=== PATIENT | female | born 1960 | race Caucasian/White ===

== ENCOUNTER → 2024-05-28 | Outpatient (CLI) | payer OTHER, SELFPAY ==
[2024-05-28 16:34] LABS: Troponin-I HS < 3 pg/mL (3.0-54.0)
== END | disposition home or self-care (01) ==
LOC: PSN 15:34
PROVIDERS: PCP Family Medicine
DX: K22.9 Disease of esophagus, unspecified (principal); R07.9 Chest pain, unspecified
CPT/HCPCS: 36415; 84484; 93005

== ENCOUNTER → 2024-06-24 | Outpatient (CLI) | payer OTHER, SELFPAY ==
--- NOTE | 2024-06-24 14:00 | ST.MBS ---
Modified Barium Swallow Patient Information Study Date: 06/24/24 Study Time: 13:00 Direct Billable Minutes: 100 Total Minutes procedure & reportin Diagnosis: K22.4 - Dyskinesia of esophagus Referring Physician: Israel Francis Reason for Referral: Objectively assess swallow function, assess risk for aspiration, and determine recommendations for least restrictive diet textures and compensatory strategies to improve safety of swallow.? Medical History: Susan Reid, a 64-year-old female, presents to [facility] for a Modified Barium Swallow Study after being referred by [facility] due to difficulty swallowing and a sensation of food getting stuck in her esophagus. She has a history of esophageal spasms and persistent throat pain and for the past 6-8 weeks, she has primarily consumed pudding and Jell-O to avoid these issues. Susan describes the stuck food sensation as mid-substernal and crushing, occasionally radiating to her left shoulder and upper arm, with pain that starts upon ingestion and persists until she swallows or regurgitates. Her medical history is significant for vitamin D and A deficiencies, ovarian cysts, overactive bladder, iron deficiency anemia, intestinal malabsorption, a history of Helicobacter pylori infection, type 2 diabetes mellitus, chronic constipation, and eosinophilic esophagitis, among other conditions. She takes Zofran as needed and dicyclomine daily, and her surgical history includes tubal ligation, total gastrectomy with Candido-en-Y esophagojejunal anastomosis, and cholecystectomy. Dentition: WNL Mental Status: WNL Respiratory Status: Oxygenating on Room Air Penetration-Aspiration Scale Penetration-Aspiration Scale: OBJECTIVE ASSESSMENT OF SWALLOW FUNCTION (QUANTITATIVE ? PER TRIAL): PENETRATION / ASPIRATION SCALE (FRENCH): 1 = does not enter airway 2 = enters airway/above vocal folds/ejected 3 = enters airway/above vocal folds/not ejected 4 = enters airway/contacts vocal folds/ejected 5 = enters airway/contacts vocal folds/not ejected 6 = enters airway/below vocal folds/ejected 7 = enters airway/below vocal folds/not ejected despite effort 8 = enters airway/below vocal folds/no effort VIDEOFLOROSCOPIC SCALE SCORE (FRENCH): Grade I = aspiration of material that has penetrated into the laryngeal vestibule, intact cough reflex Grade II = aspiration < 10 % of the bolus, intact cough reflex Grade III = aspiration of < 10 % of the bolus, reduced cough reflex or aspiration of > 10 % of the bolus, intact cough reflex Grade IV = aspiration of > 10 % of the bolus, reduced cough reflex Penetration-Aspiration Scale Score Thin Liquid via teaspoon: Result: 1= does not enter airway Thin Liquid via teaspoon Trial 2: Result: 1= does not enter airway Thin Liquid via small single sip: cup: Result: 1= does not enter airway Thin Liquid via sequential sips: cup: Result: 2= enter airway/above vocal folds/ejected [place] Thick Liquid via small single sip: cup: Result: 2= enter airway/above vocal folds/ejected [place] Thick Liquid via small single sip: cup: Result: 1= does not enter airway Pudding: Result: 1= does not enter airway Cookie: Result: 1= does not enter airway Oral Phase Labial Seal: No Labial Escape Tongue Control During Bolus Hold: Escape to lateral buccal cavity/floor of mouth Bolus Preparation/Mastication: Slow prolonged chewing/mashing with complete recollection Bolus Transport/Lingual Motion: Slowed tongue motion Oral Residue: Residue collection on oral structures Pharyngeal Phase Initiation of Pharyngeal Swallow: Bolus head at posterior laryngeal surgace of epiglottis Soft Palate Elevation: No bolus between soft palate and pharyngeal wall Laryngeal Elevation: Partial superior movement thyroid cart/partial apprx aryt-epig petiole Anterior Hyoid Excursion: Complete anterior movement Epiglottic Movement: Complete inversion Laryngeal Vestibule Closure at Height of Swallow: Complete; no air/contrast in laryngeal vestibule Pharyngeal Stripping Wave: Present - diminished Pharyngoesophageal Segment Opening: Complete distension and complete duration; no obstruction of flow Tongue Base Retraction: Narrow column of contrast between tongue base & post. pharyngeal wall Pharyngeal Residue: Collection of residue within or on pharyngeal structures Esophageal Phase Esophageal Clearance: Esophageal retention w/ retrograde flow below pharyngoesophageal seg. Diagnosis/Impression Diagnosis: esophageal dysphagia R13.14 Impression: -Laryngeal penetration was noted, which was fully ejected during sequential sips of thin liquid and NTL. This penetration caused by a delay in pharyngeal swallow onset, leading to suboptimal bolus positioning at the start of the swallow. -No aspiration was observed during the study. -Minimal pharyngeal residue was noted in the vallecula post-swallow, with a diminished pharyngeal stripping wave and reduced tongue base function contributing to the residue. The patient was able to independently swallow to clear the pharyngeal residues with multiple swallows. -The patient experienced some difficulty with half a [place] cookie, showing slowed mastication and delayed anterior-posterior transit. Multiple swallows were required to clear the cookie residue, with most of it remaining at the back of the tongue. -The patient denied any symptoms of esophageal discomfort or globus sensation during the modified barium swallow study. MOLECULAR TECHNOLOGIST observed immediate retention of liquid in the upper and mid esophagus after five sips of thin liquid, with noted retrograde flow below the upper esophageal sphincter during subsequent trials. Throughout the study, the retrograde flow increased, nearly reaching above the UES. Recommendations Diet: Regular Textures and Thin Liquids Compensatory Strategies: Small Bites, Small Sips, Slow Rate, Multiple Swallows, Alternate bites/solids and sips/liquids, Sitting upright and Remain sitting upright for 30 minutes after PO intake Recommend Repeat Modified Barium Swallow: No Need for Skilled Speech Therapy Services: No Recommended Referrals: GI Consult Education Completed: 1. Described result of evaluation. and 2. Pt understands evaluation & agrees with goals and treatment plan. Status Active ST Patient: Active Contact Information [facility] Speech Therapy:: Mary Jackman M.A. [facility]-MOLECULAR TECHNOLOGIST Speech-Language Pathologist [facility] [address] [place] [address] [phone]
== END | disposition home or self-care (01) ==
LOC: RAD 12:58
PROVIDERS: PCP Family Medicine
DX: K22.4 Dyskinesia of esophagus (principal)
CPT/HCPCS: 74230; 92611

== ENCOUNTER → 2024-07-09 | Day surgery (SDC) | payer OTHER, SELFPAY ==
[2024-07-09 08:29] VITALS: BP 108/52; PULSE 66; RESP 16; TEMP 36.6; O2SAT 99
[2024-07-09] MEDS: Lidocaine Jelly 2% 20 ML Syringe (URO-JET) 1 APPLIC (08:30)
== END | disposition home or self-care (01) ==
PROVIDERS: PCP Family Medicine; Referring Provider Family Medicine; Visit Provider Internal Medicine Gastroenterology
PROC: F00ZJWZ Instrumental Swallowing and Oral Function Assessment using Swallowing Equipment (ICD-10-PCS; CPT 43235; principal; 2024-07-09 08:25)
DX: Z53.8 Procedure and treatment not carried out for other reasons (principal)
CPT/HCPCS: 91010

== ENCOUNTER 2024-08-16 13:39 | Day surgery (SDC) | payer OTHER, SELFPAY ==
[2024-08-16] VITALS (8 sets, daily range): BP systolic 87–112; BP diastolic 57–71; PULSE 74–82; RESP 16; TEMP 36.1–36.8; O2SAT 97–99; BMI 26.2
--- NOTE | 2024-08-16 13:52 | HP.PCM_ITS ---
HPI - General General Date of Admission: 08/16/24 Date of Service: 08/16/24 Chief Complaint: dysphagia HPI Narrative 64 yo woman Pt here due to having a hard time swallowing food. States she has had esophageal spasms for years. Reports a pain in her throat all the time and has excess mucus when eating. Pt states she has L side abdominal pain and extreme fatigue. Has has irregular pattern BMs with mucus. Experiences constipation that is relieved with Dulcolax and drinking more more fluids. Pt takes Zofran prn and dicyclomine daily. She denies difficulty chewing, full upper/lower dentures. She does report difficulty pushing food back with tongue toward oropharynx. States her diet consists of pudding and jello for the last 6 weeks due to food getting stuck. Denies difficulty with these consistencies and liquids. She describes the stuck food pain as mid-substernal and crushing/grabbing with radiation occasionally to left shoulder and upper arm. She states that this pain starts as soon as she ingests something and does not go away until she can either swallow it or regurgitate back up and out. At this point in the exam, I entered an EKG and STAT troponin with 2hr reflex for her to get. [facility] Medical History Wears glasses Wears dentures Post-menopausal Depression Fatty liver Easy bruising Difficulty swallowing History of ulceration Gastric reflux Non-smoker History of edema Spasm Vitamin D deficiency Vitamin A deficiency Ovarian cyst Iron deficiency anemia Intestinal malabsorption History of Helicobacter pylori infection History of herpes labialis Type 2 diabetes mellitus Cervical dysplasia Anxiety Chronic abdominal pain Eosinophilic esophagitis Home Medications ?Medication ?Instructions ?Recorded ?Last Taken ?Type cyanocobalamin (vitamin B-12) 100 mcg IM Q7D 04/07/17 04/05/17 History 1,000 mcg/mL injection solution dicyclomine 10 mg capsule 10 mg PO TIDAC 04/07/17 Unknown History ergocalciferol (vitamin D2) 1,250 50,000 unit PO Q14D 04/07/17 Unknown History mcg (50,000 unit) capsule (Vitamin D2) tramadol 50 mg tablet 50 mg PO BID 04/07/17 Unknown History gabapentin 100 mg capsule 100 mg PO TID 04/24/24 Unknown History ondansetron HCl 4 mg tablet 4 mg PO Q6H PRN nausea and vomiting 04/24/24 Unknown History tizanidine 4 mg capsule 4 mg PO BID PRN muscle spasticity 04/24/24 Unknown History valacyclovir 1 gram tablet 1,000 mg PO DAILY PRN COLD SORE 04/24/24 Unknown History alprazolam 0.25 mg tablet 0.25 mg PO TID PRN swallowing 07/19/24 Unknown Rx difficulties 7 days #21 tabs bupropion HCl 150 mg 24 hr tablet, 150 mg PO 1200 08/15/24 Unknown History extended release citalopram 40 mg tablet 40 mg PO 1200 08/15/24 Unknown History pantoprazole 40 mg tablet,delayed 40 mg PO DAILY 08/15/24 Unknown History release Allergy/AdvReac Type Severity Reaction Status Date / Time buspirone (From BuSpar) Allergy Intermediate Other Verified 08/16/24 13:55 zolpidem (From Ambien) Allergy Intermediate Other Verified 08/16/24 13:55 meperidine (From Demerol) AdvReac HALLUCINATI Verified 08/16/24 13:55 ONS Family History Mother Diabetes Hypertension Father Cancer Emphysema lung Sister Thyroid disorder Brother Colon cancer Surgical History Hx of colonoscopy History of esophagogastroduodenoscopy (EGD) H/O tubal ligation S/P total gastrectomy and Candido-en-Y esophagojejunal anastomosis Hx of cholecystectomy Social History Smoking Status: Never smoker alcohol intake: never substance use type: does not use ROS Constitutional Constitutional: Denies fatigue, fever(s), poor appetite, weight gain or weight loss Gastrointestinal Gastrointestinal: Denies belching, bloating, change in bowel habits, change in stool character, chewing difficulty, coffee ground emesis, constipation, cramping, diarrhea, dyspepsia, dysphagia, early satiety, excessive flatus, fecal incontinence, heartburn, hematemesis, hematochezia, hemorrhoids, loose stools, melena, nausea, odynophagia, rectal bleeding, tenesmus, vomiting or weight changes Physical Exam Const alert, oriented x3, no apparent distress and healthy appearing General Appearance: cooperative GI normal to inspection, nondistended, normoactive bowel sounds, soft to palpation, non-tender and non-distended Percussion: normal to percussion Rectal Exam: deferred Assessment & Plan Assessment/Plan (1) Esophageal dysmotility: (2) Esophageal abnormality: PLAN: Plan 64-year-old comes in for evaluation of esophageal dysphagia who had a failed manometry study. She was explained alternatives, risk and benefits include not withstanding bleeding, infection, sepsis, perforation, need for more charge and . She will have an ASA of 3.
--- NOTE | 2024-08-16 14:11 | PRE.ANES_ITS ---
ASA Classification* ASA Classification ASA Classification: 2 Assessment & Plan Anesthesia* Anesthesia Assessment Anesthesia Assessment: Discussed sedation and/or anesthesia options, risks, benefits, and alternatives with patient/parents/legal guardian/POA. Questions invited. The patient/parents/legal guardian/POA seems to understand and agrees to proceed with anesthesia plan. Reviewed the physical assessment, medical history, allergy history and patient home medications list prior to surgery/procedure/anesthetic and documented any changes. Performed airway and anesthesia risk assessments. Anesthesia Type Anesthesia Type: MAC Anesthesia Focused Assessment* Temperature: 97.4 F Pulse Rate: 82 Blood Pressure: 112/71 Respiratory Rate: 16 Pulse Ox: 99 Airway Assessment Mouth opens: >3 cm Mallampati Score: II Focused Labs Anesthesia Preop lab: CBC WBC 5.6 K/mm3 (4.4-11.0) 04/07/17 12:18 RBC 4.28 M/mm3 (4.2-5.4) 04/07/17 12:18 Hgb 12.9 g/dl (12.0-15.0) 04/07/17 12:18 Hct 40.3 % (37-47) 04/07/17 12:18 Plt Count 287 K/mm3 (150-450) 04/07/17 12:18 CHEMISTRY Potassium 3.8 mmol/L (3.5-5.1) 04/07/17 12:18 Sodium 143 mmol/L (136-145) 04/07/17 12:18 BUN 11 mg/dL (7-18) 04/07/17 12:18 Creatinine 0.82 mg/dL (0.55-1.02) 04/07/17 12:18 Glucose 94 mg/dL (70-110) 04/07/17 12:18 COAG Pre-Assessment Diagnosis/Proposed Procedure Planned Operative Procedure(s): EGD Anesthesia History Anesthesia History - lead systems analyst: Anesthesia History - lead systems analyst Hx Hospitalization No 08/15/24 08:26 Any Problems With Anesthesia No 08/15/24 08:26 Cholinesterase deficiency No 08/15/24 08:26 You/Your Family Experience No 08/15/24 08:26 fever (hyperthermia) with Relationship Recent Exposure to Contagious No 08/16/24 13:55 Disease Does patient have nerve No 08/15/24 08:26 stimulator Patient instructed to have device shut off --Does patient have Pacemaker No 08/16/24 13:55 or ICD? When Was Last Pacemaker Check QUESTION #4 FULL TEXT: You/Your Family Experience fever (hyperthermia) with Anesthesia Last Oral Intake Last Oral intake: Last Oral Intake NPO since Meds taken in AM with sips of water? Meds patient instructed to take am of surgery PONV PONV - lead systems analyst: PONV - lead systems analyst Female Yes 08/15/24 08:26 HX of Motion Sickness No 08/15/24 08:26 HX of N/V After Surgery No 08/15/24 08:26 Non-Smoker Yes 08/15/24 08:26 Duration of Surgery greater No 08/15/24 08:26 than 60 minutes Number of Risk Factors 2 08/15/24 08:26 PONV Score Moderate Risk 08/15/24 08:26 Height & Weight Height & Weight: Anesthesia: Height & Weight Height 5 ft 2 in 08/16/24 13:55 Weight: 65 kg 08/16/24 13:55 Body Mass Index (BMI) 26.2 08/16/24 13:55 Respiratory Assessment Respiratory Assessment - lead systems analyst: Respiratory Tract Infection Hx - lead systems analyst Hx Respiratory Tract Infection No 08/15/24 08:26 STOP Sleep Apnea STOP Sleep Apnea - lead systems analyst: STOP Sleep Apnea - lead systems analyst Hx Hypertension No 08/15/24 08:26 Hx Sleep Apnea No 08/15/24 08:26 CPAP BIPAP Do you snore loudly (louder No 08/15/24 08:26 than talking or can be heard Do you often feel tired/ No 08/15/24 08:26 fatigued/ sleepy during daytime? Has anyone observed you stop No 08/15/24 08:26 breathing during sleep? STOP Results Negative 08/15/24 08:26 QUESTION #5 FULL TEXT : Do you snore loudly (louder than talking or can be heard through closed doors)? 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 Specify any problems ITCHING 08/15/24 08:26 Hx of Preganancy in last 3 No 08/15/24 08:26 Months Nurse Filling Out Transfusion DSCHRIBER 08/15/24 08:26 & Questions: Date: 08/15/24 08/15/24 08:26 Time: 08:27 08/15/24 08:26 Patient unable to answer at this time (ie. confused, unrespo /Reproduction History /Reproductive History - lead systems analyst: /Reproductive Hx- lead systems analyst Hx Now No 08/15/24 08:26 Gestational Age (in weeks): EDC: Hx Hx Para Hx Section SAB No 08/15/24 08:26 PFSH Medical History Wears glasses Wears dentures Post-menopausal Depression Fatty liver Easy bruising Difficulty swallowing History of ulceration Gastric reflux Non-smoker History of edema Spasm Vitamin D deficiency Vitamin A deficiency Ovarian cyst Iron deficiency anemia Intestinal malabsorption History of Helicobacter pylori infection History of herpes labialis Type 2 diabetes mellitus Cervical dysplasia Anxiety Chronic abdominal pain Eosinophilic esophagitis Home Medications ?Medication ?Instructions ?Recorded ?Last Taken ?Type cyanocobalamin (vitamin B-12) 100 mcg IM Q7D 04/07/17 04/05/17 History 1,000 mcg/mL injection solution dicyclomine 10 mg capsule 10 mg PO TIDAC 04/07/17 08/16/24 History ergocalciferol (vitamin D2) 1,250 50,000 unit PO Q14D 04/07/17 Unknown History mcg (50,000 unit) capsule (Vitamin D2) tramadol 50 mg tablet 50 mg PO BID 04/07/17 08/15/24 History gabapentin 100 mg capsule 100 mg PO TID 04/24/24 08/16/24 History ondansetron HCl 4 mg tablet 4 mg PO Q6H PRN nausea and vomiting 04/24/24 Unknown History tizanidine 4 mg capsule 4 mg PO BID PRN muscle spasticity 04/24/24 Unknown History valacyclovir 1 gram tablet 1,000 mg PO DAILY PRN COLD SORE 04/24/24 Unknown History alprazolam 0.25 mg tablet 0.25 mg PO TID PRN swallowing 07/19/24 08/16/24 Rx difficulties 7 days #21 tabs bupropion HCl 150 mg 24 hr tablet, 150 mg PO 1200 08/15/24 08/16/24 History extended release citalopram 40 mg tablet 40 mg PO 1200 08/15/24 08/16/24 History pantoprazole 40 mg tablet,delayed 40 mg PO DAILY 08/15/24 08/16/24 History release Allergy/AdvReac Type Severity Reaction Status Date / Time buspirone (From BuSpar) Allergy Intermediate Other Verified 08/16/24 13:55 zolpidem (From Ambien) Allergy Intermediate Other Verified 08/16/24 13:55 meperidine (From Demerol) AdvReac HALLUCINATI Verified 08/16/24 13:55 ONS Family History Mother Diabetes Hypertension Father Cancer Emphysema lung Sister Thyroid disorder Brother Colon cancer Surgical History Hx of colonoscopy History of esophagogastroduodenoscopy (EGD) H/O tubal ligation 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
[2024-08-16 14:20] LABS: Bedside Glucose 90 mg/dL (74-106)
[2024-08-16] MEDS: Botulinum Toxin A 100 Units Vial IJ (15:49)
[2024-08-16] MEDS: 0.9% Saline Lock 10 ML Syringe IV (15:49)
--- NOTE | 2024-08-16 16:01 | PCM.POST.ANE ---
Anesthesia: Postop Eval I Current Vital Signs Temperature: 97.4 F Pulse Rate: 78 Blood Pressure: 97/57 Respiratory Rate: 16 Pulse Ox: 97 Oxygen Delivery Method: Room Air Assessment Airway patent: Yes Spontaneous unlabored respirations: Yes Mental status: Asleep nausea: No Vomiting: No Anesthesia Complication: No Fluid Hydration Crystalloid volume administer (ml): 30 Total IV fluid infused: 30 Progress Note Anesthesia document: Postop Eval 1 completed: Yes
--- NOTE | 2024-08-16 16:05 | OP.EGD_ITS ---
Patient Name: Susan Reid Procedure Date: 08/16/2024 3:34 PM Date of : 1960 Age: 64 Procedure: Upper GI endoscopy Indications: Dysphagia Providers: Israel Francis DO Referring MD: Justen Jacobsen MD Medicines: Monitored Anesthesia Care Patient Profile: This is a 64 year old female. Refer to note in patient chart for documentation of history and physical. Patient has symptoms of dysphagia with both liquids and solids, chronic regurgitation and chronic vomiting. Complications: No immediate complications. Procedure: Pre-Anesthesia Assessment: - Prior to the procedure, a History and Physical was performed, and patient medications and allergies were reviewed. The patient is competent. The risks and benefits of the procedure and the sedation options and risks were discussed with the patient. All questions were answered and informed consent was obtained. Patient identification and proposed procedure were verified by the physician in the pre-procedure area. Mental Status Examination: alert and oriented. Airway Examination: normal oropharyngeal airway and neck mobility. Respiratory Examination: clear to auscultation. CV Examination: normal. Prophylactic Antibiotics: The patient does not require prophylactic antibiotics. Prior Anticoagulants: The patient has taken no anticoagulant or antiplatelet agents except for NSAID medication. ASA Grade Assessment: II - A patient with mild systemic disease. After reviewing the risks and benefits, the patient was deemed in satisfactory condition to undergo the procedure. The anesthesia plan was to use monitored anesthesia care (MAC). Immediately prior to administration of medications, the patient was re-assessed for adequacy to receive sedatives. The heart rate, respiratory rate, oxygen saturations, blood pressure, adequacy of pulmonary ventilation, and response to care were monitored throughout the procedure. The physical status of the patient was re-assessed after the procedure. After obtaining informed consent, the endoscope was passed under direct vision. Throughout the procedure, the patient's blood pressure, pulse, and oxygen saturations were monitored continuously. The Endoscope was introduced through the mouth, and advanced to the jejunum. The upper GI endoscopy was accomplished without difficulty. The patient tolerated the procedure well. Scope In: 3:43:11 PM Scope Out: 3:53:33 PM Total Procedure Duration Time 0 hours 10 minutes 22 seconds Findings: Abnormal motility was noted in the esophagus. The cricopharyngeus was abnormal. There are extra peristaltic waves in the esophageal body. The distal esophagus/lower esophageal sphincter is spastic, but gives up passage to the endoscope. Tertiary peristaltic waves are noted. Area was successfully injected with 100 units botulinum toxin. Evidence of a Candido-en-Y gastrojejunostomy was found. The gastrojejunal anastomosis was characterized by healthy appearing mucosa. This was traversed. The avqhf-[id number]-jqdvfye limb was characterized by healthy appearing mucosa. The jejunojejunal anastomosis was characterized by healthy appearing mucosa. The azjikfwj-lu-rvieubk limb was not examined as it could not be found. The excluded stomach was not examined as it could not be found. The examined jejunum was normal. Impression: - Abnormal esophageal motility, established achalasia. Injected with botulinum toxin. - Candido-en-Y gastrojejunostomy with gastrojejunal anastomosis characterized by healthy appearing mucosa. - Normal examined jejunum. - No specimens collected. Recommendation: - Discharge patient to home. - Resume regular diet. - Continue present medications. Procedure Code(s): --- Professional --- 90959, Esophagogastroduodenoscopy, flexible, transoral; with directed submucosal injection(s), any substance CPT copyright 2021 [employer]. All rights reserved. The codes documented in this report are preliminary and upon crab steamer review may be revised to meet current compliance requirements. Israel Francis DO 08/16/2024 4:05:13 PM This report has been signed electronically. Number of Addenda: 0 Note Initiated On: 08/16/2024 3:34 PM
--- NOTE | 2024-08-16 16:05 | OP.CCLET_ITS ---
08/16/2024 Justen Jacobsen MD Re : Upper GI endoscopy procedure for Susan Reid Dear Dr. Jacobsen This procedure was performed on Friday, August 16, 2024. My impressions and recommendations are as follows: Impressions : - Abnormal esophageal motility, established achalasia. Injected with botulinum toxin. - Candido-en-Y gastrojejunostomy with gastrojejunal anastomosis characterized by healthy appearing mucosa. - Normal examined jejunum. - No specimens collected. Recommendations : - Discharge patient to home. - Resume regular diet. - Continue present medications. My findings are described in the full procedure note, which is enclosed. If I can be of further assistance, please feel free to contact me at . Sincerely, Israel Francis, 08/16/2024 4:05:13 PM This report has been signed electronically.
--- NOTE | 2024-08-16 16:36 | PCM.POSTANE2 ---
Anesthesia Postop Eval I Sum Postop Eval Completion status Anesthesia document: Postop Eval 1 completed: Yes Anesthesia Postop Eval I Summary Anesthesia Postop Eval I Summary: Anesthesia Postop Eval I: Assessment Summary Airway patent Yes 08/16/24 16:02 [email or web address] Spontaneous unlabored Yes 08/16/24 16:02 [email or web address] respirations Mental status Asleep 08/16/24 16:02 [email or web address] nausea No 08/16/24 16:02 [email or web address] Vomiting No 08/16/24 16:02 [email or web address] Anesthesia Postop Eval I: Fluid Summary Crystalloid volume administer 30 08/16/24 16:02 [email or web address] (ml) Colloids volume administered ( ml) Blood Product volume administered (ml) Total IV fluid infused 30 08/16/24 16:02 [email or web address] Anesthesia Postop Eval I: Summary Notes Anesthesia Complication No 08/16/24 16:02 [email or web address] Anesthesia Complication Comment: Post-operative progress note Anesthesia: Postop Eval II Evaluation Mental status: Awake and Calm Pain Level: 0 nausea: No Vomiting: No Complications Anesthesia Complication: No
== END 2024-08-16 16:38 | disposition home or self-care (01) ==
LOC: EN 13:40 → AC 13:43
PROVIDERS: PCP Family Medicine; Referring Provider Family Medicine; Visit Provider Internal Medicine Gastroenterology
PROC: 0DJ08ZZ Inspection of Upper Intestinal Tract, Via Natural or Artificial Opening Endoscopic (ICD-10-PCS; CPT 43235; principal; 2024-08-16 14:55)
DX: K22.0 Achalasia of cardia (principal); E11.9 Type 2 diabetes mellitus without complications; K21.9 Gastro-esophageal reflux disease without esophagitis; Z79.899 Other long term (current) drug therapy; Z98.0 Intestinal bypass and anastomosis status
CPT/HCPCS: 43236; 82962; A4216; J0585; J2405

== ENCOUNTER → 2025-04-28 | Outpatient (CLI) | payer OTHER, SELFPAY ==
[2025-04-28 12:25] LABS: Hematocrit 35.9 % (37-47); Hemoglobin 11.6 g/dL (12.0-15.0); Immature Granulocytes Count 0.020 X10^3/uL (0.0-0.0); Mean Corp Hgb Conc 32.3 g/dL (32-36); Mean Corpuscular Volume 93.7 fL (81-99); Mean Platelet Vol. 10.8 fl (6.2-12.0); NRBC Flagged by Analyzer 0 % (0-5); Platelet Count 307 K/mm3 (150-450); RBC Distribution Width CV 13.4 % (11.6-14.6); RBC Distribution Width SD 46.1 fl (35.1-43.9); Red Blood Count 3.83 M/mm3 (4.2-5.4); White Blood Count 5.0 K/mm3 (4.4-11.0)
[2025-04-28 13:27] LABS: AST(SGOT) 18 U/L (<=31); Alanine Aminotransfer ALT/SGPT 16 U/L (<=34); Albumin, Serum 3.5 g/dL (3.4-4.8); Alkaline Phosphatase 124 U/L (35-104); Anion Gap 9 (5-15); BUN 9 mg/dL (4-19); BUN/Creat Ratio 11.8 RATIO (10-20); Calcium,Total 8.9 mg/dL (7.6-11.0); Carbon Dioxide 27.7 mmol/L (21.0-32.0); Chloride 100 mmol/L (98-108); Ferritin 81 ng/mL (22-378); Globulin 2.3 g/dL (2.2-4.2); Glucose 91 mg/dL (70-99); Potassium 4.2 mmol/L (3.3-5.1); Vitamin B12 912 pg/mL (180-914); Vitamin D,25 Hydroxy 71.4 ng/mL (30-100)
[2025-04-28 14:26] LABS: CRP < 3.00 mg/L (0.0-3.0); Iron 58 ug/dL (50-170); Lipase 14 U/L (13-75)
== END | disposition home or self-care (01) ==
LOC: LAB 11:30
PROVIDERS: PCP Family Medicine
DX: R11.0 Nausea (principal); R10.9 Unspecified abdominal pain; Z98.84 Bariatric surgery status
CPT/HCPCS: 36415; 80053; 82306; 82607; 82728; 83540; 83690; 84590; 85025; 86140

== ENCOUNTER → 2025-04-30 | Outpatient (CLI) | payer OTHER, SELFPAY ==
--- NOTE | 2025-04-30 16:45 | CT_ITS ---
PROCEDURE: ABDOMEN WITH ORAL CONT ONLY 04/30/2025 REASON FOR EXAM: LUQ PAIN TECHNIQUE: ABDOMEN WITH ORAL CONT ONLY coronal and Sagittal reconstruction series were provided. One or more dose reduction techniques were used (e.g., Automated exposure control, adjustment of the mA and/or kV according to patient size, use of iterative reconstruction technique RADIATION DOSE SUMMARY: CTDlvol: 6 mGy DLP: 201 mGycm FINDINGS: No prior studies for comparison. Oral contrast refluxes into the esophagus. Moderate hiatal hernia is present. There is a history of gastrectomy. With oral contrast administered, there is no evidence of bowel obstruction. No renal calculus. No hydronephrosis. Surgical absence of the gallbladder. Noncontrast images of the liver and spleen are unremarkable. Fatty change throughout the pancreas. CT/Abdomen WITH ORAL Cont Only IMPRESSION: Prior gastrectomy. Reflux into the esophagus. The lung bases are clear. [facility]
== END | disposition home or self-care (01) ==
LOC: CT 16:39
PROVIDERS: PCP Family Medicine
DX: R11.0 Nausea (principal); R10.9 Unspecified abdominal pain; Z98.84 Bariatric surgery status
CPT/HCPCS: 74150

== ENCOUNTER 2025-08-07 06:00 | Day surgery (SDC) | payer OTHER, SELFPAY ==
[2025-08-07] VITALS (8 sets, daily range): BP systolic 110–153; BP diastolic 65–80; PULSE 78–89; RESP 16–18; TEMP 36.3–36.6; O2SAT 97–100; BMI 21.9
--- OUTSIDE RECORDS SUMMARY | 2025-08-07 06:04 | XMS RPT_ITS | CCD ---
Author Organization [facility] Care Team Providers Care Tie Up Worker Name Role Phone Justen Darling MD Primary Care Provider Justen Darling MD Primary Care Provider Paz BAUMANN.Krystyna LINARES Unavailable Jody Cole PA-C Unavailable [phone] JUSTEN DARLING Primary Care Unavailable SAMSON PERALTA Attending Unavailable Paz COMPUTED TOMOGRAPHY SCANNER OPERATOR.Krystyna LINARES Unavailable Jody Cole PA-C Unavailable Dr. Justen Darling MD Primary Care Provider Dr. Justen Darling MD Referring Provider Yefri WASTEWATER DESIGN ENGINEERTonyaCBrenda Attending Provider Yefri WASTEWATER DESIGN ENGINEER-CBrenda Referring Provider Israel Francis Consulting Unavailable FriendIsrael Attending Unavailable Ann-Marie, Justen Primary Care Unavailable Ann-MarieJusten zapata Referring Unavailable FriendIsrael Attending Unavailable Ann-Marie, Justen Primary Care Unavailable Ann-Marie, Justen Referring Unavailable Brenda Asif Attending Unavailable Yefri, Brenda Referring Unavailable Ann-Marie, Justen Primary Care Unavailable Yefri, Brenda Referring Unavailable Ann-Marie, Justen Primary Care Unavailable Brenda Asif Attending Unavailable Falguni Arana Attending Unavailable Ann-Marie, Justen Referring Unavailable Ann-Marie, Justen Primary Care Unavailable Brenda Asif Attending Unavailable Ann-Marie, Justen Referring Unavailable Ann-Marie, Justen Primary Care Unavailable Brenda Asif Attending Unavailable Ann-Marie, Justen Referring Unavailable Ann-Marie, Justen Primary Care Unavailable JODY COLE Attending Unavailable JUSTEN DARLING Primary Care Unavailable JODY COLE Attending Unavailable JUSTEN DARLING Primary Care Unavailable JODY COLE Attending Unavailable JUSTEN DARLING Primary Care Unavailable JODY COLE Attending Unavailable JUSTEN DARLING Primary Care Unavailable JODY COLE Referring Unavailable JUSTEN DARLING Primary Care Unavailable JODY COLE Attending Unavailable JUSTEN DARLING Primary Care Unavailable JODY COLE Referring Unavailable JUSTEN DARLING Primary Care Unavailable Allergies Allergy Classification Reported Allergen(s) Allergy Type Date of Onset Reaction(s) Facility busPIRone (1 source) busPIRone Drug Allergy 9 Myalgia [facility] Iron-Dextran Complex (1 source) Iron-Dextran Complex Drug Allergy 1 Itching [facility] zolpidem (1 source) zolpidem Drug Allergy 0 Other: See Comments [facility] Work Phone: (20 sources) busPIRone; Translations: [BUSPIRONE HCL] Drug Allergy 9 Myalgia [facility] Work Phone: (20 sources) Iron-Dextran Complex; Translations: [IRON DEXTRAN] Drug Allergy 1 Itching [facility] Work Phone: (20 sources) zolpidem; Translations: [ZOLPIDEM] Drug Allergy 0 Other: See Comments [facility] Work Phone: (5 sources) busPIRone; Translations: [BUSPIRONE] Drug Allergy 9 Other [facility] Repository (5 sources) Meperidine; Translations: [MEPERIDINE] Drug Allergy 7 HALLUCINATIONS [facility] Repository (2 sources) FLUoxetine; Translations: [FLUOXETINE] Drug Allergy 5 Diarrhea [facility] (1 source) zolpidem Drug Allergy 5 [facility] Repository Medications Current Medications Medication Drug Class(es) Dates Sig (Normalized) Sig (Original) ANIMAL SHAPE VITAMINS CHEWABLE TAB (20 sources) Start: 02-20-2006 ANIMAL SHAPE VITAMINS CHEWABLE TAB takes 2 on occasion 0 02/20/2006 Active Comment on above: takes 2 on occasion Blood-Glucose Meter monitoring kit (20 sources) Start: 07-02-2021 Blood-Glucose Meter monitoring kit Indications: Controlled type 2 diabetes mellitus without complication, without long-term current use of insulin ([facility]) Glucose Meter of Choice - Kit - Dx: Type 2 DM - Controlled E11.9 1 Each 07/02/2021 Active Start: 07-02-2021 Blood-Glucose Meter monitoring kit Indications: Controlled type 2 diabetes mellitus without complication, without long-term current use of insulin ([facility]) Glucose Meter of Choice - Kit - Dx: Type 2 DM - Controlled E11.9 1 Each 0 07/02/2021 Active Comment on above: Glucose Meter of Cho ice - Kit - Dx: Type 2 DM - Controlled E11.9 24 hr buPROPion hydrochloride 150 mg extended release oral tablet (20 sources) Aminoketone Start: take 1 tablet by mouth once daily buPROPion XL (WELLBUTRIN XL) 150 mg 24 hr tablet Take 1 tablet by mouth once daily. 30 tablet 5 01/23/2025 Active Start: 08-15-2024 take 1 tablet by dinah every twenty-four hours Bupropion Hcl 150 mg tablet extended release 24 hr Active 150 mg PO 1200 August 15, 2024 1:00am Start: 06-29-2021 End: 07-26-2024 take 1 tablet by mouth once daily buPROPion XL (WELLBU LUIS XL) 150 mg 24 hr tablet Take 1 tablet by mouth once daily. 30 tablet 5 07/26/2024 Active Comment on above: Take 1 tablet by dinah once daily. cholecalciferol 1.25 mg oral capsule (20 sources) Vitamin D Start: 11-13-2023 cholecalciferol, Vitamin D3, (VITAMIN D3) 1,250 mcg (50,000 unit) cap capsule Take 1 capsule by mouth every 3 weeks. 4 capsule 3 11/13/2023 Active Start: 09-07-2021 End: 11-11-2023 cholecalciferol, Vitamin D3, (VITAMIN D3) 1,250 mcg (50,000 unit) cap capsule Take 1 capsule by mouth every 3 weeks. 4 capsule 3 10/18/2022 11/11/2023 Discontinued Comment on above: Take 1 capsule by mo [facility] every 3 weeks. citalopram 20 mg oral tablet (20 sources) Serotonin Reuptake Inhibitor Start: 04-30-2025 take 1 tablet by mouth once daily citalopram (CELEXA) 20 mg tablet Take 1 tablet by mouth once daily. 90 tablet 1 04/30/2025 Active Start: 01-23-2025 End: 08-07-2025 take 1.5 tablets by mouth once daily citalopram (CELEXA) 40 mg tablet Take 1.5 tablets by mouth once daily. 135 tablet 1 01/23/2025 08/07/2025 Active Start: 08-15-2024 End: 04-11-2025 Citalopram 40 mg tablet Disc ontinued 40 mg PO 1200 August 15, 2024 1:00am April 11, 2025 1:38pm Start: 06-29-2021 End: 11-04-2024 take 1.5 tablets by mouth once daily citalopram (CELEXA) 40 mg tablet Take 1.5 tablets by mouth once daily. 135 tablet 1 04/22/2024 Active Comment on above: Take 1.5 tablets by mouth once daily. dicyclomine hydrochloride 10 mg oral capsule (20 sources) Anticholinergic Start: 08-01-20 End: 02-26-20 take 2 capsules by mouth twice daily dicyclomine (BENTYL) 10 mg capsule Indications: Chronic abdominal pain Take 2 po BID 360 capsule 5 02/25/2025 Active Start: 04-07-2017 take 1 capsule by mo ut three times daily before mealtime Dicyclomine 10 MG capsule Active 10 mg PO THREE TIMES DAILY BEFORE MEALS April 07, 2017 12:00am Comment on above: Take 2 po BID ergocalciferol 1.25 mg oral capsule (3 sources) Provitamin D2 Compound Start: 04-07-20 17 Ergocalciferol (Vitamin D2) (Vitamin D) 50,000 UNIT capsule Active 17989 U PO Q14D April 07, 2017 12:00am FLUoxetine 40 mg oral capsule (5 sources) Serotonin Reuptake Inhibitor Start: 04-11-20 25 take 1 capsule by mouth once daily FLUoxetine (PROZAC) 40 mg capsule Take 1 capsule by mouth once daily. 30 capsule 5 04/11/2025 Active Start: 04-11-2025 take 1 capsule by mo uth once daily Fluoxetine (Prozac) 10 mg capsule Active 10 mg PO daily April 11, 2025 12:00am gabapentin 100 mg oral capsule (20 sources) Anti-epileptic Agent Start: 04-24-2024 take 1 capsule by mouth three times daily Gabapentin 100 mg capsule Active 100 mg PO THREE TIMES A DAY April 24, 2024 12:00am Start: 02-14-2023 End: 11-26-2024 gabapentin (NEURONTIN) 100 m g capsule Take two capsules in AM and one capsule in after noon and evening 360 capsule 1 07/30/2024 Active Start: 10-18-2021 End: 02-14-2023 gabapentin (NEURONTIN) 100 m g capsule Take one capsule three times a day. 90 capsule 3 05/26/2022 10/18/2022 Discontinued Comment on above: Take one capsule thr ee times a day. Take two capsules in AM and one capsule in after noon and evening hydrOXYzine hydrochloride 10 mg oral tablet (5 sources) Antihistamine Start: 04-11-20 take 1 tablet by mouth every eight hours as needed hydrOXYzine HCl (ATARAX) 10 mg tablet Take 1 tablet by mouth three times a day as needed. 90 tablet 1 04/11/2025 Active Start: 04-11-2025 take 1 capsule by mo [facility] at bedtime Hydroxyzine Pamoate (Vistaril) 25 mg capsule Active 25 mg PO AT BEDTIME April 11, 2025 12:00am LORazepam 1 mg oral tablet (3 sources) Benzodiazepine Start: 08-09-2022 End: 08-16-2022 take 1 tablet by mouth every eight hours as needed for anxiety LORazepam (ATIVAN) 1 mg tablet Indications: Panic disorder , Situational anxiety , Grief reaction Take 1 tablet by mouth every 8 hours as needed for anxiety for up to 7 days. 20 tablet 0 08/09/2022 08/16/2022 Active Start: 07-05-2022 End: 07-12-2022 take 1 tablet by mouth every eight hours as needed for anxiety LORazepam (ATIVAN) 1 mg tablet Indications: Panic disorder , Situational anxiety , Grief reaction Take 1 tablet by mouth every 8 hours as needed for anxiety for up to 7 days. 20 tablet 0 07/05/2022 07/12/2022 Active Comment on above: [facility] as needed for anxiety for up to 7 days. ondansetron 4 mg disintegrating oral tablet (20 sources) Serotonin-3 Receptor Antagonist Start: 04-11-20 End: 04-30-20 take 1 tablet by mouth every eight hours as needed ondansetron orally disintegrating (ZOFRAN ODT) 4 mg disintegrating tablet Take 1 tablet by mouth every 8 hours as needed for nausea/vomiting. 30 tablet 04/30/2025 Active Start: 01-23-2025 take 1 tablet by dinah th every eight hours as needed ondansetron orally disintegrating (ZOFRAN ODT) 4 mg disintegrating tablet Take 1 tablet by mouth every 8 hours as needed for nausea/vomiting. 30 tablet 01/23/2025 Active Start: 05-05-2024 End: 11-04-2024 take 1 tablet by mouth every eight hours as needed ondansetron orally disintegrating (ZOFRAN ODT) 4 mg disintegrating tablet Take 1 tablet by mouth every 8 hours as needed for nausea/vomiting. 30 tablet 11/04/2024 Active Start: 04-24-2024 take 1 tablet by dinah th every six hours as needed for nausea and vomiting Ondansetron Hcl 4 mg tablet Active 4 mg PO EVERY 6 HOURS as needed for nausea and vomiting April 24, 2024 12:00am Start: 09-15-2023 End: 05-03-2024 take 1 tablet by mouth every eight hours as needed ondansetron orally disintegrating (ZOFRAN ODT) 4 mg disintegrating tablet Take 1 tablet by mouth every 8 hours as needed for nausea/vomiting. 30 tablet 09/15/2023 05/03/2024 Discontinued Start: 09-15-2021 take 1 tablet by dinah th every eight hours as needed ondansetron orally disintegrating (ZOFRAN ODT) 4 mg disintegrating tablet Take 1 tablet by mouth every 8 hours as needed for nausea/vomiting. 30 tablet 0 09/15/2021 Active Comment on above: Take 1 tablet by dinah th every 8 hours as needed for nausea/vomiting. pantoprazole 40 mg delayed release oral tablet (20 sources) Proton Pump Inhibitor Start: 04-22-20 take 1 tablet by mouth once daily Pantoprazole 40 mg tablet,delayed release (DR/EC) Active 40 mg PO DAILY August 15, 2024 1:00am Start: 09-15-2023 End: 04-22-2024 take 1 tablet by mouth once daily pantoprazole DR (PROTONIX) 20 mg tablet Take 1 tablet by mouth once daily. 90 tablet 1 04/03/2024 04/22/2024 Discontinued Comment on above: Take 1 tablet by dinah once daily. polyethylene glycol 3350 46734 mg powder for oral solution (20 sources) Osmotic Laxative Start: 03-20-2018 polyethylene glycol 3350 (MIRALAX, GLYCOLAX) 17 gram/dose powder Indications: Chronic constipation Take 17 g by mouth once daily. Take one (1) capful in 8oz of liquid each day. 1 Bottle 11 03/20/2018 Active Comment on above: Take 17 g by mouth o nce daily. Take one (1) capful in 8oz of liquid each day. Syringe with Needle, Disp, (BD ECLIPSE LUER-ALIRIO SYRINGE) 1 mL 27 x 1/2" (20 sources) Start: 11-13-2023 Syringe with Needle, Disp, (BD ECLIPSE LUER-ALIRIO SYRINGE) 1 mL 27 x 1/2" USE TO INJECT ONCE A WEEK use as directed 12 Each 3 11/13/2023 Active Start: 11-14-2022 End: 11-11-2023 Syringe with Needle, Disp, ( BD ECLIPSE LUER-ALIRIO SYRINGE) 1 mL 27 x 1/2" USE TO INJECT ONCE A WEEK use as directed 12 Each 3 11/14/2022 11/11/2023 Discontinued Start: 11-14-2022 Syringe with N eedle, Disp, (BD ECLIPSE LUER-ALIRIO SYRINGE) 1 mL 27 x 1/2" USE TO INJECT ONCE A WEEK use as directed 12 Each 11/14/2022 Active Start: 04-13-2021 End: 11-14-2022 Syringe with Needle, Disp, ( BD ECLIPSE LUER-ALIRIO SYRINGE) 1 mL 27 x 1/2" USE TO INJECT ONCE A WEEK use as directed 12 Each 3 04/13/2021 11/14/2022 Discontinued Start: 04-13-2021 Syringe with N eedle, Disp, (BD ECLIPSE LUER-ALIRIO SYRINGE) 1 mL 27 x 1/2" USE TO INJECT ONCE A WEEK use as directed 12 Each 3 04/13/2021 Active Comment on above: USE TO INJECT ONCE A WEEK use as directed tiZANidine 4 mg oral tablet (20 sources) Central alpha-2 Adrenergic Agonist Start: 04-11-2025 take 1 tablet by mouth every twelve hours as needed tiZANidine (ZANAFLEX) 4 mg tablet Take 1 tablet by mouth two times a day as needed (muscle spasms). 60 tablet 5 04/11/2025 Active Start: 04-24-2024 take 1 capsule by mo ut twice daily as needed Tizanidine 4 mg capsule Active 4 mg PO TWICE A DAY as needed for muscle spasticity April 24, 2024 12:00am Start: 01-08-2024 End: 09-30-2024 take 1 tablet by mouth every twelve hours as needed tiZANidine (ZANAFLEX) 4 mg tablet Take 1 tablet by mouth two times a day as needed (muscle spasms). 60 tablet 5 09/30/2024 Active Start: 07-15-2023 End: 01-06-2024 take 1 tablet by mouth every twelve hours as needed tiZANidine (ZANAFLEX) 4 mg tablet Take 1 tablet by mouth two times a day as needed (muscle spasms). 60 tablet 5 07/15/2023 01/06/2024 Discontinued Start: 06-29-2021 End: 02-07-2023 take 1 tablet by mouth every twelve hours as needed tiZANidine (ZANAFLEX) 4 mg tablet Take 1 tablet by mouth twice daily as needed (muscle spasms). 60 tablet 5 02/07/2023 Active Comment on above: Take 1 tablet by dinah twice daily as needed (muscle spasms). Take 1 tablet by dinah th two times a day as needed (muscle spasms). valACYclovir 1000 mg oral tablet (20 sources) Herpesvirus Nucleoside Analog DNA Polymerase Inhibitor, Herpes Simplex Virus Nucleoside Analog DNA Polymerase Inhibitor, Herpes Zoster Virus Nucleoside Analog DNA Polymerase Inhibitor Start: 04-24-2024 Valacyclovir 1 gram tablet Active 1000 mg PO DAILY as needed for COLD SORE April 24, 2024 12:00am Start: 10-28-2020 End: 08-08-2024 valACYclovir (VALTREX) 1 gra m tablet Indications: Herpes simplex virus (HSV) infection Take 2 tablets by mouth two times a day. For total of 2 doses. 4 tablet 5 08/08/2024 Active Comment on above: Take 2 tablets by mo uth twice daily. For total of 2 doses. Take 2 tablets by [facility] two times a day. For total of 2 doses. vitamin b12 1 mg/ml injectable solution (20 sources) Vitamin B12 Start: 11-13-19 inject 1 mL by intramuscular injection every week cyanocobalamin 1,000 mcg/mL INJECT 1 ML INTRAMUSCULARLY ONCE EVERY WEEK 4 mL 4 11/13/2023 Active Start: 04-13-2021 End: 11-11-2023 inject 1 mL by intramuscular injection every week cyanocobalamin 1,000 mcg/mL INJECT 1 ML INTRAMUSCULARLY ONCE EVERY WEEK 4 mL 4 11/14/2022 11/11/2023 Discontinued Start: 04-07-2017 inject 100 ug by int ramuscular injection every week Cyanocobalamin (Vitamin B-12) 1,000 MCG/ML solution Active 100 ug IM Q7D April 07, 2017 12:00am Comment on above: INJECT 1 ML INTRAMUS CULARLY ONCE EVERY WEEK Completed/Discontinued Medications Medication Drug Class(es) Dates Sig (Normalized) Sig (Original) ALPRAZolam 0.25 mg oral tablet (6 sources) Benzodiazepine Start: 07-19-2024 End: 04-11-2025 take 1 tablet by mouth three times daily as needed Alprazolam 0.25 mg tablet Discontinued 0.25 mg PO THREE TIMES A DAY as needed for swallowing difficulties 21 7 1 September 02, 2024 1:59pm April 11, 2025 1:38pm celecoxib 50 mg oral capsule (3 sources) Nonsteroidal Anti-inflammatory Drug Start: 04-07-2017 End: 08-15-2024 Celecoxib (Celebrex) 50 MG capsule Discontinued 40 mg PO DAILY April 07, 2017 12:00am August 15, 2024 9:40am 24 hr oxybutynin chloride 10 mg extended release oral tablet (20 sources) Cholinergic Muscarinic Antagonist Start: 06-29-2021 End: 02-14-2023 take 1 tablet by mouth once daily oxybutynin ER (DITROPAN XL) 10 mg 24 hr tablet Indications: OAB (overactive bladder) Take 1 tablet by mouth once daily. 30 tablet 5 06/29/2021 02/14/2023 Discontinued (Lack of Efficacy) Comment on above: Take 1 tablet by [facility] once daily. predniSONE 10 mg oral tablet (3 sources) Start: 04-03-2024 End: 04-22-2024 predniSONE (DELTASONE) 10 mg tablet Take 6 tabs by mouth for 3 days then 4 tabs a day for 3 days then 2 tabs a day for 3 days and then 1 tab a day for 3 days. 39 tablet 04/03/2024 04/22/2024 Discontinued traMADol hydrochloride 50 mg oral tablet (20 sources) Opioid Agonist Start: 03-30-2025 End: 05-30-2025 take 1 tablet by mouth twice daily as needed traMADol (ULTRAM) 50 mg tablet Indications: Chronic abdominal pain Take 1 tablet by mouth two times a day as needed for up to 30 days. 60 tablet 03/31/2025 04/30/2025 Discontinued Start: 01-23-2025 End: 03-27-2025 take 1 tablet by mouth twice daily as needed traMADol (ULTRAM) 50 mg tablet Indications: Chronic abdominal pain Take 1 tablet by mouth two times a day as needed for up to 30 days. 60 tablet 02/25/2025 03/26/2025 Discontinued Start: 04-07-2017 End: 12-29-2024 take 1 tablet by mouth twice daily as needed traMADol (ULTRAM) 50 mg tablet Indications: Chronic abdominal pain Take 1 tablet by mouth two times a day as needed for up to 30 days. 60 tablet 10/30/2024 11/25/2024 Discontinued Comment on above: Take 1 tablet by dinah th twice daily as needed for up to 30 days. Do not start before November 29, 2021. Take 1 tablet by dinah th twice daily as needed for up to 30 days. Take 1 tablet by dinah th twice daily as needed for up to 30 days. Do not start before December 30, 2021. Take 1 tablet by dinah th twice daily as needed for up to 30 days. Do not start before January 28, 2022. Take 1 tablet by dinah th twice daily as needed for up to 30 days. Do not start before May 26, 2022. Take 1 tablet by dinah th twice daily as needed for up to 30 days. Do not start before June 25, 2022. Take 1 tablet by dinah th twice daily as needed for up to 30 days. Do not start before July 23, 2022. Take 1 tablet by dinah th twice daily as needed for up to 30 days. Do not start before November 17, 2022. Take 1 tablet by dinah th twice daily as needed for up to 30 days. Do not start before December 17, 2022. Take 1 tablet by dinah th twice daily as needed for up to 30 days. Do not start before January 14, 2023. Take 1 tablet by dinah th twice daily as needed for up to 30 days. Do not start before March 18, 2023. Take 1 tablet by dinah th twice daily as needed for up to 30 days. Do not start before April 17, 2023. Take 1 tablet by dinah th twice daily as needed for up to 30 days. Do not start before May 17, 2023. Take 1 tablet by dinah th two times a day as needed for up to 30 days. Do not start before June 17, 2023. Take 1 tablet by dinah th two times a day as needed for up to 30 days. Do not start before July 17, 2023. Take 1 tablet by dinah th two times a day as needed for up to 30 days. Do not start before August 16, 2023. Take 1 tablet by dinah th two times a day as needed for up to 30 days. Take 1 tablet by dinah th two times a day as needed for up to 30 days. Do not start before November 12, 2023. Problems Active Problems Problem Classification Problem Date Documented Da te Episodic/Chronic Adjustment disorders (2 sources) Grief finding; Translations: [Adjustment disorder with depressed mood] Chronic Anxiety disorders (20 sources) Mixed anxiety and depressive disorder; Translations: [Anxiety disorder, unspecified] Onset: 12-20-2013 10-25-2017 Chronic Diabetes mellitus without complication (20 sources) Type 2 diabetes mellitus without complication; Translations: [Type 2 diabetes mellitus without complications] Onset: 04-25-2017 04-25-2017 Chronic Disorders of lipid metabolism (1 source) Raised low density lipoprotein cholesterol; Translations: [Pure hypercholesterolemi a, unspecified] Chronic Esophageal disorders (20 sources) Eosinophilic esophagitis; Translations: [Eosinophilic esophagitis] Onset: 05-11-2016 08-31-2021 Chronic Genitourinary symptoms and ill-defined conditions (2 sources) Microscopic hematuria; Translations: [Other microscopic hematuria] Onset: 07-10-2025 10-09-2024 Episodic Immunity disorders (20 sources) Sarcoidosis; Translations: [Sarcoidosis, unspecified] 08-30-2021 Chronic Immunizations and screening for infectious disease (1 source) Encounter for immunization; Translations: [Encounter for immunization] Onset: 07-10-2025 Episodic Menstrual disorders (20 sources) Menometrorrhagia; Translations: [Excessive and frequent menstruation with irregular cycle] Onset: 06-30-2011 12-17-2014 Chronic Miscellaneous mental health disorders (20 sources) Primary insomnia; Translations: [Primary insomnia] Onset: 10-25-2017 10-25-2017 Chronic Mood disorders (1 source) Mood disorders; Translations: [Anxiety and depression] Onset: 10-25-2017 Nausea and vomiting (7 sources) Nausea; Translations: [Nausea] Onset: 07-10-2025 04-11-2025 Episodic Nonspecific chest pain (6 sources) Chest pain at rest; Translations: [Chest pain, unspecified] 05-28-2024 Episodic Nutritional deficiencies (20 sources) Vitamin D deficiency; Translations: [Vitamin D deficiency, unspecified] Onset: 12-18-2014 12-18-2014 Chronic Osteoporosis (20 sources) Senile osteoporosis; Translations: [Age-related osteoporosis without current pathological fracture] Onset: 05-19-2020 05-19-2020 Chronic Other connective tissue disease (1 source) Swelling of left lower limb; Translations: [Other specified soft tissue disorders] 04-22-2024 Episodic Other diseases of bladder and urethra (20 sources) Overactive bladder; Translations: [Overactive bladder] Onset: 05-28-2019 05-19-2020 Chronic Other gastrointestinal disorders (20 sources) Intestinal malabsorption; Translations: [Intestinal malabsorption, unspecified] Onset: 06-23-2015 05-19-2020 Chronic Other gastrointestinal disorders (20 sources) Malabsorption - iron; Translations: [Intestinal malabsorption, unspecified] Onset: 12-11-2020 12-25-2020 Chronic Other gastrointestinal disorders (6 sources) Malabsorption syndrome; Translations: [Other intestinal malabsorption] Chronic Other gastrointestinal disorders (1 source) Other intestinal malabsorption; Translations: [Other specified intestinal malabsorption (HCC)] Onset: 05-19-2020 Chronic Other gastrointestinal disorders (2 sources) Intestinal malabsorption, unspecified; Translations: [Malabsorption of iron (HCC)] Onset: 12-25-2020 Chronic Other gastrointestinal disorders (1 source) Abdominal bloating; Translations: [Abdominal distension (gaseous)] Episodic Other gastrointestinal disorders (1 source) Dysphagia; Translations: [Dysphagia, unspecified] Episodic Other gastrointestinal disorders (2 sources) Constipation, unspecified; Translations: [Constipation, unspecified] Onset: 11-10-2024 Episodic Other gastrointestinal disorders (1 source) Bariatric surgery status; Translations: [Bariatric surgery status] Onset: 07-10-2025 Episodic Other liver diseases (3 sources) Alkaline phosphatase raised; Translations: [Abnormal levels of other serum enzymes] Episodic Other nervous system disorders (20 sources) Piriformis syndrome; Translations: [Lesion of sciatic nerve, unspecified lower limb] Onset: 04-29-2015 05-11-2016 Chronic Other nervous system disorders (1 source) Other chronic pain; Translations: [Chronic abdominal pain] Onset: 05-05-2024 Chronic Residual codes; unclassified (1 source) Family history of cancer of colon; Translations: [Family history of malignant neoplasm of digestive organs] Episodic Residual codes; unclassified (1 source) Early satiety; Translations: [Early satiety] Episodic Past or Other Problems Problem Classification Problem Date Documented Da te Episodic/Chronic Abdominal pain (20 sources) Chronic abdominal pain; Translations: [Unspecified abdominal pain] Onset: 12-20-2013 Resolved: 02-10-2016 Episodic Deficiency and other anemia (20 sources) Iron deficiency anemia; Translations: [Iron deficiency anemia, unspecified] Onset: 03-03-2011 12-25-2020 Episodic Deficiency and other anemia (20 sources) Anemia; Translations: [Anemia, unspecified] Onset: 04-28-2015 08-30-2021 Episodic Deficiency and other anemia (1 source) Anemia, unspecified; Translations: [Anemia, unspecified type] Onset: 08-30-2021 Episodic Deficiency and other anemia (1 source) Iron deficiency anemia, unspecified; Translations: [Iron deficiency anemia, unspecified iron deficiency anemia type] Onset: 12-25-2020 Episodic Esophageal disorders (20 sources) Achalasia of esophagus; Translations: [Achalasia of cardia] Onset: 08-19-2024 08-19-2024 Episodic Intestinal infection (20 sources) Infection due to resistant bacteria; Translations: [Other specified bacterial intestinal infections] Onset: 12-28-2020 Resolved: 02-14-2023 12-28-2020 Episodic Nutritional deficiencies (20 sources) Cobalamin deficiency; Translations: [Deficiency of other specified B group vitamins] Onset: 12-18-2014 12-18-2014 Episodic Other aftercare (1 source) Other half-way (current) drug therapy; Translations: [Medication management] Onset: 12-29-2021 Episodic Other and unspecified benign neoplasm (20 sources) History of polyp of colon; Translations: [Personal history of colonic polyps] Onset: 12-17-2014 12-17-2014 Episodic Other gastrointestinal disorders (20 sources) Chronic constipation; Translations: [Other constipation] Onset: 12-20-2013 12-17-2014 Episodic Other gastrointestinal disorders (20 sources) Esophageal dysphagia; Translations: [Other dysphagia] Onset: 04-05-2018 04-05-2018 Episodic Other gastrointestinal disorders (1 source) Dysphagia, unspecified; Translations: [Dysphagia, unspecified] Onset: 09-14-2024 Episodic Other infections; including parasitic (20 sources) Personal history of other infectious and parasitic diseases; Translations: [History of COVID-19] Onset: 09-15-2021 12-29-2021 Episodic Other infections; including parasitic (20 sources) History of Helicobacter pylori infection; Translations: [Personal history of other infectious and parasitic diseases] Onset: 02-14-2023 02-14-2023 Episodic Other inflammatory condition of skin (20 sources) Oral lichen planus; Translations: [Other lichen planus] Onset: 12-20-2013 05-11-2016 Episodic Other non-traumatic joint disorders (20 sources) Bilateral hip joint pain; Translations: [Pain in right hip] Onset: 10-25-2017 11-14-2018 Episodic Other screening for suspected conditions (not mental disorders or infectious disease) (20 sources) Patient encounter status; Translations: [Encounter for screening mammogram for malignant neoplasm of breast] Onset: 12-25-2020 12-25-2020 Episodic Residual codes; unclassified (20 sources) FH: Thyroid disorder; Translations: [Family history of other endocrine, nutritional and metabolic diseases] Onset: 12-29-2021 Episodic Spondylosis; intervertebral disc disorders; other back problems (20 sources) Lumbago with sciatica; Translations: [Lumbago with sciatica, left side] Onset: 04-29-2015 06-02-2020 Episodic Unclassified (20 sources) Regurgitation; Translations: [Regurgitation] Onset: 02-10-2016 Resolved: 02-10-2016 02-10-2016 Unclassified (1 source) Patient encounter status 10-12-2024 Viral infection (20 sources) Verruca vulgaris of skin of scalp; Translations: [Viral wart, unspecified] Onset: 04-29-2015 05-11-2016 Episodic Results Test Name Value Interpretation Reference Range Facility Bacteria Ur Culton 5 Bacteria identified Cx Nom (U) ORGANISM ID: 1 10,000 -<50,000 CFU/ml Mixed microbiota No further workup Normal [facility] Comment on above: Performed By: #### 6 30-4 ####[facility] [id number] [place] [address] [place] Basic metabolic 2000 panelon 07-10-2025 Anion gap [Moles/Vol] 9 mmol/L Normal 8-15 [facility] Comment on above: Order Comment: Speci men Type: BLOOD SPECIMENOrdering Facility: [facility] Address: [address] [place] [address] Performed By: #### 2 4321-2 ####[facility] [id number] [place] [address] [place] Calcium [Mass/Vol] 9.1 mg/dL Normal 8.5-10.2 [facility] Comment on above: Order Comment: Speci men Type: BLOOD SPECIMENOrdering Facility: [facility] Address: [address] [place] [address] Performed By: #### 2 4321-2 ####[facility] [id number] [place] [address] [place] Chloride [Moles/Vol] 102 mmol/L Normal 98-107 [facility] Comment on above: Order Comment: Speci men Type: BLOOD SPECIMENOrdering Facility: [facility] Address: [address] [place] [address] Performed By: #### 2 4321-2 ####[facility] [id number] [place] [address] [place] CO2 [Moles/Vol] 26 mmol/L Normal 22-30 [facility] Comment on above: Order Comment: Speci men Type: BLOOD SPECIMENOrdering Facility: [facility] Address: [address] [place] [address] Performed By: #### 2 4321-2 ####[facility] [id number] [place] [address] [place] Creatinine [Mass/Vol] 0.87 mg/dL Normal 0.58-0.96 [facility] Comment on above: Order Comment: Speci men Type: BLOOD SPECIMENOrdering Facility: [facility] Address: [address] [place] [address] Performed By: #### 2 4321-2 ####[facility] [id number] [place] [address] [place] eGFRcr SerPlBld CKD-EPI 2020 75 mL/min/1.73m??? Normal >=60 [facility] Comment on above: Order Comment: Speci men Type: BLOOD SPECIMENOrdering Facility: [facility] Address: [address] [place] [address] Result Comment: Irma mated Glomerular Filtration Rate (eGFR) is calculated using the 2020 CKD-EPI creatinine equation. This equation utilizes serum creatinine, sex, and age as parameters. The creatinine assay has traceable calibration to isotope dilution-mass spectrometry. Refer to KDIGO guidelines for clinical interpretation. In patients with unstable renal function, e.g. those with acute kidney injury, the eGFR may not accurately reflect actual GFR. Performed By: #### 2 4321-2 ####[facility] [id number] [place] [address] [place] Glucose [Mass/Vol] 77 mg/dL Normal 74-99 [facility] Comment on above: Order Comment: Speci men Type: BLOOD SPECIMENOrdering Facility: [facility] Address: [address] [place] [address] Result Comment: The [place] Diabetes Association (ADA) provides guidance for cutoff values for fasting glucose and random glucose. The ADA defines fasting as no caloric intake for at least 8 hours. Fasting plasma glucose results between 100 to 125 mg/dL indicate increased risk for diabetes (prediabetes). Fasting plasma glucose results greater than or equal to 126 mg/dL meet the criteria for diagnosis of diabetes. In the absence of unequivocal hyperglycemia, results should be confirmed by repeat testing. In a patient with classic symptoms of hyperglycemia or hyperglycemic crisis, random plasma glucose results greater than or equal to 200 mg/dL meet the criteria for diagnosis of diabetes. Reference: Standards of Medical Care in Diabetes 2016, [place] Diabetes Association. Diabetes Care. 2016.39(Suppl 1). Performed By: #### 2 4321-2 ####[facility] [id number] [place] [address] [place] Potassium [Moles/Vol] 4.4 mmol/L Normal 3.7-5.1 [facility] Comment on above: Order Comment: Speci men Type: BLOOD SPECIMENOrdering Facility: [facility] Address: [address] [place] [address] Performed By: #### 2 1-2 ####[facility] [id number] [place] [address] [place] Sodium [Moles/Vol] 137 mmol/L Normal 136-144 [facility] Comment on above: Order Comment: Speci men Type: BLOOD SPECIMENOrdering Facility: [facility] Address: [address] [place] [address] Performed By: #### 2 1-2 ####[facility] [id number] [place] [address] [place] Urea nitrogen [Mass/Vol] 11 mg/dL Normal 7-21 [facility] Comment on above: Order Comment: Speci men Type: BLOOD SPECIMENOrdering Facility: [facility] Address: [address] [place] [address] Performed By: #### 2 4321-2 ####[facility] [id number] [place] [address] [place] CNOVon 07-10-2025 CNOV Office Visit (FAMPWS ) SUSAN REYES ([id number]) 1960 F Date Time Provider Department 07/10/25 9:00 AM [facility] During your visit today, we recorded the following information about you: Temperature Pulse Respiration Blood pressure 98 degrees 62/minute 16/minute 102/68 Weight Height 55.3 kg 1.565 m Jody Cole PA-C 07/10/2025 10:59 AM Signed Chief Complaint Patient presents with: Yearly Exam HPI Susan Reyes is a 65 year old female who presents here today for physical. Patient with hx of DM2, dysphagia, b12, insomnia, osteoporosis, anemia, depression/anxiety, and those as below. Diabetes Mellitus: - Checks blood sugars about once a week; readings in the 90s, occasionally up to 115. - Needs to schedule a diabetic eye exam. Osteoporosis: - Has not had a bone density scan in a few years. Urinary Frequency: - Feels like she has a UTI all the time. - Increased urinary frequency and urgency, with no waiting when she has to go. - Nocturia has been better but returned in the last couple of nights. Weight Loss: - Concerned about rapid weight loss. - Weight has been stable since April. - Does not feel hungry, eats out of habit. - History of binge eating and weighing over 200 lbs before gastrectomy. - Believes weight loss may be due to stress. - Has follow up with Gastro later today. Last 3 Encounter Wt Readings: Date: Wt: 07/10/2025 55.3 kg (122 lb) 04/30/2025 55.7 kg (122 lb 12.8 oz) 01/23/2025 57.6 kg (127 lb) Past medical history, appointments, medications, allergies reviewed. Previous Medical History PAST MEDICAL HISTORY Diagnosis Date Absolute anemia 04/28/2015 Had total Gastrectomy due to multiple polyps. Has malabsorption since. Achalasia 08/19/[address] Friend: Botox inject 08/2024 Age-related osteoporosis without current pathological fracture Anxiety and depression B12 deficiency 12/18/2014 Cervical dysplasia, moderate Chronic abdominal pain 12/20/2013 Secondary to post surgical adhesions. Takes gabapentin daily and tramadol PRN.. Controlled substance agreement signed 05/16/18, updated 04/13/2021 Chronic constipation 12/20/2013 Controlled type 2 diabetes mellitus without complication, without long-term current use of insulin ([facility]) 04/25/2017 Ophthalmology: Dr. [facility]. COVID-19 virus infection 09/15/202109/2021 Disorder of sacrum 07/27/2015 Encounter for diabetic foot exam ([facility]) 10/13/2018 Eosinophilic esophagitis 05/11/2016 Family history of thyroid disease 12/29/2021 Two sisters with hypothyroidism and one with Graves Dz. Gastric polyps H/O herpes labialis 08/12/2018 Herpes simplex virus (HSV) infection 05/28/2019 History of colonic polyps 12/17/2014 History of COVID-19 09/15/202109/2021 History of Helicobacter pylori infection 02/14/2023 Infection due to clarithromycin resistant Helicobacter pylori 12/28/202012/2020 Intestinal malabsorption ([facility]) 06/23/2015 Iron deficiency anemia 03/03/2011 Left-sided low back pain without sciatica 04/29/2015 Malabsorption of iron ([facility]) 12/11/2020 Menometrorrhagia 06/30/2011 OAB (overactive bladder) 05/28/2019 Oral lichen planus 12/20/2013 Ovarian cyst, right Pain of both hip joints 10/25/2017 Piriformis syndrome 04/29/2015 Primary insomnia 10/25/2017 Right-sided low back pain without sciatica 08/17/2016 Sarcoidosis Vitamin A deficiency 12/19/2014 Vitamin D deficiency 12/18/2014 Wart of scalp 04/29/2015 Previous Surgical History PAST SURGICAL HISTORY Procedure Laterality Date *STRESS TEST PC 05/11/2017 WNL CHOLECYSTECTOMY COLONOSCOPY 03/30/2005 normal with hemorrhoids COLONOSCOPY 01/07/2010 normal COLONOSCOPY 02/22/2022 COLONOSCOPY FLX DX W/COLLJ SPEC WHEN PFRMD 05/12/2016 Colonoscopy mac 5 year repeat not [address] Tong CONIZATION OF CERVIX LEEP EXCISION EGD 03/24/2005 nonspecific esophagitis EGD 01/05/2010 normal EGD 02/22/2022 EGD 01/20/2021 Normal ESOPHAGOGASTRODUODENOSCOPY TRANSORAL DIAGNOSTIC 02/10/2016 EGD mac PAST SURGICAL HISTORY OF 2002 gastricectomy, with jose daniel en Y resection PAST SURGICAL HISTORY OF iron infusions, Several infusions S BALLOON,UTERINE ABLATION 12983 08/25/2011 TRANSFUSION Several Trasfusions TUBAL LIGATION, Family History FAMILY HISTORY Problem Relation Age of Onset Diabetes Mother Hypertension Mother Cancer Father lymphatic Emphysema Father Hypothyroidism Sister Hypothyroidism Sister Graves Disease Sister Cancer Brother other (Mennigitis) Brother Colon Cancer Brother middle colon Cancer Brother stomach Heart disease Brother Patient Allergies ALLERGIES Allergen Reactions Iron Dextran Itching Fluoxetine Diarrhea Ambien [Zolpidem] Other: See Comments Nightmares. Buspar [Buspirone H* Myalgia Current Medications (more content not included)... Normal [facility] Gastroenterology Visit Repor ton 07-10-2025 Gastroenterology Visit Report [facility] [address] [place] [address] OFFICE VISIT Date of Service: 07/10/25 MR#: [id number] Acct: [id number] Name: SUSAN REYES Rep #: [id number] : 1960 Provider: MAT Mendoza Age/Sex: 65/F [place] [facility] Status: Signed Intake Vital Signs 08/16/24 13:55 07/10/25 12:30 Height 5 ft 2 in Weight: 122 lb Intake Visit Reasons: FU Chief Complaint: Dysphagia Track Service Worker Required: No Allergies buspirone (From BuSpar) Allergy (Intermediate, Verified 04/11/25 13:41) Other zolpidem (From Ambien) Allergy (Intermediate, Verified 04/11/25 13:41) Other meperidine (From Demerol) Adverse Reaction (Verified 04/11/25 13:41) HALLUCINATIONS Medications ???Medication ???Instructions ???Recorded ???Confirmed ???Type cyanocobalamin (vitamin B-12) 100 mcg IM Q7D 04/07/17 07/10/25 H istory 1,000 mcg/mL injection solution dicyclomine 10 mg capsule 10 mg PO TIDAC 04/07/17 07/10/25 H istory ergocalciferol (vitamin D2) 1,250 50,000 unit PO Q14D 04/07/1702/26 History mcg (50,000 unit) capsule (Vitamin D2) tramadol 50 mg tablet 50 mg PO BID 04/07/17 07/10/25 His tory gabapentin 100 mg capsule 100 mg PO TID 04/24/24 07/10/25 Hi story ondansetron HCl 4 mg tablet 4 mg PO Q6H PRN nausea and vomitin g 04/24/24 07/10/25 History tizanidine 4 mg capsule 4 mg PO BID PRN muscle spasticity 04/24/24 07/10/25 History valacyclovir 1 gram tablet 1,000 mg PO DAILY PRN COLD SORE 07/10/25 History bupropion HCl 150 mg 24 hr tablet, 150 mg PO 1200 08/15/24 07/10/25 History extended release pantoprazole 40 mg tablet,delayed 40 mg PO DAILY 08/15/24 07/10/25 History release hydroxyzine pamoate 25 mg capsule 25 mg PO QHS 04/11/25 07/10/25 Hi story (Vistaril) PFSH Medical History Wears glasses Wears dentures Post-menopausal Depression Fatty liver Easy bruising Difficulty swallowing History of ulceration Gastric reflux Non-smoker History of edema Spasm Vitamin D deficiency Vitamin A deficiency Ovarian cyst Iron deficiency anemia Intestinal malabsorption History of Helicobacter pylori infection History of herpes labialis Type 2 diabetes mellitus Cervical dysplasia Anxiety Chronic abdominal pain Eosinophilic esophagitis Surgical History Hx of colonoscopy History of esophagogastroduodenoscopy (EGD) H/O tubal ligation S/P total gastrectomy and Jose Daniel-en-Y esophagojejunal anastomosis Hx of cholecystectomy Family History Mother Diabetes Hypertension Father Cancer Emphysema lung Sister Thyroid disorder Brother Colon cancer Social History Smoking Status: Never smoker alcohol intake: never substance use type: does not use HPI HPI Chief Complaint: Dysphagia Details: SUSAN REYES, is a 65 F who presents to the office today for follow-up. 07.09.24 esophageal manometry-100% failure of swallows. Complete failure of peristalsis. Possible autoimmune rheumatological disorder, like scleroderma. Or symptomatic GERD. Recommend EGD. 08.16.24 EGD - Abnormal esophageal motility, established achalasia. Injected with botulinum toxin. - Jose Daniel-en-Y gastrojejunostomy with gastrojejunal anastomosis characterized by healthy appearing mucosa. - Normal examined jejunum. - No specimens collected. Last office visit with Brenda Asif [employer] for nausea not dependent on oral intake. She has left upper quadrant abdominal pain. Patient notes 30 pound weight loss since her EGD due to cutting out certain foods. CT abdomen pelvis 04/30/2025Prior gastrectomy. Reflux into the esophagus. The lung bases are clear. Labs 05/06/25; hemoglobin 11.6, alkaline phosphatase 124, otherwise normal OV 07/09/2025 -nausea is getting better -Worsening dysphagia, food getting stuck with every meal, endorses regurgitation -concerned about weight loss (20 lbs over the past 6 months) denies lifestyle changes -constipation alternating with loose stools -BM every other day -taking stool softener for constipation -colonoscopy around 4-5 years ago -brother had colon cancer 39 ROS Const Constitutional: Positive for fatigue and weight change (loss); No fever(s) ENT ENT: Positive for difficulty swallowing Gastro GI: Positive for abdominal pain, constipation, diarrhea, difficulty swallowing, nausea/dyspepsia and vomiting; No belching, bloating, change in bowel habits, change in stool character, coffee ground emesis, cramping, heartburn, feeling full early, excessive flatus, incontinent of stools, Vomiting blood/hematemesis, Blood in stool, l (more content not included)... Normal [facility] HbA1c (Bld)on 07-10-2025 Average glucose Estimated from glycated hemoglobin (Bld) [Mass/Vol] 123 mg/dL Normal [facility] Comment on above: Order Comment: Speci men Type: BLOOD SPECIMENOrdering Facility: [facility] Address: [address] [place] [address] [place] [address] Result Comment: eAG: (Estimated average glucose) is a calculated value from HgbA1c and is telephone service representative of the average blood glucose level in the last 2-3 month period. Performed By: #### 5 5454-3 ####[facility] [id number] [place] [address] [place] HbA1c (Bld) [Mass fraction] 5.9 % High 4.3-5.6 [facility] Comment on above: Order Comment: Speci men Type: BLOOD SPECIMENOrdering Facility: [facility] Address: [address] [place] [address] Result Comment: [place] Diabetes Association guidelines indicate that patients with HgbA1c in the range 5.7-6.4% are at increased risk for development of diabetes, and intervention by lifestyle modification may be beneficial. HgbA1c greater or equal to 6.5% is considered diagnostic of diabetes. Performed By: #### 5 5454-3 ####[facility] [id number] [address] [place] Urinalysis complete panel (U )on 07-10-2025 Bacteria LM.HPF (Urine sed) [#/Area] Negative Normal Negative [facility] Comment on above: Order Comment: Speci men Type: URINE SPECIMENOrdering Facility: [facility] Address: [address] [place] [address] Performed By: #### 2 4356-8 ####[facility] [id number] [address] [place] Bilirubin Ql (U) Negative Normal Negative [facility] Comment on above: Order Comment: Speci men Type: URINE SPECIMENOrdering Facility: [facility] Address: [address] [place] [address] Performed By: #### 2 4356-8 ####[facility] [id number] [address] [place] Clarity (Unsp spec) Clear Normal Clear [facility] Comment on above: Order Comment: Speci men Type: URINE SPECIMENOrdering Facility: [facility] Address: [address] [place] [address] Performed By: #### 2 4356-8 ####[facility] [id number] [address] [place] Color (U) Yellow Normal Yellow [facility] Comment on above: Order Comment: Speci men Type: URINE SPECIMENOrdering Facility: [facility] Address: [address] [place] [address] Performed By: #### 2 4356-8 ####[facility] [id number] [address] [place] Epithelial cells LM.HPF (Urine sed) [#/Area] None Seen Normal [facility] Comment on above: Order Comment: Speci men Type: URINE SPECIMENOrdering Facility: [facility] Address: [address] [place] [address] Performed By: #### 2 4356-8 ####[facility] [id number] [address] [place] Glucose Test strip (U) [Mass/Vol] Negative Normal Negative [facility] Comment on above: Order Comment: Speci men Type: URINE SPECIMENOrdering Facility: [facility] Address: [address] [place] [address] Performed By: #### 2 4356-8 ####[facility] [id number] [address] [place] Hemoglobin Ql (U) Negative Normal Negative [facility] Comment on above: Order Comment: Speci men Type: URINE SPECIMENOrdering Facility: [facility] Address: [address] [place] [address] Performed By: #### 2 4356-8 ####[facility] [id number] [address] [place] Hyaline casts (Urine sed) [#/Area] 0 /[LPF] Normal 0 /LPF [facility] Comment on above: Order Comment: Speci men Type: URINE SPECIMENOrdering Facility: [facility] Address: [address] [place] [address] Performed By: #### 2 4356-8 ####[facility] [id number] [place] [address] [place] Ketones Ql (U) Negative Normal Negative [facility] Comment on above: Order Comment: Speci men Type: URINE SPECIMENOrdering Facility: [facility] Address: [address] [place] [address] Performed By: #### 2 4356-8 ####[facility] [id number] [place] [address] [place] Leukocyte esterase Test strip Ql (U) Negative Normal Negative [facility] Comment on above: Order Comment: Speci men Type: URINE SPECIMENOrdering Facility: [facility] Address: [address] [place] [address] Performed By: #### 2 4356-8 ####[facility] [id number] [place] [address] [place] Nitrite Ql (U) Negative Normal Negative [facility] Comment on above: Order Comment: Speci men Type: URINE SPECIMENOrdering Facility: [facility] Address: [address] [place] [address] Performed By: #### 2 4356-8 ####[facility] [id number] [place] [address] [place] pH (U) 6.5 [pH] Normal 5.0-8.0 [facility] Comment on above: Order Comment: Speci men Type: URINE SPECIMENOrdering Facility: [facility] Address: [address] [place] [address] Performed By: #### 2 4356-8 ####[facility] [id number] [place] [address] [place] Protein (U) [Mass/Vol] Negative Normal Negative [facility] Comment on above: Order Comment: Speci men Type: URINE SPECIMENOrdering Facility: [facility] Address: [address] [place] [address] Performed By: #### 2 4356-8 ####[facility] [id number] [place] [address] [place] RBC LM.HPF (Urine sed) [#/Area] 0-2 /HPF Normal 0-2 /HPF [facility] Comment on above: Order Comment: Speci men Type: URINE SPECIMENOrdering Facility: [facility] Address: [address] [place] [address] Performed By: #### 2 4356-8 ####[facility] [id number] [place] [address] [place] Specific gravity (U) [Rel density] 1.014 Normal 1.005-1.03 0 [facility] Comment on above: Order Comment: Speci men Type: URINE SPECIMENOrdering Facility: [facility] Address: [address] [place] [address] Performed By: #### 2 4356-8 ####[facility] [id number] [place] [address] [place] Urobilinogen Ql (U) 1.0 EU/dL Normal 0.2-1.0 EU/dL [facility] Comment on above: Order Comment: Speci men Type: URINE SPECIMENOrdering Facility: [facility] Address: [address] [place] [address] Performed By: #### 2 4356-8 ####[facility] [id number] [place] [address] [place] WBC LM.HPF (Urine sed) [#/Area] 0-5 /HPF Normal 0-5 /HPF [facility] Comment on above: Order Comment: Speci men Type: URINE SPECIMENOrdering Facility: [facility] Address: [address] [place] [address] Performed By: #### 2 4356-8 ####[facility] [id number] [place] [address] [place] VITAMIN A (RETINOL), SERUM O R PLASMAon 07-10-2025 VITAMIN A (RETINOL) 0.36 mg/L Normal 0.30-1.20 [facility] Comment on above: Order Comment: Speci men Type: BLOOD SPECIMENOrdering Facility: [facility] Address: [address] [place] [address] Performed By: #### V SWATI ####[facility] [id number] [place] [address] VITAMIN A (RETINYL PALMITATE) <0.02 Normal 0.00-0.10 [facility] Comment on above: Order Comment: Speci men Type: BLOOD SPECIMENOrdering Facility: [facility] Address: [address] [place] [address] Performed By: #### V SWATI ####[facility] [id number] [place] [address] VITAMIN A, SERUM/PLASMA INTERPRETATION Normal Normal [facility] Comment on above: Order Comment: Speci men Type: BLOOD SPECIMENOrdering Facility: [facility] Address: [address] [place] [address] Result Comment: This test was developed and its performance characteristics determined by [employer]. It has not been cleared or approved by the [place] Food and Drug Administration. This test was performed in a CLIA certified laboratory and is intended for clinical purposes. Performed By: [address] [address] [employer] Glass Sawyer: Donnell Pitt MD, PhD CLIA Number: [id number] Performed By: #### V SWATI ####[facility] [id number] [place] [address] Vitamin A, Retinolon 025 VIT A, RETINOL 30.2 ug/dL Normal 22.0-69.5 [facility] Comment on above: Result Comment: Refe rence intervals for vitamin A determined from [facility] internal studies. Individuals with vitamin A less than 20 ug/dL are considered vitamin A deficient and those with serum concentrations less than 10 ug/dL are considered severely deficient. This test was developed and its performance characteristics determined by [facility]. It has not been cleared or approved by the Food and Drug Administration. Performed at: [facility] [id number] Single Stroke Preformer: Nikos Bowman MD, Phone: [phone] Performed By: #### L 100.0100, L506.1001, L500.4050, L501.6710, L3400.0920, L501.2450, L503.6150, L503.6550, L503.0106 ####[facility] [address] [place], [place], [address] Abdomen WITH ORAL Cont Onlyo n 04-30-2025 Abdomen WITH ORAL Cont Only [facility] Services [address] [place] [address] Abdomen WITH ORAL Cont Only MR#: [id number] Acct: [id number] Name: SUSAN REYES Rep #: [id number] : 1960 F 65 From: Brooks Thao MD PCP: Dr. 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 One or more dose reduction techniques were used (e.g., Automated exposure control, adjustment of the mA and/or kV according to patient size, use of iterative reconstruction technique RADIATION DOSE SUMMARY: CTDlvol: 6 mGy DLP: 201 mGycm FINDINGS: No prior studies for comparison. Oral contrast refluxes into the esophagus. Moderate hiatal hernia is present. There is a history of gastrectomy. With oral contrast administered, there is no evidence of bowel obstruction. No renal calculus. No hydronephrosis. Surgical absence of the gallbladder. Noncontrast images of the liver and spleen are unremarkable. Fatty change throughout the pancreas. CT/Abdomen WITH ORAL Cont Only IMPRESSION: Prior gastrectomy. Reflux into the esophagus. The lung bases are clear. Reading [facility] CC: VALERIO Asif; Dr. Justen Darling MD Workers Compensation Attorney: Signed [facility] CNOVon 04-30-2025 CNOV Office Visit (FAMPWS ) SUSAN REYES ([id number]) 1960 F Date Time Provider Department 04/30/25 1:40 PM [facility] During your visit today, we recorded the following information about you: Temperature Pulse Respiration Blood pressure 98.2 degrees 76/minute 12/minute 110/72 Weight 55.7 kg Jody Cole PA-C 04/30/2025 1:56 PM Signed Chief Complaint Patient presents with: Follow Up: Recheck anxiety HPI Susan Reyes is a 65 year old female who presents here today for recheck. Anxiety and Depression: - Susan Reyes was previously on citalopram 60 mg for years; recently reduced to 20 mg by splitting 40 mg tablets, noting improvement in anxiety and reduction in "crazy dreams." - Intolerant to fluoxetine due to GI side effects. - Currently taking Wellbutrin 150 mg. - Experiencing fatigue and poor sleep quality. - Recently lost weight. - Exploring counseling services at [facility] in [place]; awaiting insurance coverage confirmation. Past medical history, appointments, medications, allergies reviewed. Previous Medical History PAST MEDICAL HISTORY Diagnosis Date Absolute anemia 04/28/2015 Had total Gastrectomy due to multiple polyps. Has malabsorption since. Achalasia 08/19/2024 Seeing Friend: Botox inject 08/2024 Age-related osteoporosis without current pathological fracture Anxiety and depression B12 deficiency 12/18/2014 Cervical dysplasia, moderate Chronic abdominal pain 12/20/2013 Secondary to post surgical adhesions. Takes gabapentin daily and tramadol PRN.. Controlled substance agreement signed 05/16/18, updated 04/13/2021 Chronic constipation 12/20/2013 Controlled type 2 diabetes mellitus without complication, without long-term current use of insulin ([facility]) 04/25/2017 [facility] [place] [facility] COVID-19 virus infection 09/15/202109/2021 Disorder of sacrum 07/27/2015 Encounter for diabetic foot exam (HCC) 10/13/2018 Eosinophilic esophagitis 05/11/2016 Family history of thyroid disease 12/29/2021 Two sisters with hypothyroidism and one with Graves Dz. Gastric polyps H/O herpes labialis 08/12/2018 Herpes simplex virus (HSV) infection 05/28/2019 History of colonic polyps 12/17/2014 History of COVID-19 09/15/202109/2021 History of Helicobacter pylori infection 02/14/2023 Infection due to clarithromycin resistant Helicobacter pylori 12/28/202012/2020 Intestinal malabsorption ([facility]) 06/23/2015 Iron deficiency anemia 03/03/2011 Left-sided low back pain without sciatica 04/29/2015 Malabsorption of iron ([facility]) 12/11/2020 Menometrorrhagia 06/30/2011 OAB (overactive bladder) 05/28/2019 Oral lichen planus 12/20/2013 Ovarian cyst, right Pain of both hip joints 10/25/2017 Piriformis syndrome 04/29/2015 Primary insomnia 10/25/2017 Right-sided low back pain without sciatica 08/17/2016 Sarcoidosis Vitamin A deficiency 12/19/2014 Vitamin D deficiency 12/18/2014 Wart of scalp 04/29/2015 Previous Surgical History PAST SURGICAL HISTORY Procedure Laterality Date *STRESS TEST PC 05/11/2017 WNL CHOLECYSTECTOMY COLONOSCOPY 03/30/2005 normal with hemorrhoids COLONOSCOPY 01/07/2010 normal COLONOSCOPY 02/22/2022 COLONOSCOPY FLX DX W/COLLJ SPEC WHEN PFRMD 05/12/2016 Colonoscopy mac 5 year repeat not [address] Tong CONIZATION OF CERVIX LEEP EXCISION EGD 03/24/2005 nonspecific esophagitis EGD 01/05/2010 normal EGD 02/22/2022 EGD 01/20/2021 Normal ESOPHAGOGASTRODUODENOSCOPY TRANSORAL DIAGNOSTIC 02/10/2016 EGD mac PAST SURGICAL HISTORY OF 2002 gastricectomy, with jose daniel en Y resection PAST SURGICAL HISTORY OF iron infusions, Several infusions S BALLOON,UTERINE ABLATION 21977 08/25/2011 TRANSFUSION Several Trasfusions TUBAL LIGATION, Family History FAMILY HISTORY Problem Relation Age of Onset Diabetes Mother Hypertension Mother Cancer Father lymphatic Emphysema Father Hypothyroidism Sister Hypothyroidism Sister Graves Disease Sister Cancer Brother other (Mennigitis) Brother Colon Cancer Brother middle colon Cancer Brother stomach Heart disease Brother Patient Allergies ALLERGIES Allergen Reactions Iron Dextran Itching Fluoxetine Diarrhea Ambien [Zolpidem] Other: See Comments Nightmares. Buspar [Buspirone H* Myalgia Current Medications Current Outpatient Medications on File Prior to Visit Medication Sig tiZANidine (ZANAFLEX) 4 mg tablet Take 1 tablet by mouth two times a day as needed (muscle spasms). pantoprazole DR (PROTONIX) 40 mg tablet Take 1 tablet by mouth once daily. hydrOXYzine HCl (ATARAX) 10 mg tablet Take 1 tablet by mouth three times a day as needed. dicyclomine (BENTYL) 10 mg capsule Take 2 po BID buPROPion XL (WELLBUTRIN XL) 150 mg 24 hr tablet Take 1 tablet by mouth once daily. valACYclovir (VALTREX) 1 (more content not included)... Normal [facility] Absolute lymphocyte countOrd ered By: Brenda Asif on 04-28-2025 Lymphocytes Auto (Unsp spec) [#/Vol] 1.60 10*3/uL 0.83-4.51 [facility] Absolute neutrophil countOrd ered By: Brenda Asif on 04-28-2025 Neutrophils (Bld) [#/Vol] 2.8 10*3/uL 2.0-7.7 [facility] Anion gap in Serum or Plasma Ordered By: Brenda Asif on 04-28-2025 Anion gap [Moles/Vol] 9 mmol/L 5-15 [facility] Automated lymphocyte count a s percentage of total leukocytesOrdered By: Brenda Asif on 04-28-2025 Lymphocytes/100 WBC Auto (Unsp spec) 32.3 % 19-41 [facility] BUN/creatinine ratioOrdered By: Brenda Asif on 04-28-2025 Urea nitrogen/Creatinine [Mass ratio] 11.8 mg/mg 10-20 [facility] Basophil percentageOrdered B y: Brenda Asif on 04-28-2025 Basophils/100 WBC (Bld) 1.2 % High 0-1 [facility] Bilirubin, totalOrdered By: Brenda Asif on 04-28-2025 Bilirubin [Mass/Vol] 0.42 mg/dL 0.00-1.30 [facility] CBC W/Diff, Automatedon 04-05 Absolute Lymph 1.60 X10 3/uL Normal 0.83-4.51 [facility] Comment on above: Performed By: #### L 100.0100, L506.1001, L500.4050, L501.6710, L3400.0920, L501.2450, L503.6150, L503.6550, L503.0106 #### [facility] Laboratory [address] [place], [address] Absolute Neut 2.8 X10 3/uL Normal 2.0-7.7 [facility] Comment on above: Performed By: #### L 100.0100, L506.1001, L500.4050, L501.6710, L3400.0920, L501.2450, L503.6150, L503.6550, L503.0106 #### [facility] [address] [place], [address] Basophils/100 WBC (Bld) 1.2 % High 0-1 [facility] Comment on above: Performed By: #### L 100.0100, L506.1001, L500.4050, L501.6710, L3400.0920, L501.2450, L503.6150, L503.6550, L503.0106 #### [facility] [address] [place], [address] Eosinophils/100 WBC (Bld) 1.2 % Normal 0-5 [facility] Comment on above: Performed By: #### L 100.0100, L506.1001, L500.4050, L501.6710, L3400.0920, L501.2450, L503.6150, L503.6550, L503.0106 #### [facility] [address] [place], [address] Erythrocyte distribution width (RBC) [Ratio] 13.4 % Normal 11.6-14.6 [facility] Comment on above: Performed By: #### L 100.0100, L506.1001, L500.4050, L501.6710, L3400.0920, L501.2450, L503.6150, L503.6550, L503.0106 #### [facility] [address] [place], [address] Hematocrit (Bld) [Volume fraction] 35.9 % Low 37-47 [facility] Comment on above: Performed By: #### L 100.0100, L506.1001, L500.4050, L501.6710, L3400.0920, L501.2450, L503.6150, L503.6550, L503.0106 #### [facility] [address] [place], [address] (233) Hemoglobin (Bld) [Mass/Vol] 11.6 g/dL Low 12.0-15.0 [facility] Comment on above: Performed By: #### L 100.0100, L506.1001, L500.4050, L501.6710, L3400.0920, L501.2450, L503.6150, L503.6550, L503.0106 #### [facility] [address] [place], [address] (345) IG% 0.400 Normal 0.0-0.9 [facility] Comment on above: Result Comment: IG% - Immature Granulocytes (promyelocytes, myelocytes and metamyelocytes) > 1% indicates that a LEFT SHIFT is Present. Performed By: #### L 100.0100, L506.1001, L500.4050, L501.6710, L3400.0920, L501.2450, L503.6150, L503.6550, L503.0106 #### [facility] [address] [place], [address] Lymphocytes/100 WBC (Bld) 32.3 % Normal 19-41 [facility] Comment on above: Performed By: #### L 100.0100, L506.1001, L500.4050, L501.6710, L3400.0920, L501.2450, L503.6150, L503.6550, L503.0106 #### [facility] [address] [place], [address] MCH (RBC) [Entitic mass] 30.3 pg Normal 27.0-32.0 [facility] Comment on above: Performed By: #### L 100.0100, L506.1001, L500.4050, L501.6710, L3400.0920, L501.2450, L503.6150, L503.6550, L503.0106 #### [facility] [address] [place], [address] MCHC (RBC) [Mass/Vol] 32.3 g/dL Normal 32-36 [facility] Comment on above: Performed By: #### L 100.0100, L506.1001, L500.4050, L501.6710, L3400.0920, L501.2450, L503.6150, L503.6550, L503.0106 #### [facility] [address] [place], [address] MCV (RBC) [Entitic vol] 93.7 fL Normal 81-99 [facility] Comment on above: Performed By: #### L 100.0100, L506.1001, L500.4050, L501.6710, L3400.0920, L501.2450, L503.6150, L503.6550, L503.0106 #### [facility] [address] [place], [address] Monocytes/100 WBC (Bld) 7.7 % Normal 0-10 [facility] Comment on above: Performed By: #### L 100.0100, L506.1001, L500.4050, L501.6710, L3400.0920, L501.2450, L503.6150, L503.6550, L503.0106 #### [facility] [address] [place], [address] Neutrophils/100 WBC (Bld) 57.2 % Normal 47-70 [facility] Comment on above: Performed By: #### L 100.0100, L506.1001, L500.4050, L501.6710, L3400.0920, L501.2450, L503.6150, L503.6550, L503.0106 #### [facility] [address] [place], [address] Nucleated RBC (Bld) [#/Vol] 0 10*3/uL Normal 0-5 [facility] Comment on above: Performed By: #### L 100.0100, L506.1001, L500.4050, L501.6710, L3400.0920, L501.2450, L503.6150, L503.6550, L503.0106 #### [facility] [address] [place], [address] Platelet mean volume (Bld) [Entitic vol] 10.8 fL Normal 6.2-12.0 [facility] Comment on above: Performed By: #### L 100.0100, L506.1001, L500.4050, L501.6710, L3400.0920, L501.2450, L503.6150, L503.6550, L503.0106 #### [facility] [address] [place], [address] Platelets (Bld) [#/Vol] 307 10*3/uL Normal 150-450 [facility] Comment on above: Performed By: #### L 100.0100, L506.1001, L500.4050, L501.6710, L3400.0920, L501.2450, L503.6150, L503.6550, L503.0106 #### [facility] [address] [place], [address] RBC (Bld) [#/Vol] 3.83 10*6/uL Low 4.2-5.4 [facility] Comment on above: Performed By: #### L 100.0100, L506.1001, L500.4050, L501.6710, L3400.0920, L501.2450, L503.6150, L503.6550, L503.0106 #### [facility] [address], [address] RDW SD 46.1 fl High 35.1-43.9 [facility] Comment on above: Performed By: #### L 100.0100, L506.1001, L500.4050, L501.6710, L3400.0920, L501.2450, L503.6150, L503.6550, L503.0106 #### [facility] [address] [place], [address] WBC (Bld) [#/Vol] 5.0 10*3/uL Normal 4.4-11.0 [facility] Comment on above: Performed By: #### L 100.0100, L506.1001, L500.4050, L501.6710, L3400.0920, L501.2450, L503.6150, L503.6550, L503.0106 #### [facility] Laboratory [address] [place], [address] CRPon 04-28-2025 C-REACTIVE PROT < 3.00 Normal 0.0-3.0 [facility] Comment on above: Performed By: #### L 100.0100, L506.1001, L500.4050, L501.6710, L3400.0920, L501.2450, L503.6150, L503.6550, L503.0106 ####[facility] [address] [place], [address] Carbon dioxide, total [Moles /volume] in Central venous bloodOrdered By: Bredna Asif on 04-28-2025 CO2 [Moles/Vol] 27.7 mmol/L 21.0-32.0 [facility] Chloride assayOrdered By: Eris Asif on 04-28-2025 Chloride [Moles/Vol] 100 mmol/L 98-108 [facility] Comprehensive Metabolic Prof ilon 04-28-2025 Albumin [Mass/Vol] 3.5 g/dL Normal 3.4-4.8 [facility] Comment on above: Performed By: #### L 100.0100, L506.1001, L500.4050, L501.6710, L3400.0920, L501.2450, L503.6150, L503.6550, L503.0106 #### [facility] Laboratory [address] [place], [address] Albumin/Globulin [Mass ratio] 1.5 {ratio} Normal 0.9-2.4 [facility] Comment on above: Performed By: #### L 100.0100, L506.1001, L500.4050, L501.6710, L3400.0920, L501.2450, L503.6150, L503.6550, L503.0106 #### [facility] Laboratory [address] [place], [address] ALK PHOS 124 U/L High 35-104 [facility] Comment on above: Performed By: #### L 100.0100, L506.1001, L500.4050, L501.6710, L3400.0920, L501.2450, L503.6150, L503.6550, L503.0106 #### [facility] [address] [place], [address] ALT [Catalytic activity/Vol] 16 U/L Normal <=34 [facility] Comment on above: Performed By: #### L 100.0100, L506.1001, L500.4050, L501.6710, L3400.0920, L501.2450, L503.6150, L503.6550, L503.0106 #### [facility] [address] [place], [address] AST [Catalytic activity/Vol] 18 U/L Normal <=31 [facility] Comment on above: Performed By: #### L 100.0100, L506.1001, L500.4050, L501.6710, L3400.0920, L501.2450, L503.6150, L503.6550, L503.0106 #### [facility] [address] [place], [address] Bilirubin [Mass/Vol] 0.42 mg/dL Normal 0.00-1.30 [facility] Comment on above: Performed By: #### L 100.0100, L506.1001, L500.4050, L501.6710, L3400.0920, L501.2450, L503.6150, L503.6550, L503.0106 #### [facility] [address] [place], [address] BUN/CRE 11.8 RATIO Normal 10-20 [facility] Comment on above: Performed By: #### L 100.0100, L506.1001, L500.4050, L501.6710, L3400.0920, L501.2450, L503.6150, L503.6550, L503.0106 #### [facility] [address] [place], [address] Calcium [Mass/Vol] 8.9 mg/dL Normal 7.6-11.0 [facility] Comment on above: Performed By: #### L 100.0100, L506.1001, L500.4050, L501.6710, L3400.0920, L501.2450, L503.6150, L503.6550, L503.0106 #### [facility] [address] [place], [address] Chloride [Moles/Vol] 100 mmol/L Normal 98-108 [facility] Comment on above: Performed By: #### L 100.0100, L506.1001, L500.4050, L501.6710, L3400.0920, L501.2450, L503.6150, L503.6550, L503.0106 #### [facility] Laboratory [address] [place], [address] CO2 [Moles/Vol] 27.7 mmol/L Normal 21.0-32.0 [facility] Comment on above: Performed By: #### L 100.0100, L506.1001, L500.4050, L501.6710, L3400.0920, L501.2450, L503.6150, L503.6550, L503.0106 #### [facility] Laboratory [address] [place], [address] Creatinine [Mass/Vol] 0.80 mg/dL Normal 0.70-1.20 [facility] Comment on above: Performed By: #### L 100.0100, L506.1001, L500.4050, L501.6710, L3400.0920, L501.2450, L503.6150, L503.6550, L503.0106 #### [facility] Laboratory [address] [place], [address] GAP 9 Normal 5-15 [facility] Comment on above: Performed By: #### L 100.0100, L506.1001, L500.4050, L501.6710, L3400.0920, L501.2450, L503.6150, L503.6550, L503.0106 #### [facility] Laboratory [address] [place], [address] GFR/1.73 sq M.predicted among non-blacks MDRD (S/P/Bld) [Vol rate/Area] 82 mL/min/{1.73_m2} Normal >60 [facility] Comment on above: Result Comment: mL/m in/1.73m2 CKD-EPI Creatinine Equation (2020) Performed By: #### L 100.0100, L506.1001, L500.4050, L501.6710, L3400.0920, L501.2450, L503.6150, L503.6550, L503.0106 #### [facility] [address] [place], [address] Globulin (S) [Mass/Vol] 2.3 g/dL Normal 2.2-4.2 [facility] Comment on above: Performed By: #### L 100.0100, L506.1001, L500.4050, L501.6710, L3400.0920, L501.2450, L503.6150, L503.6550, L503.0106 #### [facility] [address] [place], [address] Glucose [Mass/Vol] 91 mg/dL Normal 70-99 [facility] Comment on above: Performed By: #### L 100.0100, L506.1001, L500.4050, L501.6710, L3400.0920, L501.2450, L503.6150, L503.6550, L503.0106 #### [facility] [address] [place], [address] Potassium [Moles/Vol] 4.2 mmol/L Normal 3.3-5.1 [facility] Comment on above: Performed By: #### L 100.0100, L506.1001, L500.4050, L501.6710, L3400.0920, L501.2450, L503.6150, L503.6550, L503.0106 #### [facility] [address] [place], [address] Sodium [Moles/Vol] 137 mmol/L Normal 133-145 [facility] Comment on above: Performed By: #### L 100.0100, L506.1001, L500.4050, L501.6710, L3400.0920, L501.2450, L503.6150, L503.6550, L503.0106 #### [facility] [address] [place], [address] T PROT 5.8 g/dL Low 5.9-8.4 [facility] Comment on above: Performed By: #### L 100.0100, L506.1001, L500.4050, L501.6710, L3400.0920, L501.2450, L503.6150, L503.6550, L503.0106 #### [facility] [address], [address] Urea nitrogen [Mass/Vol] 9 mg/dL Normal 4-19 [facility] Comment on above: Performed By: #### L 100.0100, L506.1001, L500.4050, L501.6710, L3400.0920, L501.2450, L503.6150, L503.6550, L503.0106 #### [facility] [address] [place], [address] Eosinophil percentageOrdered By: Brenda Asif on 04-28-2025 Eosinophils/100 WBC (Bld) 1.2 % 0-5 [facility] Erythrocyte distribution wid th ratioOrdered By: Brenda Asif on 04-28-2025 Erythrocyte distribution width (RBC) [Ratio] 13.4 % 11.6-14.6 [facility] Erythrocyte distribution wid th standard deviationOrdered By: Brenda Asif on 04-28-2025 Erythrocyte distribution width (RBC) [Ratio] 46.1 fl High 35.1-43.9 [facility] Ferritinon 04-28-2025 Ferritin [Mass/Vol] 81 ng/mL Normal 22-378 [facility] Comment on above: Performed By: #### L 100.0100, L506.1001, L500.4050, L501.6710, L3400.0920, L501.2450, L503.6150, L503.6550, L503.0106 #### [facility] [address] [place], [address] Glomerular filtration rate ( GFR) estimation/1.73 sq m using serum, plasma, or whole bOrdered By: Brenda Asif on 04-28-2025 GFR/1.73 sq M.predicted among non-blacks MDRD (S/P/Bld) [Vol rate/Area] 82 mL/min/{1.73_m2} >60 [facility] Comment on above: mL/min/1.73m2 CKD-EP I Creatinine Equation (2020) Hematocrit Auto (Bld) [Volum e fraction]Ordered By: Brenda Asif on 04-28-2025 Hematocrit (Bld) [Volume fraction] 35.9 % Low 37-47 [facility] Hemoglobin measurementOrdere d By: Brenda Asif on 04-28-2025 Hemoglobin (Bld) [Mass/Vol] 11.6 g/dL Low 12.0-15.0 [facility] Immature granulocytes/100 WB C Auto (Bld)Ordered By: Brenda Asif on 04-28-2025 Immature granulocytes/100 WBC (Bld) 0.400 % 0.0-0.9 [facility] Comment on above: IG% - Immature Granu locytes (promyelocytes, myelocytes and metamyelocytes) > 1% indicates that a LEFT SHIFT is Present. Ironon 04-28-2025 Iron [Mass/Vol] 58 ug/dL Normal 50-170 [facility] Comment on above: Performed By: #### L 100.0100, L506.1001, L500.4050, L501.6710, L3400.0920, L501.2450, L503.6150, L503.6550, L503.0106 ####[facility] [address] [place], [place], [id number] Iron measurement (mass/mass) Ordered By: Brenda Asif on 04-28-2025 Iron (Unsp spec) [Mass/Mass] 58 ug/dL 50-170 [facility] - Chemistry and C hemistry - challengeOrdered By: Brenda Asif on 04-28-2025 AST [Catalytic activity/Vol] 18 U/L <32 [facility] Lipaseon 04-28-2025 Lipase [Catalytic activity/Vol] 14 U/L Normal 13-75 [facility] Comment on above: Result Comment: Annia ansari note: LIPASE revised reference range effective 22. New Lipase methodology. Expected to produce lower values than the previous assay method. NEW Reference Range: 13 - 75 U/L Performed By: #### L 100.0100, L506.1001, L500.4050, L501.6710, L3400.0920, L501.2450, L503.6150, L503.6550, L503.0106 #### [facility] [address] [place], [place], [id number] Lipase measurementOrdered By : Brenda Asif on 04-28-2025 Lipase [Catalytic activity/Vol] 14 U/L 13-75 [facility] Comment on above: Please note:LIPASE r evised reference range effective 22. New Lipase methodology. Expected to produce lower values than the previous assay method. NEW Reference Range: 13 - 75 U/L MCV (mean corpuscular volume ) determinationOrdered By: Brenda Asif on 04-28-2025 MCV (RBC) [Entitic vol] 93.7 fL 81-99 [facility] Mean corpuscular hemoglobin (MCH) determinationOrdered By: Brenda Asif on 04-28-2025 MCH (RBC) [Entitic mass] 30.3 pg 27.0-32.0 [facility] Mean corpuscular hemoglobin concentration (MCHC) determinationOrdered By: Brenda Asif on 04-28-2025 MCHC (RBC) [Mass/Vol] 32.3 g/dL 32-36 [facility] Mean platelet volume determi nationOrdered By: Brenda Asif on 04-28-2025 Platelet mean volume (Bld) [Entitic vol] 10.8 fL 6.2-12.0 [facility] Monocyte percentageOrdered B y: Brenda Asif on 04-28-2025 Monocytes/100 WBC (Bld) 7.7 % 0-10 [facility] Neutrophil percentageOrdered By: Brenda Asif on 04-28-2025 Neutrophils/100 WBC (Bld) 57.2 % 47-70 [facility] Nucleated red blood cell per centageOrdered By: Brenda Asif on 04-28-2025 Nucleated RBC/100 WBC (Bld) [Ratio] 0 % 0-5 [facility] Platelet countOrdered By: Eris Asif on 04-28-2025 Platelets (Bld) [#/Vol] 307 10*3/uL 150-450 [facility] Potassium measurement (mass/ volume)Ordered By: Brenda Asif on 04-28-2025 Potassium (Unsp spec) [Mass/Vol] 4.2 mmol/L 3.3-5.1 [facility] RBC Auto (Bld) [#/Vol]Ordere d By: Brenda Asif on 04-28-2025 RBC (Bld) [#/Vol] 3.83 10*6/uL Low 4.2-5.4 [facility] Serum creatinine measurement (mass/volume)Ordered By: Brenda Asif on 04-28-2025 Creatinine [Mass/Vol] 0.80 mg/dL 0.70-1.20 [facility] Serum globulin measurementOr dered By: Brenda Asif on 04-28-2025 Globulin (S) [Mass/Vol] 2.3 g/dL 2.2-4.2 [facility] Serum glucose measurement (m ass/volume)Ordered By: Brenda Asif on 04-28-2025 Glucose [Mass/Vol] 91 mg/dL 70-99 [facility] Serum or plasma C reactive p rotein measurement (mass/volume)Ordered By: Brenda Asif on 04-28-2025 CRP [Mass/Vol] mg/L 0.0-3.0 [facility] Serum or plasma alanine christian otransferase (ALT) measurementOrdered By: Brenda Asif on 04-28-2025 ALT [Catalytic activity/Vol] 16 U/L <35 [facility] Serum or plasma albumin sharmaine urement (mass/volume)Ordered By: Brenda Asif on 04-28-2025 Albumin [Mass/Vol] 3.5 g/dL 3.4-4.8 [facility] Serum or plasma albumin/glob ulin mass ratioOrdered By: Brenda Asif on 04-28-2025 Albumin/Globulin [Mass ratio] 1.5 {ratio} 0.9-2.4 [facility] Serum or plasma alkaline melissa sphatase measurementOrdered By: Brenda Asif on 04-28-2025 ALP [Catalytic activity/Vol] 124 U/L High 35-104 [facility] Serum or plasma calcium sharmaine urement (mass/volume)Ordered By: Brenda Asif on 04-28-2025 Calcium [Mass/Vol] 8.9 mg/dL 7.6-11.0 [facility] Serum or plasma ferritin pamela surement (mass/volume)Ordered By: Brenda Asif on 04-28-2025 Ferritin [Mass/Vol] 81 ng/mL 22-378 [facility] Serum or plasma urea nitroge n measurement (mass/volume)Ordered By: Brenda Asif on 04-28-2025 Urea nitrogen [Mass/Vol] 9 mg/dL 4-19 [facility] Sodium levelOrdered By: Lang Asif on 04-28-2025 Sodium [Moles/Vol] 137 mmol/L 133-145 [facility] Total proteinOrdered By: Ray Asif on 04-28-2025 Protein [Mass/Vol] 5.8 g/dL Low 5.9-8.4 [facility] Vitamin B12on 04-28-2025 Cobalamin (Vitamin B12) [Mass/Vol] 912 pg/mL Normal 180-914 [facility] Comment on above: Performed By: #### L 100.0100, L506.1001, L500.4050, L501.6710, L3400.0920, L501.2450, L503.6150, L503.6550, L503.0106 #### [facility] [address] [place], [place], [address] Vitamin B12 ser/plasOrdered By: Brenda Asif on 04-28-2025 Cobalamin (Vitamin B12) [Mass/Vol] 912 pg/mL 180-914 [facility] Vitamin D,25 Hydroxyon 04-28 Vitamin D 25-OH 71.4 ng/mL Normal 30-100 [facility] Comment on above: Result Comment: [place] min D Status Deficiency: <20 ng/mL (50nmol/L) Insufficiency: 20-30 ng/mL (50-75 nmol/L) Sufficiency: 30-100 ng/mL (75-250 nmol/L) Toxicity: >100 ng/mL (>250 nmol/L) Performed By: #### L 100.0100, L506.1001, L500.4050, L501.6710, L3400.0920, L501.2450, L503.6150, L503.6550, L503.0106 #### [facility] [address] [place], [address] White blood cell (WBC) count Ordered By: Brenda Asif on 04-28-2025 WBC (Bld) [#/Vol] 5.0 10*3/uL 4.4-11.0 [facility] CNOVon 04-11-2025 [facility] SUSAN REYES ([id number]) 1960 F Date Time Provider Department 04/11/25 8:40 AM [facility] During your visit today, we recorded the following information about you: Temperature Pulse Respiration Blood pressure 98.1 degrees 81/minute 16/minute 112/80 Jody Cole PA-C 04/11/2025 10:28 AM Signed Chief Complaint Patient presents with: left lower sided pain x 5-6 months: Also having anxiety HPI Susan Reyes is a 65 year old female who presents here today for recheck. Anxiety: - Worsening anxiety symptoms over the past year. - Describes a persistent feeling that "something bad is going to happen." - Recent episodes of palpitations, including one severe episode while driving. - History of anxiety well-managed in the past; previously on Ativan daily for years but was able to discontinue. - Recent triggers include the of a friend and multiple funerals in the past three weeks. - Currently taking Celexa 60 mg daily. - Has tried BuSpar in the past but experienced severe leg and feet cramps. - Has not tried Prozac. - Discussed Vistaril previously but was hesitant due to potential interactions with current medications. 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 - Unable to tolerate Ambien due to vivid nightmares. - Has tried Effexor XR in the past but had a negative experience. - Has not tried Paxil. - [facility] but feels the counseling is not addressing the true anxiety component. - Denies current suicidal ideation - Has stopped watching the news due to increased anxiety. Nightmares: - Experiencing "horrible nightmares" that have led to falling out of bed twice in one night, resulting in bruises on her chin and hip. - Believes the nightmares are related to anxiety. - Currently sleeping on the couch to avoid disturbing her . Past medical history, appointments, medications, allergies reviewed. Previous Medical History PAST MEDICAL HISTORY Diagnosis Date Absolute anemia 04/28/2015 Had total Gastrectomy due to multiple polyps. Has malabsorption since. Achalasia 08/19/2024 Seeing . Friend: Botox inject 08/2024 Age-related osteoporosis without current pathological fracture Anxiety and depression B12 deficiency 12/18/2014 Cervical dysplasia, moderate Chronic abdominal pain 12/20/2013 Secondary to post surgical adhesions. Takes gabapentin daily and tramadol PRN.. Controlled substance agreement signed 05/16/18, updated 04/13/2021 Chronic constipation 12/20/2013 Controlled type 2 diabetes mellitus without complication, without long-term current use of insulin (HCC) 04/25/2017 Ophthalmology: [facility] COVID-19 virus infection 09/15/202109/2021 Disorder of sacrum 07/27/2015 Encounter for diabetic foot exam ([facility]) 10/13/2018 Eosinophilic esophagitis 05/11/2016 Family history of thyroid disease 12/29/2021 Two sisters with hypothyroidism and one with Graves Dz. Gastric polyps H/O herpes labialis 08/12/2018 Herpes simplex virus (HSV) infection 05/28/2019 History of colonic polyps 12/17/2014 History of COVID-19 09/15/202109/2021 History of Helicobacter pylori infection 02/14/2023 Infection due to clarithromycin resistant Helicobacter pylori 12/28/202012/2020 Intestinal malabsorption ([facility]) 06/23/2015 Iron deficiency anemia 03/03/2011 Left-sided low back pain without sciatica 04/29/2015 Malabsorption of iron ([facility]) 12/11/2020 Menometrorrhagia 06/30/2011 OAB (overactive bladder) 05/28/2019 Oral lichen planus 12/20/2013 Ovarian cyst, right Pain of both hip joints 10/25/2017 Piriformis syndrome 04/29/2015 Primary insomnia 10/25/2017 Right-sided low back pain without sciatica 08/17/2016 Sarcoidosis Vitamin A deficiency 12/19/2014 Vitamin D deficiency 12/18/2014 Wart of scalp 04/29/2015 Previous Surgical History PAST SURGICAL HISTORY Procedure Laterality Date *STRESS TEST PC 05/11/2017 WNL CHOLECYSTECTOMY COLONOSCOPY 03/30/2005 normal with hemorrhoids COLONOSCOPY 01/07/2010 normal COLONOSCOPY 02/22/2022 COLONOSCOPY FLX DX W/COLLJ SPEC WHEN PFRMD 05/12/2016 Colonoscopy mac 5 year repeat not [address] Tong CONIZATION OF CERVIX LEEP EXCISION EGD 03/24/2005 nonspecific esophagitis EGD 01/05/2010 normal EGD 02/22/2022 EGD 01/20/2021 Normal ESOPHAGOGASTRODUODENOSCOPY TRANSORAL DIAGNOSTIC 02/10/2016 EGD mac PAST SURGICAL HISTORY OF 2002 gastricectomy, with jose daniel en Y resection PAST SURGICAL HISTORY OF iron infusions, Several infusions S BALLOON,UTERINE ABLATION [id number] 08/25/2011 TRANSFUSION Several Trasfusions TUBAL LIGATION, Family History FAMILY HISTORY Problem Relation Age of Onset Diabetes Mother Hypertension Mother Cancer Father l (more content not included)... Normal [facility] Gastroenterology Visit Repor ton 04-11-2025 Gastroenterology Visit Report [facility] [address] [place] [address] OFFICE VISIT Date of Service: 04/11/25 MR#: [id number] Acct: [id number] Name: SUSAN REYES Rep #: [id number] : 1960 Provider: VALERIO sinha Age/Sex: 65/F [place] [facility] Status: Signed Intake Vital Signs 08/16/24 13:55 04/11/25 13:37 Height 5 ft 2 in Weight: 125 lb 6 oz Intake Visit Reasons: Abdominal Pain/Weight Loss Track Service Worker Required: No Accompanied by: Self Is patient in pain?: No Allergies buspirone (From BuSpar) Allergy (Intermediate, Verified 04/11/25 13:41) Other zolpidem (From Ambien) Allergy (Intermediate, Verified 04/11/25 13:41) Other meperidine (From Demerol) Adverse Reaction (Verified 04/11/25 13:41) HALLUCINATIONS Medications ???Medication ???Instructions ???Recorded ???Confirmed ???Type cyanocobalamin (vitamin B-12) 100 mcg IM Q7D 04/07/17 04/11/25 H istory 1,000 mcg/mL injection solution dicyclomine 10 mg capsule 10 mg PO TIDAC 04/07/17 04/11/25 H istory ergocalciferol (vitamin D2) 1,250 50,000 unit PO Q14D 04/07/1704/28 History mcg (50,000 unit) capsule (Vitamin D2) tramadol 50 mg tablet 50 mg PO BID 04/07/17 04/11/25 His tory gabapentin 100 mg capsule 100 mg PO TID 04/24/24 04/11/25 Hi story ondansetron HCl 4 mg tablet 4 mg PO Q6H PRN nausea and vomitin g 04/24/24 04/11/25 History tizanidine 4 mg capsule 4 mg PO BID PRN muscle spasticity 04/24/24 04/11/25 History valacyclovir 1 gram tablet 1,000 mg PO DAILY PRN COLD SORE 04/11/25 History bupropion HCl 150 mg 24 hr tablet, 150 mg PO 1200 08/15/24 04/11/25 History extended release pantoprazole 40 mg tablet,delayed 40 mg PO DAILY 08/15/24 04/11/25 History release fluoxetine 10 mg capsule (Prozac) 10 mg PO QDAY 04/11/25 04/11/25 H istory hydroxyzine pamoate 25 mg capsule 25 mg PO QHS 04/11/25 04/11/25 Hi story (Vistaril) Nurse's Note: Has a lot of side pain, not much diarrhea anymore. Has nausea all of the time and can't figure out what is causing it. Has to take zofran every day. This started about 4-5 months ago but has gotten worse this past month. Is losing weight. [facility] Medical History Wears glasses Wears dentures Post-menopausal Depression Fatty liver Easy bruising Difficulty swallowing History of ulceration Gastric reflux Non-smoker History of edema Spasm Vitamin D deficiency Vitamin A deficiency Ovarian cyst Iron deficiency anemia Intestinal malabsorption History of Helicobacter pylori infection History of herpes labialis Type 2 diabetes mellitus Cervical dysplasia Anxiety Chronic abdominal pain Eosinophilic esophagitis Surgical History Hx of colonoscopy History of esophagogastroduodenoscopy (EGD) H/O tubal ligation S/P total gastrectomy and Jose Daniel-en-Y esophagojejunal anastomosis Hx of cholecystectomy Family History Mother Diabetes Hypertension Father Cancer Emphysema lung Sister Thyroid disorder Brother Colon cancer Social History Smoking Status: Never smoker alcohol intake: never substance use type: does not use HPI HPI Details: SUSAN REYES, is a 65 F who presents to the office today for FU. 05.28.24 OV establishment with [facility] for main complaints of difficulty swallowing and feeling like food get stuck in her esophagus. She denies difficulty chewing, full upper/lower dentures. She does report difficulty pushing food back with tongue toward oropharynx. States her diet consists of pudding and jello for the last 6 weeks due to food getting stuck. Denies difficulty with these consistencies and liquids. She describes the "stuck food" pain as mid-substernal and crushing/grabbing with radiation occasionally to left shoulder and upper arm. She states that this pain starts as soon as she ingests something and does not go away until she can either swallow it or regurgitate back up and out. At this point in the exam, I entered an EKG and STAT troponin with 2hr reflex for her to get. Orders placed for EKG and troponin w/2hr reflex. Asked pt to obtain these tests before pursuing further GI workup as she describes active chest pain, although chronicity in duration of symptoms leans to them being less likely an acute cardiac event. When cardiac event ruled out: barium swallow 07.09.24 esophageal manometry-100% failure of swallows. Complete failure of peristalsis. Possible autoimmune rheumatological disorder, like scleroderma. Or symptomatic GERD. Recommend EGD. 08.16.24 EGD - Abnormal esophageal motility, established achalasia. Injected with botulinum t (more content not included)... Normal [facility] CNOVon 01-23-2025 OV Office Visit ([facility] ) SUSAN REYES ([id number]) 1960 F Date Time Provider Department 01/23/25 9:00 [facility] During your visit today, we recorded the following information about you: Temperature Pulse Respiration Blood pressure 97.4 degrees 73/minute 16/minute 110/82 Weight 57.6 kg Jody Cole PA-C 01/23/2025 9:33 AM Signed Chief Complaint Patient presents with: Anxiety HPI Susan Jimenez Franklin is a 64 year old female who presents here today for Above Complaints.. Anxiety and Depression: - Worsening anxiety and stress since the of a close friend, Amandeep Quinn, on December 27. 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 - Describes anxiety as "horrible" and "disabling," affecting sleep and appetite. - Taking Celexa 60 mg and Wellbutrin; hesitant to increase Wellbutrin due to concerns about worsening anxiety. - Previously tried BuSpar, which caused severe leg cramps. - Has used hydroxyzine in the past; willing to use it again for situational anxiety. - Has used Ativan in the past without issues; open to using it PRN for current anxiety. Weight Loss: - Unintentional weight loss of 10-15 lbs over the past month due to stress-related anorexia and nausea. - Reports difficulty eating and frequent emesis. - Lost 10 lbs from April to October, also attributed to stress. - Denies trying to lose weight intentionally. Past medical history, appointments, medications, allergies reviewed. Previous Medical History PAST MEDICAL HISTORY Diagnosis Date Absolute anemia 04/28/2015 Had total Gastrectomy due to multiple polyps. Has malabsorption since. Achalasia 08/19/[address] Friend: Botox inject 08/2024 Age-related osteoporosis without current pathological fracture Anxiety and depression B12 deficiency 12/18/2014 Cervical dysplasia, moderate Chronic abdominal pain 12/20/2013 Secondary to post surgical adhesions. Takes gabapentin daily and tramadol PRN.. Controlled substance agreement signed 05/16/18, updated 04/13/2021 Chronic constipation 12/20/2013 Controlled type 2 diabetes mellitus without complication, without long-term current use of insulin (HCC) 04/25/2017 Ophthalmology: Dr. Abdulkadir Patel [facility]. COVID-19 virus infection 09/15/202109/2021 Disorder of sacrum 07/27/2015 Encounter for diabetic foot exam (HCC) 10/13/2018 Eosinophilic esophagitis 05/11/2016 Family history of thyroid disease 12/29/2021 Two sisters with hypothyroidism and one with Graves Dz. Gastric polyps H/O herpes labialis 08/12/2018 Herpes simplex virus (HSV) infection 05/28/2019 History of colonic polyps 12/17/2014 History of COVID-19 09/15/202109/2021 History of Helicobacter pylori infection 02/14/2023 Infection due to clarithromycin resistant Helicobacter pylori 12/28/202012/2020 Intestinal malabsorption (HCC) 06/23/2015 Iron deficiency anemia 03/03/2011 Left-sided low back pain without sciatica 04/29/2015 Malabsorption of iron (HCC) 12/11/2020 Menometrorrhagia 06/30/2011 OAB (overactive bladder) 05/28/2019 Oral lichen planus 12/20/2013 Ovarian cyst, right Pain of both hip joints 10/25/2017 Piriformis syndrome 04/29/2015 Primary insomnia 10/25/2017 Right-sided low back pain without sciatica 08/17/2016 Sarcoidosis Vitamin A deficiency 12/19/2014 Vitamin D deficiency 12/18/2014 Wart of scalp 04/29/2015 Previous Surgical History PAST SURGICAL HISTORY Procedure Laterality Date *STRESS TEST PC 05/11/2017 WNL CHOLECYSTECTOMY COLONOSCOPY 03/30/2005 normal with hemorrhoids COLONOSCOPY 01/07/2010 normal COLONOSCOPY 02/22/2022 COLONOSCOPY FLX DX W/COLLJ SPEC WHEN PFRMD 05/12/2016 Colonoscopy mac 5 year repeat not [address] Tong CONIZATION OF CERVIX LEEP EXCISION EGD 03/24/2005 nonspecific esophagitis EGD 01/05/2010 normal EGD 02/22/2022 EGD 01/20/2021 Normal ESOPHAGOGASTRODUODENOSCOPY TRANSORAL DIAGNOSTIC 02/10/2016 EGD mac PAST SURGICAL HISTORY OF 2002 gastricectomy, with jose daniel en Y resection PAST SURGICAL HISTORY OF iron infusions, Several infusions S BALLOON,UTERINE ABLATION [id number] 08/25/2011 TRANSFUSION Several Trasfusions TUBAL LIGATION, Family History FAMILY HISTORY Problem Relation Age of Onset Diabetes Mother Hypertension Mother Cancer Father lymphatic Emphysema Father Hypothyroidism Sister Hypothyroidism Sister Graves Disease Sister Cancer Brother other (Mennigitis) Brother Colon Cancer Brother middle colon Cancer Brother stomach Heart disease Brother Patient Allergies ALLERGIES Allergen Reactions Iron Dextran Itching Ambien [Zolpidem] Other: See Comments (more content not included)... Normal [facility] CT ABDOMEN PELVIS WITH IV CO NTRAST ONLYon 11-10-2024 CT ABDOMEN PELVIS WITH IV CONTRAST ONLY EXAMINATION: CT ABDOMEN PELVIS WITH IV CONTRAST ONLY HISTORY: ORDERING SYSTEM PROVIDED HISTORY: Lower abdominal pain and constipation, TECHNOLOGIST PROVIDED HISTORY: Illness/Other Reason for exam: Lower abdominal pain and constipation Encounter Type: Initial Additional signs and symptoms: gastrectomy ORDERING SYSTEM PROVIDED DIAGNOSIS CODES: COMPARISON: None TECHNIQUE: CT examination of the abdomen and pelvis following the administration of intravenous contrast. Coronal and sagittal reformations were also performed. Dose reduction techniques were achieved by using automated exposure control and/or adjustment of mA and/or kV according to patient size and/or use of iterative reconstruction technique. CONTRAST: IOPAMIDOL 370 MG IODINE/ML (76 %) INTRAVENOUS SOLUTION - 75 mL, FINDINGS: Study quality is satisfactory No significant lung base finding. There are postsurgical changes about the upper abdomen in this patient with a history of gastrectomy. No gross complication of this. There is some reflux of fluid and debris in to the visualize distal most portion of the esophagus just above these changes versus esophageal dysmotility. No wall thickening in this region is seen. There is a large amount of stool within the rectum and sigmoid colon with a moderate to large amount of stool seen elsewhere within the large bowel there is a large amount of diffuse retained stool, especially within the rectum and within the hepatic flexure/transverse colon. No bowel wall thickening is seen. There is minimal fat stranding around the distended large bowel without evidence of wall thickening and no definite evidence of air within the wall which is nonspecific but could be seen with changes of very early stercoral colitis potentially. Small bowel loops are normal. No bowel obstruction. Urinary bladder normal. Reproductive organs unremarkable. Mild atherosclerotic disease. No adenopathy. No free air free fluid. Prior cholecystectomy. Liver, spleen, adrenal glands, and pancreas demonstrate no significant finding. The kidneys are normal. No stones or hydronephrosis. No ventral or inguinal hernia is present. There is no acute bony finding. IMPRESSION: Findings compatible with provided history of constipation. There is also mild fat stranding seen around the substantially distended stool filled rectum without evidence of wall thickening or air within the wall of the rectum. This could potentially be seen with signs of very early stercoral colitis. No other acute finding. Prior gastrectomy. Esophageal dysmotility versus gastroesophageal reflux. Prior cholecystectomy. Other chronic/incidental findings are discussed above. Workstation ID: [id number] Dictated by: SAMANTHA GUERRA on MonNov 10, 2024 4:40:43 PM EDT Transcribed by: SAMANTHA GUERRA on MonNov 10, 2024 4:40:43 PM EDT Finalized by: SAMANTHA GUERRA Bianca Nov 10, 2024 4:40:43 PM EDT [facility] Comment on above: Order Comment: Injur y/Trauma or Illness?:Illness/Other How long have you had these symptoms (acute/chronic)?:Acute Reason for exam?:Lower abdominal pain and constipation Type of Exam?:Initial Additional signs and symptoms?:hx gastrectomy ED Prov Noteon 11-10-2024 ED Prov Note [place] ED Physician Note: NAME: Susan Reyes 64 y.o. CSN: [id number] PCP: No, Physician ED Course / Medical Decision Making: Patient comes in for lower abdominal pain and constipation. She is tachycardic and was given fluids in the ER. She has no chest pain or shortness of breath I did not feel cardiac workup indicated. On exam abdomen is slightly tender but there is no rebound or guarding and abdomen is soft. White count and hemoglobin are normal. Chemistries show an elevation in glucose at 167. CT scan shows findings compatible with constipation. There is mild fat stranding around distended stool without evidence of wall thickening. Radiologist states this could be a sign of early stercoral colitis. Urinalysis has no signs of UTI. Patient initially was having problems urinating so we did a cath urine. Only obtained about 250 cc of clear urine.. We tried a fleets enema with the patient and she had very little results. She wanted a manual disimpaction in the ER. Manual disimpaction attempted per patient's request. Patient did not tolerate disimpaction and we stopped nursing did a soapsuds enema. Patient also manually disimpacted herself. She felt better afterwards. And wanted to go home. Patient started on Colace and MiraLAX. She is to increase fluids and fiber in her diet. She is to follow-up with her GI specialist and primary care physician. She knows close follow-up syndicate if worsening symptoms come back to the ER. Patient also encouraged to use [id number] fleets enema as needed.. Medical Decision Making Amount and/or Complexity of Data Reviewed Independent Historian: Details: Patient gave history Labs: Details: Reviewed Radiology: Details: Reviewed Clinical Impression: 1. Constipation, unspecified constipation type 2. Abdominal pain, unspecified abdominal location Disposition: Patient is being discharged to home History: Chief Complaint: Abdominal Pain HPI: The history was obtained from the patient. She is a 64 y.o. female who presents with a chief complaint of Abdominal Pain. HPI patient comes in with lower abdominal discomfort. She has chronic constipation she cannot tell me when her last bowel movement was. She does have nausea but no vomiting. She feels she has a bowel obstruction. She has had a previous Jose Daniel-en-Y for polyps. She has no fever or urinary symptoms. PMHx: History reviewed. No pertinent past medical history. PMSx: Past Surgical History: Procedure Laterality Date GASTRECTOMY FAM. Hx: History reviewed. No pertinent family history. SOC. Hx: Social History Socioeconomic History Marital status: Tobacco Use Smoking status: Never Passive exposure: Never Smokeless tobacco: Never Vaping Use Vaping status: Never Used Substance and Sexual Activity Drug use: Never Social Drivers of Health Financial Resource Strain: Low Risk (09/15/2023) Received from [facility] Overall Financial Resource Strain (CARDIA) Difficulty of Paying Living Expenses: Not hard at all Food Insecurity: No Food Insecurity (09/15/2023) Received from [facility] Hunger Vital Sign Worried About Running Out of Food in the Last Year: Never true Ran Out of Food in the Last Year: Never true Transportation Needs: No Transportation Needs (09/15/2023) Received from [facility] PRAPARE - Transportation Lack of Transportation (Medical): No Lack of Transportation (Non-Medical): No Physical Activity: Sufficiently Active (09/15/2023) Received from [facility] Exercise Vital Sign Days of Exercise per Week: 5 days Minutes of Exercise per Session: 50 min Stress: Stress Concern Present (09/15/2023) Received from [facility] Citizen Of [place] [employer] [employer] Occupational Health - Occupational Stress Questionnaire Feeling of Stress : To some extent Social Connections: Socially Integrated (09/15/2023) Received from [facility] Social Connection and Isolation Panel [NHANES] Frequency of Communication with Friends and Family: More than three times a week Frequency of Social Gatherings with Friends and Family: Three times a week Attends Shinto Services: More than 4 times per year Active Member of Clubs or Organizations: Yes Attends Club or Organization Meetings: More than 4 times per year Marital Status: Housing Stability: Low Risk (09/15/2023) Received from [facility] Housing Stability Vital Sign Unable to Pay for Housing in the Last Year: No Number of Places Lived in the Last Year: 1 Unstable Housing in the Last Year: No MEDs: Previous Medications Medication Sig ALPRAZolam (XANAX) 0.25 MG tablet take 1 tablet by mouth three times a day if needed for SWALLOWING DIFFICUTIES for 7 days BD Eclipse Luer-Alirio 1 mL 27 x 1/2" Syrg USE TO INJECT ONCE A WEEK use as directed blood sugar diagnostic (glucose blood) strips Test blood sugar(s) 1 times daily. Dx: Type 2 DM - Controlled E (more content not included)... Normal [facility] POC BASIC METABOLIC PANEL - [facility] 11-10-2024 Chloride [Moles/Vol] 101 mmol/L Normal 98-108 [facility] Comment on above: Order Comment: [facility] has implemented the eGFR calculation approach that does not have a coefficient for race that conforms to the NKF-ASN Task Force Recommendations. CO2 [Moles/Vol] 21 mmol/L Normal 21-32 [facility] Comment on above: Order Comment: [facility] has implemented the eGFR calculation approach that does not have a coefficient for race that conforms to the NKF-ASN Task Force Recommendations. Creatinine [Mass/Vol] 0.98 mg/dL Normal 0.60-1.20 [facility] Comment on above: Order Comment: [facility] has implemented the eGFR calculation approach that does not have a coefficient for race that conforms to the NKF-ASN Task Force Recommendations. Glucose [Mass/Vol] 167 mg/dL High 65-99 [facility] Comment on above: Order Comment: [facility] has implemented the eGFR calculation approach that does not have a coefficient for race that conforms to the NKF-ASN Task Force Recommendations. POC GFR 65 mL/min/1.73 m2 Normal >=60 [facility] Comment on above: Order Comment: [facility] has implemented the eGFR calculation approach that does not have a coefficient for race that conforms to the NKF-ASN Task Force Recommendations. Result Comment: Irma mated GFR was calculated using the 2020 CKD-EPI creatinine equation. POC IONIZED CALCIUM 4.6 mg/dL Normal 4.5-5.3 [facility] Comment on above: Order Comment: [facility] has implemented the eGFR calculation approach that does not have a coefficient for race that conforms to the NKF-ASN Task Force Recommendations. Potassium [Moles/Vol] 3.8 mmol/L Normal 3.5-5.1 [facility] Comment on above: Order Comment: [facility] has implemented the eGFR calculation approach that does not have a coefficient for race that conforms to the NKF-ASN Task Force Recommendations. Sodium [Moles/Vol] 138 mmol/L Normal 135-145 [facility] Comment on above: Order Comment: [facility] has implemented the eGFR calculation approach that does not have a coefficient for race that conforms to the NKF-ASN Task Force Recommendations. Urea nitrogen [Mass/Vol] 12 mg/dL Normal 8-25 [facility] Comment on above: Order Comment: [facility] has implemented the eGFR calculation approach that does not have a coefficient for race that conforms to the NKF-ASN Task Force Recommendations. POC CBC AND DIFFERENTIALon 0 - BASOPHILS ABSOLUTE COUNT 0.03 K/mcL Normal 0.00-0.30 [facility] Basophils/100 WBC (Bld) 0.3 % Normal [facility] Eosinophils (Bld) [#/Vol] 0.10 10*3/uL Normal 0.00-0.50 [facility] Eosinophils/100 WBC (Bld) 1.1 % Normal [facility] Erythrocyte distribution width (RBC) [Ratio] 13.6 % Normal 11.6-14.8 [facility] Hematocrit (Bld) [Volume fraction] 40.2 % Normal 36.0-46.0 [facility] Hemoglobin (Bld) [Mass/Vol] 13.2 g/dL Normal 12.0-16.0 [facility] IG ABSOLUTE 0.02 K/mcL Normal 0.00-0.30 [facility] IG PERCENT 0.20 % [facility] Comment on above: Result Comment: The IG parameter is the percentage of metamyelocytes, myelocytes and promyelocytes. An immature granulocyte count (IG) of 1% or more suggests the possibility of infection, an IG count of 3% is very likely related to an infection. Lymphocytes (Bld) [#/Vol] 1.65 10*3/uL Normal 0.90-4.00 [facility] Lymphocytes/100 WBC (Bld) 18.0 % Normal [facility] MCH (RBC) [Entitic mass] 30.8 pg Normal 26.0-34.0 [facility] MCV (RBC) [Entitic vol] 93.9 fL Normal 80.0-100.0 [facility] MEAN CORPUSCULAR HEMOGLOBIN CONC 32.8 g/dL Normal 31.0-37.0 [facility] Monocytes (Bld) [#/Vol] 0.49 10*3/uL Normal 0.30-0.90 [facility] Monocytes/100 WBC (Bld) 5.3 % Normal [facility] NEUTROPHILS ABSOLUTE COUNT 6.87 K/mcL Normal 1.70-7.00 [facility] Neutrophils/100 WBC (Bld) 75.1 % Normal [facility] Platelet mean volume (Bld) [Entitic vol] 11.3 fL Normal 9.4-12.4 [facility] Platelets (Bld) [#/Vol] 268 10*3/uL Normal 150-400 [facility] RBC (Bld) [#/Vol] 4.28 10*6/uL Normal 4.00-5.20 [facility] WBC (Bld) [#/Vol] 9.16 10*3/uL Normal 4.50-11.00 [facility] POC LIVER PANEL PLUS [facility] 11-10-2024 Albumin [Mass/Vol] 4.3 g/dL Normal 3.2-5.2 [facility] ALP [Catalytic activity/Vol] 107 U/L Normal 40-150 [facility] ALT [Catalytic activity/Vol] 16 U/L Normal 0-40 [facility] Amylase [Catalytic activity/Vol] 41 U/L Normal 25-115 [facility] Amylase [Catalytic activity/Vol] 12 U/L Normal 7-33 [facility] AST [Catalytic activity/Vol] 26 U/L Normal 0-45 [facility] Bilirubin [Mass/Vol] 0.7 mg/dL Normal 0.0-1.3 [facility] Protein [Mass/Vol] 6.7 g/dL Normal 6.0-8.0 [facility] POC [facility] P[facility] BILIRUBIN, URINE Small Abnormal Negative [facility] POC BLOOD, URINE Negative Normal Negative [facility] POC GLUCOSE, URINE Negative Normal Negative [facility] POC KETONES, URINE Trace Abnormal Negative [facility] POC LEUKOCYTE ESTERASE, URINE Negative Normal Negative [facility] POC NITRITE, URINE Negative Normal Negative [facility] POC PH, URINE 5.5 Normal 5.0-7.0 [facility] POC PROTEIN, URINE Negative Normal Negative [facility] POC SPECIFIC GRAVITY 1.020 Normal 1.005-1 .02 5 [facility] POC UROBILINOGEN 1.0 mg/dL Normal < 2.0 [facility] CNPNon 10-09-2024 [facility] SUSAN REYES ([id number]) 1960 F Date Time Provider Department 10/09/24 JODY COLE [facility] During your visit today, we recorded the following information about you: Jody Cole PA-C 10/09/2024 2:17 PM Signed Let patient know: A1c is 5.9% which is stable Creatinine was mildly elevated which can be early sign of kidney disease or that she was dehydrated yesterday. Make sure to stay hydrated and decrease use of NSAIDs. We will monitor. Cholesterol is normal. Blood counts and iron are normal. Urine was dark with ketones, RBC and leuks. Can be sign of dehydration. Make sure no s/s of UTI. If no symptoms of UTI, repeat urine in 1-2 weeks. I'm waiting on a couple other labs and will call if abnormal only. JAMES Amin Barbara, LPN 10/09/2024 2:55 PM Signed Patient notified of results, verbalizes understanding of instructions. Rebekah Garcia LPN Allergies As of Date: 10/09/2024 Noted Allergy Reaction IRON DEXTRAN 03/03/2011 9 - Itching AMBIEN (ZOLPIDEM) 05/19/2020 14 - Other: See Comments Comments: Nightmares. BUSPAR (BUSPIRONE HCL) 11/14/2018 17 - Myalgia Date Reviewed: 10/08/2024 Reviewed by: Lizett Bush LPN - Fully Assessed Reason for Visit: Results [95] Primary Visit Diagnosis:Microscopic hematuria [R31.29] Order(s):URINALYSIS, WITH MICROSCOPIC [SQUAWMIC] Order #: [id number] FUTURE BACTERIAL CULTURE, URINE [SQURCUL] Order #: [id number] FUTURE Prescriptions as of 10/09/2024 - traMADol (ULTRAM) 50 mg tablet Take 1 tablet by mouth two times a day as needed for up to 30 days. - tiZANidine (ZANAFLEX) 4 mg tablet Take 1 tablet by mouth two times a day as needed (muscle spasms). - valACYclovir (VALTREX) 1 gram tablet Take 2 tablets by mouth two times a day. For total of 2 doses. - gabapentin (NEURONTIN) 100 mg capsule Take two capsules in AM and one capsule in after noon and evening - buPROPion XL (WELLBUTRIN XL) 150 mg 24 hr tablet Take 1 tablet by mouth once daily. - ondansetron orally disintegrating (ZOFRAN ODT) 4 mg disintegrating tablet Take 1 tablet by mouth every 8 hours as needed for nausea/vomiting. - citalopram (CELEXA) 40 mg tablet Take 1.5 tablets by mouth once daily. - pantoprazole DR (PROTONIX) 40 mg tablet Take 1 tablet by mouth once daily. - cyanocobalamin 1,000 mcg/mL INJECT 1 ML INTRAMUSCULARLY ONCE EVERY WEEK - Syringe with Needle, Disp, (BD ECLIPSE LUER-ALIRIO SYRINGE) 1 mL 27 x 1/2" USE TO INJECT ONCE A WEEK use as directed - cholecalciferol, Vitamin D3, (VITAMIN D3) 1,250 mcg (50,000 unit) cap capsule Take 1 capsule by mouth every 3 weeks. - dicyclomine (BENTYL) 10 mg capsule Take 2 po BID - Blood-Glucose Meter monitoring kit Glucose Meter of Choice - Kit - Dx: Type 2 DM - Controlled E11.9 - blood sugar diagnostic (BLOOD GLUCOSE TEST) test strip Test blood sugar(s) 1 times daily. Dx: Type 2 DM - Controlled E11.9 Insulin: No - polyethylene glycol 3350 (MIRALAX, GLYCOLAX) 17 gram/dose powder Take 17 g by mouth once daily. Take one (1) capful in 8oz of liquid each day. - ANIMAL SHAPE VITAMINS CHEWABLE TAB takes 2 on occasion Problem List As Of Date 10/09/2024 Noted Resolved Iron deficiency anemia [D50.9] 03/03/2011 Menometrorrhagia [N92.1] 06/30/2011 Anxiety and depression [F41.9, F32.A] 12/20/2013 Chronic abdominal pain [R10.9, G89.29] 12/20/2013 Chronic constipation [K59.09] 12/20/2013 Oral lichen planus [L43.8] 12/20/2013 Sarcoidosis [D86.9] History of colonic polyps [Z86.0100] 12/17/2014 Diabetic eye exam (HCC) [Z01.00, E11.9] 12/17/2014 10/08/2024 Routine gynecological examination [Z01.419] 12/17/2014 B12 deficiency [E53.8] 12/18/2014 Vitamin D deficiency [E55.9] 12/18/2014 Vitamin A deficiency [E50.9] 12/19/2014 Absolute anemia [D64.9] 04/28/2015 Piriformis syndrome [G57.00] 04/29/2015 Left-sided low back pain with left-sided sciati*04/29/2015 Wart of scalp [B07.9] 04/29/2015 Intestinal malabsorption [K90.9] 06/23/2015 Disorder of sacrum [M53.3] 07/27/2015 LLQ abdominal pain [R10.32] 02/10/2016 02/10/2016 Regurgitation [COT8649] 02/10/2016 02/10/2016 Eosinophilic esophagitis [K20.0] 05/11/2016 Right-sided low back pain without sciatica [M54*08/17/2016 Well adult exam [Z00.00] 04/25/2017 Controlled type 2 diabetes mellitus without com*04/25/2017 Pain of both hip joints [M25.551, M25.552] 10/25/2017 Primary insomnia [F51.01] 10/25/2017 Esophageal dysphagia [R13.19] 04/05/2018 OAB (overactive bladder) [N32.81] 05/28/2019 Herpes simplex virus (HSV) infection [B00.9] 05/28/2019 Age-related osteoporosis without current pathol* Malabsorption of iron [K90.9] 12/11/2020 Encounter for screening mammogram for breast ca*12/25/2020 Infection due to clarithromycin resistant Helic*12/28/2020 02/14/2023 History of COVID-19 [Z86.16] 09/15/2021 Family history of thyroid (more content not included)... Normal [facility] 25(OH)D3 SerPl-mCncon 2024 25-hydroxyvitamin D3 [Mass/Vol] 57.4 ng/mL Normal 31.0-80.0 [facility] Comment on above: Order Comment: Speci men Type: BLOOD SPECIMENOrdering Facility: [facility] Address: [address] [place] [address] Performed By: #### 1 [id number] ####[facility] LABCLIA [id number] [place] [address] [place] ALBUMIN/CREATININE RATIO, UR INEon 10-08-2024 Albumin DL <= 20 mg/L (U) [Mass/Vol] 16.9 mg/L Normal [facility] Comment on above: Order Comment: Speci men Type: URINE SPECIMENOrdering Facility: [facility] Address: [address] [place] [address] Performed By: #### U TOX2, UACR ####[facility] LABCLIA [id number] [place] [address] [place] Albumin/Creatinine (U) [Mass ratio] 8 mg/g Normal <30 [facility] Comment on above: Order Comment: Speci men Type: URINE SPECIMENOrdering Facility: [facility] Address: [address] [place] [address] Result Comment: Adul t Male and Female Nephrotic Criteria: <30 mg/g is considered normal to mildly increased 30-300 mg/g is considered moderately increased >300 mg/g is considered severely increased KDIGO. (2013). KDIGO 2012 Clinical Practice Guideline for the Evaluation and Management of Chronic Kidney Disease. Official Journal of the International Society of Nephrology, 3(1), 1-150. Performed By: #### U TOX2, UACR ####[facility] LABCLIA [id number] [place] [address] [place] Creatinine (U) [Mass/Vol] 211.2 mg/dL Normal 20.0-300.0 [facility] Comment on above: Order Comment: Speci men Type: URINE SPECIMENOrdering Facility: [facility] Address: [address] [place] [address] Performed By: #### U TOX2, UACR ####[facility] LABCLIA [id number] [place] [address] [place] CBC W Auto Differential pane l (Bld)on 10-08-2024 Basophils (Bld) [#/Vol] 0.08 10*3/uL [facility] Basophils/100 WBC (Bld) 1.4 % [facility] Differential cell count method Nom (Bld) Auto [facility] Eosinophils (Bld) [#/Vol] 0.12 10*3/uL [facility] Eosinophils/100 WBC (Bld) 2.0 % [facility] Erythrocyte distribution width (RBC) [Ratio] 14.1 % 11.5 - 15.0 % [facility] Hematocrit (Bld) [Volume fraction] 41.0 % 36.0 - 46.0 % [facility] Hemoglobin (Bld) [Mass/Vol] 13.2 g/dL 11.5 - 15.5 g/dL [facility] Immature granulocytes (Bld) [#/Vol] [facility] Immature granulocytes/100 WBC (Bld) 0.2 % [facility] Lymphocytes (Bld) [#/Vol] 1.63 10*3/uL [facility] Lymphocytes/100 WBC (Bld) 27.8 % [facility] MCH (RBC) [Entitic mass] 30.3 pg 26.0 - 34.0 pg [facility] MCHC (RBC) [Mass/Vol] 32.2 g/dL 30.5 - 36.0 g/dL [facility] MCV (RBC) [Entitic vol] 94.0 fL 80.0 - 100.0 fL [facility] Monocytes (Bld) [#/Vol] 0.54 10*3/uL NINF [facility] Monocytes/100 WBC (Bld) 9.2 % [facility] Neutrophils (Bld) [#/Vol] 3.49 10*3/uL [facility] Neutrophils/100 WBC (Bld) 59.4 % [facility] Nucleated RBC (Bld) [#/Vol] NINF [facility] Nucleated RBC/100 WBC (Bld) [Ratio] 0.0 % /100 WBC [facility] Platelet mean volume (Bld) [Entitic vol] 12.1 fL 9.0 - 12.7 fL [facility] Platelets (Bld) [#/Vol] 279 10*3/uL [facility] RBC (Bld) [#/Vol] 4.36 10*6/uL 3.90 - 5.20 m/uL [facility] WBC (Bld) [#/Vol] 5.87 10*3/uL [facility] Basophils (Bld) [#/Vol] 0.08 10*3/uL Normal <0.11 [facility] Comment on above: Order Comment: Speci men Type: BLOOD SPECIMENOrdering Facility: [facility] Address: [address] [place] [address] Performed By: #### 5 [id number] ####[facility] LABCLIA [id number] [place] [address] [place] Basophils/100 WBC (Bld) 1.4 % Normal [facility] Comment on above: Order Comment: Speci men Type: BLOOD SPECIMENOrdering Facility: [facility] Address: [address] [place] [address] Performed By: #### 5 7021-8 ####[facility] LABCLIA [id number] [place] [address] [place] Differential cell count method Nom (Bld) Auto Normal [facility] Comment on above: Order Comment: Speci men Type: BLOOD SPECIMENOrdering Facility: [facility] Address: [address] [place] [address] Performed By: #### 5 7021-8 ####[facility] LABCLIA [id number] [place] [address] [place] Eosinophils (Bld) [#/Vol] 0.12 10*3/uL Normal <0.46 [facility] Comment on above: Order Comment: Speci men Type: BLOOD SPECIMENOrdering Facility: [facility] Address: [address] [place] [address] Performed By: #### 5 7021-8 ####[facility] LABCLIA [id number] [place] [address] [place] Eosinophils/100 WBC (Bld) 2.0 % Normal [facility] Comment on above: Order Comment: Speci men Type: BLOOD SPECIMENOrdering Facility: [facility] Address: [address] [place] [address] Performed By: #### 5 7021-8 ####[facility] LABIA [id number] [place] [address] [place] Erythrocyte distribution width (RBC) [Ratio] 14.1 % Normal 11.5-15.0 [facility] Comment on above: Order Comment: Speci men Type: BLOOD SPECIMENOrdering Facility: [facility] Address: [address] [place] [address] Performed By: #### 5 7021-8 ####[facility] LABCLIA [id number] [place] [address] [place] Hematocrit (Bld) [Volume fraction] 41.0 % Normal 36.0-46.0 [facility] Comment on above: Order Comment: Speci men Type: BLOOD SPECIMENOrdering Facility: [facility] Address: [address] [place] [address] Performed By: #### 5 7021-8 ####[facility] LABCLIA [id number] [place] [address] [place] Hemoglobin (Bld) [Mass/Vol] 13.2 g/dL Normal 11.5-15.5 [facility] Comment on above: Order Comment: Speci men Type: BLOOD SPECIMENOrdering Facility: [facility] Address: [address] [place] [address] Performed By: #### 5 7021-8 ####[facility] LABCLIA [id number] [place] [address] [place] Immature granulocytes (Bld) [#/Vol] 10*3/uL Normal <0.10 [facility] Comment on above: Order Comment: Speci men Type: BLOOD SPECIMENOrdering Facility: [facility] Address: [address] [place] [address] Performed By: #### 5 7021-8 ####[facility] LABCLIA [id number] [place] [address] [place] Immature granulocytes/100 WBC (Bld) 0.2 % Normal [facility] Comment on above: Order Comment: Speci men Type: BLOOD SPECIMENOrdering Facility: [facility] Address: [address] [place] [address] Performed By: #### 5 7021-8 ####[facility] LABCLIA [id number] [place] [address] [place] Lymphocytes (Bld) [#/Vol] 1.63 10*3/uL Normal 1.00-4.00 [facility] Comment on above: Order Comment: Speci men Type: BLOOD SPECIMENOrdering Facility: [facility] Address: [address] [place] [address] Performed By: #### 5 7021-8 ####[facility] LABCLIA [id number] [place] [address] [place] Lymphocytes/100 WBC (Bld) 27.8 % Normal [facility] Comment on above: Order Comment: Speci men Type: BLOOD SPECIMENOrdering Facility: [facility] Address: [address] [place] [address] Performed By: #### 5 7021-8 ####[facility] LABCLIA [id number] [place] [address] [place] MCH (RBC) [Entitic mass] 30.3 pg Normal 26.0-34.0 [facility] Comment on above: Order Comment: Speci men Type: BLOOD SPECIMENOrdering Facility: [facility] Address: [address] [place] [address] Performed By: #### 5 7021-8 ####[facility] LABIA [id number] [place] [address] [place] MCHC (RBC) [Mass/Vol] 32.2 g/dL Normal 30.5-36.0 [facility] Comment on above: Order Comment: Speci men Type: BLOOD SPECIMENOrdering Facility: [facility] Address: [address] [place] [address] Performed By: #### 5 7021-8 ####[facility] [id number] [place] [address] [place] MCV (RBC) [Entitic vol] 94.0 fL Normal 80.0-100.0 [facility] Comment on above: Order Comment: Speci men Type: BLOOD SPECIMENOrdering Facility: [facility] Address: [address] [place] [address] Performed By: #### 5 7021-8 ####[facility] [id number] [place] [address] [place] Monocytes (Bld) [#/Vol] 0.54 10*3/uL Normal <0.87 [facility] Comment on above: Order Comment: Speci men Type: BLOOD SPECIMENOrdering Facility: [facility] Address: [address] [place] [address] Performed By: #### 5 7021-8 ####[facility] LABIA [id number] [place] [address] [place] Monocytes/100 WBC (Bld) 9.2 % Normal [facility] Comment on above: Order Comment: Speci men Type: BLOOD SPECIMENOrdering Facility: [facility] Address: [address] [place] [address] Performed By: #### 5 7021-8 ####[facility] LABCLIA [id number] [place] [address] [place] Neutrophils (Bld) [#/Vol] 3.49 10*3/uL Normal 1.45-7.50 [facility] Comment on above: Order Comment: Speci men Type: BLOOD SPECIMENOrdering Facility: [facility] Address: [address] [place] [address] Performed By: #### 5 7021-8 ####[facility] LABCLIA [id number] [place] [address] [place] Neutrophils/100 WBC (Bld) 59.4 % Normal [facility] Comment on above: Order Comment: Speci men Type: BLOOD SPECIMENOrdering Facility: [facility] Address: [address] [place] [address] Performed By: #### 5 7021-8 ####[facility] LABCLIA [id number] [place] [address] [place] Nucleated RBC (Bld) [#/Vol] 10*3/uL Normal <0.01 [facility] Comment on above: Order Comment: Speci men Type: BLOOD SPECIMENOrdering Facility: [facility] Address: [address] [place] [address] Performed By: #### 5 7021-8 ####[facility] LABCLIA [id number] [place] [address] [place] Nucleated RBC/100 WBC (Bld) [Ratio] 0.0 /100 WBC Normal [facility] Comment on above: Order Comment: Speci men Type: BLOOD SPECIMENOrdering Facility: [facility] Address: [address] [place] [address] Performed By: #### 5 7021-8 ####[facility] LABCLIA [id number] [address] [address] [place] Platelet mean volume (Bld) [Entitic vol] 12.1 fL Normal 9.0-12.7 [facility] Comment on above: Order Comment: Speci men Type: BLOOD SPECIMENOrdering Facility: [facility] Address: [address] [place] [address] Performed By: #### 5 7021-8 ####[facility] LABCLIA [id number] [place] [address] [place] Platelets (Bld) [#/Vol] 279 10*3/uL Normal 150-400 [facility] Comment on above: Order Comment: Speci men Type: BLOOD SPECIMENOrdering Facility: [facility] Address: [address] [place] [address] Performed By: #### 5 7021-8 ####[facility] LABIA [id number] [place] [address] [place] RBC (Bld) [#/Vol] 4.36 10*6/uL Normal 3.90-5.20 [facility] Comment on above: Order Comment: Speci men Type: BLOOD SPECIMENOrdering Facility: [facility] Address: [address] [place] [address] Performed By: #### 5 7021-8 ####[facility] LABIA [id number] [place] [address] [place] WBC (Bld) [#/Vol] 5.87 10*3/uL Normal 3.70-11.00 [facility] Comment on above: Order Comment: Speci men Type: BLOOD SPECIMENOrdering Facility: [facility] Address: [address] [place] [address] Performed By: #### 5 7021-8 ####[facility] LABIA [id number] [place] [address] [place] [facility] CNOVon 10-08-2024 CNOV Office Visit (FAMPWS ) SUSAN REYES ([id number]) 1960 F Date Time Provider Department 10/08/24 10:00 AM [facility] During your visit today, we recorded the following information about you: Temperature Pulse Respiration Blood pressure 97.7 degrees 59/minute 16/minute 108/60 Weight 62.6 kg Jody Cole PA-C 10/08/2024 11:25 AM Signed Chief Complaint Patient presents with: 6 Month Exam HPI Susan Reyes is a 64 year old female who presents here today for Chronic Medical Conditions.. Patient with hx of DM2, dysphagia, b12, insomnia, osteoporosis, anemia, depression/anxiety, and those as below. Patient reports she is doing well. No current concerns today. Past medical history, appointments, medications, allergies reviewed. Previous Medical History PAST MEDICAL HISTORY Diagnosis Date Absolute anemia 04/28/2015 Had total Gastrectomy due to multiple polyps. Has malabsorption since. Achalasia 08/19/2024 Seeing . Friend: Botox inject 08/2024 Age-related osteoporosis without current pathological fracture Anxiety and depression B12 deficiency 12/18/2014 Cervical dysplasia, moderate Chronic abdominal pain 12/20/2013 Secondary to post surgical adhesions. Takes gabapentin daily and tramadol PRN.. Controlled substance agreement signed 05/16/18, updated 04/13/2021 Chronic constipation 12/20/2013 Controlled type 2 diabetes mellitus without complication, without long-term current use of insulin (HCC) 04/25/2017 Ophthalmology: Dr. [facility]. COVID-19 virus infection 09/15/202109/2021 Disorder of sacrum 07/27/2015 Encounter for diabetic foot exam (HCC) 10/13/2018 Eosinophilic esophagitis 05/11/2016 Family history of thyroid disease 12/29/2021 Two sisters with hypothyroidism and one with Graves Dz. Gastric polyps H/O herpes labialis 08/12/2018 Herpes simplex virus (HSV) infection 05/28/2019 History of colonic polyps 12/17/2014 History of COVID-19 09/15/202109/2021 History of Helicobacter pylori infection 02/14/2023 Infection due to clarithromycin resistant Helicobacter pylori 12/28/202012/2020 Intestinal malabsorption 06/23/2015 Iron deficiency anemia 03/03/2011 Left-sided low back pain without sciatica 04/29/2015 Malabsorption of iron 12/11/2020 Menometrorrhagia 06/30/2011 OAB (overactive bladder) 05/28/2019 Oral lichen planus 12/20/2013 Ovarian cyst, right Pain of both hip joints 10/25/2017 Piriformis syndrome 04/29/2015 Primary insomnia 10/25/2017 Right-sided low back pain without sciatica 08/17/2016 Sarcoidosis Vitamin A deficiency 12/19/2014 Vitamin D deficiency 12/18/2014 Wart of scalp 04/29/2015 Previous Surgical History PAST SURGICAL HISTORY Procedure Laterality Date *STRESS TEST PC 05/11/2017 WNL CHOLECYSTECTOMY COLONOSCOPY 03/30/2005 normal with hemorrhoids COLONOSCOPY 01/07/2010 normal COLONOSCOPY 02/22/2022 COLONOSCOPY FLX DX W/COLLJ SPEC WHEN PFRMD 05/12/2016 Colonoscopy mac 5 year repeat not [address] Tong CONIZATION OF CERVIX LEEP EXCISION EGD 03/24/2005 nonspecific esophagitis EGD 01/05/2010 normal EGD 02/22/2022 EGD 01/20/2021 Normal ESOPHAGOGASTRODUODENOSCOPY TRANSORAL DIAGNOSTIC 02/10/2016 EGD mac PAST SURGICAL HISTORY OF 2002 gastricectomy, with jose daniel en Y resection PAST SURGICAL HISTORY OF iron infusions, Several infusions S BALLOON,UTERINE ABLATION 93252 08/25/2011 TRANSFUSION Several Trasfusions TUBAL LIGATION, Family History FAMILY HISTORY Problem Relation Age of Onset Diabetes Mother Hypertension Mother Cancer Father lymphatic Emphysema Father Hypothyroidism Sister Hypothyroidism Sister Graves Disease Sister Cancer Brother other (Mennigitis) Brother Colon Cancer Brother middle colon Cancer Brother stomach Heart disease Brother Patient Allergies ALLERGIES Allergen Reactions Iron Dextran Itching Ambien [Zolpidem] Other: See Comments Nightmares. Buspar [Buspirone H* Myalgia Current Medications Current Outpatient Medications on File Prior to Visit Medication Sig traMADol (ULTRAM) 50 mg tablet Take 1 tablet by mouth two times a day as needed for up to 30 days. tiZANidine (ZANAFLEX) 4 mg tablet Take 1 tablet by mouth two times a day as needed (muscle spasms). valACYclovir (VALTREX) 1 gram tablet Take 2 tablets by mouth two times a day. For total of 2 doses. gabapentin (NEURONTIN) 100 mg capsule Take two capsules in AM and one capsule in after noon and evening buPROPion XL (WELLBUTRIN XL) 150 mg 24 hr tablet Take 1 tablet by mouth once daily. ondansetron orally disintegrating (ZOFRAN ODT) 4 mg disintegrating tablet Take 1 tablet by mouth every 8 hours as needed for nausea/vomiting. citalopram (CELEXA) 40 mg tablet Take 1.5 tablets by mouth once daily. pantoprazole DR (PROTONIX) 40 mg tablet Take 1 (more content not included)... Normal [facility] Comprehensive metabolic 2000 panelon 10-08-2024 Albumin [Mass/Vol] 3.9 g/dL Normal 3.9-4.9 [facility] Comment on above: Order Comment: Speci men Type: BLOOD SPECIMENOrdering Facility: [facility] Address: [address] [place] [address] Performed By: #### L ALEXANDER, 36690-2, 2132-05, ####[facility] LABIA [id number] [place] [address] [place] ALP [Catalytic activity/Vol] 132 U/L High 34-123 [facility] Comment on above: Order Comment: Speci men Type: BLOOD SPECIMENOrdering Facility: [facility] Address: [address] [place] [address] Performed By: #### L ALEXANDER, 91435-2, 2132-05, ####[facility] LABCLIA [id number] [place] [address] [place] ALT [Catalytic activity/Vol] 15 U/L Normal 7-38 [facility] Comment on above: Order Comment: Speci men Type: BLOOD SPECIMENOrdering Facility: [facility] Address: [address] [place] [address] Performed By: #### L ALEXANDER, , 2132-05, ####[facility] LABCLIA [id number] [place] [address] [place] Anion gap [Moles/Vol] 10 mmol/L Normal 8-15 [facility] Comment on above: Order Comment: Speci men Type: BLOOD SPECIMENOrdering Facility: [facility] Address: [address] [place] [address] Performed By: #### L ALEXANDER, , 2132-05, ####[facility] LABCLIA [id number] [place] [address] [place] AST [Catalytic activity/Vol] 24 U/L Normal 13-35 [facility] Comment on above: Order Comment: Speci men Type: BLOOD SPECIMENOrdering Facility: [facility] Address: [address] [place] [address] Performed By: #### L ALEXANDER, , 2132-05, ####[facility] LABCLIA [id number] [place] [address] [place] Bilirubin [Mass/Vol] 0.4 mg/dL Normal 0.2-1.3 [facility] Comment on above: Order Comment: Speci men Type: BLOOD SPECIMENOrdering Facility: [facility] Address: [address] [place] [address] Performed By: #### L ALEXANDER, , 2132-05, ####[facility] LABCLIA [id number] [place] [id number] [place] Calcium [Mass/Vol] 9.5 mg/dL Normal 8.5-10.2 [facility] Comment on above: Order Comment: Speci men Type: BLOOD SPECIMENOrdering Facility: [facility] Address: [address] [place] [address] Performed By: #### L IPNF, 29989-9, 2132-05, 17477-4 ####[facility] LABCLIA [id number] [place] [address] [place] Chloride [Moles/Vol] 100 mmol/L Normal 98-107 [facility] Comment on above: Order Comment: Speci men Type: BLOOD SPECIMENOrdering Facility: [facility] Address: [address] [place] [address] Performed By: #### L IPALVA, 34962-4, 2132-05, 87200-1 ####[facility] LABCLIA [id number] [place] [address] [place] CO2 [Moles/Vol] 26 mmol/L Normal 22-30 [facility] Comment on above: Order Comment: Speci men Type: BLOOD SPECIMENOrdering Facility: [facility] Address: [address] [place] [address] Performed By: #### L ALEXANDER, 42633-5, 2132-05, 11135-1 ####[facility] LABCLIA [id number] [place] [address] [place] Creatinine [Mass/Vol] 1.07 mg/dL High 0.58-0.96 [facility] Comment on above: Order Comment: Speci men Type: BLOOD SPECIMENOrdering Facility: [facility] Address: [address] [place] [address] Performed By: #### L IPNF, 67252-0, 2132-05, 52428-8 ####[facility] LABCLIA [id number] [place] [address] [place] Creatinine and Glomerular filtration rate.predicted panel (S/P/Bld) 58 mL/min/1.73m??? Low >=60 [facility] Comment on above: Order Comment: Speci men Type: BLOOD SPECIMENOrdering Facility: [facility] Address: [address] [place] [id number] Result Comment: Irma mated Glomerular Filtration Rate (eGFR) is calculated using the 2020 CKD-EPI creatinine equation. This equation utilizes serum creatinine, sex, and age as parameters. The creatinine assay has traceable calibration to isotope dilution-mass spectrometry. Refer to KDIGO guidelines for clinical interpretation. In patients with unstable renal function, e.g. those with acute kidney injury, the eGFR may not accurately reflect actual GFR. Performed By: #### L IPNF, 72889-6, 2132-05, ####[facility] LABCLIA [id number] [place] [id number] [place] Glucose [Mass/Vol] 73 mg/dL Low 74-99 [facility] Comment on above: Order Comment: Chaim fowler Type: BLOOD SPECIMENOrdering Facility: [facility] Address: [address] [place] [address] Result Comment: The [place] Diabetes Association (ADA) provides guidance for cutoff values for fasting glucose and random glucose. The ADA defines fasting as no caloric intake for at least 8 hours. Fasting plasma glucose results between 100 to 125 mg/dL indicate increased risk for diabetes (prediabetes). Fasting plasma glucose results greater than or equal to 126 mg/dL meet the criteria for diagnosis of diabetes. In the absence of unequivocal hyperglycemia, results should be confirmed by repeat testing. In a patient with classic symptoms of hyperglycemia or hyperglycemic crisis, random plasma glucose results greater than or equal to 200 mg/dL meet the criteria for diagnosis of diabetes. Reference: Standards of Medical Care in Diabetes 2016, [place] Diabetes Association. Diabetes Care. 2016.39(Suppl 1). Performed By: #### L IPNF, 81378-0, 2132-05, ####[facility] LABCLIA [id number] [place] [id number] [place] Potassium [Moles/Vol] 4.2 mmol/L Normal 3.7-5.1 [facility] Comment on above: Order Comment: Chaim fowler Type: BLOOD SPECIMENOrdering Facility: [facility] Address: [address] [place], [place] [address] Performed By: #### L IPNF, 85007-7, 2132-05, 84779-2 ####[facility] LABCLIA [id number] [address] [address] [place] Protein [Mass/Vol] 6.4 g/dL Normal 6.3-8.0 [facility] Comment on above: Order Comment: Speci men Type: BLOOD SPECIMENOrdering Facility: [facility] Address: [address] [place] [address] Performed By: #### L IPNF, 24729-2, 2132-05, 30601-5 ####[facility] LABCLIA [id number] [place] [address] [place] Sodium [Moles/Vol] 136 mmol/L Normal 136-144 [facility] Comment on above: Order Comment: Speci men Type: BLOOD SPECIMENOrdering Facility: [facility] Address: [address] [place] [address] Performed By: #### L IPNF, , 2132-05, 12273-1 ####[facility] LABCLIA [id number] [place] [address] [place] Urea nitrogen [Mass/Vol] 12 mg/dL Normal 7-21 [facility] Comment on above: Order Comment: Speci men Type: BLOOD SPECIMENOrdering Facility: [facility] Address: [address] [place] [address] Performed By: #### L IPNF, , 2132-05, 91745-8 ####[facility] LABCLIA [id number] [address] [address] [place] HbA1c (Bld)on 10-08-2024 Average glucose Estimated from glycated hemoglobin (Bld) [Mass/Vol] 123 mg/dL Normal [facility] Comment on above: Order Comment: Speci men Type: BLOOD SPECIMENOrdering Facility: [facility] Address: [address] [place] [address] Result Comment: eAG: (Estimated average glucose) is a calculated value from HgbA1c and is telephone service representative of the average blood glucose level in the last 2-3 month period. Performed By: #### 5 5454-3 ####[facility] LABCLIA [id number] [place] [address] [place] HbA1c (Bld) [Mass fraction] 5.9 % High 4.3-5.6 [facility] Comment on above: Order Comment: Speci men Type: BLOOD SPECIMENOrdering Facility: [facility] Address: [address] [place] [address] Result Comment: [place] Diabetes Association guidelines indicate that patients with HgbA1c in the range 5.7-6.4% are at increased risk for development of diabetes, and intervention by lifestyle modification may be beneficial. HgbA1c greater or equal to 6.5% is considered diagnostic of diabetes. Performed By: #### 5 5454-3 ####[facility] LABCLIA [id number] [place] [address] [place] Iron and Iron binding capaci ty panelon 10-08-2024 Iron [Mass/Vol] 92 ug/dL Normal 41-186 [facility] Comment on above: Order Comment: Speci men Type: BLOOD SPECIMENOrdering Facility: [facility] Address: [address] [place] [address] Performed By: #### L IPNF, 32642-3, 2132-05, ####[facility] LABCLIA [id number] [place] [id number] [place] Iron binding capacity [Mass/Vol] 351 ug/dL Normal 232-386 [facility] Comment on above: Order Comment: Speci men Type: BLOOD SPECIMENOrdering Facility: [facility] Address: [address] [place] [address] Performed By: #### L IPNF, 77424-4, 2132-05, ####[facility] LABCLIA [id number] [place] [id number] [place] Iron/TIBC [Molar ratio] 26.2 % Normal 15.0-57.0 [facility] Comment on above: Order Comment: Speci men Type: BLOOD SPECIMENOrdering Facility: [facility] Address: [address] [place] [address] Performed By: #### L IPNF, , 2132-05, ####[facility] LABCLIA [id number] [place] [address] [place] LIPID PANEL, NONFASTINGon Cholesterol [Mass/Vol] 152 mg/dL Normal <200 [facility] Comment on above: Order Comment: Speci men Type: BLOOD SPECIMENOrdering Facility: [facility] Address: [address] [place] [address] Result Comment: <200 mg/dL, Desirable 200-239 mg/dL, Borderline high >239 mg/dL, High Performed By: #### L IPNF, , 2132-05, ####[facility] LABCLIA [id number] [place] [address] [place] HDL CHOLESTEROL, NF 51 mg/dL Normal >39 [facility] Comment on above: Order Comment: Speci men Type: BLOOD SPECIMENOrdering Facility: [facility] Address: [address] [place] [address] Result Comment: 40-5 9 mg/dL, Acceptable >59 mg/dL, High: Negative risk factor for coronary heart disease <40 mg/dL, Low: Positive risk factor for coronary heart disease Performed By: #### L IPNF, , 2132-05, ####[facility] LABCLIA [id number] [address] [address] [place] LDL CHOLESTEROL, NF 82 mg/dL Normal <100 [facility] Comment on above: Order Comment: Speci janeth Type: BLOOD SPECIMENOrdering Facility: [facility] Address: [address] [place] [address] Result Comment: <100 mg/dL, Optimal 100-129 mg/dL, Near optimal/above optimal 130-159 mg/dL, Borderline high 160-189 mg/dL, High >189 mg/dL, Very high Secondary prevention optimal LDL Cholesterol levels are recommended to be < 70 mg/dL Performed By: #### L IPNF, 76880-4, 2132-05, ####[facility] LABCLIA [id number] [place] [address] [place] LDL/HDL RATIO, NF 1.61 mg/dL Normal <2.54 [facility] Comment on above: Order Comment: Chaim fowler Type: BLOOD SPECIMENOrdering Facility: [facility] Address: [address] [place] [address] Result Comment: Collin zavaleta: 1. National Cholesterol Education Program ATP III Guideline At-A-Glance Quick Desk Reference: National Heart, Lung, and Blood [place]. National Institutes of Health. 2001: NIH Publication No. 01-3305. 2. An International Atherosclerosis Society position paper: global recommendations for the management of dyslipidemia: executive summary, Atherosclerosis. 2014: 232(2):410-413. Performed By: #### L IPNF, , 2132-05, ####[facility] LABCLIA [id number] [place] [address] [place] NON HDL CHOL, NF 101 mg/dL Normal <130 [facility] Comment on above: Order Comment: Iamgladys fowler Type: BLOOD SPECIMENOrdering Facility: [facility] Address: [address] [place] [address] Result Comment: <130 mg/dL, Optimal 130-159 mg/dL, Near optimal/above optimal 160-189 mg/dL, Borderline high 190-219 mg/dL, High >219 mg/dL, Very high Secondary prevention optimal non HDL Cholesterol levels are recommended to be <100 mg/dL Performed By: #### L IPNF, 52337-7, 2132-05, ####[facility] LABCLIA [id number] [place] [id number] [place] T CHOL/HDL RATIO NF 2.98 mg/dL Normal <5.10 [facility] Comment on above: Order Comment: Speci men Type: BLOOD SPECIMENOrdering Facility: [facility] Address: [address] [place] [address] Performed By: #### L IPNF, 35296-0, 2132-05, ####[facility] LABCLIA [id number] [place] [address] [place] TRIGLYCERIDES, NF 95 mg/dL Normal <150 [facility] Comment on above: Order Comment: Speci men Type: BLOOD SPECIMENOrdering Facility: [facility] Address: [address] [place] [address] Result Comment: <150 mg/dL, Normal 150-199 mg/dL, Borderline high 200-499 mg/dL, High >499 mg/dL, Very high Performed By: #### L IPNF, , 2132-05, ####[facility] LABCLIA [id number] [place] [address] [place] VLDL CHOLESTEROL, NF 19 mg/dL Normal <30 [facility] Comment on above: Order Comment: Speci men Type: BLOOD SPECIMENOrdering Facility: [facility] Address: [address] [place] [address] Performed By: #### L IPNF, , 2132-05, ####[facility] LABCLIA [id number] [place] [address] [place] QUANT TOX PANELon 10-08-2024 2-Yvwuslsmol-6,5-Dimet hyl-3,3-Diphenylpyrrol idine (EDDP) Confirm (U) [Mass/Vol] <25 Normal <25 [facility] Comment on above: Order Comment: Speci men Type: URINE SPECIMENOrdering Facility: [facility] Address: [address] [place] [address] Result Comment: 2-Wyxonuekbr-5,4-ohahkqod-4,3-diphenylpyrrolidine (EDDP) is a metabolite of methadone. Performed By: #### U QNTX ####[facility] [id number] [place] [address] [place] 6-Monoacetylmorphine (6-DELBERT) (U) [Mass/Vol] <5 Normal <5 [facility] Comment on above: Order Comment: Speci men Type: URINE SPECIMENOrdering Facility: [facility] Address: [address] [place] [address] Result Comment: 6-Mo noacetylmorphine is a metabolite of heroin. Performed By: #### U QNTX ####[facility] [id number] [place] [address] [place] Amphetamine Confirm (U) [Mass/Vol] <25 Normal <25 [facility] Comment on above: Order Comment: Speci men Type: URINE SPECIMENOrdering Facility: [facility] Address: [address] [place] [address] Result Comment: Meth ylphenidate does not contain or metabolize to amphetamine. Performed By: #### U QNTX ####[facility] [id number] [place] [address] [place] Benzoylecgonine Confirm (U) [Mass/Vol] <25 Normal <25 [facility] Comment on above: Order Comment: Speci men Type: URINE SPECIMENOrdering Facility: [facility] Address: [address] [place] [address] Result Comment: Barry oylecgonine is a metabolite of cocaine. Performed By: #### U QNTX ####[facility] [id number] [place] [address] [place] Buprenorphine (U) [Mass/Vol] <5 Normal <5 [facility] Comment on above: Order Comment: Speci men Type: URINE SPECIMENOrdering Facility: [facility] Address: [address] [place] [address] Result Comment: Mylene ents using transdermal formulations of buprenorphine may yield undetectable buprenorphine and norbuprenorphine urine concentrations. Performed By: #### U QNTX ####[facility] [id number] [place] [address] [place] Carboxy tetrahydrocannabinol (U) [Mass/Vol] <10 Normal <10 [facility] Comment on above: Order Comment: Speci men Type: URINE SPECIMENOrdering Facility: [facility] Address: [address] [place] [address] Result Comment: 11-N ev-2-yqogulw-tetrahydrocannabinol (hiajr-1-hkmaclc-THC) is a metabolite of uoxkc-4-bfzkenymsjaatzcybqqu (THC). This test does not differentiate between delta-8 or delta-9 carboxy-THC. Performed By: #### U QNTX ####[facility] [id number] [address] [place] Codeine Confirm (U) [Mass/Vol] <25 Normal <25 [facility] Comment on above: Order Comment: Speci men Type: URINE SPECIMENOrdering Facility: [facility] Address: [address] [place] [address] Performed By: #### U QNTX ####[facility] LABIA [id number] [place] [address] [place] fentaNYL Confirm (U) [Mass/Vol] <1 Normal <1 [facility] Comment on above: Order Comment: Speci men Type: URINE SPECIMENOrdering Facility: [facility] Address: [address] [place] [address] Performed By: #### U QNTX ####[facility] [id number] [place] [address] [place] HYDROcodone Confirm (U) [Mass/Vol] <25 Normal <25 [facility] Comment on above: Order Comment: Speci men Type: URINE SPECIMENOrdering Facility: [facility] Address: [address] [place] [address] Performed By: #### U QNTX ####[facility] LABCLIA [id number] [place] [address] [place] HYDROmorphone Confirm (U) [Mass/Vol] <25 Normal <25 [facility] Comment on above: Order Comment: Speci men Type: URINE SPECIMENOrdering Facility: [facility] Address: [address] [place] [address] Performed By: #### U QNTX ####[facility] LABIA [id number] [place] [address] [place] MDA, UR <25 Normal <25 [facility] Comment on above: Order Comment: Speci men Type: URINE SPECIMENOrdering Facility: [facility] Address: [address] [place] [address] Result Comment: 3,4 Methylenedioxyamphetamine is also known as MDA. Performed By: #### U QNTX ####[facility] LABIA [id number] [place] [address] [place] MDEA, UR <25 Normal <25 [facility] Comment on above: Order Comment: Speci men Type: URINE SPECIMENOrdering Facility: [facility] Address: [address] [place] [address] Result Comment: 3,4 Anwpniosgpjjnd-P-puopftjopukdxgog is also known as MDEA. Performed By: #### U QNTX ####[facility] LABIA [id number] [place] [address] [place] MDMA, UR <25 Normal <25 [facility] Comment on above: Order Comment: Speci men Type: URINE SPECIMENOrdering Facility: [facility] Address: [address] [place] [address] Result Comment: 3,4- Methylenedioxymethamphetamine is also known as MDMA. Performed By: #### U QNTX ####[facility] [id number] [address] [place] Methadone Confirm (U) [Mass/Vol] <25 Normal <25 [facility] Comment on above: Order Comment: Speci men Type: URINE SPECIMENOrdering Facility: [facility] Address: [address] [place] [address] Performed By: #### U QNTX ####[facility] [id number] [place] [address] [place] Methamphetamine Confirm (U) [Mass/Vol] <25 Normal <25 [facility] Comment on above: Order Comment: Speci men Type: URINE SPECIMENOrdering Facility: [facility] Address: [address] [place] [address] Performed By: #### U QNTX ####[facility] LABIA [id number] [place] [address] [place] Morphine Confirm (U) [Mass/Vol] <25 Normal <25 [facility] Comment on above: Order Comment: Speci men Type: URINE SPECIMENOrdering Facility: [facility] Address: [address] [place] [address] Performed By: #### U QNTX ####[facility] LABIA [id number] [address] [place] Norbuprenorphine (U) [Mass/Vol] <10 Normal <10 [facility] Comment on above: Order Comment: Speci men Type: URINE SPECIMENOrdering Facility: [facility] Address: [address] [place] [address] Result Comment: Norb uprenorphine is a metabolite of buprenorphine. Patients using transdermal formulations of buprenorphine may yield undetectable buprenorphine and norbuprenorphine urine concentrations. Performed By: #### U QNTX ####[facility] [id number] [place] [address] [place] Norfentanyl Confirm (U) [Mass/Vol] <1 Normal <1 [facility] Comment on above: Order Comment: Speci men Type: URINE SPECIMENOrdering Facility: [facility] Address: [address] [place] [address] Result Comment: Norf entanyl is a metabolite of fentanyl. Performed By: #### U QNTX ####[facility] [id number] [place] [address] [place] NORHYDROCODONE, UR <25 Normal <25 [facility] Comment on above: Order Comment: Speci men Type: URINE SPECIMENOrdering Facility: [facility] Address: [address] [place] [address] Result Comment: Norh ydrocodone is a metabolite of hydrocodone. Performed By: #### U QNTX ####[facility] [id number] [place] [address] [place] NOROXYCODONE, UR <25 Normal <25 [facility] Comment on above: Order Comment: Speci men Type: URINE SPECIMENOrdering Facility: [facility] Address: [address] [place] [address] Result Comment: Noro xycodone is a metabolite of oxycodone. Performed By: #### U QNTX ####[facility] [id number] [place] [address] [place] NOROXYMORPHONE, UR <25 Normal <25 [facility] Comment on above: Order Comment: Speci men Type: URINE SPECIMENOrdering Facility: [facility] Address: [address] [place] [address] Result Comment: Noro xymorphone is a metabolite of oxymorphone and oxycodone and a minor metabolite of naltrexone and naloxone. Performed By: #### U QNTX ####[facility] [id number] [place] [address] [place] Nortramadol (U) [Mass/Vol] >5000 High <25 [facility] Comment on above: Order Comment: Speci men Type: URINE SPECIMENOrdering Facility: [facility] Address: [address] [place] [address] Result Comment: O-de smethyltramadol is a metabolite of tramadol. Presence of O-desmethyltramadol is consistent with use of a tramadol-containing drug. Performed By: #### U QNTX ####[facility] [id number] [place] [address] [place] NOTE, UR TOXICOLOGY PANEL Normal [facility] Comment on above: Order Comment: Speci men Type: URINE SPECIMENOrdering Facility: [facility] Address: [address] [place] [address] Result Comment: For medical purposes only. Not valid for legal or forensic purposes. This test was developed, and its performance characteristics determined by the [facility] Department of Pathology and Laboratory Medicine. It has not been cleared or approved by the FDA. The [facility] Department of Pathology and Laboratory Medicine is regulated under CLIA as qualified to perform high-complexity testing. This test is used for clinical purposes. It should not be regarded as investigational or for research. Performed By: #### U QNTX ####[facility] [id number] [place] [address] [place] oxyCODONE Confirm (U) [Mass/Vol] <25 Normal <25 [facility] Comment on above: Order Comment: Speci men Type: URINE SPECIMENOrdering Facility: [facility] Address: [address] [place] [address] Performed By: #### U QNTX ####[facility] [id number] [place] [address] [place] oxyMORphone Confirm (U) [Mass/Vol] <25 Normal <25 [facility] Comment on above: Order Comment: Speci men Type: URINE SPECIMENOrdering Facility: [facility] Address: [address] [place] [address] Performed By: #### U QNTX ####[facility] LABIA [id number] [place] [address] [place] Phencyclidine Confirm (U) [Mass/Vol] <10 Normal <10 [facility] Comment on above: Order Comment: Speci men Type: URINE SPECIMENOrdering Facility: [facility] Address: [address] [place] [address] Result Comment: Phen cyclidine is also known as PCP. Performed By: #### U QNTX ####[facility] [id number] [place] [address] [place] PHENTERMINE, UR <25 Normal <25 [facility] Comment on above: Order Comment: Speci men Type: URINE SPECIMENOrdering Facility: [facility] Address: [address] [place] [address] Performed By: #### U QNTX ####[facility] [id number] [place] [address] [place] traMADol Confirm (U) [Mass/Vol] >5000 High <25 [facility] Comment on above: Order Comment: Speci men Type: URINE SPECIMENOrdering Facility: [facility] Address: [address] [place] [address] Result Comment: Pres ence of tramadol is consistent with use of a tramadol-containing drug. Tramadol is metabolized to o-desmethyltramadol. Performed By: #### U QNTX ####[facility] [id number] [place] [address] [place] SPECIMEN VALIDITY, URINEon 0 2- CREATININE,URINE 205.8 mg/dL Normal 20.0-300.0 [facility] Comment on above: Order Comment: Speci men Type: URINE SPECIMENOrdering Facility: [facility] Address: [address] [place] [id number] Performed By: #### L [id number] ####[facility] LABCLIA [id number] [place] [id number] [place] NITRITES,URINE 58 mg/L Normal <500 [facility] Comment on above: Order Comment: Speci men Type: URINE SPECIMENOrdering Facility: [facility] Address: [address] [place], [place] [id number] Performed By: #### L [id number] ####[facility] LABCLIA [id number] [place] [address] [place] OXIDANTS,URINE 98 mg/L Normal <200 [facility] Comment on above: Order Comment: Speci men Type: URINE SPECIMENOrdering Facility: [facility] Address: [address] [place] [address] Performed By: #### L [id number] ####[facility] LABCLIA [id number] [place] [address] [place] pH (U) 5.3 [pH] Normal 4.5-8.0 [facility] Comment on above: Order Comment: Speci men Type: URINE SPECIMENOrdering Facility: [facility] Address: [address] [place] [address] Performed By: #### L [id number] ####[facility] LABCLIA [id number] [place] [id number] [place] SPEC GRAVITY,UR 1.012 Normal 1.003-1.03 5 [facility] Comment on above: Order Comment: Speci men Type: URINE SPECIMENOrdering Facility: [facility] Address: [address] [place], [place] [id number] Performed By: #### L [id number] ####[facility] LABCLIA [id number] [place] [id number] [address] [place] SPECIMEN VALIDITY QUALITY Specimen quality results within acceptable limits Normal [facility] Comment on above: Order Comment: Speci men Type: URINE SPECIMENOrdering Facility: [facility] Address: [address] [place] [address] Performed By: #### L [id number] ####[facility] LABCLIA [id number] [place] [address] [place] TOXICOLOGY SCREEN, ROUTINE U RINEon 10-08-2024 Amphetamines Confirm (U) [Mass/Vol] Negative Normal Negative [facility] Comment on above: Order Comment: Speci men Type: URINE SPECIMENOrdering Facility: [facility] Address: [address] [place] [address] Result Comment: Cuto ff threshold at 1000 ng/mL. Performed By: #### U TOX2, UACR ####[facility] LABCLIA [id number] [place] [address] [place] BARBITURATES, URINE Negative Normal Negative [facility] Comment on above: Order Comment: Speci men Type: URINE SPECIMENOrdering Facility: [facility] Address: [address] [place] [address] Result Comment: Cuto ff threshold at 200 ng/mL. Performed By: #### U TOX2, UACR ####[facility] LABCLIA [id number] [place] [address] [place] BENZODIAZEPINES, UR Negative Normal Negative [facility] Comment on above: Order Comment: Speci men Type: URINE SPECIMENOrdering Facility: [facility] Address: [address] [place] [address] Result Comment: Cuto ff threshold at 200 ng/mL. Performed By: #### U TOX2, UACR ####[facility] LABCLIA [id number] [place] [address] [place] Cannabinoids Screen Ql (U) Negative Normal Negative [facility] Comment on above: Order Comment: Speci men Type: URINE SPECIMENOrdering Facility: [facility] Address: [address] [place] [address] Result Comment: Cuto ff threshold at 50 ng/mL. Performed By: #### U TOX2, UACR ####[facility] LABCLIA [id number] [place] [address] [place] Cocaine Ql (U) Negative Normal Negative [facility] Comment on above: Order Comment: Speci men Type: URINE SPECIMENOrdering Facility: [facility] Address: [address] [place] [address] Result Comment: Cuto ff threshold at 300 ng/mL. Performed By: #### U TOX2, UACR ####[facility] LABCLIA [id number] [place] [address] [place] Ethanol (U) [Mass/Vol] <11 Normal <11 [facility] Comment on above: Order Comment: Speci men Type: URINE SPECIMENOrdering Facility: [facility] Address: [address] [place] [address] Performed By: #### U TOX2, UACR ####[facility] LABCLIA [id number] [place] [address] [place] Opiates Screen Ql (U) Negative Normal Negative [facility] Comment on above: Order Comment: Speci men Type: URINE SPECIMENOrdering Facility: [facility] Address: [address] [place] [address] Result Comment: Cuto ff threshold at 300 ng/mL. Performed By: #### U TOX2, UACR ####[facility] LABCLIA [id number] [place] [address] [place] oxyCODONE cutoff Screen (U) [Mass/Vol] Negative Normal Negative [facility] Comment on above: Order Comment: Speci men Type: URINE SPECIMENOrdering Facility: [facility] Address: [address] [place] [address] Result Comment: Cuto ff threshold at 100 ng/mL. Performed By: #### U TOX2, UACR ####[facility] LABCLIA [id number] [address] [place] Phencyclidine Ql (U) Negative Normal Negative [facility] Comment on above: Order Comment: Speci men Type: URINE SPECIMENOrdering Facility: [facility] Address: [address] [place] [address] Result Comment: Cuto ff threshold at 25 ng/mL. Performed By: #### U TOX2, UACR ####[facility] LABCLIA [id number] [place] [address] [place] Urinalysis complete panel (U )on 10-08-2024 Bacteria LM.HPF (Urine sed) [#/Area] Negative Negative /HPF [facility] Bilirubin Ql (U) Negative Negative [facility] Calcium Oxalate Crystals Few Abnormal None Seen /HPF [facility] Clarity (Unsp spec) Clear Clear [facility] Color (U) Dark Yellow Abnormal Yellow [facility] Epithelial cells LM.HPF (Urine sed) [#/Area] Moderate /HPF [facility] Glucose Test strip (U) [Mass/Vol] Negative Negative [facility] Hemoglobin Ql (U) Negative Negative [facility] Hyaline casts (Urine sed) [#/Area] 1-3 /LPF Abnormal 0 /LPF [facility] Interpretation and review of laboratory results Abnormal [facility] Ketones Ql (U) Trace Abnormal Negative [facility] Leukocyte esterase Test strip Ql (U) Trace Abnormal Negative [facility] Nitrite Ql (U) Negative Negative [facility] pH (U) 5.5 [pH] NINF - 8.5 [facility] Protein (U) [Mass/Vol] Negative Negative [facility] [facility] RBC LM.HPF (Urine sed) [#/Area] 3-5 /HPF Abnormal 0-2 /HPF [facility] Specific gravity (U) [Rel density] 1.020 1.005 - 1.030 [facility] Urobilinogen Ql (U) 1.0 EU/dL 0.2-1.0 EU/dL [facility] WBC LM.HPF (Urine sed) [#/Area] 0-5 /HPF 0-5 /HPF [facility] This test was develo ped and its performance characteristics determined by [facility]'s Dane JIsha [facility] Pathology and Laboratory Medicine [place] ([facility]). It has not been cleared or approved by the FDA. [facility] is regulated under CLIA as qualified to perform high-complexity testing. This test is used for clinical purposes. It should not be regarded as investigational or for research. [facility] Bacteria LM.HPF (Urine sed) [#/Area] Negative Normal Negative [facility] Comment on above: Order Comment: Speci men Type: URINE SPECIMENOrdering Facility: [facility] Address: [address] [place] [address] Performed By: #### 2 4356-8 ####[facility] LABIA [id number] [place] [address] [place] Bilirubin Ql (U) Negative Normal Negative [facility] Comment on above: Order Comment: Speci men Type: URINE SPECIMENOrdering Facility: [facility] Address: [address] [place] [address] Performed By: #### 2 4356-8 ####[facility] LABCLIA [id number] [place] [address] [place] CALCIUM OXALATE CRYSTALS (UA) Few Abnormal None Seen [facility] Comment on above: Order Comment: Speci men Type: URINE SPECIMENOrdering Facility: [facility] Address: [facility] [place] [address] Performed By: #### 2 4356-8 ####[facility] LABCLIA [id number] [place] [id number] [place] Clarity (Unsp spec) Clear Normal Clear [facility] Comment on above: Order Comment: Speci men Type: URINE SPECIMENOrdering Facility: [facility] Address: [address] [place] [address] Performed By: #### 2 4356-8 ####[facility] LABCLIA [id number] [address] [place] Color (U) Dark Yellow Abnormal Yellow [facility] Comment on above: Order Comment: Speci men Type: URINE SPECIMENOrdering Facility: [facility] Address: [address] [place] [address] Performed By: #### 2 4356-8 ####[facility] LABCLIA [id number] [place] [address] [place] Epithelial cells LM.HPF (Urine sed) [#/Area] Moderate Normal [facility] Comment on above: Order Comment: Speci men Type: URINE SPECIMENOrdering Facility: [facility] Address: [address] [place] [address] Performed By: #### 2 4356-8 ####[facility] LABCLIA [id number] [place] [address] [place] Glucose Test strip (U) [Mass/Vol] Negative Normal Negative [facility] Comment on above: Order Comment: Speci men Type: URINE SPECIMENOrdering Facility: [facility] Address: [address] [place] [address] Performed By: #### 2 4356-8 ####[facility] LABCLIA [id number] [place] [address] [place] Hemoglobin Ql (U) Negative Normal Negative [facility] Comment on above: Order Comment: Speci men Type: URINE SPECIMENOrdering Facility: [facility] Address: [address] [place] [address] Performed By: #### 2 4356-8 ####[facility] LABCLIA [id number] [place] [address] [place] Hyaline casts (Urine sed) [#/Area] 1-3 /LPF Abnormal 0 /LPF [facility] Comment on above: Order Comment: Speci men Type: URINE SPECIMENOrdering Facility: [facility] Address: [address] [place] [address] Performed By: #### 2 4356-8 ####[facility] LABCLIA [id number] [place] [address] [place] Ketones Ql (U) Trace Abnormal Negative [facility] Comment on above: Order Comment: Speci men Type: URINE SPECIMENOrdering Facility: [facility] Address: [address] [place] [address] Performed By: #### 2 4356-8 ####[facility] LABCLIA [id number] [place] [address] [place] Leukocyte esterase Test strip Ql (U) Trace Abnormal Negative [facility] Comment on above: Order Comment: Speci men Type: URINE SPECIMENOrdering Facility: [facility] Address: [address] [place] [address] Performed By: #### 2 4356-8 ####[facility] LABCLIA [id number] [place] [address] [place] Nitrite Ql (U) Negative Normal Negative [facility] Comment on above: Order Comment: Speci men Type: URINE SPECIMENOrdering Facility: [facility] Address: [address] [place] [address] Performed By: #### 2 4356-8 ####[facility] LABCLIA [id number] [place] [address] [place] pH (U) 5.5 [pH] Normal <8.5 [facility] Comment on above: Order Comment: Speci men Type: URINE SPECIMENOrdering Facility: [facility] Address: [address] [place] [address] Performed By: #### 2 4356-8 ####[facility] LABCLIA [id number] [place] [address] [place] Protein (U) [Mass/Vol] Negative Normal Negative [facility] Comment on above: Order Comment: Speci men Type: URINE SPECIMENOrdering Facility: [facility] Address: [address] [place], [place] [address] Performed By: #### 2 4356-8 ####[facility] LABCLIA [id number] [place] [address] [place] RBC LM.HPF (Urine sed) [#/Area] 3-5 /HPF Abnormal 0-2 /HPF [facility] Comment on above: Order Comment: Speci men Type: URINE SPECIMENOrdering Facility: [facility] Address: [address] [place] [address] Performed By: #### 2 4356-8 ####[facility] LABIA [id number] [place] [address] [place] Specific gravity (U) [Rel density] 1.020 Normal 1.005-1.03 0 [facility] Comment on above: Order Comment: Speci men Type: URINE SPECIMENOrdering Facility: [facility] Address: [address] [place] [address] Performed By: #### 2 4356-8 ####[facility] LABIA [id number] [place] [address] [place] Urobilinogen Ql (U) 1.0 EU/dL Normal 0.2-1.0 EU/dL [facility] Comment on above: Order Comment: Speci men Type: URINE SPECIMENOrdering Facility: [facility] Address: [address] [place] [address] Performed By: #### 2 4356-8 ####[facility] LABIA [id number] [place] [address] [place] WBC LM.HPF (Urine sed) [#/Area] 0-5 /HPF Normal 0-5 /HPF [facility] Comment on above: Order Comment: Speci men Type: URINE SPECIMENOrdering Facility: [facility] Address: [address] [place] [address] Performed By: #### 2 4356-8 ####[facility] LABIA [id number] [place] [address] [place] Vit A SerPl-mCncon 5 Retinol [Mass/Vol] 0.29 mg/L Low 0.30-1.20 [facility] Comment on above: Order Comment: Chaim fowler Type: BLOOD SPECIMENOrdering Facility: [facility] Address: [address] [place] [address] Result Comment: Reti nol greater than 0.3 mg/L is typically associated with adequate liver stores in adults, and is within normal limits for children. Retinol less than 0.10 mg/L may indicate depleted liver stores and severe deficiency. Test performed at [facility] in [place], [place]. This test was developed and its performance characteristics determined by [employer]. It has not been cleared or approved by the [place] Food and Drug Administration. This test was performed in a CLIA certified laboratory and is intended for clinical purposes. Performed By: #### 2 923-1 ####[facility] LABIA [id number] [place] [address] [place] Vit B12 SerPl-mCncon 025 Cobalamin (Vitamin B12) [Mass/Vol] 811 pg/mL Normal 232-1245 [facility] Comment on above: Order Comment: Chaim fowler Type: BLOOD SPECIMENOrdering Facility: [facility] Address: [address] [place] [address] Performed By: #### L IPNF, 91143-4, 2132-9, 57170-4 ####[facility] [id number] [place] [address] [place] Zinc SerPl-mCncon 10-08-2024 Zinc [Mass/Vol] 76 ug/dL Normal 60-120 [facility] Comment on above: Order Comment: Chaim fowler Type: BLOOD SPECIMENOrdering Facility: [facility] Address: [address] [place] [address] Result Comment: This test was developed, and its performance characteristics determined by the [facility] Department of Pathology and Laboratory Medicine. It has not been cleared or approved by the FDA. The [facility] Department of Pathology and Laboratory Medicine is regulated under CLIA as qualified to perform high-complexity testing. This test is used for clinical purposes. It should not be regarded as investigational or for research. Performed By: #### 5 763-8 ####[facility] LABCLIA [id number] [address] [place] [address] [place] Bedside Glucoseon 08-16-2024 FINGERSTICK GLU 90 mg/dL Normal 74-106 [facility] Comment on above: Result Comment: JERRICA MCCALL OF PATIENT CARE PER NURSING PROTOCOL Performed By: #### L 501.080 ####[facility] [address] [place], [address] EGD Reporton 08-16-[address] [facility] Medical Records Department [address] [place] [address] EGD Report MR#: [id number] Acct: [id number] Name: SUSAN REYES Rep #: [id number] : 1960 64 From: Israel Francis DO PCP: Dr. Justen Darling MD Status:[facility] Patient Name: Susan Reyes Procedure Date: 08/16/2024 3:34 PM Date of : 1960 Age: 64 Procedure: Upper GI endoscopy Indications: Dysphagia Providers: Israel Francis DO Referring MD: Justen Darling MD Medicines: Monitored Anesthesia Care Patient Profile: This is a 64 year old female. Refer to note in patient chart for documentation of history and physical. Patient has symptoms of dysphagia with both liquids and solids, chronic regurgitation and chronic vomiting. Complications: No immediate complications. Procedure: Pre-Anesthesia Assessment: - Prior to the procedure, a History and Physical was performed, and patient medications and allergies were reviewed. The patient is competent. The risks and benefits of the procedure and the sedation options and risks were discussed with the patient. All questions were answered and informed consent was obtained. Patient identification and proposed procedure were verified by the physician in the pre-procedure area. Mental Status Examination: alert and oriented. Airway Examination: normal oropharyngeal airway and neck mobility. Respiratory Examination: clear to auscultation. CV Examination: normal. Prophylactic Antibiotics: The patient does not require prophylactic antibiotics. Prior Anticoagulants: The patient has taken no anticoagulant or antiplatelet agents except for NSAID medication. ASA Grade Assessment: II - A patient with mild systemic disease. After reviewing the risks and benefits, the patient was deemed in satisfactory condition to undergo the procedure. The anesthesia plan was to use monitored anesthesia care (MAC). Immediately prior to administration of medications, the patient was re-assessed for adequacy to receive sedatives. The heart rate, respiratory rate, oxygen saturations, blood pressure, adequacy of pulmonary ventilation, and response to care were monitored throughout the procedure. The physical status of the patient was re-assessed after the procedure. After obtaining informed consent, the endoscope was passed under direct vision. Throughout the procedure, the patient's blood pressure, pulse, and oxygen saturations were monitored continuously. The Endoscope was introduced through the mouth, and advanced to the jejunum. The upper GI endoscopy was accomplished without difficulty. The patient tolerated the procedure well. Scope In: 3:43:11 PM Scope Out: 3:53:33 PM Total Procedure Duration Time 0 hours 10 minutes 22 seconds Findings: Abnormal motility was noted in the esophagus. The cricopharyngeus was abnormal. There are extra peristaltic waves in the esophageal body. The distal esophagus/lower esophageal sphincter is spastic, but gives up passage to the endoscope. Tertiary peristaltic waves are noted. Area was successfully injected with 100 units botulinum toxin. Evidence of a Jose Daniel-en-Y gastrojejunostomy was found. The gastrojejunal anastomosis was characterized by healthy appearing mucosa. This was traversed. The zmtev-hf-jbtzjup limb was characterized by healthy appearing mucosa. The jejunojejunal anastomosis was characterized by healthy appearing mucosa. The rskzoohd-ng-gpngufw limb was not examined as it could not be found. The excluded stomach was not examined as it could not be found. The examined jejunum was normal. Impression: - Abnormal esophageal motility, established achalasia. Injected with botulinum toxin. - Jose Daniel-en-Y gastrojejunostomy with gastrojejunal anastomosis characterized by healthy appearing mucosa. - Normal examined jejunum. - No specimens collected. Recommendation: - Discharge patient to home. - Resume regular diet. - Continue present medications. Procedure Code(s): --- Professional --- 74692, Esophagogastroduodenoscopy, flexible, transoral; with directed submucosal injection(s), any substance CPT copyright 2021 [employer]. All rights reserved. The codes documented in this report are preliminary and upon sweater designer review may be revised to meet current compliance requirements. Israel Francis DO 08/16/2024 4:05:13 PM This report has been signed electronically. Number of Addenda: 0 Note Initiated On: 08/16/2024 3:34 PM 08/16/24 1605 Date Israel Clarosigndarvin Signature: Date (if indicated) CC: Dr. Justen Darling MD; Israel Francis DO Date Dictated: 08/16/24 1534 Date Transcribed: Workers Compensation Attorney: MAJO Signed [facility] MR/POSTOP.[facility] 08-16-2024 MR/POSTOP.[facility] Medical Records Department [address] [place] [address] Anesthesia Postop Eval I 08/16/241600 MR#: [id number] Acct: [id number] Name: SUSAN REYES Rep #: [id number] : 1960 64 From: Micheal Chaudhari PCP: Dr. Justen Darling MD Status:REG SD Y Race: C Location: [place] [address] Anesthesia: Postop Eval I Current Vital Signs Temperature: 97.4 F Pulse Rate: 78 Blood Pressure: 97/57 Respiratory Rate: 16 Pulse Ox: 97 Oxygen Delivery Method: Room Air Assessment Airway patent: Yes Spontaneous unlabored respirations: Yes Mental status: Asleep nausea: No Vomiting: No Anesthesia Complication: No Fluid Hydration Crystalloid volume administer (ml): 30 Total IV fluid infused: 30 Progress Note Anesthesia document: Postop Eval 1 completed: Yes 12/13/24 1602 Date Micheal Griffiths Signature: Date CC: Signed Normal [facility] MR/[id number] 08-16-2024 MR/POSTOPAN2 [facility] Medical Records Department [address] [place] [address] Anesthesia Postop Eval II 08/16/24 1636 MR#: [id number] Acct: [id number] Name: SUSAN REYES Rep #: [id number] : 1960 64 From: German Jang MD PCP: Dr. Justen Darling MD Status:REG [facility] Y Race: C Location: [place] [address] Anesthesia Postop Eval I Sum Postop Eval Completion status Anesthesia document: Postop Eval 1 completed: Yes Anesthesia Postop Eval I Summary Anesthesia Postop Eval I Summary: Anesthesia Postop Eval I: Assessment Summary Airway patent Yes 08/16/24 16:02 [email or web address] Spontaneous unlabored Yes 08/16/24 16:02 [email or web address] respirations Mental status Asleep 08/16/24 16:02 [email or web address] nausea No 08/16/24 16:02 [email or web address] Vomiting No 08/16/24 16:02 [email or web address] Anesthesia Postop Eval I: Fluid Summary Crystalloid volume administer 30 08/16/24 16:02 [email or web address] (ml) Colloids volume administered ( ml) Blood Product volume administered (ml) Total IV fluid infused 30 08/16/24 16:02 [email or web address] Anesthesia Postop Eval I: Summary Notes Anesthesia Complication No 08/16/24 16:02 [email or web address] Anesthesia Complication Comment: Post-operative progress note Anesthesia: Postop Eval II Evaluation Mental status: Awake and Calm Pain Level: 0 nausea: No Vomiting: No Complications Anesthesia Complication: No 08/16/24 1637 Date German Griffiths Signature: Date CC: Signed Normal [facility] No Panel Informationon 04-29 IMPRESSION: 1. Hepatic steatosis. 2. Prior cholecystectomy. 3. Pancreas obscured by bowel gas and therefore not evaluated. Workers Compensation Attorney: ROHAN Transcribe Date/Time: Apr 29 2024 8:46A Dictated by : JAMILA MCLEAN MD This examination was interpreted and the report reviewed and electronically signed by: JAMILA MCLEAN MD on Apr 29 2024 8:48AM [facility] DIVISION OF RADIOLOGY No Panel InformationOrdered By: Ccf Provider on 04-29-2024 [facility] US ABD SPLEEN - NBon 024 * * *Final Report* * * DATE OF EXAM: Apr 29 2024 8:39AM U 1232 - US ABD SPLEEN -NB / PROCEDURE REASON: multiple diagnoses * * * * Physician Interpretation * * * * EXAMINATION: RIGHT UPPER QUADRANT AND SPLEEN ULTRASOUND CLINICAL HISTORY: Chronic abdominal pain TECHNIQUE: Sonography of the right upper quadrant and spleen was performed. Images were obtained and stored in a permanent archive and interpreted remotely. MQ: URUQ_2 CORRELATION: CT abdomen dated 12/29/2020 RESULT: Pancreas: Obscured by bowel gas and therefore not evaluated. Portions obscured: tail Liver: Echotexture: Normal, homogeneous. Echogenicity: Increased Surface contour: Smooth Lesions: None. Biliary: No intrahepatic biliary duct dilation. CBD: 0.4 cm at the hilum. Gallbladder: Prior cholecystectomy Bilateral Kidneys: Normal cortical echogenicity. No hydronephrosis. Spleen: Normal in size measuring approximately 6 cm in craniocaudad dimension. No sonographic evidence of focal splenic lesion. Ascites: None. DIVISION OF RADIOLOGY Provider, An [facility] - 04/29/2024 * * *Final Report* * * DATE OF EXAM: Apr 29 2024 8:39AM U 1232 - US ABD SPLEEN -NB / PROCEDURE REASON: multiple diagnoses * * * * Physician Interpretation * * * * EXAMINATION: RIGHT UPPER QUADRANT AND SPLEEN ULTRASOUND CLINICAL HISTORY: Chronic abdominal pain TECHNIQUE: Sonography of the right upper quadrant and spleen was performed. Images were obtained and stored in a permanent archive and interpreted remotely. MQ: URUQ_2 CORRELATION: CT abdomen dated 12/29/2020 RESULT: Pancreas: Obscured by bowel gas and therefore not evaluated. Portions obscured: tail Liver: Echotexture: Normal, homogeneous. Echogenicity: Increased Surface contour: Smooth Lesions: None. Biliary: No intrahepatic biliary duct dilation. CBD: 0.4 cm at the hilum. Gallbladder: Prior cholecystectomy Bilateral Kidneys: Normal cortical echogenicity. No hydronephrosis. Spleen: Normal in size measuring approximately 6 cm in craniocaudad dimension. No sonographic evidence of focal splenic lesion. Ascites: None. IMPRESSION IMPRESSION: 1. Hepatic steatosis. 2. Prior cholecystectomy. 3. Pancreas obscured by bowel gas and therefore not evaluated. Workers Compensation Attorney: ROHAN Transcribe Date/Time: Apr 29 2024 8:46A Dictated by : JAMILA MCLEAN MD This examination was interpreted and the report reviewed and electronically signed by: JAMILA MCLEAN MD on Apr 29 2024 8:48AM EST [facility] Radiology Study observation (narrative) [facility] US Abdomen RUQon 04-29-2024 * * *Final Report* * * DATE OF EXAM: Apr 29 2024 8:39AM U 1032 - US ABD RIGHT UPPER QUADRANT / PROCEDURE REASON: multiple diagnoses * * * * Physician Interpretation * * * * EXAMINATION: RIGHT UPPER QUADRANT AND SPLEEN ULTRASOUND CLINICAL HISTORY: Chronic abdominal pain TECHNIQUE: Sonography of the right upper quadrant and spleen was performed. Images were obtained and stored in a permanent archive and interpreted remotely. MQ: URUQ_2 CORRELATION: CT abdomen dated 12/29/2020 RESULT: Pancreas: Obscured by bowel gas and therefore not evaluated. Portions obscured: tail Liver: Echotexture: Normal, homogeneous. Echogenicity: Increased Surface contour: Smooth Lesions: None. Biliary: No intrahepatic biliary duct dilation. CBD: 0.4 cm at the hilum. Gallbladder: Prior cholecystectomy Bilateral Kidneys: Normal cortical echogenicity. No hydronephrosis. Spleen: Normal in size measuring approximately 6 cm in craniocaudad dimension. No sonographic evidence of focal splenic lesion. Ascites: None. DIVISION OF RADIOLOGY Provider, An Aguilar - 04/29/2024 * * *Final Report* * * DATE OF EXAM: Apr 29 2024 8:39AM WRU 1032 - US ABD RIGHT UPPER QUADRANT / PROCEDURE REASON: multiple diagnoses * * * * Physician Interpretation * * * * EXAMINATION: RIGHT UPPER QUADRANT AND SPLEEN ULTRASOUND CLINICAL HISTORY: Chronic abdominal pain TECHNIQUE: Sonography of the right upper quadrant and spleen was performed. Images were obtained and stored in a permanent archive and interpreted remotely. MQ: URUQ_2 CORRELATION: CT abdomen dated 12/29/2020 RESULT: Pancreas: Obscured by bowel gas and therefore not evaluated. Portions obscured: tail Liver: Echotexture: Normal, homogeneous. Echogenicity: Increased Surface contour: Smooth Lesions: None. Biliary: No intrahepatic biliary duct dilation. CBD: 0.4 cm at the hilum. Gallbladder: Prior cholecystectomy Bilateral Kidneys: Normal cortical echogenicity. No hydronephrosis. Spleen: Normal in size measuring approximately 6 cm in craniocaudad dimension. No sonographic evidence of focal splenic lesion. Ascites: None. IMPRESSION IMPRESSION: 1. Hepatic steatosis. 2. Prior cholecystectomy. 3. Pancreas obscured by bowel gas and therefore not evaluated. Workers Compensation Attorney: THE MEDICAL CENTERLuz Maria Transcribe Date/Time: Apr 29 2024 8:46A Dictated by : JAMILA MCLEAN MD This examination was interpreted and the report reviewed and electronically signed by: JAMILA MCLEAN MD on Apr 29 2024 8:48AM EST [facility] Radiology Study observation (narrative) [facility] VITAMIN A/RETINOLon 02-16-20 Retinol [Mass/Vol] 0.34 mg/L 0.30 - 1.20 mg/L [facility] Comprehensive metabolic 2000 panelon 02-14-2023 Albumin [Mass/Vol] 3.9 g/dL 3.9 - 4.9 g/dL [facility] ALP [Catalytic activity/Vol] 115 U/L 34 - 123 U/L [facility] ALT [Catalytic activity/Vol] 15 U/L 7 - 38 U/L [facility] Anion gap [Moles/Vol] 11 mmol/L 9 - 18 mmol/L [facility] AST [Catalytic activity/Vol] 22 U/L 13 - 35 U/L [facility] Bilirubin [Mass/Vol] 0.4 mg/dL 0.2 - 1 .3 mg/dL [facility] Calcium [Mass/Vol] 9.5 mg/dL 8.5 - 10. 2 mg/dL [facility] Chloride [Moles/Vol] 105 mmol/L 97 - 10 5 mmol/L [facility] CO2 [Moles/Vol] 26 mmol/L 22 - 30 mmol/L [facility] Creatinine [Mass/Vol] 0.85 mg/dL 0.58 - 0.96 mg/dL [facility] Estimated Glomerular Filtration Rate 78 mL/min/1.73m >=60 mL/min/1.7 3m [facility] Glucose [Mass/Vol] 84 mg/dL 74 - 99 mg/dL [facility] Potassium [Moles/Vol] 5.0 mmol/L 3.7 - 5.1 mmol/L [facility] Protein [Mass/Vol] 6.2 g/dL Low 6.3 - 8.0 g/dL [facility] Sodium [Moles/Vol] 142 mmol/L 136 - 144 mmol/L [facility] Urea nitrogen [Mass/Vol] 14 mg/dL 7 - 21 mg/dL [facility] HbA1c (Bld)on 02-14-2023 Average glucose Estimated from glycated hemoglobin (Bld) [Mass/Vol] 128 mg/dL [facility] HbA1c (Bld) [Mass fraction] 6.1 % High 4.3 - 5.6 % [facility] LIPID PANEL, NONFASTINGon Cholesterol [Mass/Vol] 158 mg/dL <200 mg/dL [facility] HDL Cholesterol, Nonfasting 45 mg/dL >39 mg/dL [facility] LDL Cholesterol, Nonfasting 97 mg/dL <100 mg/dL [facility] LDL/HDL Ratio, Nonfasting 2.16 mg/dL <2.54 mg/dL [facility] Non HDL Cholesterol, Nonfasting 113 mg/dL <130 mg/dL [facility] Total Chol/HDL Ratio, Nonfasting 3.51 mg/dL <5.10 mg/dL [facility] Triglycerides, Nonfasting 78 mg/dL <150 mg/dL [facility] VLDL Cholesterol, Nonfasting 16 mg/dL <30 mg/dL [facility] No Panel Informationon 10-06 [facility] HGB A1Con 12-29-2021 Average glucose Estimated from glycated hemoglobin (Bld) [Mass/Vol] 126 mg/dL [facility] HbA1c (Bld) [Mass fraction] 6.0 % High 4.3 - 5.6 % [facility] CORONAVIRUS 2019 BY PCRon CORONAVIRUS 2019,PCR NOT DETECTED Normal Not Detected [facility] Comment on above: Result Comment: This assay is designed to detect the ORF1ab and/or S genes of SARS-CoV-2 via nucleic acid amplification. A Not Detected result does not preclude 2019-nCoV infection since the adequacy of sample collection and/or low viral burden may result in presence of viral nucleic acids below the clinical sensitivity of this test method. Fact sheet for providers: www.fda.gov/media/460359/download Fact sheet for patients: www.fda.gov/media/159093/download This test has received FDA Emergency Use Authorization (EUA) and has been verified by [facility] ([facility]). This test is only authorized for the duration of time that circumstances exist to justify the authorization of the emergency use of in vitro diagnostic tests for the detection of SARS-CoV-2 virus and/or diagnosis of COVID-19 infection under section 564(b)(1) of the Act, 21 U.S.C. 360bbb-3(b)(1), unless the authorization is terminated or revoked sooner. [facility] is certified under CLIA-88 as qualified to perform high complexity testing. Testing is performed in the [facility] laboratories located at [id number] [place] [address]. Performed By: #### C OV19 ####[id number] [facility] [place] [address] LACTATEon 12-08-2019 Lactate [Moles/Vol] Canceled Normal [facility] Comment on above: Order Comment: TEST LACTATE WAS CANCELLED, 12/08/2019 18:33 DISCHARGED. Result Comment: Alia puncture immediately after or during the administration of Metamizole may lead to falsely low results. Testing should be performed immediately prior to Metamizole dosing. Performed By: #### L ACT ####[address] [address] CARBOXYHEMOGLOBIN,VENOUSon 0 12-07-2019 Hemoglobin (Bld) [Mass/Vol] 2.3 % Abnormal [facility] Comment on above: Result Comment: REF VALUES NONSMOKERS 0.5-1.5% SMOKERS 0.5-10.0% Performed By: #### C HGBV ####[place] [id number] CBC AND DIFFERENTIALon 12-06 Basophils (Bld) [#/Vol] 0.20 10*3/uL High 0.00 - 0.10 [facility] Comment on above: Performed By: #### C BCDF #### [place] [id number] Basophils/100 WBC (Bld) 1.3 % Normal 0.0 - 2.0 [facility] Comment on above: Performed By: #### C BCDF #### [place] [id number] Eosinophils (Bld) [#/Vol] 0.00 10*3/uL Normal 0.00 - 0.70 [facility] Comment on above: Performed By: #### C BCDF #### [place] [id number] Eosinophils/100 WBC (Bld) 0.3 % Normal 0.0 - 6.0 [facility] Comment on above: Performed By: #### C BCDF #### [address] [address] Erythrocyte distribution width (RBC) [Ratio] 14.4 % Normal 11.5 - 14.5 [facility] Comment on above: Performed By: #### C BCDF #### [address] [address] Hematocrit (Bld) [Volume fraction] 35.7 % Low 36.0 - 46.0 [facility] Comment on above: Performed By: #### C BCDF #### [address] [place] [address] Hemoglobin (Bld) [Mass/Vol] 11.5 g/dL Low 12.0 - 16.0 [facility] Comment on above: Performed By: #### C BCDF #### [address] [address] Lymphocytes (Bld) [#/Vol] 3.30 10*3/uL Normal 1.20 - 4.80 [facility] Comment on above: Performed By: #### C BCDF #### [address] [address] Lymphocytes/100 WBC (Bld) 22.4 % Normal 13.0 - 44.0 [facility] Comment on above: Performed By: #### C BCDF #### [address] [address] MCHC (RBC) [Mass/Vol] 32.2 g/dL Normal 32.0 - 36.0 [facility] Comment on above: Performed By: #### C BCDF #### [address] [address] MCV (RBC) [Entitic vol] 90 fL Normal 80 - 100 [facility] Comment on above: Performed By: #### C BCDF #### [address] [address] Monocytes (Bld) [#/Vol] 1.10 10*3/uL High 0.10 - 1.00 [facility] Comment on above: Performed By: #### C BCDF #### [address] [address] Monocytes/100 WBC (Bld) 7.8 % Normal 2.0 - 10.0 [facility] Comment on above: Performed By: #### C BCDF #### [address] [address] Neutrophils (Bld) [#/Vol] 9.90 10*3/uL High 1.20 - 7.70 [facility] Comment on above: Result Comment: Perc ent differential counts (%) should be interpreted in the context of the absolute cell counts (cells/L). Performed By: #### C BCDF #### [address] [address] Neutrophils/100 WBC (Bld) 68.2 % Normal 40.0 - 80.0 [facility] Comment on above: Performed By: #### C BCDF #### [address] [address] Nucleated RBC/100 WBC (Bld) [Ratio] 0.1 /100 WBC Normal [facility] Comment on above: Performed By: #### C BCDF #### [address] [address] Platelets (Bld) [#/Vol] 284 10*3/uL Normal 150 - 450 [facility] Comment on above: Performed By: #### C BCDF #### [address] [address] RBC (Bld) [#/Vol] 3.99 x10E12/L Low 4.00 - 5.20 [facility] Comment on above: Performed By: #### C BCDF #### [address] [address] WBC (Bld) [#/Vol] 14.6 10*3/uL High 4.4 - 11.3 [facility] Comment on above: Performed By: #### C BCDF #### [address] [address] CHEST 1 VIEWon 12-07-2019 CHEST 1 VIEW Patient Name: SUSAN REYES STUDY: CHEST 1 VIEW; 12/07/2019 5:10 pm INDICATION: sob. COMPARISON: None. ACCESSION NUMBER(S): [id number] ORDERING CLINICIAN: NASIR LANDEROS FINDINGS: CARDIOMEDIASTINAL SILHOUETTE: Cardiomediastinal silhouette is stable within normal limits. PLEURA/PULMONARY: Pulmonary markings are stable. No evidence of new disease. ABDOMEN: Unremarkable. BONES: No acute osseous changes. IMPRESSION: 1. No evidence of acute cardiopulmonary process. Electronically signed by: BUSTER POTTER MD Normal [facility] COMPREHENSIVE PANELon 2019 Albumin [Mass/Vol] 4.1 g/dL Normal 3.4 - 5.0 [facility] Comment on above: Performed By: #### C MP #### [address] [address] ALP [Catalytic activity/Vol] 116 U/L High 33 - 110 [facility] Comment on above: Performed By: #### C MP #### [address] [address] ALT [Catalytic activity/Vol] 9 U/L Normal 7 - 45 [facility] Comment on above: Result Comment: Mylene ents treated with Sulfasalazine may generate falsely decreased results for ALT. Performed By: #### C MP #### [address] [address] Anion gap [Moles/Vol] 23 mmol/L High 10 - 20 [facility] Comment on above: Performed By: #### C MP #### [address] [address] AST [Catalytic activity/Vol] 16 U/L Normal 9 - 39 [facility] Comment on above: Performed By: #### C MP #### [address] [address] Bilirubin [Mass/Vol] 1.1 mg/dL Normal 0.0 - 1.2 [facility] Comment on above: Performed By: #### C MP #### [address] [address] Calcium [Mass/Vol] 9.7 mg/dL Normal 8.6 - 10.3 [facility] Comment on above: Performed By: #### C MP #### [address] [address] Chloride [Moles/Vol] 100 mmol/L Normal 98 - 107 [facility] Comment on above: Performed By: #### C MP #### [address] [address] Creatinine [Mass/Vol] 1.14 mg/dL High 0.50 - 1.05 [facility] Comment on above: Performed By: #### C MP #### [address] [address] GFR- AM. 59 mL/min/1.73m2 Abnormal >60 [facility] Comment on above: Result Comment: CALC ULATIONS OF ESTIMATED GFR ARE PERFORMED USING THE MDRD STUDY EQUATION FOR THE IDMS-TRACEABLE CREATININE METHODS. CLIN CHEM 2007;53:766-72 Performed By: #### C MP #### [address] [address] GFR-NON AM. 49 mL/min/1.73m2 Abnormal >60 [facility] Comment on above: Performed By: #### C MP #### [address] [address] Glucose [Mass/Vol] 148 mg/dL High 74 - 99 [facility] Comment on above: Performed By: #### C MP #### [address] [address] HCO3 (Bld) [Moles/Vol] 16 mmol/L Low 21 - 32 [facility] Comment on above: Performed By: #### C MP #### [address] [address] Potassium [Moles/Vol] 3.3 mmol/L Low 3.5 - 5.3 [facility] Comment on above: Performed By: #### C MP #### [address] [address] Protein [Mass/Vol] 6.7 g/dL Normal 6.4 - 8.2 [facility] Comment on above: Performed By: #### C MP #### [address] [address] Sodium [Moles/Vol] 136 mmol/L Normal 136 - 145 [facility] Comment on above: Performed By: #### C MP #### [address] [address] Urea nitrogen [Mass/Vol] 15 mg/dL Normal 6 - 23 [facility] Comment on above: Performed By: #### C MP #### [address] [address] CREATINE KINASEon 12-07-2019 CK [Catalytic activity/Vol] 77 U/L Normal 0 - 215 [facility] Comment on above: Performed By: #### C K ####[place] [id number] [place] [id number] CT ANGIO CHEST FOR PEon 04-0 CT ANGIO CHEST FOR PE Patient Name: SUSAN REYES STUDY: CT ANGIO CHEST FOR PE; 12/07/2019 7:09 pm INDICATION: stable. Sudden onset shortness of breath. Chills cough collapsed at home. Sarcoidosis. COMPARISON: None. ACCESSION NUMBER(S): [id number] ORDERING CLINICIAN: NASIR LANDEROS TECHNIQUE: Contiguous axial images of the chest were obtained after the intravenous administration of 90 mL Omnipaque 350 using angiographic PE protocol. Coronal and sagittal reformatted images were reconstructed from the axial data. MIP images were created and reviewed. FINDINGS: MEDIASTINUM AND LYMPH NODES: No enlarged intrathoracic or axillary lymph nodes.The esophagus is patulous and there is a large amount of gastroesophageal reflux to the level of thoracic inlet. No pneumomediastinum. VESSELS: Normal caliber aorta without evidence of dissection. No significant aortic atherosclerosis. No pulmonary embolism. HEART: Normal in size. No coronary artery calcifications. No pericardial effusion. LUNG, AIRWAYS, AND PLEURA: No consolidation, pulmonary edema, pleural effusion, or pneumothorax. OSSEOUS STRUCTURES/CHEST WALL: No acute osseous abnormality. UPPER ABDOMEN/OTHER: Status post distal gastrectomy with gastrojejunostomy. There is a moderate hiatal hernia containing the upper half of the stomach. IMPRESSION: No acute pulmonary embolism. Large amount of gastroesophageal reflux extending to the thoracic inlet within a patulous esophagus associated with a moderate hiatal hernia. No evidence of pulmonary parenchymal disease or tracheobronchial obstruction to suggest large volume aspiration. Electronically signed by: RAYSHAWN TAYLOR MD Normal [facility] INFLUENZA A/B AND RSV PCRon 12-07-2019 INFLUENZA A, PCR NOT DETECTED Normal Not Detected [facility] Comment on above: Result Comment: Resp iratory virus testing is performed routinely by PCR for Influenza A/B and RSV. Not Detected results do not preclude Influenza A/B or RSV infections since the adequacy of sample collection or low viral burden may impact the clinical sensitivity of this test method. Performed By: #### R SINP ####[place] [address] INFLUENZA B, PCR NOT DETECTED Normal Not Detected [facility] Comment on above: Result Comment: Resp iratory virus testing is performed routinely by PCR for Influenza A/B and RSV. Not Detected results do not preclude Influenza A/B or RSV infections since the adequacy of sample collection or low viral burden may impact the clinical sensitivity of this test method. Performed By: #### R SINP ####[place] [address] RSV,PCR NOT DETECTED Normal Not Detected [facility] Comment on above: Result Comment: Resp iratory virus testing is performed routinely by PCR for Influenza A/B and RSV. Not Detected results do not preclude Influenza A/B or RSV infections since the adequacy of sample collection or low viral burden may impact the clinical sensitivity of this test method. Performed By: #### R SINP ####[place] [address] Lab Specimen Source Nasal, Nasopharyngeal Normal [facility] Comment on above: Performed By: #### R SINP ####[place] [address] Performed By: #### C OV19 ####[id number] [place] [address] LACTATEon 12-07-2019 Lactate [Moles/Vol] 1.7 mmol/L Normal 0.4 - 2.0 [facility] Comment on above: Result Comment: Alia puncture immediately after or during the administration of Metamizole may lead to falsely low results. Testing should be performed immediately prior to Metamizole dosing. Performed By: #### L ACT ####[place] [address] Lactate [Moles/Vol] 7.9 mmol/L Critically high 0.4 - 2.0 [facility] Comment on above: Order Comment: Call not required per Clinician. , 12/08/2019 17:14 Result Comment: Alia puncture immediately after or during the administration of Metamizole may lead to falsely low results. Testing should be performed immediately prior to Metamizole dosing. Call not required per Clinician. , 12/08/2019 17:14 Performed By: #### L ACT #### [facility] [address] [place] [address] Provider Note - ED Care Cook cielomarla 12-07-2019 Provider Note - ED Care Transition ED Care Transition: Chart Review: RESULTS/VITAL SIGNS RESULTS: Recent Lab Results: I have reviewed these laboratory results: Carboxyhemoglobin, Venous 07-Dec-2019 20:45:00 ResultValue CO Hgb, Venous 2.3 A Creatine Kinase, Level 07-Dec-2019 20:17:00 ResultValue Creatine Kinase, Level 77 Lactate, Level Trending View [id number] 20:17:00 07-Dec-2019 16:56:00 Lactate, Level1.7 7.9 HH Urinalysis 07-Dec-2019 18:19:00 ResultValue Color, Urine Yellow Reference Range: STRAW,YELLOW Appearance, Urine HAZY Specific [place], Urine 1.021 pH, Urine 5.0 Protein, Urine 30(1+) A Glucose, Urine NEGATIVE Blood, Urine NEGATIVE Ketones, Urine 80(2+) A Bilirubin, Urine NEGATIVE Urobilinogen, Urine 2.0 H Nitrite, Urine Negative Leukocyte Esterase, Urine NEGATIVE Urinalysis, Microscopic 07-Dec-2019 18:19:00 ResultValue White Cells 11 A Red Blood Cells 18 A Epithelial Cells, Squamous 4 Bacteria, Urine 1+ A Mucous 4+ Hyaline Casts 2+ A Comprehensive Metabolic Panel 07-Dec-2019 16:56:00 ResultValue Glucose, Serum 148 H NA 136 K 3.3 L CL 100 Bicarbonate, Serum 16 L Anion Gap, Serum 23 H BUN 15 CREAT 1.14 H GFR-Non 49 A GFR- 59 A Calcium, Serum 9.7 ALB 4.1 ALKP 116 H T Pro 6.7 T Bili 1.1 Alanine Aminotransferase, Serum 9 Aspartate Transaminase, Serum 16 VTE Exclusion D-Dimer 07-Dec-2019 16:56:00 ResultValue VTE Exclusion D-Dimer 516 A Complete Blood Count + Differential 07-Dec-2019 16:55:00 ResultValue White Blood Cell Count 14.6 H Nucleated Erythrocyte Count 0.1 Red Blood Cell Count 3.99 L HGB 11.5 L HCT 35.7 L MCV 90 MCHC 32.2 PLT 284 RDW-CV 14.4 Neutrophil % 68.2 Lymphocyte % 22.4 Monocyte % 7.8 Eosinophil % 0.3 Basophil % 1.3 Neutrophil Count 9.90 H Lymphocyte Count 3.30 Monocyte Count 1.10 H Eosinophil Count 0.00 Basophil Count 0.20 H Troponin I, Serum 07-Dec-2019 16:55:00 ResultValue Troponin I, Serum <0.02 Radiology Results: Impression: No acute pulmonary embolism. Large amount of gastroesophageal reflux extending to the thoracic inlet within a patulous esophagus associated with a moderate hiatal hernia. No evidence of pulmonary parenchymal disease or tracheobronchial obstruction to suggest large volume aspiration. TH CT Angio Chest for PE [Dec 07 2019 7:32PM] VITAL SIGNS: T PRBP SpO2O2(LPM) %FiO2 Method 07-Dec-2019 18:30:[id number] 100 room air, no respiratory support 07-Dec-2019 18:00:[id number]/60 100 room air, no respiratory support 07-Dec-2019 17:30:[id number]/67 100 room air, no respiratory support 07-Dec-2019 17:00:[id number]/67 100 room air, no respiratory support 07-Dec-2019 16:31:[id number]/94 99 room air, no respiratory support MEDICAL DECISION MAKING/ED COURSE MDM/ED COURSE: Patient's initial lactic acid was significantly elevated. Repeat after 2 L of fluid has normalized. She is afebrile nontacky Cardec. O2 saturation is stable. Chest CT is negative. She did receive a dose of antibiotics empirically. Urine cultures and Coban cultures are pending. Believe we can hold off any additional antibiotics pending culture results. I believe at this time she can be discharged home. CLINICAL IMPRESSION Diagnosis/Annotation: ED Dx Name:Lactic acidosis Code:E87.2 Name:Hyperventilation Code:R06.4 Name:Anxiety Code:F41.9 Name:UTI (urinary tract infection) Code:N39.0 Dispostion: discharged Type: home ATTESTATION CRITICAL CARE TIME Is this a critically ill patient: no Electronic Signatures: Dewey Betts) (Signed 07-Dec-2019 21:02) Authored: ED Care Transition Last Updated: 07-Dec-2019 21:02 by Dewey Betts) [facility] Provider Note - ED v2on 04- 4-2020 Provider Note - ED v2 Provider Note - ED v2: Chart Review: ED NOTES ED NOTES: HPI: 59 y/o female with no hx of smoking comes to the ED per EMS with a sudden episode of SOB. Pt was burning brush this morning and according to bystanders several hours later she walked out of her house and collapsed. PMH sarcoidosis. Per EMS gave the pt 0.3mg of epi IM. Pt was verbal upon arrival, but very anxious. Upon reevaluation the patient appears to be breathing better, but she is claiming the brush/trash the [facility] [employer] was burning last night gave her COVID-19. She is now c/o chills, cough, and CP. Patient is still anxious. I gave the patient a dose of Ativan per her request at 17:31. The patient had an elevated lactic acid level and she was aggressively hydrated with 1.5 L of normal saline initially. Patient also received broad-spectrum antibiotic Zosyn 3.375 g IV. Patient states she feels somewhat better. The patient's called and stated that she was quite anxious. The patient seemed to markedly improve after the Ativan. I have spoken to the patient about the possibility that she will need to be admitted for further diagnostic studies and tests. ROS: All systems are negative other than as noted in HPI. Physical Exam I have reviewed the triage vital signs. Const: Well nourished, well developed, appears stated age, anxious Eyes: PERRL, EOM intact, no conjunctival injection, vision grossly normal HENT: Neck supple without meningismus , Moist mucous membranes, no pharyengeal swelling or exudate CV: Regular rhythm, tachycardia, Warm, well-perfused extremities. Chest non tender RESP: diminished breath sounds bilaterally, Unlabored respiratory effort GI: soft, non-tender, non-distended, no masses : MSK: No gross deformities appreciated Back: Non tender, no pain with ROM Skin: Warm, dry, and pale. No rashes Neuro: Alert and oriented x4, GCS 15 , data conversion developer II-XII grossly intact. Sensation and motor function of extremities grossly intact. Psych: Appropriate mood and affect.. HISTORY OF PRESENTING ILLNESS SUSAN is a 59 year old Female and was seen by me at 07-Dec-2019 16:31 for a chief complaint of shortness of breath (short of breath today with activity but was burning brush earlier and working outside and suddenly became short of breath and wheezing. reports cough and sore throat for couple days and chest discomfort started yesterday patient very anxious) . Triage Information: Most recent Vital Sign Value Date Temp (F): 97.7 12-07-2019 16:31 Temp (C): 36.5 12-07-2019 16:31 Heart Rate (beats/min): 118 12-07-2019 16:31 Respirations (breaths/min): 38 12-07-2019 16:31 SpO2 (%): 99 12-07-2019 16:31 BP Systolic (mm Hg): 151 12-07-2019 16:31 BP Diastolic (mm Hg): 94 12-07-2019 16:31 PAST MEDICAL HISTORY ATTESTATION: I have reviewed and confirmed nurse's/medic's notes for patient's medications, allergies, medical history, and surgical history ALLERGIES/INTOLERANCES: Allergy Allergen: Demerol Type: Drug Reaction: Unknown Allergen: Iron (Ferrous Sulfate) Type: Drug Reaction: Unknown HEALTH HISTORY: No documented data. OUTPATIENT MEDICATIONS: Home Medications Review Status for Reconciliation: Complete Med Status: Patient Currently Takes Medications Drug Name: CeleXA 20 mg oral tablet Instructions: 3 tab(s) orally once a day Drug Name: traMADol 50 mg oral tablet Instructions: 1 tab(s) orally 2 times a day Drug Name: Ambien 5 mg oral tablet Instructions: 1 tab(s) orally once a day (at bedtime), As Needed Drug Name: Ditropan Instructions: 10 milligram(s) orally once a day Drug Name: Vitamin B12 1000 mcg/mL injectable solution Instructions: 1 injectable every 7 days Drug Name: Vitamin D3 50,000 intl units (1250 mcg) oral capsule Instructions: 1 cap(s) orally every 7 days Drug Name: ZyrTEC-D 5 mg-120 mg oral tablet, extended release Instructions: 1 tab(s) orally once a day, As Needed SIGNIFICANT EVENTS: Past Medical History Description:anemia Description:sarcoidosis EXCEL DEVELOPER: Is : no Is : no REVIEW OF SYSTEMS All other systems reviewed and are negative RESULTS/VITAL SIGNS RESULTS: Recent Lab Results: I have reviewed these laboratory results: Urinalysis 07-Dec-2019 18:19:00 ResultValue Color, Urine Yellow Reference Range: STRAW,YELLOW Appearance, Urine HAZY Specific [place], Urine 1.021 pH, Urine 5.0 Protein, Urine 30(1+) A Glucose, Urine NEGATIVE Blood, Urine NEGATIVE Ketones, Urine 80(2+) A Bilirubin, Urine NEGATIVE Urobilinogen, Urine 2.0 H Nitrite, Urine Negative Leukocyte Esterase, Urine NEGATIVE Urinalysis, Microscopic 07-Dec-2019 18:19:00 ResultValue White Cells 11 A Red Blood Cells 18 A Epithelial Cells, Squamous 4 Bacteria, Urine 1+ A Mucous 4+ Hyaline Casts 2+ A Comprehensive Metabolic Panel 07-Dec-2019 16:56:00 ResultValue Glucose, Serum 148 H NA 136 K 3.3 L CL 100 Bicarbonate, Serum 16 L Anion Gap, Serum 23 H BUN 15 CREAT 1.14 H GFR-Non 49 A GFR- 59 A Calcium, Serum 9.7 ALB 4.1 ALKP 116 H T Pro 6.7 T Bili 1.1 Alanine Aminotransferase, Serum 9 Aspartate Transaminase, Serum 16 Lactate, Level 07-Dec-2019 16:56:00 ResultValue Lactate, Level 7.9 HH VTE Exclusion D-Dimer 07-Dec-2019 16:56:00 ResultValue VTE Exclusion D-Dimer 516 A Complete Blood Count + Differential 07-Dec-2019 16:55:00 ResultValue White Blood Cell Count 14.6 H Nucleated Erythrocyte Count 0.1 Red Blood Cell Count 3.99 L HGB 11.5 L HCT 35.7 L MCV 90 MCHC 32.2 PLT 284 RDW-CV 14.4 Neutrophil % 68.2 Lymphocyte % 22.4 Monocyte % 7.8 Eosinophil % 0.3 Basophil % 1.3 Neutrophil Count 9.90 H Lymphocyte Count 3.30 Monocyte Count 1.10 H Eosinophil Count 0.00 Basophil Count 0.20 H Troponin I, Serum 07-Dec-2019 16:55:00 ResultValue Troponin I, Serum <0.02 Radiology Results: I have reviewed this radiology result: Impression: 1. No evidence of acute cardiopulmonary process. Xray Chest 1 View [Dec 07 2019 5:46PM] VITAL SIGNS: T PRBP SpO2O2(LPM) %FiO2 Method 07-Dec-2019 18:30:[id number] 100 room air, no respiratory support 07-Dec-2019 18:00:[id number]/60 100 room air, no respiratory support 07-Dec-2019 17:30:[id number] 100 room air, no respiratory support 07-Dec-2019 17:00:[id number] 100 room air, no respiratory support 07-Dec-2019 16:31:[id number] 99 room air, no respiratory support EKG INTERPRETATION: EKG Date/Time: 07-Dec-2019 16:35 Rate: 119 Rhythm: NSR Interval: (tachycardia) [place]: Normal General: (no ectopy) CLINICAL IMPRESSION Diagnosis/Annotation: ED Dx Name:Lactic acidosis Code:E87.2 Name:Hyperventilation Code:R06.4 Name:Anxiety Code:F41.9 Name:UTI (urinary tract infection) Code:N39.0 Dispostion: HANDOFF Signed out to Incoming Provider: Dr. Betts ATTESTATION Scribe Name: Adalberto Greenberg. Scribing on Behalf of: Dr. Nasir Landeros DO ATTENDING SCRIBE ATTESTATION STATEMENT I, Nasir Landeros DO, attests all medical record entries made by the scribe were under my direction and personally dictated by me. I have reviewed the chart and agree that the record accurately reflects my performance of the history, physical, and assessment plan. I have also personally directed, reviewed, and agree with disposition instructions. Comments/Additional Findings: I, Adalberto Greenberg, am scribing for and in the presence of Dr. Nasir Landeros DO. I, Dr. Nasir Landeros DO, attests all medical record entries made by the scribe were under my direction and personally dictated by me. I have reviewed the chart and agree that the record accurately reflects my performance of the history, physical, and assessment and plan. I have also personally directed, reviewed, and agree with the discharge instructions. CRITICAL CARE TIME Is this a critically ill patient: yes Billing Provider Critical Care Time (mins): 60 Primary Critical Care Issue/Treatment (See MDM/ED Course/Tx Plan for greater detail): -- This patient is believed to have sepsis. We are treating with appropriate agents (antibiotics, antifungals, and/or antivirals), fluids and/or pressors, as indicated, as well as intensive monitoring. Please see MDM/ED Course/Treatment Plan for greater detail. Additional Critical Care Provided: direct patient care (not related to procedure), additional history taking, documentation, consult w/ pt's family directly relating to pts condition and telephone consultation with the patient's family Electronic Signatures: Adalberto Greenberg (Scribe) (Entered 07-Dec-2019 16:36) Entered: Provider Note - ED v2 Nasir Landeros) (Signed 07-Dec-2019 19:18) Authored: Provider Note - ED v2 Last Updated: 07-Dec-2019 19:18 by Nasir Landeros () References: 1. Data Referenced From "Triage - ED" 07-Dec-2019 16:31 [facility] Risk Screen - Adult Emergenc yon 12-07-2019 Risk Screen - Adult Emergency Preferred Language: Preferred Language: Preferred Language for Discussing Health Care (patient/designee)Haitian Advanced Directives: Advance Directive/DNRno Family Violence Adult: Abuse Screen: Are you or have you been threatened or abused physically, emotionally, or sexually by anyoneno Learning Assessment (Patient): Learning Assessment (Patient): Patient is Able to be Assessed for Learningyes Factors Influencing Readiness to Learnacuteness of illness Factors that Impact Ability to Learnnone Devices/Methods Used to Communicatenone Learning Preferencesaudio Cultural Considerationsnone Developmental Considerationsnone Shinto Considerationsnone Learning Assessment (Other Learner): Learning Assessment (Other Learner): Other learner availableno Pressure Injury/TB/Substance: Pressure Injury: Pressure Injury Present on Admissionno Do you have a coughno Substance Use Current or Former Historynever: Cigarette/Tobacco, e-Cigarette/Vaping, Alcohol, Street Drugs Admission Risk Screen: Significant IndicatorsComplete CAGE: CAGE: Is this an injured patient at a Trauma Center ([facility]/[place]): no Electronic Signatures: Sugey Churchill (STEPHANIE) (Signed 07-Dec-2019 16:39) Authored: Preferred Language, Advanced Directives, Family Violence Adult, Learning Assessment (Patient), Learning Assessment (Other Learner), Pressure Injury/TB/Substance, CAGE Last Updated: 07-Dec-2019 16:39 by Sugey Churchill (STEPHANIE) [facility] TROPONIN Ion 12-07-2019 Troponin I.cardiac [Mass/Vol] Canceled [facility] Comment on above: Order Comment: TEST TROPONIN I WAS CANCELLED, 12/07/2019 18:13 ?Cancel Reason: Cancelled. Result Comment: LESS THAN 0.04 NG/ML: NEGATIVE REPEAT TESTING IN THREE TO SIX HOURS IF CLINICALLY INDICATED. 0.04 - 0.5 NG/ML: CONSISTENT WITH POSSIBLE CARDIAC DAMAGE AND POSSIBLE INCREASED CLINICAL RISK. SERIAL MEASUREMENTS MAY HELP ASSESS EXTENT OF MYOCARDIAL DAMAGE. >0.5 NG/ML: CONSISTENT WITH CARDIAC DAMAGE, INCREASED CLINICAL RISK AND MYOCARDIAL INFARCTION. SERIAL MEASUREMENTS MAY HELP ASSESS EXTENT OF MYOCARDIAL DAMAGE. . Note: Troponin I testing is performed using different testing methodology at [facility] than at other [facility]. Direct result comparisons should only be made within the same method. Performed By: #### T ROP2 #### [address] [address] Troponin I.cardiac [Mass/Vol] ng/mL Normal 0.00 - 0.03 [facility] Comment on above: Result Comment: LESS THAN 0.04 NG/ML: NEGATIVE REPEAT TESTING IN THREE TO SIX HOURS IF CLINICALLY INDICATED. 0.04 - 0.5 NG/ML: CONSISTENT WITH POSSIBLE CARDIAC DAMAGE AND POSSIBLE INCREASED CLINICAL RISK. SERIAL MEASUREMENTS MAY HELP ASSESS EXTENT OF MYOCARDIAL DAMAGE. >0.5 NG/ML: CONSISTENT WITH CARDIAC DAMAGE, INCREASED CLINICAL RISK AND MYOCARDIAL INFARCTION. SERIAL MEASUREMENTS MAY HELP ASSESS EXTENT OF MYOCARDIAL DAMAGE. . Note: Troponin I testing is performed using different testing methodology at [facility] than at other [facility]. Direct result comparisons should only be made within the same method. Performed By: #### T ROP2 #### [address] [address] Triage - EDon 12-07-2019 Triage - ED Quick Triage: Are You no Are You Currently Breastfeedingno Chart Review: CHIEF COMPLAINT SUSAN REYES is a Female patient with a chief complaint of shortness of breath (short of breath today with activity but was burning brush earlier and working outside and suddenly became short of breath and wheezing. reports cough and sore throat for couple days and chest discomfort started yesterday patient very anxious). Triage Date/Time: 07-Dec-2019 16:31 Pain Rating (0-10): 7 = Severe Pain location: chest Vital Signs: Temperature: 97.7F ( 36.5C) taken oral Blood Pressure: 151/94 Mean: Heart Rate: 118 Respiratory Rate: 38 Pulse Oximetry: 99% on room air, no respiratory support. Height: 5 feet 2.00 inches. 157.4 CM Weight: 134.4 pounds. Calculated 61.0 kg. (stated) Calculated BMI (kg/m2): 24.621 Calculated BSA (m2) 1.63 Herminia Coma Scale: Best Eye Response: (E4) spontaneous Best Motor Response: (M6) obeys commands Best Verbal Response: (V5) oriented Dateland Score: 15 Allergies: yes Patient has homicidal thoughts: no Symptoms Are POSITIVE For: chest pain, cough and dyspnea. Symptoms Are Negative For: body aches, chills, congestion, diaphoresis, fever, headache and malaise. Risk Screens Suicide Risk Screen In the Past Month: Have you wished you were or wished you could go to sleep and not wake up no In the Past Month: Have you had any actual thoughts of killing yourself no In Your Lifetime: Have you ever done anything, started to do anything, or prepared to do anything to end your life no Blackwell Fall Scale Screening Has the patient fallen before (or is the patient in the ED as a result of a fall) has not had a fall Does the patient have an impaired gait does not have impaired gait Is the patient cognitively impaired not cognitively impaired Interventions: Blackwell Fall Interventions: *patient oriented to surroundings and call system, * patient/family falls education completed and documented, *patients fall status communicated during bedside handoff, *whiteboard updated, *mode of toileting discussed with patient, *bed in low position with brakes locked, *call light in reach, * non-skid footwear PAIN Pain Scale Used: VELMA Pain Rating (0-10): 7 = Severe TRAVEL HISTORY Travel History Coronavirus Screening: positive for symptoms Past Medical History: Past Medical History Reviewedyes sarcoidosis: Past Medical History, Active anemia: Past Medical History, Active Electronic Signatures: Sugey Churchill) (Signed 07-Dec-2019 16:38) Authored: Triage, Past Medical History Last Updated: 07-Dec-2019 16:38 by Sugey Churchill) Normal [facility] UA MICROSCOPICon 12-07-2019 BACTERIA 1+ /HPF Abnormal [facility] Comment on above: Performed By: #### U [facility] ####[place] [address] HYALINE CAST 2+ /LPF Abnormal [facility] Comment on above: Performed By: #### U [facility] ####[place] [address] MUCUS 4+ /LPF Normal [facility] Comment on above: Performed By: #### U AMIC ####[place] [address] RBC 18 /HPF Abnormal 0-5 [facility] Comment on above: Performed By: #### U AMIC ####[place] [address] SQUAMOUS EPITH. CELLS 4 /HPF Normal [facility] Comment on above: Performed By: #### U AMIC ####[place] [address] WBC 11 /HPF Abnormal 0-5 [facility] Comment on above: Performed By: #### U AMIC ####[place] [address] URINALYSISon 12-07-2019 Appearance (U) HAZY Normal CLEAR [facility] Comment on above: Performed By: #### U A #### [place] [address] Bilirubin (U) [Mass/Vol] Negative Normal NEGATIVE [facility] Comment on above: Performed By: #### U A #### [place] [address] BLOOD Negative Normal NEGATIVE [facility] Comment on above: Performed By: #### U A #### [place] [address] Color (U) Yellow Normal STRAW,YELL OW [facility] Comment on above: Performed By: #### U A #### [place] [address] Glucose [Mass/Vol] Negative Normal NEGATIVE [facility] Comment on above: Performed By: #### U A #### [place] [address] Ketones Ql (U) 80(2+) Abnormal NEGATIVE [facility] Comment on above: Performed By: #### U A #### [address] [address] Leukocyte esterase Test strip Ql (U) Negative Normal NEGATIVE [facility] Comment on above: Performed By: #### U A #### [address] [address] Nitrite Ql (U) Negative Normal NEGATIVE [facility] Comment on above: Performed By: #### U A #### [address] [address] pH (Bld) 5.0 Normal 5.0 - 8.0 [facility] Comment on above: Performed By: #### U A #### [address] [address] Protein (U) [Mass/Vol] 30(1+) Abnormal NEGATIVE [facility] Comment on above: Performed By: #### U A #### [address] [address] Specific gravity (U) [Rel density] 1.021 Normal 1.005 - 1.035 [facility] Comment on above: Performed By: #### U A #### [address] [address] Urobilinogen Qn (U) 2.0 mg/dL High 0.0 - 1.9 [facility] Comment on above: Result Comment: Due to a manufacturing issue, low positive urobilinogen results may be falsely positive. Correlate with urine bilirubin and additional clinical/laboratory findings to assess the risk of hemolytic anemia or liver disease. If clinically indicated, repeat testing with an alternate method is available by contacting the laboratory within 24 hours. . Some pigments and medications may cause a false positive urobilinogen. Performed By: #### U A #### [address] [address] URINE CULTURE,BACTERIALon URINE CULTURE,BACTERIAL TEST URINE CULTURE,BACTERIAL WAS CANCELLED, 12/10/2019 09:58 NO SPECIMEN RECEIVED IN LAB. PATIENT: SUSAN REYES LOCATION: [facility]#: [id number] : 62 AGE: SEX: F ORDERED BY: NASIR LANDEROS SOURCE: URINE COLLECTED: 12/07/19 18:41 ANTIBIOTICS AT [facility].: RECEIVED : SITE: Clean Catch/Voided R E S U L T S URINE CULTURE,BACTERIAL CANCELLED 12/10/19 09:58 Normal [facility] Comment on above: Performed By: #### C BCDF #### [address] [address] VTE EXCLUSION D-DIMERon VTE EXCLUSION D-DIMER 516 ng/mL FEU Abnormal < or = 500 [facility] Comment on above: Result Comment: The VTE Exclusion D-dimer assay is reported in ng/mL Fibrinogen Equivalent Units (FEU). This assay is indicated for use in conjunction with the Guidelines for Emergency Department Use of the VTE Exclusion D-Dimer clinical pretest probability assessment model to exclude deep vein thrombosis (DVT) and pulmonary embolism (PE) disease in outpatients suspected of DVT or PE. Per transfer and pumphouse operator's instructions for use, a value of less than 500 ng/mL (FEU) may help to exclude DVT and/or PE in outpatients when the assay is used with a clinical pretest probability assessment. Performed By: #### D IMEX #### [address] [address] Vital Signs Date Time Vital Sign Value Performing Clinician Facility 04-30-2025 13:31-0400 Body mass index (BMI) [Ratio] 22.74 kg/m2 Jody Cole PA-C Work Phone: [facility] 04-30-2025 13:31-0400 Body temperature 98.2 [degF] Jody RIVERO-Gómez Work Phone: [facility] 04-30-2025 13:31-0400 Body weight 55.7 kg Jody Cole PA-C Work Phone: [facility] 04-30-2025 13:31-0400 Diastolic blood pressure 72 mm[Hg] Jody RIVERO-Gómez Work Phone: [facility] 04-30-2025 13:31-0400 Heart rate 76 /min Jody Cole PA-C Work Phone: [facility] 04-30-2025 13:31-0400 Respiratory rate 12 /min Jody Cole PA-C Work Phone: [facility] 04-30-2025 13:31-0400 SaO2% (BldA) [Mass fraction] 97 % Jody Cole PA-C Work Phone: [facility] 04-30-2025 13:31-0400 Systolic blood pressure 110 mm[Hg] Jody Cole PA-C Work Phone: [facility] 04-11-2025 13:37-0400 Body weight 56.[address] Justen Darling MD Work Phone: [facility] 10-08-2024 09:52-0500 Body mass index (BMI) [Ratio] 25.56 kg/m2 Jody Cole PA-C Work Phone: [facility] 10-08-2024 09:52-0500 Body temperature 97.7 [degF] Jody Cole PA-C Work Phone: [facility] 10-08-2024 09:52-0500 Body weight 62.6 kg Jody Cole PA-C Work Phone: [facility] 10-08-2024 09:52-0500 Diastolic blood pressure 60 mm[Hg] Jody Cole PA-C Work Phone: [facility] 10-08-2024 09:52-0500 Heart rate 59 /min Jody Cole PA-C Work Phone: [facility] 10-08-2024 09:52-0500 Respiratory rate 16 /min Jody Cole PA-C Work Phone: [facility] 10-08-2024 09:52-0500 SaO2% (BldA) [Mass fraction] 97 % Jody Cole PA-C Work Phone: [facility] 10-08-2024 09:52-0500 Systolic blood pressure 108 mm[Hg] Jody Cole PA-C Work Phone: [facility] 04-22-2024 11:30-0400 Body mass index (BMI) [Ratio] 27.23 kg/m2 Jody Cole PA-C Work Phone: [facility] 04-22-2024 11:30-0400 Body temperature 97.9 [degF] Jody Cole PA-C Work Phone: [facility] 04-22-2024 11:30-0400 Body weight 66.7 kg Jody Cole PA-C Work Phone: [facility] 04-22-2024 11:30-0400 Diastolic blood pressure 80 mm[Hg] Jody Cole PA-C Work Phone: [facility] 04-22-2024 11:30-0400 Heart rate 57 /min Jdoy Coel PA-C Work Phone: [facility] 04-22-2024 11:30-0400 Respiratory rate 16 /min Jody Cole PA-C Work Phone: [facility] 04-22-2024 11:30-0400 SaO2% (BldA) [Mass fraction] 94 % Jody Cole PA-C Work Phone: [facility] 04-22-2024 11:30-0400 Systolic blood pressure 118 mm[Hg] Jody Cole PA-C Work Phone: [facility] 04-03-2024 14:46-0400 Body height 156.5 cm Jody Cole PA-C Work Phone: [facility] 04-03-2024 14:46-0400 Body mass index (BMI) [Ratio] 26.85 kg/m2 Joyd Cole PA-C Work Phone: [facility] 04-03-2024 14:46-0400 Body temperature 97.7 [degF] Jody Cole PA-C Work Phone: [facility] 04-03-2024 14:46-0400 Body weight 65.77 kg Jody Cole PA-C Work Phone: [facility] 04-03-2024 14:46-0400 Diastolic blood pressure 76 mm[Hg] Jody Cole PA-C Work Phone: [facility] 04-03-2024 14:46-0400 Heart rate 66 /min Jody Cole PA-C Work Phone: [facility] 04-03-2024 14:46-0400 Respiratory rate 16 /min Jody Cole PA-C Work Phone: [facility] 04-03-2024 14:46-0400 SaO2% (BldA) [Mass fraction] 98 % Jody Cole PA-C Work Phone: [facility] 04-03-2024 14:46-0400 Systolic blood pressure 106 mm[Hg] Jody Cole PA-C Work Phone: [facility] 02-14-2023 09:53-0400 Body weight 63.05 kg Justen Darling MD Work Phone: [facility] 02-14-2023 09:53-0400 Diastolic blood pressure 78 mm[Hg] Justen Darling MD Work Phone: [facility] 02-14-2023 09:53-0400 Heart rate 68 /min Justen Darling MD Work Phone: [facility] 02-14-2023 09:53-0400 Respiratory rate 12 /min Justen Darling MD Work Phone: [facility] 02-14-2023 09:53-0400 Systolic blood pressure 122 mm[Hg] Justen Darling MD Work Phone: [facility] 08-09-2022 09:52-0500 Body height 157.5 cm Jody Cole PA-C Work Phone: [facility] 08-09-2022 09:52-0500 Body temperature 97.39 [degF] Jody Cole PA-C Work Phone: [facility] 08-09-2022 09:52-0500 Body weight 60.33 kg Jody Cole PA-C Work Phone: [facility] 08-09-2022 09:52-0500 Diastolic blood pressure 62 mm[Hg] Jody Cole PA-C Work Phone: [facility] 08-09-2022 09:52-0500 Heart rate 80 /min Jody Cole PA-C Work Phone: [facility] 08-09-2022 09:52-0500 Respiratory rate 16 /min Jody Coel PA-C Work Phone: [facility] 08-09-2022 09:52-0500 Systolic blood pressure 102 mm[Hg] Jody Cole PA-C Work Phone: [facility] 07-05-2022 10:03-0400 Body temperature 97.7 [degF] Jody Cole PA-C Work Phone: [facility] 07-05-2022 10:03-0400 Body weight 61.24 kg Jody Cole PA-C Work Phone: [facility] 07-05-2022 10:03-0400 Diastolic blood pressure 78 mm[Hg] Jody Cole PA-C Work Phone: [facility] 07-05-2022 10:03-0400 Heart rate 72 /min Jody Cole PA-C Work Phone: [facility] 07-05-2022 10:03-0400 Respiratory rate 16 /min Jody Cole PA-C Work Phone: [facility] 07-05-2022 10:03-0400 Systolic blood pressure 120 mm[Hg] Jody Cole PA-C Work Phone: [facility] 12-29-2021 10:57-0400 Body weight 63.96 kg Justen Darling MD Work Phone: [facility] 12-29-2021 10:57-0400 Diastolic blood pressure 60 mm[Hg] Justen Darling MD Work Phone: [facility] 12-29-2021 10:57-0400 Heart rate 72 /min Justen Darling MD Work Phone: [facility] 12-29-2021 10:57-0400 Respiratory rate 16 /min Justen Darling MD Work Phone: [facility] 12-29-2021 10:57-0400 Systolic blood pressure 118 mm[Hg] Justen Darling MD Work Phone: [facility] Encounters Encounter Date Encounter Type Care Provider Facility Start: 07-10-2025 End: 07-10-2025 ambulatory Falguni Arana [place] Start: 07-10-2025 End: 07-10-2025 ambulatory JODY EDEN [place] Facility:[facility] Start: 07-10-2025 Encounter for genera l adult medical examination without abnormal findings JODY COLE [facility] Start: 07-10-2025 End: 07-10-2025 ambulatory JODY COLE Facility:[facility] Start: 04-30-2025 End: 04-30-[address] Justen Darling MD Work Phone: -[facility] Start: 04-30-2025 End: 04-30-2025 Patient encounter procedure Brenda Asif [employer]C -[facility] Work Phone: Start: 04-30-2025 End: 04-30-2025 Office outpatient visit 25 minutes Jody Cole PA-C Work Phone: [facility] Comment on above: Anxiety and depressi on (Primary Dx); Chronic abdominal pain; Controlled type 2 diabetes mellitus without complication, without long-term current use of insulin (HCC); Vitamin A deficiency Start: 04-30-2025 End: 04-30-2025 ambulatory JODY COLE Facility:[facility] Start: 04-30-2025 End: 04-30-2025 ambulatory Brenda Asif Facility:[facility] Start: 04-28-2025 End: 04-28-2025 Chart abstracting Justen Darling MD Work Phone: [facility] Comment on above: Outside [id number] Ordered Start: 04-28-2025 End: 04-28-[address] Justen Darling MD Work Phone: -Laboratory Start: 04-28-2025 End: 04-28-2025 Patient encounter procedure Brenda Asif [employer]EW[employer] DESIGN ENGINEER-C -Laboratory Work Phone: Start: 04-28-2025 End: 04-28-2025 ambulatory Brenda Yefri Facility:[facility] Start: 04-11-2025 End: 04-11-2025 Patient encounter procedure Brenda Asif [employer]EW[employer] DESIGN ENGINEER-C -[facility] Work Phone: Start: 04-11-2025 End: 04-11-[address] Justen Darling MD Work Phone: -[facility] Start: 04-11-2025 End: 04-11-2025 ambulatory JODY EDEN [place] Facility:[facility] Start: 03-31-2025 End: 03-31-2025 ambulatory Justen Darling MD Work Phone: [facility] Comment on above: Tramadol Start: 03-26-2025 End: 03-30-2025 Refill Justen Darling MD Work Phone: [facility] Comment on above: Refill Request Start: 02-25-2025 End: 02-25-2025 Refill Jody SILVAC Work Phone: [facility] Comment on above: Refill Request Start: 01-23-2025 End: 01-23-2025 ambulatory JODY COLE Facility:[facility] Start: 11-28-2024 ambulatory Brenda [place] [facility] Start: 11-25-2024 End: 11-26-2024 Refill Justen Darling MD Work Phone: [facility] Comment on above: Refill Request Start: 11-10-2024 End: 11-10-2024 Emergency department patient visit JUSTEN DARLING [facility] Start: 11-04-2024 End: 11-04-2024 Refill Justen Darling MD Work Phone: [facility] Comment on above: Refill Request Start: 10-29-2024 End: 10-30-2024 Refill Jody Cole PA-C Work Phone: [facility] Comment on above: Refill Request Start: 10-14-2024 End: 10-14-2024 Follow-up encounter Jody Cole PA-C Work Phone: [facility] Comment on above: Vitamin A deficiency (Primary Dx) Start: 10-09-2024 End: 10-09-2024 Telephone encounter Jody Cole PA-C Work Phone: [facility] Comment on above: Results Start: 10-08-2024 End: 10-08-2024 ambulatory JODY COLE Facility:[facility] Start: 10-08-2024 End: 10-08-2024 Office outpatient visit 25 minutes Jody Cole PA-C Work Phone: [facility] Comment on above: Controlled type 2 di abetes mellitus without complication, without long-term current use of insulin (HCC) (Primary Dx); Achalasia; Eosinophilic esophagitis; Other specified intestinal malabsorption; Vitamin A deficiency; Vitamin D deficiency; Medication management; B12 deficiency; Malabsorption of iron; Iron deficiency anemia, unspecified iron deficiency anemia type; Age-related osteoporosis without current pathological fracture; Encounter for immunization; Well adult exam Start: 10-08-2024 End: 10-08-2024 Patient encounter status Jody Cole PA-C Work Phone: [facility] Start: 09-29-2024 End: 09-30-2024 Refill Krystyna Mullen APRN.CNP Work Phone: [facility] [place] Comment on above: Refill Request Start: 09-24-2024 End: 10-25-2024 ambulatory Justen Darling MD Work Phone: [facility] [place] Start: 08-19-2024 End: 08-19-2024 Chart abstracting Justen Darling MD Work Phone: Family [facility] Comment on above: Outside EGD (H&P) Start: 08-16-2024 End: 08-16-2024 ambulatory Israel Friend Facility:[facility] Start: 08-08-2024 End: 08-08-2024 Refill Justen Darling MD Work Phone: [facility] Comment on above: Refill Request Start: 07-30-2024 End: 07-30-2024 ambulatory Jody Cole PA-C Work Phone: [facility] Comment on above: Prior message Refill Request Esophageal spasms an d dysplasia Start: 07-26-2024 End: 07-26-2024 Refill Justen Darling MD Work Phone: [facility] Comment on above: Refill Request Start: 07-04-2024 End: 07-04-2024 Refill Jody Cole PA-C Work Phone: [facility] Comment on above: Refill Request Start: 06-03-2024 End: 06-04-2024 Refill Justen Darling MD Work Phone: [facility] Comment on above: Refill Request Start: 05-30-2024 End: 05-30-2024 Chart abstracting Justen Darling MD Work Phone: [facility] Start: 05-03-2024 End: 05-07-2024 Refill Jody Cole PA-C Work Phone: [facility] Comment on above: Refill Request Start: 04-30-2024 End: 05-02-2024 Telephone encounter Jody Cole PA-C Work Phone: [facility] Comment on above: Results Start: 04-29-2024 End: 04-29-2024 Subsequent hospital visit by physician [facility] Work Phone: Radiology Comment on above: Eosinophilic esophag itis [K20.0] Start: 04-23-2024 End: 04-23-2024 Telephone encounter Jody Cole PA-C Work Phone: [facility] [place] Comment on above: Results Start: 04-22-2024 End: 04-22-2024 Patient encounter procedure Jody Douglas PA-C Work Phone: [facility] [place] Comment on above: Eosinophilic esophag itis (Primary Dx); Esophageal dysphagia; Chronic abdominal pain; Epigastric pain; Left leg swelling Start: 04-04-2024 Telephone encounter Jody Mariola bowers PA-C Work Phone: [facility] [place] Comment on above: Results Start: 04-03-2024 End: 04-03-2024 Patient encounter procedure Jody Cole PA-C Work Phone: [facility] [place] Comment on above: Well adult exam (Allison michael Dx); Controlled type 2 diabetes mellitus without complication, without long-term current use of insulin (HCC); Age-related osteoporosis without current pathological fracture; Sarcoidosis; OAB (overactive bladder); Eosinophilic esophagitis; Primary insomnia; Chronic abdominal pain Start: 04-03-2024 End: 04-03-2024 Patient encounter status Jody Douglas PA-C Work Phone: [facility] Work Phone: Start: 03-07-2024 Refill Jody Billy on PA-C Work Phone: [facility] [place] Comment on above: Refill Request Start: 02-09-2024 Refill Jody Billy on PA-C Work Phone: [facility] [place] Comment on above: Refill Request Start: 01-30-2024 Refill Justen zapata MD Work Phone: [facility] [place] Comment on above: Refill Request Start: 01-10-2024 Refill Jutsen zapata MD Work Phone: [facility] [place] Comment on above: Refill Request Start: 01-06-2024 Refill Justen zapata MD Work Phone: [facility] [place] Comment on above: Refill Request Start: 12-13-2023 Refill Justen zapata MD Work Phone: [facility] [place] Comment on above: Refill Request Start: 11-11-2023 Refill Justen zapata MD Work Phone: [facility] Comment on above: Refill Request Start: 11-09-2023 Refill Jody Billy on PA-C Work Phone: [facility] [place] Comment on above: Refill Request Start: 10-25-2023 ambulatory uJsten zapata MD Work Phone: Internal Medicine [place] Start: 10-13-2023 Refill Jody Billy on PA-C Work Phone: [facility] [place] Comment on above: Refill Request Start: 09-15-2023 Ophthalmic examinati on and evaluation Jody Cole PA-C Work Phone: [facility] Work Phone: Start: 08-14-2023 Refill Justen zapata MD Work Phone: [facility] [place] Comment on above: Refill Request Start: 08-07-2023 Refill Justen zapata MD Work Phone: [facility] [place] Comment on above: Refill Request Start: 07-14-2023 Refill Jody Billy on PA-C Work Phone: [facility] [place] Comment on above: Refill Request Start: 06-14-2023 Refill Justen zapata MD Work Phone: [facility] [place] Comment on above: Refill Request Start: 05-22-2023 Refill Krystyna moore APRN.CNP Work Phone: [facility] [place] Comment on above: Refill Request Start: 05-15-2023 Refill Justen zapata MD Work Phone: [facility] [place] Comment on above: Refill Request Start: 04-14-2023 Refill Justen zapata MD Work Phone: [facility] [place] Comment on above: Refill Request Start: 03-14-2023 Refill Justen zapata MD Work Phone: [facility] Comment on above: Refill Request Start: 02-16-2023 Telephone encounter Justen Darling MD Work Phone: [facility] Comment on above: Results Start: 02-14-2023 End: 02-14-2023 Ophthalmic examination and evaluation Justen Darling MD Work Phone: [facility] [place] Start: 02-14-2023 End: 02-14-2023 Patient encounter procedure Justen Darling MD Work Phone: [facility] [place] Comment on above: Controlled type 2 di abetes mellitus without complication, without long-term current use of insulin (HCC) (Primary Dx); Diabetic eye exam (HCC); Anemia, unspecified type; Iron deficiency anemia, unspecified iron deficiency anemia type; Eosinophilic esophagitis; Sarcoidosis; Anxiety and depression; B12 deficiency; Vitamin D deficiency; Vitamin A deficiency; Primary insomnia; OAB (overactive bladder); Chronic abdominal pain; Other specified intestinal malabsorption; Medication management Start: 02-07-2023 Refill Jody Bellwood on PA-C Work Phone: [facility] Comment on above: Refill Request Start: 01-12-2023 Refill Justen zapata MD Work Phone: [facility] Comment on above: Refill Request Medication Start: 12-15-2022 Refill Justen zapata MD Work Phone: [facility] Comment on above: Refill Request Start: 11-14-2022 Refill Justen zapata MD Work Phone: [facility] Comment on above: Refill Request Start: 11-09-2022 ambulatory Justen zapata MD Work Phone: Internal Medicine [place] Start: 10-18-2022 Refill Just[facility]ap[facility] MD [facility] Phone[facility] Comment on above: Refill Request Start: 10-17-2022 Refill Jody Bellwood on PA-C Work Phone: [facility] [place] Comment on above: Refill Request Start: 10-06-2022 End: 10-06-2022 Subsequent hospital visit by physician [facility] Work Phone: Nuclear Medicine Comment on above: Elevated alkaline ph osphatase level [R74.8] Start: 09-26-2022 Telephone encounter Jody Mariola RIVERO-C Work Phone: [facility] [place] Comment on above: Results Start: 09-20-2022 Refill Justen zapata MD Work Phone: [facility] [place] Comment on above: Refill Request Start: 08-21-2022 Refill Jody Mariajose gutiérrez PA-C Work Phone: [facility] [place] Comment on above: Refill Request Start: 08-09-2022 Telephone encounter Jody Mariola RIVERO-C Work Phone: [facility] [place] Comment on above: Results Start: 08-09-2022 End: 08-09-2022 Patient encounter procedure Jody Cole PA-C Work Phone: [facility] [place] Comment on above: Well adult exam (Allison michael Dx); Anxiety and depression; Panic disorder; Situational anxiety; Grief reaction; Controlled type 2 diabetes mellitus without complication, without long-term current use of insulin (HCC); Elevated LDL cholesterol level; Vitamin A deficiency; Vitamin D deficiency; Other specified intestinal malabsorption; Chronic constipation; Eosinophilic esophagitis; Primary insomnia Start: 08-09-2022 End: 08-09-2022 Patient encounter status Jody Cole PA-C Work Phone: [facility] [place] Start: 07-21-2022 Refill Justen zapata MD Work Phone: [facility] [place] Comment on above: Refill Request Start: 07-05-2022 End: 07-05-2022 Patient encounter procedure oJdy Cole PA-C Work Phone: [facility] [place] Comment on above: Panic disorder (Prim kandy Dx); Situational anxiety; Grief reaction; Herpes simplex virus (HSV) infection; Encounter for immunization Start: 06-24-2022 Refill Justen zapata MD Work Phone: [facility] [place] Comment on above: Refill Request Start: 06-23-2022 Refill Justen zapata MD Work Phone: [facility] [place] Comment on above: Refill Request Start: 05-22-2022 Refill Justen zapata MD Work Phone: [facility] [place] Comment on above: Refill Request Start: 04-25-2022 Refill Jody Billy on PA-C Work Phone: [facility] [place] Comment on above: Refill Request Start: 04-24-2022 Refill Jody Billy on PA-C Work Phone: [facility] [place] Comment on above: Refill Request Start: 03-25-2022 Refill Jody Billy on PA-C Work Phone: [facility] [place] Comment on above: Refill Request Start: 03-01-2022 Refill Justen zapata MD Work Phone: [facility] [place] Comment on above: Refill Request Start: 02-23-2022 Refill Justen zapata MD Work Phone: [facility] [place] Comment on above: Refill Request Start: 02-18-2022 ambulatory Dannie Yoon MD Work Phone: Ambulatory Surgery Start: 02-15-2022 Telephone encounter Justen Darling MD Work Phone: [facility] [place] Comment on above: Insurance Authorizat ion (Citalopram ) Start: 01-26-2022 End: 01-26-2022 ambulatory Airamzak Grubbs COMPUTED TOMOGRAPHY SCANNER OPERATOR.ORDER PACKER OR PACKAGER Work Phone: Gastroenterology Comment on above: Family history of co johanny cancer (Primary Dx); Other specified intestinal malabsorption; Chronic constipation; Bloating; Dysphagia, unspecified type; Early satiety Start: 01-26-2022 End: 01-26-2022 Telemedicine consultation with patient Airam Grubbs COMPUTED TOMOGRAPHY SCANNER OPERATOR.ORDER PACKER OR PACKAGER Work Phone: [place] [facility] Start: 01-24-2022 Refill Justen zapata MD Work Phone: [facility] [place] Comment on above: Refill Request Start: 01-23-2022 ambulatory Jody Billy on PA-C Work Phone: [facility] [place] Comment on above: Gastrointestinal iss ues Start: 12-30-2021 Telephone encounter Justen Darling MD Work Phone: [facility] [place] Comment on above: Results Start: 12-29-2021 End: 12-29-2021 Ophthalmic examination and evaluation Justen Darling MD Work Phone: [facility] [place] Start: 12-29-2021 End: 12-29-2021 Patient encounter procedure Justen Darling MD Work Phone: [facility] [place] Comment on above: Controlled type 2 di abetes mellitus without complication, without long-term current use of insulin (HCC) (Primary Dx); Diabetic eye exam (HCC); Anemia, unspecified type; Iron deficiency anemia, unspecified iron deficiency anemia type; Other specified intestinal malabsorption; Sarcoidosis; B12 deficiency; Vitamin D deficiency; Vitamin A deficiency; Anxiety and depression; Primary insomnia; Chronic abdominal pain; Family history of thyroid disease; Medication management; OAB (overactive bladder) Start: 12-15-2021 Refill Jody Billy on PA-C Work Phone: [facility] [place] Comment on above: Refill Request Start: 12-01-2021 ambulatory Justen zapata MD Work Phone: Internal Medicine [place] Start: 11-26-2021 Refill Jody Billy on PA-C Work Phone: [facility] [place] Comment on above: Refill Request Start: 06-29-2021 Patient encounter status Sumit Cole PA-C Work Phone: [facility] Work Phone: Start: 04-25-2017 Ophthalmic examinati on and evaluation Jody Cole PA-C Work Phone: [facility] Work Phone: Start: 05-11-2016 Patient encounter status Sumit Cole PA-C Work Phone: [facility] Work Phone: Start: 12-17-2014 End: 10-08-2024 Ophthalmic examination and evaluation Jody Cole PA-C Work Phone: [facility] Procedures Date Procedure Procedure Detail Performing Clinician Start: 04-30-2025 CT of abdomen with contrast Dr. Justen Darling MD Work Phone: Start: 04-28-2025 Vitamin D, 25-hydrox y measurement Dr. Justen Darling MD Work Phone: Comment on above: Vitamin D StatusDefi ciency: <20 ng/mL (50nmol/L)Insufficiency: 20-30 ng/mL (50-75 nmol/L)Sufficiency: 30-100 ng/mL (75-250 nmol/L)Toxicity: >100 ng/mL (>250 nmol/L) Start: 04-29-2024 Us abdominal real ti me w/image limited Jody Cole PA-C Work Phone: Start: 10-06-2022 Bone &/joint imaging whole body Jody Cole PA-C Work Phone: Start: 07-05-2022 INFLUENZA VACCINE QUADRIVALENT 6 MO - 64 YRS IM Jody Cole PA-C Work Phone: Start: 02-22-2022 Colonoscopy Justen zapata MD Work Phone: Start: 07-09-2019 Mammography Jody bowers PA-C Work Phone: Start: 02-10-2016 Colonoscopy Jody bowers PA-C Work Phone: 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 Brenda Asif WASTEWATER DESIGN ENGINEER-C Plan of Treatment Date Care Activity Detail Author Start: 2036 RSV Vaccine (1 - 1-d ose 75+ series) RSV Vaccine (1 - 1-dose 75+ series) [facility] Start: 02-22-2027 Colonoscopy COLONOSCOPY [facility] Start: 02-22-2027 COLORECTAL CANCER SCREENING COLORECTAL CANCER SCREENING [facility] Start: 02-22-2027 Screening for malign ant neoplasm of colon [facility] Start: 04-30-2026 Annual PCP Team [employer] Maker [place] Disease Visit Annual PCP Team Chronic Disease Visit [facility] Start: 04-11-2026 Annual PCP Team Plaster Model And Mold Maker yelena Disease Visit Annual PCP Team Chronic Disease Visit [facility] Start: 2026 PNEUMOCOCCAL (3 - PP SV23 if available, else PCV20) PNEUMOCOCCAL (3 - PPSV23 if available, else PCV20) [facility] Start: 2026 PNEUMOCOCCAL (3 - PP SV23 or PCV20) PNEUMOCOCCAL (3 - PPSV23 or PCV20) [facility] Start: 2026 Pneumococcal vaccination [facility] Start: 01-23-2026 Annual PCP Team Pl[employer] Maker yelena Disease Visit Annual PCP Team Chronic Disease Visit [facility] Start: 12-25-2025 Pneumococcal Vaccine : 50+ (3 of 3 - PCV20 or PCV21) Pneumococcal Vaccine: 50+ (3 of 3 - PCV20 or PCV21) [facility] Start: 10-08-2025 Annual PCP Team Pl[employer] And [employer] Maker yelena Disease Visit Annual PCP Team Chronic Disease Visit [facility] Start: 10-08-2025 Covid-19 Vaccine ( season) Covid-19 Vaccine ( season) [facility] Comment on above: Postponed from 05/05 (Declined at this time) Start: 10-08-2025 Diabetic foot examination Diabetic F oot Exam [facility] Start: 10-08-2025 Hepatitis B screening Urine Albumin:Creatinine Ratio [facility] Start: 10-08-2025 Hepatitis B surface antibody level LDL Cholesterol [facility] Start: 10-08-2025 Shingrix Vaccine (1 of 2) Lam grix Vaccine (1 of 2) [facility] Comment on above: Postponed from 04/09 (Declined at this time) Start: 10-08-2025 Urine microalbumin profile DTaP,Tdap,Td Vaccine (2 - Td or Tdap) [facility] Comment on above: Postponed from 01/16 (Declined at this time) Start: 07-01-2025 End: 07-01-2025 Patient encounter procedure 07/01/2025 11:40 AM EDT Office Visit Family [facility] [place] [address] [place], [place] [id number] Jody Cole PA-C [address] [place] [address] Physical Family Medicine [place] Comment on above: Physical Start: 06-30-2025 End: 09-29-2025 Basic metabolic 2000 panel - Serum or Plasma BASIC METABOLIC PANEL Lab Routine Controlled type 2 diabetes mellitus without complication, without long-term current use of insulin (HCC) Expected: 06/30/2025, Expires: 09/29/2025 [facility] Comment on above: Expected: 06/30/2025 , Expires: 09/29/2025 Start: 06-30-2025 End: 09-29-2025 Hemoglobin A1c in Blood HEMOGLOBIN A1C Lab Routine Controlled type 2 diabetes mellitus without complication, without long-term current use of insulin (HCC) Expected: 06/30/2025, Expires: 09/29/2025 [facility] Work Phone: Comment on above: Expected: 06/30/2025 , Expires: 09/29/2025 Start: 06-30-2025 End: 09-29-2025 Retinol [Mass/volume] in Serum or Plasma VITAMIN A (RETINOL), SERUM OR PLASMA Lab Routine Vitamin A deficiency Expected: 06/30/2025, Expires: 09/29/2025 [facility] Comment on above: Expected: 06/30/2025 , Expires: 09/29/2025 Start: 06-30-2025 End: 09-29-2025 Urinalysis complete panel - Urine URINALYSIS, WITH MICROSCOPIC Lab Routine Controlled type 2 diabetes mellitus without complication, without long-term current use of insulin (HCC) Expected: 06/30/2025, Expires: 09/29/2025 [facility] Comment on above: Expected: 06/30/2025 , Expires: 09/29/2025 Start: 05-05-2025 Influenza vaccination Influenza Vacc ine (#1) [facility] Start: 04-30-2025 End: 04-30-2025 Patient encounter procedure 04/30/2025 1:40 PM EDT Office Visit [facility] [address] [facility] [place] [address] Jody Cole PA-C [address] [place] [address] 2 week recheck anxiety [facility] [place] Comment on above: 2 week recheck anxie ty Start: 04-28-2025 Retinol [Mass/volume ] in Serum or Plasma [facility] Start: 04-22-2025 Annual PCP Team Pl[employer] Maker yelena Disease Visit Annual PCP Team Chronic Disease Visit [facility] Start: 04-08-2025 End: 04-08-2025 Patient encounter procedure 04/08/2025 9:40 AM EDT Office Visit [facility] [place] [address] [facility], [place] [id number] Jody Cole PA-C [address] [facility], [place] [id number] physical Family Medicine [place] Comment on above: physical Start: 04-07-2025 Hemoglobin A1c measurement HbA1C [facility] Start: 04-03-2025 Annual PCP Team Pl[employer] Maker yelena Disease Visit Annual PCP Team Chronic Disease Visit [facility] Start: 04-03-2025 Hepatitis B surface antibody level LDL Cholesterol [facility] Start: 10-28-2024 End: 01-27-2025 Retinol [Mass/volume] in Serum or Plasma VITAMIN A/RETINOL Lab Routine Vitamin A deficiency Expected: 10/28/2024, Expires: 01/27/2025 [facility] Work Phone: Comment on above: Expected: 10/28/2024 , Expires: 01/27/2025 Start: 10-09-2024 End: 01-08-2025 Bacteria identified in Urine by Culture BACTERIAL CULTURE, URINE Microbiology Routine Microscopic hematuria Expected: 10/09/2024, Expires: 01/08/2025 [facility] Comment on above: Expected: 10/09/2024 , Expires: 01/08/2025 Start: 10-09-2024 End: 01-08-2025 Urinalysis complete panel - Urine URINALYSIS, WITH MICROSCOPIC Lab Routine Microscopic hematuria Expected: 10/09/2024, Expires: 01/08/2025 [facility] Work Phone: Comment on above: Expected: 10/09/2024 , Expires: 01/08/2025 Start: 10-08-2024 End: 01-07-2025 25-hydroxyvitamin D3 [Mass/volume] in Serum or Plasma [facility] Comment on above: Expected: 10/08/2024 , Expires: 01/07/2025 Start: 10-08-2024 End: 01-07-2025 Cobalamin (Vitamin B12) [Mass/volume] in Serum or Plasma [facility] Comment on above: Expected: 10/08/2024 , Expires: 01/07/2025 Start: 10-08-2024 End: 01-07-2025 Comprehensive metabolic 2000 panel - Serum or Plasma [facility] Comment on above: Expected: 10/08/2024 , Expires: 01/07/2025 Start: 10-08-2024 End: 01-07-2025 Hemoglobin A1c in Blood [facility] [place] Work Phone: Comment on above: Expected: 10/08/2024 , Expires: 01/07/2025 Start: 10-08-2024 End: 01-07-2025 Iron and Iron binding capacity panel - Serum or Plasma [facility] Comment on above: Expected: 10/08/2024 , Expires: 01/07/2025 Start: 10-08-2024 End: 01-07-2025 LIPID PANEL, NONFASTING [facility] Comment on above: Expected: 10/08/2024 , Expires: 01/07/2025 Start: 10-08-2024 End: 01-07-2025 Microalbumin/Creatinine [Mass Ratio] in Urine [facility] Comment on above: Expected: 10/08/2024 , Expires: 01/07/2025 Start: 10-08-2024 End: 01-07-2025 QUANTITATIVE TOXICOLOGY PANEL, URINE [facility] Comment on above: Expected: 10/08/2024 , Expires: 01/07/2025 Start: 10-08-2024 End: 01-07-2025 Retinol [Mass/volume] in Serum or Plasma [facility] Comment on above: Expected: 10/08/2024 , Expires: 01/07/2025 Start: 10-08-2024 End: 01-07-2025 TOXICOLOGY SCREEN, ROUTINE URINE [facility] Comment on above: Expected: 10/08/2024 , Expires: 01/07/2025 Start: 10-08-2024 End: 01-07-2025 Zinc [Mass/volume] in Serum or Plasma [facility] Comment on above: Expected: 10/08/2024 , Expires: 01/07/2025 Start: 10-08-2024 End: 10-08-2024 Patient encounter procedure [facility] [place] Comment on above: 6 month f/u Start: 10-04-2024 Hemoglobin A1c measurement HbA1C [facility] Start: 09-15-2024 Annual PCP Team Plaster Model And [employer] Maker yelena Disease Visit Annual PCP Team Chronic Disease Visit [facility] Start: 09-15-2024 Covid-19 Vaccine () Covid-19 Vaccine () [facility] Comment on above: Postponed from 05/05 (Declined at this time) Start: 09-15-2024 Hepatitis B screening Urine Albumin:Creatinine Ratio [facility] Start: 09-15-2024 Hepatitis B surface antibody level LDL Cholesterol [facility] Start: 07-31-2024 Glaucoma screening Dilated Retinal E xam [facility] Start: 07-31-2024 Hepatitis C antibody , confirmatory test Dilated Retinal Exam [facility] Start: 07-09-2024 HPV TESTING HPV TESTING [facility] Start: 07-09-2024 PAP TESTING PAP TESTING [facility] Start: 07-09-2024 Screening for malign ant neoplasm of cervix [facility] Start: 05-05-2024 Covid-19 Vaccine () Covid-19 Vaccine () [facility] Start: 05-05-2024 Covid-19 Vaccine () Covid-19 Vaccine () [facility] Start: 05-05-2024 Influenza vaccination Influenza Vacc ine (#1) [facility] Start: 05-01-2024 End: 05-01-2024 Patient encounter procedure 05/01/2024 10:00 AM EDT Office Visit Vasculary Surgery [address] [place] [address] Left leg swelling [M79.89] [facility] Comment on above: Left leg swelling [M 79.89] Start: 04-29-2024 End: 04-29-2024 Patient encounter procedure 04/29/2024 8:30 AM EDT Appointment Radiology [address] [place] [address] Eosinophilic esophagitis [K20.0]; Esophageal dysphagia [R13.19]; Chronic abdominal pain [R10.9, G89.29] Radiology Comment on above: Eosinophilic esophag itis [K20.0]; Esophageal dysphagia [R13.19]; Chronic abdominal pain [R10.9, G89.29] Start: 04-22-2024 End: 07-22-2024 Amylase [Enzymatic activity/volume] in Serum or Plasma [facility] Comment on above: Expected: 04/22/2024 , Expires: 07/22/2024 Start: 04-22-2024 End: 07-22-2024 Hepatic function 2000 panel - Serum or Plasma [facility] Comment on above: Expected: 04/22/2024 , Expires: 07/22/2024 Start: 04-22-2024 End: 07-22-2024 Lipase [Enzymatic activity/volume] in Serum or Plasma [facility] Comment on above: Expected: 04/22/2024 , Expires: 07/22/2024 Start: 04-19-2024 End: 04-19-2024 Patient encounter procedure 04/19/2024 8:40 AM EDT Office Visit [facility] [address] [place] [address] Jody Cole PA-C [address] [place] [address] 2 week f/u abdominal pain [facility] Comment on above: 2 week f/u abdominal pain Start: 04-03-2024 End: 07-03-2024 C reactive protein [Mass/volume] in Serum or Plasma [facility] Comment on above: Expected: 04/03/2024 , Expires: 07/03/2024 Start: 04-03-2024 End: 07-03-2024 CBC W Auto Differential panel - Blood [facility] Comment on above: Expected: 04/03/2024 , Expires: 07/03/2024 Start: 04-03-2024 End: 07-03-2024 Comprehensive metabolic 2000 panel - Serum or Plasma [facility] Comment on above: Expected: 04/03/2024 , Expires: 07/03/2024 Start: 04-03-2024 End: 07-03-2024 Erythrocyte sedimentation rate [facility] Comment on above: Expected: 04/03/2024 , Expires: 07/03/2024 Start: 04-03-2024 End: 07-03-2024 Hemoglobin A1c in Blood [facility] Work Phone: Comment on above: Expected: 04/03/2024 , Expires: 07/03/2024 Start: 04-03-2024 End: 07-03-2024 LIPID PANEL, NONFASTING [facility] Comment on above: Expected: 04/03/2024 , Expires: 07/03/2024 Start: 04-01-2024 End: 04-01-2024 Patient encounter procedure 04/01/2024 9:20 AM EDT Office Visit [facility] [address] [place] [address] Justen Darling MD [address] [facility] [place], [place] [id number] physical [facility] Comment on above: physical Start: 03-26-2024 End: 03-26-2024 Patient encounter procedure 03/26/2024 9:00 AM EDT Office Visit [facility] [address] [place] [address] Justen Darling MD [address] [place] [address] physical [facility] Comment on above: physical Start: 03-15-2024 Hemoglobin A1c measurement HbA1C [facility] Start: 02-15-2024 ANNUAL PCP TEAM EQUIPMENT MAINT TECH YELENA DISEASE VISIT ANNUAL PCP TEAM CHRONIC DISEASE VISIT [facility] Start: 02-15-2024 Hepatitis B surface antibody level LDL CHOLESTEROL [facility] Start: 02-15-2024 SHINGRIX VACCINE (1 of 2) LAM GRIX VACCINE (1 of 2) [facility] Comment on above: Postponed from 04/09 (Insurance Coverage) Start: 01-17-2024 Urine microalbumin profile [facility] Start: 08-16-2023 Hemoglobin A1c/Hemoglobin.total in Blood HBA1C [facility] Start: 08-09-2023 ANNUAL PCP TEAM EQUIPMENT MAINT TECH YELENA DISEASE VISIT ANNUAL PCP TEAM CHRONIC DISEASE VISIT [facility] Start: 08-09-2023 COVID-19 VACCINE (3 - Booster for Pfizer series) COVID-19 VACCINE (3 - Booster for Pfizer series) [facility] Comment on above: Postponed from 06/29 (Declined at this time) Start: 08-09-2023 COVID-19 VACCINE (3 - Pfizer series) COVID-19 VACCINE (3 - Pfizer series) [facility] Comment on above: Postponed from 06/29 (Declined at this time) Start: 08-04-2023 End: 10-04-2023 25-hydroxyvitamin D3 [Mass/volume] in Serum or Plasma VITAMIN D 25 HYDROXY Lab Routine Vitamin D deficiency Other specified intestinal malabsorption Expected: 08/04/2023, Expires: 10/04/2023 [facility] Work Phone: Comment on above: Expected: 08/04/2023 , Expires: 10/04/2023 Start: 08-04-2023 End: 10-04-2023 ALBUMIN/CREAT RATIO RND UR ALBUMIN/CREAT RATIO RND UR Lab Routine Controlled type 2 diabetes mellitus without complication, without long-term current use of insulin (HCC) Expected: 08/04/2023, Expires: 10/04/2023 [facility] Work Phone: Comment on above: Expected: 08/04/2023 , Expires: 10/04/2023 Start: 08-04-2023 End: 10-04-2023 CBC W Auto Differential panel - Blood CBC + DIFF Lab Routine Anemia, unspecified type Iron deficiency anemia, unspecified iron deficiency anemia type B12 deficiency Expected: 08/04/2023, Expires: 10/04/2023 [facility] Work Phone: Comment on above: Expected: 08/04/2023 , Expires: 10/04/2023 Start: 08-04-2023 End: 10-04-2023 Cobalamin (Vitamin B12) [Mass/volume] in Serum or Plasma VITAMIN B12 BLOOD Lab Routine Anemia, unspecified type B12 deficiency Other specified intestinal malabsorption Expected: 08/04/2023, Expires: 10/04/2023 [facility] Work Phone: Comment on above: Expected: 08/04/2023 , Expires: 10/04/2023 Start: 08-04-2023 End: 10-04-2023 Comprehensive metabolic 2000 panel - Serum or Plasma COMP METABOLIC PANEL Lab Routine Controlled type 2 diabetes mellitus without complication, without long-term current use of insulin (HCC) Expected: 08/04/2023, Expires: 10/04/2023 [facility] Work Phone: Comment on above: Expected: 08/04/2023 , Expires: 10/04/2023 Start: 08-04-2023 End: 10-04-2023 Hemoglobin A1c in Blood HGB A1C Lab Routine Controlled type 2 diabetes mellitus without complication, without long-term current use of insulin (HCC) Expected: 08/04/2023, Expires: 10/04/2023 [facility] Work Phone: Comment on above: Expected: 08/04/2023 , Expires: 10/04/2023 Start: 08-04-2023 End: 10-04-2023 Iron and Iron binding capacity panel - Serum or Plasma IRON + TIBC Lab Routine Anemia, unspecified type Iron deficiency anemia, unspecified iron deficiency anemia type Expected: 08/04/2023, Expires: 10/04/2023 [facility] Work Phone: Comment on above: Expected: 08/04/2023 , Expires: 10/04/2023 Start: 08-04-2023 End: 10-04-2023 LIPID PANEL, NONFASTING LIPID PANEL, NONFASTING Lab Routine Controlled type 2 diabetes mellitus without complication, without long-term current use of insulin (HCC) Expected: 08/04/2023, Expires: 10/04/2023 [facility] Work Phone: Comment on above: Expected: 08/04/2023 , Expires: 10/04/2023 Start: 08-04-2023 End: 10-04-2023 PAIN PANEL, UR QUANT PAIN PANEL, UR QUANT Lab Routine Chronic abdominal pain Medication management Expected: 08/04/2023, Expires: 10/04/2023 [facility] Work Phone: Comment on above: Expected: 08/04/2023 , Expires: 10/04/2023 Start: 08-04-2023 End: 10-04-2023 Retinol [Mass/volume] in Serum or Plasma VITAMIN A/RETINOL Lab Routine Vitamin A deficiency Other specified intestinal malabsorption Expected: 08/04/2023, Expires: 10/04/2023 [facility] Work Phone: Comment on above: Expected: 08/04/2023 , Expires: 10/04/2023 Start: 08-04-2023 End: 10-04-2023 TOX SCREEN ROUT UR TOX SCREEN ROUT UR Lab Routine Chronic abdominal pain Medication management Expected: 08/04/2023, Expires: 10/04/2023 [facility] Work Phone: Comment on above: Expected: 08/04/2023 , Expires: 10/04/2023 Start: 08-04-2023 End: 10-04-2023 Urinalysis complete panel - Urine URINALYSIS, WITH MICROSCOPIC Lab Routine Controlled type 2 diabetes mellitus without complication, without long-term current use of insulin (HCC) Expected: 08/04/2023, Expires: 10/04/2023 [facility] Work Phone: Comment on above: Expected: 08/04/2023 , Expires: 10/04/2023 Start: 08-04-2023 End: 10-04-2023 Zinc [Mass/volume] in Serum or Plasma ZINC BLD Lab Routine Other specified intestinal malabsorption Expected: 08/04/2023, Expires: 10/04/2023 [facility] Work Phone: Comment on above: Expected: 08/04/2023 , Expires: 10/04/2023 Start: 07-05-2023 ANNUAL PCP TEAM EQUIPMENT MAINT TECH YELENA DISEASE VISIT ANNUAL PCP TEAM CHRONIC DISEASE VISIT [facility] Start: 07-05-2023 Hepatitis B screening URINE ALBUMIN:CREATININE RATIO [facility] Start: 07-05-2023 Hepatitis B surface antibody level LDL CHOLESTEROL [facility] Start: 05-05-2023 Covid-19 Vaccine () Covid-19 Vaccine () [facility] Start: 05-05-2023 Influenza vaccination [facility] Start: 02-07-2023 End: 2023 Basic metabolic 2000 panel - Serum or Plasma BASIC METABOLIC PNL Lab Routine Controlled type 2 diabetes mellitus without complication, without long-term current use of insulin ([facility]) Expected: 02/07/2023, Expires: 2023 [facility] Work Phone: Comment on above: Expected: 02/07/2023 , Expires: 2023 Start: 02-07-2023 End: 2023 Hemoglobin A1c in Blood HGB A1C Lab Routine Controlled type 2 diabetes mellitus without complication, without long-term current use of insulin ([facility]) Expected: 02/07/2023, Expires: 2023 [facility] Work Phone: Comment on above: Expected: 02/07/2023 , Expires: 2023 Start: 02-07-2023 End: 2023 LIPID PANEL, NONFASTING LIPID PANEL, NONFASTING Lab Routine Elevated LDL cholesterol level Expected: 02/07/2023, Expires: 2023 [facility] Work Phone: Comment on above: Expected: 02/07/2023 , Expires: 2023 Start: 02-07-2023 End: 2023 Retinol [Mass/volume] in Serum or Plasma VITAMIN A/RETINOL Lab Routine Vitamin A deficiency Expected: 02/07/2023, Expires: 2023 [facility] Work Phone: Comment on above: Expected: 02/07/2023 , Expires: 2023 Start: 01-02-2023 Hemoglobin A1c/Hemoglobin.total in Blood HBA1C [facility] Start: 12-29-2022 3 comp foot exam completed DIABETIC FOOT EXAM [facility] Start: 12-29-2022 ANNUAL PCP TEAM EQUIPMENT MAINT TECH YELENA DISEASE VISIT ANNUAL PCP TEAM CHRONIC DISEASE VISIT [facility] Start: 12-29-2022 Diabetic foot examination Diabetic F oot Exam [facility] Start: 12-29-2022 Hepatitis B surface antibody level LDL CHOLESTEROL [facility] Start: 09-13-2022 ANNUAL PCP TEAM EQUIPMENT MAINT TECH YELENA DISEASE VISIT ANNUAL PCP TEAM CHRONIC DISEASE VISIT [facility] Start: 08-09-2022 End: 10-09-2022 ALK PHOS ISOENZYM BL ALK PHOS ISOENZYM BL Lab Routine Elevated alkaline phosphatase level Expected: 08/09/2022, Expires: 10/09/2022 [facility] Work Phone: Comment on above: Expected: 08/09/2022 , Expires: 10/09/2022 Start: 06-30-2022 Hemoglobin A1c/Hemoglobin.total in Blood HBA1C [facility] Start: 06-29-2022 Hepatitis B screening URINE ALBUMIN:CREATININE RATIO [facility] Start: 06-29-2022 Hepatitis B surface antibody level LDL CHOLESTEROL [facility] Start: 06-23-2022 End: 08-23-2022 PAIN PANEL, UR QUANT PAIN PANEL, UR QUANT Lab Routine Chronic abdominal pain Medication management Expected: 06/23/2022, Expires: 08/23/2022 [facility] Work Phone: Comment on above: Expected: 06/23/2022 , Expires: 08/23/2022 Start: 06-23-2022 End: 08-23-2022 TOX SCREEN ROUT UR TOX SCREEN ROUT UR Lab Routine Chronic abdominal pain Medication management Expected: 06/23/2022, Expires: 08/23/2022 [facility] Work Phone: Comment on above: Expected: 06/23/2022 , Expires: 08/23/2022 Start: 06-17-2022 End: 08-17-2022 ALBUMIN/CREAT RATIO RND UR ALBUMIN/CREAT RATIO RND UR Lab Routine Controlled type 2 diabetes mellitus without complication, without long-term current use of insulin (HCC) Expected: 06/17/2022, Expires: 08/17/2022 [facility] Work Phone: Comment on above: Expected: 06/17/2022 , Expires: 08/17/2022 Start: 06-17-2022 End: 08-17-2022 CBC W Auto Differential panel - Blood CBC + DIFF Lab Routine Controlled type 2 diabetes mellitus without complication, without long-term current use of insulin (HCC) Iron deficiency anemia, unspecified iron deficiency anemia type B12 deficiency Expected: 06/17/2022, Expires: 08/17/2022 [facility] Work Phone: Comment on above: Expected: 06/17/2022 , Expires: 08/17/2022 Start: 06-17-2022 End: 08-17-2022 Comprehensive metabolic 2000 panel - Serum or Plasma COMP METABOLIC PANEL Lab Routine Controlled type 2 diabetes mellitus without complication, without long-term current use of insulin (HCC) Expected: 06/17/2022, Expires: 08/17/2022 [facility] Work Phone: Comment on above: Expected: 06/17/2022 , Expires: 08/17/2022 Start: 06-17-2022 End: 08-17-2022 Hemoglobin A1c/Hemoglobin.total in Blood HGB A1C Lab Routine Controlled type 2 diabetes mellitus without complication, without long-term current use of insulin (HCC) Expected: 06/17/2022, Expires: 08/17/2022 [facility] Work Phone: Comment on above: Expected: 06/17/2022 , Expires: 08/17/2022 Start: 06-17-2022 End: 08-17-2022 IRON + TIBC IRON + TIBC Lab Routine Iron deficiency anemia, unspecified iron deficiency anemia type Expected: 06/17/2022, Expires: 08/17/2022 [facility] Work Phone: Comment on above: Expected: 06/17/2022 , Expires: 08/17/2022 Start: 06-17-2022 End: 08-17-2022 LIPID PANEL, NONFASTING LIPID PANEL, NONFASTING Lab Routine Controlled type 2 diabetes mellitus without complication, without long-term current use of insulin (HCC) Expected: 06/17/2022, Expires: 08/17/2022 [facility] Work Phone: Comment on above: Expected: 06/17/2022 , Expires: 08/17/2022 Start: 06-17-2022 End: 08-17-2022 Thyrotropin [Units/volume] in Serum or Plasma TSH BLD Lab Routine Family history of thyroid disease Expected: 06/17/2022, Expires: 08/17/2022 [facility] Work Phone: Comment on above: Expected: 06/17/2022 , Expires: 08/17/2022 Start: 06-17-2022 End: 08-17-2022 Urinalysis complete panel - Urine URINALYSIS, WITH MICROSCOPIC Lab Routine Controlled type 2 diabetes mellitus without complication, without long-term current use of insulin (HCC) Expected: 06/17/2022, Expires: 08/17/2022 [facility] Work Phone: Comment on above: Expected: 06/17/2022 , Expires: 08/17/2022 Start: 06-17-2022 End: 08-17-2022 VITAMIN A/RETINOL VITAMIN A/RETINOL Lab Routine Other specified intestinal malabsorption Vitamin A deficiency Expected: 06/17/2022, Expires: 08/17/2022 [facility] Work Phone: Comment on above: Expected: 06/17/2022 , Expires: 08/17/2022 Start: 06-17-2022 End: 08-17-2022 VITAMIN B12 BLOOD VITAMIN B12 BLOOD Lab Routine B12 deficiency Expected: 06/17/2022, Expires: 08/17/2022 [facility] Work Phone: Comment on above: Expected: 06/17/2022 , Expires: 08/17/2022 Start: 06-17-2022 End: 08-17-2022 VITAMIN D 25 HYDROXY VITAMIN D 25 HYDROXY Lab Routine Other specified intestinal malabsorption Vitamin D deficiency Expected: 06/17/2022, Expires: 08/17/2022 [facility] Work Phone: Comment on above: Expected: 06/17/2022 , Expires: 08/17/2022 Start: 06-17-2022 End: 08-17-2022 ZINC BLD ZINC BLD Lab Routine Other specified intestinal malabsorption Expected: 06/17/2022, Expires: 08/17/2022 [facility] Work Phone: Comment on above: Expected: 06/17/2022 , Expires: 08/17/2022 Start: 05-05-2022 Influenza vaccination INFLUENZA (#1) [facility] Start: 12-29-2021 End: 02-28-2022 LIPID PANEL, NONFASTING [facility] Work Phone: Comment on above: Expected: 12/29/2021 , Expires: 02/28/2022 Start: 12-29-2021 End: 02-28-2022 Thyrotropin [Units/volume] in Serum or Plasma [facility] Work Phone: Comment on above: Expected: 12/29/2021 , Expires: 02/28/2022 Start: 12-28-2021 Hemoglobin A1c/Hemoglobin.total in Blood HBA1C [facility] Start: 12-25-2021 3 comp foot exam completed DIABETIC FOOT EXAM [facility] Start: 12-25-2021 SHINGRIX VACCINE (1 of 2) LAM GRIX VACCINE (1 of 2) [facility] Comment on above: Postponed from 04/09 (Insurance Coverage) Start: 10-04-2021 COVID-19 VACCINE (3 - Booster for Pfizer series) COVID-19 VACCINE (3 - Booster for Pfizer series) [facility] Start: 06-29-2021 COVID-19 VACCINE (3 - Booster for Pfizer series) COVID-19 VACCINE (3 - Booster for Pfizer series) [facility] Start: 2021 Hepatitis B Vaccine (1 of 3 - Risk 3-dose series) Hepatitis B Vaccine (1 of 3 - Risk 3-dose series) [facility] Start: 2021 RSV Vaccine (1 - 1-d ose 60+ series) RSV Vaccine (1 - 1-dose 60+ series) [facility] Start: 02-09-2021 Colonoscopy COLONOSCOPY [facility] Start: 02-09-2021 COLORECTAL CANCER SCREENING COLORECTAL CANCER SCREENING [facility] Start: 07-09-2020 Mammography [facility] Start: 07-09-2020 Screening for malign ant neoplasm of breast Mammogram Screening [facility] Start: 06-14-2017 Hepatitis C antibody , confirmatory test DILATED RETINAL EXAM [facility] Start: 2011 SHINGRIX VACCINE (1 of 2) LAM GRIX VACCINE (1 of 2) [facility] Start: 2006 COLOGUARD (FIT-DNA) COLOGUARD (FIT-D NA) [facility] Start: [address] COLONOGRAPHY [facility] Start: 2006 FECAL OCCULT BLOOD FECAL OCCULT BLOO D [facility] Start: 2006 Screening for malign ant neoplasm of colon [facility] Start: 2006 SIGMOIDOSCOPY SIGMOIDOSCOPY [facility] End: 10-26-2023 Bone &/joint imaging whole body NM BONE WHOLE BODY Radiology Routine Elevated alkaline phosphatase level 1 Occurrences starting 09/26/2022 until 10/26/2023 [facility] Work Phone: Comment on above: 1 Occurrences starti ng 09/26/2022 until 10/26/2023 C reactive protein [Mass/volume] in Serum or Plasma [facility] CBC W Auto Different ial panel - Blood [facility] Comprehensive metabo lic 2000 panel - Serum or Plasma [facility] CT Abdomen [facility] End: 10-24-2025 DBT Breast - bilateral screening DELBERT SCREENING W TORREY Radiology Routine Encounter for screening mammogram for breast cancer 1 Occurrences starting 09/24/2024 until 10/24/2025 [facility] Work Phone: Comment on above: 1 Occurrences starti ng 09/24/2024 until 10/24/2025 End: 01-26-2023 EGD DIAGNOSTIC EGD DIAGNOSTIC Endoscopy Routine Other specified intestinal malabsorption Bloating Dysphagia, unspecified type 1 Occurrences starting 01/26/2022 until 01/26/2023 [facility] Work Phone: Comment on above: 1 Occurrences starti ng 01/26/2022 until 01/26/2023 Ferritin [Mass/volum e] in Serum or Plasma [facility] Helicobacter pylori Ag [Presence] in Stool by Immunoassay H PYLORI AG BY EIA,STOOL Microbiology Routine Bloating Dysphagia, unspecified type Early satiety Ordered: 01/26/2022 [facility] Work Phone: Comment on above: Ordered: 01/26/2022 Iron [Mass/mass] in Unspecified specimen [facility] End: 12-09-2023 DELBERT SCREENING DELBERT SCREENING Radiology Routine Encounter for screening mammogram for breast cancer 1 Occurrences starting 11/09/2022 until 12/09/2023 [facility] Work Phone: Comment on above: 1 Occurrences starti ng 11/09/2022 until 12/09/2023 End: 11-23-2024 MG Breast Screening DELBERT SCREENING Radiology Routine Encounter for screening mammogram for breast cancer 1 Occurrences starting 10/25/2023 until 11/23/2024 [facility] Work Phone: Comment on above: 1 Occurrences starti ng 10/25/2023 until 11/23/2024 Retinol [Mass/volume ] in Serum or Plasma [facility] End: 01-26-2023 Screening colonoscopy COLONOSCOPY SCREENING Endoscopy Routine Chronic constipation Family history of colon cancer 1 Occurrences starting 01/26/2022 until 01/26/2023 [facility] Work Phone: Comment on above: 1 Occurrences starti ng 01/26/2022 until 01/26/2023 End: 12-31-2022 Screening mammography bi 2-view breast inc cad [facility]BERT SCREENING Radiology Routine Encounter for screening mammogram for breast cancer 1 Occurrences starting 12/01/2021 until 12/31/2022 [facility] Work Phone: Comment on above: 1 Occurrences starti ng 12/01/2021 until 12/31/2022 Triacylglycerol lipa se measurement [facility] End: 05-22-2025 US Abdomen RUQ US ABD RIGHT UPPER QUADRANT Radiology Routine Eosinophilic esophagitis Esophageal dysphagia Chronic abdominal pain 1 Occurrences starting 04/22/2024 until 05/22/2025 [facility] Work Phone: Comment on above: 1 Occurrences starti ng 04/22/2024 until 05/22/2025 End: 04-22-2025 US Lower extremity vein US LEG VEIN DVT [facility] Left leg swelling 1 Occurrences starting 04/22/2024 until 04/22/2025 [facility] Comment on above: 1 Occurrences starti ng 04/22/2024 until 04/22/2025 Vitamin B12 measurement [facility] Vitamin D, 25-hydrox y measurement [facility] Immunizations Immunization Date Immunization Notes Care Provider Sheila dodson 10-08-2024 influenza, seasonal, injectable Jody Cole PA-C Work Phone: [facility] 10-08-2024 influenza virus vacc ine, unspecified formulation Justen Darling MD Work Phone: [facility] 09-15-2023 influenza, injectabl e, quadrivalent, contains preservative Jody Cole PA-C Work Phone: [facility] 09-15-2023 influenza virus vacc ine, unspecified formulation Jody Cole PA-C Work Phone: [facility] 07-05-2022 influenza, injectabl e, quadrivalent, contains preservative Jody Cole PA-C Work Phone: [facility] 07-05-2022 influenza virus vacc ine, unspecified formulation Krystyna Mullen APRN.CNP Work Phone: [facility] 06-29-2021 influenza, injectabl e, quadrivalent, contains preservative Jody Cole PA-C Work Phone: [facility] 05-04-2021 COVID-19 vaccine, ag e 12+ yr (PFIZER-BIONTECH - PURPLE TOP) Jody Cole PA-C Work Phone: [facility] 04-13-2021 COVID-19 vaccine, ag e 12+ yr (PFIZER-BIONTECH - PURPLE TOP) Jody Cole PA-C Work Phone: [facility] 12-25-2020 pneumococcal polysaccharide vaccine, 23 valent Jody Cole PA-C Work Phone: [facility] 06-23-2020 influenza, seasonal, injectable Jody Cole PA-C Work Phone: [facility] 05-28-2019 influenza, injectabl e, quadrivalent, contains preservative Jody RIVERO-Gómez Work Phone: [facility] 07-10-2017 influenza, seasonal, injectable Jody RIVERO-Gómez Work Phone: [facility] 07-30-2016 influenza, injectabl e, quadrivalent, contains preservative Jody RIVERO-Gómez Work Phone: [facility] Work Phone: 06-23-2015 pneumococcal conjuga te vaccine, 13 valent Jody RIVERO-C Work Phone: [facility] Work Phone: 05-23-2014 influenza, seasonal, injectable Jody RIVERO-Gómez Work Phone: [facility] 05-23-2014 pneumococcal polysaccharide vaccine, 23 valent Jody RIVERO-Gómez Work Phone: [facility] Payers Date Payer Category Payer Self-pay 2022 Unknown [id number] 2022 Unknown [id number] 2020 Private Health Insurance [facility]HASONIA [facility] [id number] 2020-Present [phone] [facility] [address] [place] [address] Open Access [id number] 2020 Private Health Insurance [id number] 1960 Unknown [id number] 02 Unknown [id number] Unknown [id number] 62 Unknown [id number] 62 Unknown [id number] 62 Unknown [id number] 62 Unknown [id number] 62 Unknown [id number] 62 Unknown [id number] 62 Social History Date Type Detail Facility Start: 07-05-2022 End: 08-15-2024 Tobacco smoking status NHIS Never smoked tobacco [facility] Start: 09-15-2021 End: 04-30-2025 Alcohol intake Current non-drinker of alcohol (finding) [facility] Start: 12-20-2020 End: 08-09-2022 History SDOH Alcohol Frequency 1 [facility] Start: 12-20-2020 End: 08-09-2022 History SDOH Social Connections Phone 5 [facility] Start: 12-20-2020 End: 08-09-2022 History SDOH Social Connections Get Together 3 [facility] Start: 12-20-2020 End: 08-09-2022 History SDOH Physical Activity DPW 2 [facility] Start: 12-20-2020 Education 15 [facility] Start: 1960 Sex Assigned At Female [facility] Start: 12-19-2021 End: 07-05-2022 Exposure to SARS-CoV-2 (event) Not sure [facility] Start: 07-05-2022 Tobacco use and exposure Smoke less tobacco non-user [facility] Start: 07-04-2022 End: 08-09-2022 History SDOH Alcohol Std Drinks 0 [facility] Start: 07-04-2022 End: 08-09-2022 History SDOH Physical Activity DPW 4 [facility] Start: 08-09-2022 End: 02-14-2023 History of Social function [facility] Start: 08-09-2022 End: 02-14-2023 Social connection and isolation panel [facility] Do you belong to any clubs or organizations such as faith groups, unions, fraternal or athletic groups, or school groups? Yes [facility] Are you now , , , , never or living with a partner? [facility] How often to you hav e a drink containing alcohol? Never [facility] Start: 08-05-[address] inks containing alcohol do you have on a typical day? Patient does not drink [facility] Do you feel stress - tense, restless, nervous, or anxious, or unable to sleep at night because your mind is troubled all the time - these days [OSQ] Very much [facility] (I/We) worried vandana er (my/our) food would run out before (I/we) got money to buy more. Never true [facility] In the past 12 month s, was there a time when you were not able to pay the mortgage or rent on time? No [facility] Start: 06-02-2020 Gender identity Identifies as female gender (finding) [facility] Do you feel stress - tense, restless, nervous, or anxious, or unable to sleep at night because your mind is troubled all the time - these days [OSQ] To some extent [facility] Medical Equipment Procedure Code Equipment Code Equipment Origin al Text Equipment Identifier Dates Test blood sugar(s) 1 times daily. Dx: Type 2 DM - Controlled E11.9 Insulin: No [id number] Start: 04-13-2021 Comment on above: Test blood sugar(s) 1 times daily. Dx: Type 2 DM - Controlled E11.9 Insulin: No Functional Status Date Assessment Result Facility 12-17-2014 Are you deaf, or do you have serious difficulty hearing No 12/17/2014 10:35 AM Mohini Antonio LPN No [facility] 12-17-2014 Are you blind, or do you have serious difficulty seeing, even when wearing glasses No 12/17/2014 10:35 AM Mohini Antonio LPN No [facility] 12-17-2014 Do you have serious difficulty walking or climbing stairs No 12/17/2014 10:35 AM Mohini Antonio LPN No [facility] 12-17-2014 Do you have difficul ty dressing or bathing No 12/17/2014 10:35 AM EDT Mohini Conklin LPN No [facility] 12-17-2014 Because of a physica l, mental, or emotional condition, do you have difficulty doing errands alone such as visiting a physician's office or shopping No 12/17/2014 10:35 AM EDT Mohini Conklin LPN No [facility] Mental Status Date Assessment Result Facility 12-17-2014 Because of a physica l, mental, or emotional condition, do you have serious difficulty concentrating, remembering, or making decisions No 12/17/2014 10:35 AM EDT Mohini Conklin LPN No [facility] Clinical Notes 02-10-2016 to 07-10-2025 Jody Cole PA-C - 04/30/2025 1:46 PM EDTKarli Avila MA - 04/28/2025 3:36 PM EDT Note Date & Type Note Facility 07-10-2025 Note HNO ID: [id number] Author: JODY COLE PA-C Service: ? Author Type: Physician Baggage Handling Supervisor Type: Progress Notes Filed: 07/10/2025 10:59 Note Text: Chief Complaint Patient presents with: Yearly Exam HPI Susan Reyes is a 65 year old female who presents here today for physical. Patient with hx of DM2, dysphagia, b12, insomnia, osteoporosis, anemia, depression/anxiety, and those as below. Diabetes Mellitus: - Checks blood sugars about once a week; readings in the 90s, occasionally up to 115. - Needs to schedule a diabetic eye exam. Osteoporosis: - Has not had a bone density scan in a few years. Urinary Frequency: - Feels like she has a UTI all the time. - Increased urinary frequency and urgency, with no waiting when she has to go. - Nocturia has been better but returned in the last couple of nights. Weight Loss: - Concerned about rapid weight loss. - Weight has been stable since April. - Does not feel hungry, eats out of habit. - History of binge eating and weighing over 200 lbs before gastrectomy. - Believes weight loss may be due to stress. - Has follow up with Gastro later today. Last 3 Encounter Wt Readings: Date: Wt: 07/10/2025 55.3 kg (122 lb) 04/30/2025 55.7 kg (122 lb 12.8 oz) 01/23/2025 57.6 kg (127 lb) Past medical history, appointments, medications, allergies reviewed. Previous Medical History PAST MEDICAL HISTORY Diagnosis Date Absolute anemia 04/28/2015 Had total Gastrectomy due to multiple polyps. Has malabsorption since. Achalasia 08/19/[address] Friend: Botox inject 08/2024 Age-related osteoporosis without current pathological fracture Anxiety and depression B12 deficiency 12/18/2014 Cervical dysplasia, moderate Chronic abdominal pain 12/20/2013 Secondary to post surgical adhesions. Takes gabapentin daily and tramadol PRN.. Controlled substance agreement signed 05/16/18, updated 04/13/2021 Chronic constipation 12/20/2013 Controlled type 2 diabetes mellitus without complication, without long-term current use of insulin ([facility]) 04/25/2017 Ophthalmology: [facility] COVID-19 virus infection 09/15/202109/2021 Disorder of sacrum 07/27/2015 Encounter for diabetic foot exam (HCC) 10/13/2018 Eosinophilic esophagitis 05/11/2016 Family history of thyroid disease 12/29/2021 Two sisters with hypothyroidism and one with Graves Dz. Gastric polyps H/O herpes labialis 08/12/2018 Herpes simplex virus (HSV) infection 05/28/2019 History of colonic polyps 12/17/2014 History of COVID-19 09/15/202109/2021 History of Helicobacter pylori infection 02/14/2023 Infection due to clarithromycin resistant Helicobacter pylori 12/28/202012/2020 Intestinal malabsorption (HCC) 06/23/2015 Iron deficiency anemia 03/03/2011 Left-sided low back pain without sciatica 04/29/2015 Malabsorption of iron (HCC) 12/11/2020 Menometrorrhagia 06/30/2011 OAB (overactive bladder) 05/28/2019 Oral lichen planus 12/20/2013 Ovarian cyst, right Pain of both hip joints 10/25/2017 Piriformis syndrome 04/29/2015 Primary insomnia 10/25/2017 Right-sided low back pain without sciatica 08/17/2016 Sarcoidosis Vitamin A deficiency 12/19/2014 Vitamin D deficiency 12/18/2014 Wart of scalp 04/29/2015 Previous Surgical History PAST SURGICAL HISTORY Procedure Laterality Date *STRESS TEST PC 05/11/2017 WNL CHOLECYSTECTOMY COLONOSCOPY 03/30/2005 normal with hemorrhoids COLONOSCOPY 01/07/2010 normal COLONOSCOPY 02/22/2022 COLONOSCOPY FLX DX W/COLLJ SPEC WHEN PFRMD 05/12/2016 Colonoscopy mac 5 year repeat not [address] Tong CONIZATION OF CERVIX LEEP EXCISION EGD 03/24/2005 nonspecific esophagitis EGD 01/05/2010 normal EGD 02/22/2022 EGD 01/20/2021 Normal ESOPHAGOGASTRODUODENOSCOPY TRANSORAL DIAGNOSTIC 02/10/2016 EGD mac PAST SURGICAL HISTORY OF 2002 gastricectomy, with jose daniel en Y resection PAST SURGICAL HISTORY OF iron infusions, Several infusions S BALLOON,UTERINE ABLATION [id number] 08/25/2011 TRANSFUSION Several Trasfusions TUBAL LIGATION, Family History FAMILY HISTORY Problem Relation Age of Onset Diabetes Mother Hypertension Mother Cancer Father lymphatic Emphysema Father Hypothyroidism Sister Hypothyroidism Sister Graves Disease Sister Cancer Brother other (Mennigitis) Brother Colon Cancer Brother middle colon Cancer Brother stomach Heart disease Brother Patient Allergies ALLERGIES Allergen Reactions Iron Dextran Itching Fluoxetine Diarrhea Ambien [Zolpidem] Other: See Comments Nightmares. Buspar [Buspirone H* Myalgia Current Medications Current Outpatient Medications on File Prior to Visit Medication Sig traMADol (ULTRAM) 50 mg tablet Take 1 tablet by mouth two times a day as needed for up to 30 days. Patient should start on June 29, 2025. hydrOXYzine HCl (ATARAX) 10 mg tablet Take 1 tablet by mouth three times a day as need (more content not included)... [facility] 05-09-2025 Note HNO ID: [id number] Author: KARLI AVILA MA Service: ? Author Type: Station Mechanic Helper Type: Progress Notes Filed: 05/09/2025 14:58 Note Text: Scan on 05/08/2025 9:34 PM by Provider, External, PA-C: Alfredo Giron [facility] 04-30-2025 Radiology Diagnostic study note [facility] Imaging Services [address] [place], [place] [id number] Abdomen WITH ORAL Cont Only MR#: [id number] Acct: [id number] Name: SUSAN REYES Rep #: [id number] : 1960 F 65 From: Sherri Thao MD PCP: Dr. Justen Darling MD Status: REG CLI Study:Abdomen WITH ORAL Cont Only Date of Exa m: 04/30/25 Exam# [id number] Ordering Dr: Eris Asif NP-C PROCEDURE: ABDOMEN WITH ORAL CONT ONLY 04/30/2025 REASON FOR EXAM: LUQ PAIN TECHNIQUE: ABDOMEN WITH ORAL CONT ONLY coronal and Sagittal reconstruction series were provided. One or more dose reduction techniques were used (e.g., Automated exposure control, adjustment of the mA and/or kV according to patient size, use of iterative reconstruction technique RADIATION DOSE SUMMARY: CTDlvol: 6 mGy DLP: 201 mGycm FINDINGS: No prior studies for comparison. Oral contrast refluxes into the esophagus. Moderate hiatal hernia is present. There is a history of gastrectomy. With oral contrast administered, there is no evidence of bowel obstruction. No renal calculus. No hydronephrosis. Surgical absence of the gallbladder. Noncontrast images of the liver and spleen are unremarkable. Fatty change throughout the pancreas. CT/Abdomen WITH ORAL Cont Only IMPRESSION: Prior gastrectomy. Reflux into the esophagus. The lung bases are clear. Reading Location: [facility] CC: PEDRO-Gómez Asif; Dr. Justen Darling MD ~ Workers Compensation Attorney: Signed [facility] 04-30-2025 Note HNO ID: [id number] Author: JODY COLE PA-C Service: ? Author Type: Physician Baggage Handling Supervisor Type: Progress Notes Filed: 04/30/2025 13:56 Note Text: Chief Complaint Patient presents with: Follow Up: Recheck anxiety HPI Susan Reyes is a 65 year old female who presents here today for recheck. Anxiety and Depression: - Susan Reyes was previously on citalopram 60 mg for years; recently reduced to 20 mg by splitting 40 mg tablets, noting improvement in anxiety and reduction in "crazy dreams." - Intolerant to fluoxetine due to GI side effects. - Currently taking Wellbutrin 150 mg. - Experiencing fatigue and poor sleep quality. - Recently lost weight. - Exploring counseling services at [facility] in [place]; awaiting insurance coverage confirmation. Past medical history, appointments, medications, allergies reviewed. Previous Medical History PAST MEDICAL HISTORY Diagnosis Date Absolute anemia 04/28/2015 Had total Gastrectomy due to multiple polyps. Has malabsorption since. Achalasia 08/19/2024 Seeing . Friend: Botox inject 08/2024 Age-related osteoporosis without current pathological fracture Anxiety and depression B12 deficiency 12/18/2014 Cervical dysplasia, moderate Chronic abdominal pain 12/20/2013 Secondary to post surgical adhesions. Takes gabapentin daily and tramadol PRN.. Controlled substance agreement signed 05/16/18, updated 04/13/2021 Chronic constipation 12/20/2013 Controlled type 2 diabetes mellitus without complication, without long-term current use of insulin ([facility]) 04/25/2017 Ophthalmology: Dr. Abdulkadir [facility]. COVID-19 virus infection 09/15/202109/2021 Disorder of sacrum 07/27/2015 Encounter for diabetic foot exam ([facility]) 10/13/2018 Eosinophilic esophagitis 05/11/2016 Family history of thyroid disease 12/29/2021 Two sisters with hypothyroidism and one with Graves Dz. Gastric polyps H/O herpes labialis 08/12/2018 Herpes simplex virus (HSV) infection 05/28/2019 History of colonic polyps 12/17/2014 History of COVID-19 09/15/202109/2021 History of Helicobacter pylori infection 02/14/2023 Infection due to clarithromycin resistant Helicobacter pylori 12/28/202012/2020 Intestinal malabsorption ([facility]) 06/23/2015 Iron deficiency anemia 03/03/2011 Left-sided low back pain without sciatica 04/29/2015 Malabsorption of iron (HCC) 12/11/2020 Menometrorrhagia 06/30/2011 OAB (overactive bladder) 05/28/2019 Oral lichen planus 12/20/2013 Ovarian cyst, right Pain of both hip joints 10/25/2017 Piriformis syndrome 04/29/2015 Primary insomnia 10/25/2017 Right-sided low back pain without sciatica 08/17/2016 Sarcoidosis Vitamin A deficiency 12/19/2014 Vitamin D deficiency 12/18/2014 Wart of scalp 04/29/2015 Previous Surgical History PAST SURGICAL HISTORY Procedure Laterality Date *STRESS TEST PC 05/11/2017 WNL CHOLECYSTECTOMY COLONOSCOPY 03/30/2005 normal with hemorrhoids COLONOSCOPY 01/07/2010 normal COLONOSCOPY 02/22/2022 COLONOSCOPY FLX DX W/COLLJ SPEC WHEN PFRMD 05/12/2016 Colonoscopy mac 5 year repeat not [address] Tong CONIZATION OF CERVIX LEEP EXCISION EGD 03/24/2005 nonspecific esophagitis EGD 01/05/2010 normal EGD 02/22/2022 EGD 01/20/2021 Normal ESOPHAGOGASTRODUODENOSCOPY TRANSORAL DIAGNOSTIC 02/10/2016 EGD mac PAST SURGICAL HISTORY OF 2001 gastricectomy, with jose daniel en Y resection PAST SURGICAL HISTORY OF iron infusions, Several infusions S BALLOON,UTERINE ABLATION [id number] 08/25/2011 TRANSFUSION Several Trasfusions TUBAL LIGATION, Family History FAMILY HISTORY Problem Relation Age of Onset Diabetes Mother Hypertension Mother Cancer Father lymphatic Emphysema Father Hypothyroidism Sister Hypothyroidism Sister Graves Disease Sister Cancer Brother other (Mennigitis) Brother Colon Cancer Brother middle colon Cancer Brother stomach Heart disease Brother Patient Allergies ALLERGIES Allergen Reactions Iron Dextran Itching Fluoxetine Diarrhea Ambien [Zolpidem] Other: See Comments Nightmares. Buspar [Buspirone H* Myalgia Current Medications Current Outpatient Medications on File Prior to Visit Medication Sig tiZANidine (ZANAFLEX) 4 mg tablet Take 1 tablet by mouth two times a day as needed (muscle spasms). pantoprazole DR (PROTONIX) 40 mg tablet Take 1 tablet by mouth once daily. hydrOXYzine HCl (ATARAX) 10 mg tablet Take 1 tablet by mouth three times a day as needed. dicyclomine (BENTYL) 10 mg capsule Take 2 po BID buPROPion XL (WELLBUTRIN XL) 150 mg 24 hr tablet Take 1 tablet by mouth once daily. valACYclovir (VALTREX) 1 gram tablet Take 2 tablets by mouth two times a day. For total of 2 doses. gabapentin (NEURONTIN) 100 mg capsule Take two capsules in AM and one capsule in after noon and evening cyanocobalamin 1,000 mcg/mL INJECT 1 ML INTRAMUSCULARLY ONCE EVERY WEEK Syringe with Needle, Disp, (BD EC (more content not included)... [facility] 04-30-2025 History of Present illness Narrative Chief Complaint Patient presents with: Follow Up: Recheck anxiety HPI Susan Reyes is a 65 year old female who presents here today for recheck. Anxiety and Depression: - Susan Reyes was previously on citalopram 60 mg for years; recently reduced to 20 mg by splitting 40 mg tablets, noting improvement in anxiety and reduction in "crazy dreams." - Intolerant to fluoxetine due to GI side effects. - Currently taking Wellbutrin 150 mg. - Experiencing fatigue and poor sleep quality. - Recently lost weight. - Exploring counseling services at [facility] in [place]; awaiting insurance coverage confirmation. Past medical history, appointments, medications, allergies reviewed. Previous Medical History PAST MEDICAL HISTORY Diagnosis Date Absolute anemia 04/28/2015 Had total Gastrectomy due to multiple polyps. Has malabsorption since. Achalasia 08/19/[address] Friend: Botox inject 08/2024 Age-related osteoporosis without current pathological fracture Anxiety and depression B12 deficiency 12/18/2014 Cervical dysplasia, moderate Chronic abdominal pain 12/20/2013 Secondary to post surgical adhesions. Takes gabapentin daily and tramadol PRN.. Controlled substance agreement signed 05/16/18, updated 04/13/2021 Chronic constipation 12/20/2013 Controlled type 2 diabetes mellitus without complication, without long-term current use of insulin ([facility]) 04/25/2017 Ophthalmology: Dr. Abdulkadir [facility]. COVID-19 virus infection 09/15/202109/2021 Disorder of sacrum 07/27/2015 Encounter for diabetic foot exam (HCC) 10/13/2018 Eosinophilic esophagitis 05/11/2016 Family history of thyroid disease 12/29/2021 Two sisters with hypothyroidism and one with Graves Dz. Gastric polyps H/O herpes labialis 08/12/2018 Herpes simplex virus (HSV) infection 05/28/2019 History of colonic polyps 12/17/2014 History of COVID-19 09/15/202109/2021 History of Helicobacter pylori infection 02/14/2023 Infection due to clarithromycin resistant Helicobacter pylori 12/28/202012/2020 Intestinal malabsorption (HCC) 06/23/2015 Iron deficiency anemia 03/03/2011 Left-sided low back pain without sciatica 04/29/2015 Malabsorption of iron (HCC) 12/11/2020 Menometrorrhagia 06/30/2011 OAB (overactive bladder) 05/28/2019 Oral lichen planus 12/20/2013 Ovarian cyst, right Pain of both hip joints 10/25/2017 Piriformis syndrome 04/29/2015 Primary insomnia 10/25/2017 Right-sided low back pain without sciatica 08/17/2016 Sarcoidosis Vitamin A deficiency 12/19/2014 Vitamin D deficiency 12/18/2014 Wart of scalp 04/29/2015 Previous Surgical History PAST SURGICAL HISTORY Procedure Laterality Date *STRESS TEST PC 05/11/2017 WNL CHOLECYSTECTOMY COLONOSCOPY 03/30/2005 normal with hemorrhoids COLONOSCOPY 01/07/2010 normal COLONOSCOPY 02/22/2022 COLONOSCOPY FLX DX W/COLLJ SPEC WHEN PFRMD 05/12/2016 Colonoscopy mac 5 year repeat not [address] Tong CONIZATION OF CERVIX LEEP EXCISION EGD 03/24/2005 nonspecific esophagitis EGD 01/05/2010 normal EGD 02/22/2022 EGD 01/20/2021 Normal ESOPHAGOGASTRODUODENOSCOPY TRANSORAL DIAGNOSTIC 02/10/2016 EGD mac PAST SURGICAL HISTORY OF 2001 gastricectomy, with jose daniel en Y resection PAST SURGICAL HISTORY OF iron infusions, Several infusions S BALLOON,UTERINE ABLATION [id number] 08/25/2011 TRANSFUSION Several Trasfusions TUBAL LIGATION, Family History FAMILY HISTORY Problem Relation Age of Onset Diabetes Mother Hypertension Mother Cancer Father lymphatic Emphysema Father Hypothyroidism Sister Hypothyroidism Sister Graves Disease Sister Cancer Brother other (Mennigitis) Brother Colon Cancer Brother middle colon Cancer Brother stomach Heart disease Brother Patient Allergies ALLERGIES Allergen Reactions Iron Dextran Itching Fluoxetine Diarrhea Ambien [Zolpidem] Other: See Comments Nightmares. Buspar [Buspirone H* Myalgia Current Medications Current Outpatient Medications on File Prior to Visit Medication Sig tiZANidine (ZANAFLEX) 4 mg tablet Take 1 tablet by mouth two times a day as needed (muscle spasms). pantoprazole DR (PROTONIX) 40 mg tablet Take 1 tablet by mouth once daily. hydrOXYzine HCl (ATARAX) 10 mg tablet Take 1 tablet by mouth three times a day as needed. dicyclomine (BENTYL) 10 mg capsule Take 2 po BID buPROPion XL (WELLBUTRIN XL) 150 mg 24 hr tablet Take 1 tablet by mouth once daily. valACYclovir (VALTREX) 1 gram tablet Take 2 tablets by mouth two times a day. For total of 2 doses. gabapentin (NEURONTIN) 100 mg capsule Take two capsules in AM and one capsule in after noon and evening cyanocobalamin 1,000 mcg/mL INJECT 1 ML INTRAMUSCULARLY ONCE EVERY WEEK Syringe with Needle, Disp, (BD ECLIPSE LUER-ALIRIO SYRINGE) 1 mL 27 x 1/2" USE TO INJECT ONCE A WEEK use as directed cholecalciferol, Vitamin D3, (VITAMIN D3) 1,250 mcg (50,000 unit) cap capsule Take 1 capsule by mouth every 3 weeks. Blood-Glucose Meter monitoring kit Glucose Meter of Choice - Kit - Dx: Type 2 DM - Controlled E11.9 blood sugar diagnostic (BLOOD GLUCOSE TEST) test strip Test blood sugar(s) 1 times daily. Dx: Type 2 DM - Controlled E11.9 Insulin: No polyethylene glycol 3350 (MIRALAX, GLYCOLAX) 17 gram/dose powder Take 17 g by mouth once daily. Take one (1) capful in 8oz of liquid each day. ANIMAL SHAPE VITAMINS CHEWABLE TAB takes 2 on occasion FLUoxetine (PROZAC) 40 mg capsule Take 1 capsule by mouth once daily. (Patient not taking: Reported on 04/30/2025) No current facility-administered medications on file prior to visit. Social History SOCIAL HISTORY[1] Review of Symptoms REVIEW OF SYSTEMS Constitutional: (+) fatigue, (+) weight loss Gastrointestinal: (+) abdominal pain Psychiatric: (+) insomnia, (-) nightmares SEE HPI EXAM: BP 110/72 Pulse 76 Temp 36.8 C (98.2 F) Resp 12 Wt 55.7 kg (122 lb 12.8 oz) LMP 07/31/2011 SpO2 97% BMI 22.74 kg/m General Appearance: Well appearing, alert, in no acute distress, well-hydrated, well nourished.. Health Maintenance List Mammogram Screening due on 07/09/2020 Cervical Cancer Screening due on 07/09/2024 Dilated Retinal Exam due on 07/31/2024 HbA1C due on 04/07/2025 DTaP,Tdap,Td Vaccine(2 - Td or Tdap) due on 10/08/2025 Shingrix Vaccine(1 of 2) due on 10/08/2025 Influenza Vaccine(1) due on 05/05/2025 Urine Albumin:Creatinine Ratio due on 10/08/2025 LDL Cholesterol due on 10/08/2025 Diabetic Foot Exam due on 10/08/2025 Pneumococcal Vaccine: 50+(3 of 3 - PCV20 or PCV21) due on 12/25/2025 Annual PCP Team Chronic Disease Visit due on 04/30/2026 Colorectal Cancer Screening due on 02/22/2027 RSV Vaccine(1 - 1-dose 75+ series) due on 2036 Hepatitis C Screening Completed HIV Screening Discontinued Assessment and Plan 1. Anxiety and depression (F41.9) - Previously on citalopram 60 mg daily for years; self-reduced to 20 mg daily due to concerns about side effects and feeling better at lower dose. - Unable to tolerate fluoxetine due to GI side effects. - Continue citalopram 20 mg daily; prescription sent to preferred pharmacy. - Continue Wellbutrin 150 mg daily. - Discussed potential future increase in Wellbutrin if fatigue persists, but noted risk of palpitations and headaches at higher doses. - Discussed trazodone for sleep, but patient declined. - Encouraged continuation of counseling at [facility]. - Follow-up as needed. 2. Chronic abdominal pain (R10.9) - Refill for tramadol sent. 3. Controlled type 2 diabetes mellitus without complication, without long-term current use of insulin (HCC) (E11.9) labs ordered for next vist 4. Vitamin A deficiency (E50.9) labs ordered for next visit Jody Cole PA-C Recording using Friend[employer] software for draft documentation of the visit was discussed with the patient/authorized telephone service representative; all questions welcomed and answered. Patient/authorized telephone service representative agreed to proceed [1] Social History Tobacco Use Smoking status: Never Smokeless tobacco: Never Vaping Use Vaping status: Never Used Substance Use Topics Alcohol use: No Drug use: No documented in this encounter [facility] 04-28-2025 Note HNO ID: [id number] Author: KARLI AVILA MA Service: ? Author Type: Station Mechanic Helper Type: Progress Notes Filed: 05/01/2025 08:38 Note Text: Non-[facility] ordered labs. Karli Avila MA Scan on 04/28/2025 12:38 PM by Provider, External, PATonyaC: CBCD View External Labs - CMP, CRP, B12, Iron, Ferritin, Vit D [ID [id number]] CT Abd/Pelv: Scan on 04/30/2025 9:14 PM by Provider, JAMES Valdivia: CT Abd Pelv [facility] 04-28-2025 History of Present illness Narrative CBCD labs. Karli Avila MA Scan on 04/28/2025 12:38 PM by Provider, JAMES Valdivia: CBCD documented in this encounter [facility] 04-11-2025 Evaluation note Diagnosis Onset Date Resolution Abdominal pain acute April 1:25pm Nausea acute April 11 1:25pm History of Jose Daniel-en-Y gastric bypass chronic April 11, 2025 1:25pm [facility] Work Phone: 1(348) 478-143408-08-2025 NoteHNO ID: [id number] Author: JODY COLE PA-C Service: ? Author Type: Physician Baggage Handling Supervisor Type: Progress Notes Filed: 04/11/2025 10:28 Note Text: Chief Complaint Patient presents with: left lower sided pain x 5-6 months: Also having anxiety HPI Susan Reyes is a 65 year old female who presents here today for recheck. Anxiety: - Worsening anxiety symptoms over the past year. - Describes a persistent feeling that "something bad is going to happen." - Recent episodes of palpitations, including one severe episode while driving. - History of anxiety well-managed in the past; previously on Ativan daily for years but was able to discontinue. - Recent triggers include the of a friend and multiple funerals in the past three weeks. - Currently taking Celexa 60 mg daily. - Has tried BuSpar in the past but experienced severe leg and feet cramps. - Has not tried Prozac. - Discussed Vistaril previously but was hesitant due to potential interactions with current medications. 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 - Unable to tolerate Ambien due to vivid nightmares. - Has tried Effexor XR in the past but had a negative experience. - Has not tried Paxil. - [facility] but feels the counseling is not addressing the true anxiety component. - Denies current suicidal ideation - Has stopped watching the news due to increased anxiety. Nightmares: - Experiencing "horrible nightmares" that have led to falling out of bed twice in one night, resulting in bruises on her chin and hip. - Believes the nightmares are related to anxiety. - Currently sleeping on the couch to avoid disturbing her . Past medical history, appointments, medications, allergies reviewed. Previous Medical History PAST MEDICAL HISTORY Diagnosis Date Absolute anemia 04/28/2015 Had total Gastrectomy due to multiple polyps. Has malabsorption since. Achalasia 08/19/[address] Friend: Botox inject 08/2024 Age-related osteoporosis without current pathological fracture Anxiety and depression B12 deficiency 12/18/2014 Cervical dysplasia, moderate Chronic abdominal pain 12/20/2013 Secondary to post surgical adhesions. Takes gabapentin daily and tramadol PRN.. Controlled substance agreement signed 05/16/18, updated 04/13/2021 Chronic constipation 12/20/2013 Controlled type 2 diabetes mellitus without complication, without long-term current use of insulin ([facility]) 04/25/2017 Ophthalmology: [facility] COVID-19 virus infection 09/15/202109/2021 Disorder of sacrum 07/27/2015 Encounter for diabetic foot exam (HCC) 10/13/2018 Eosinophilic esophagitis 05/11/2016 Family history of thyroid disease 12/29/2021 Two sisters with hypothyroidism and one with Graves Dz. Gastric polyps H/O herpes labialis 08/12/2018 Herpes simplex virus (HSV) infection 05/28/2019 History of colonic polyps 12/17/2014 History of COVID-19 09/15/202109/2021 History of Helicobacter pylori infection 02/14/2023 Infection due to clarithromycin resistant Helicobacter pylori 12/28/202012/2020 Intestinal malabsorption (HCC) 06/23/2015 Iron deficiency anemia 03/03/2011 Left-sided low back pain without sciatica 04/29/2015 Malabsorption of iron (HCC) 12/11/2020 Menometrorrhagia 06/30/2011 OAB (overactive bladder) 05/28/2019 Oral lichen planus 12/20/2013 Ovarian cyst, right Pain of both hip joints 10/25/2017 Piriformis syndrome 04/29/2015 Primary insomnia 10/25/2017 Right-sided low back pain without sciatica 08/17/2016 Sarcoidosis Vitamin A deficiency 12/19/2014 Vitamin D deficiency 12/18/2014 Wart of scalp 04/29/2015 Previous Surgical History PAST SURGICAL HISTORY Procedure Laterality Date *STRESS TEST PC 05/11/2017 WNL CHOLECYSTECTOMY COLONOSCOPY 03/30/2005 normal with hemorrhoids COLONOSCOPY 01/07/2010 normal COLONOSCOPY 02/22/2022 COLONOSCOPY FLX DX W/COLLJ SPEC WHEN PFRMD 05/12/2016 Colonoscopy mac 5 year repeat not [address] Tong CONIZATION OF CERVIX LEEP EXCISION EGD 03/24/2005 nonspecific esophagitis EGD 01/05/2010 normal EGD 02/22/2022 EGD 01/20/2021 Normal ESOPHAGOGASTRODUODENOSCOPY TRANSORAL DIAGNOSTIC 02/10/2016 EGD mac PAST SURGICAL HISTORY OF 2001 gastricectomy, with jose daniel en Y resection PAST SURGICAL HISTORY OF iron infusions, Several infusions S BALLOON,UTERINE ABLATION [id number] 08/25/2011 TRANSFUSION Several Trasfusions TUBAL LIGATION, Family History FAMILY HISTORY Problem Relation Age of Onset Diabetes Mother Hypertension Mother Cancer Father lymphatic Emphysema Father Hypothyroidism Sister Hypothyroidism Sister Graves Disease Sister Cancer Brother other (Mennigitis) Brother Colon Cancer Brother middle colon Cancer Brother stomach Heart disease Brother Patient Allergies ALLERGIES Aller (more content not included)...[facility]07-28-2025 Telephone encounter Note* Telephone Encounter - Justen Darling MD - 03/31/2025 1:27 PM EDT The following approved medication requests have been transmitted electronically. Requested Prescriptions Signed Prescriptions Disp Refills traMADol (ULTRAM) 50 mg tablet 60 tablet 0 Sig: Take 1 tablet by mouth two times a day as needed for up to 30 days. Justen Darling MD [facility]07-28-2025 Miscellaneous Notes* Telephone Encounter - Justen Darling MD - 03/31/2025 1:27 PM EDT The following approved medication requests have been transmitted electronically. Requested Prescriptions Signed Prescriptions Disp Refills traMADol (ULTRAM) 50 mg tablet 60 tablet 0 Sig: Take 1 tablet by mouth two times a day as needed for up to 30 days. Justen Darling MD * Telephone Encounter - Karli Avila MA - 03/31/2025 12:53 PM EDT See pt message. Rx for Tramadol needs sent to [facility] due to [facility] moving. This was sentin by PCP on 03/30. New Rx pended. Karli Avila MA documented in [facility] encounter[facility] Telephone encounter Note * Telephone Encounter - Karli Avila MA - 03/31/2025 12:53 PM EDT See pt message. Rx for Tramadol needs sent to [facility] due to [facility] moving. This was sentin by PCP on 03/30. New Rx pended. Karli Avila MA [facility]07-27-2025 Telephone encounter Note* Telephone Encounter - Justen Darling MD - 03/30/2025 8:49 PM EDT The following approved medication requests have been transmitted electronically. Requested Prescriptions Signed Prescriptions Disp Refills traMADol (ULTRAM) 50 mg tablet 60 tablet 0 Sig: Take 1 tablet by mouth two times a day as needed for up to 30 days. Authorizing Provider: JUSTEN DARLING MD PDMP website checked and validated. All prescriptions have been APPROPRIATELY filled. No suspiciousactivity was identified. 03/30/2025 by Justen Darling MD [facility]07-27-2025 Miscellaneous Notes* Telephone Encounter - Justen Darling MD - 03/30/2025 8:49 PM EDT The following approved medication requests have been transmitted electronically. Requested Prescriptions Signed Prescriptions Disp Refills traMADol (ULTRAM) 50 mg tablet 60 tablet 0 Sig: Take 1 tablet by mouth two times a day as needed for up to 30 days. Authorizing Provider: JUSTEN DARLING MD PDMP website checked and validated. All prescriptions have been APPROPRIATELY filled. No suspiciousactivity was identified. 03/30/2025 by Justen Darling MD * Telephone Encounter - Lizett Bush LPN - 03/27/2025 7:44 AM EDT Prescription Refill Information The patient has been identified by name and date of : Yes Caregiver verified no other encounters exist for this prescription request: Yes Caregiver confirmed with patient/requestor that no other refills are due, in the near future, with this provider at this time: Yes The last office visit in the department: 01/23/25 Does the patient have a future office visit with this provider/department: Yes Requested Prescriptions Pending Prescriptions Disp Refills traMADol (ULTRAM) 50 mg tablet 60 tablet 0 Sig: Take 1 tablet by mouth two times a day as needed for up to 30 days. Lizett Bush LPN March 27, 2025 7:44 AM documented in this encounterOhio[facility] Telephone encounter Note * Telephone Encounter - Lizett Bush LPN - 03/27/2025 7:44 AM EDT Prescription Refill Information The patient has been identified by name and date of : Yes Caregiver verified no other encounters exist for this prescription request: Yes Caregiver confirmed with patient/requestor that no other refills are due, in the near future, with this provider at this time: Yes The last office visit in the department: 01/23/25 Does the patient have a future office visit with this provider/department: Yes Requested Prescriptions Pending Prescriptions Disp Refills traMADol (ULTRAM) 50 mg tablet 60 tablet 0 Sig: Take 1 tablet by mouth two times a day as needed for up to 30 days. Lizett Bush LPN March 27, 2025 7:44 AM [facility]06-24-2025 Telephone encounter Note* Telephone Encounter - Dinora Sebastian LPN - 02/25/2025 4:23 PM EDT Prescription Refill Information The patient has been identified by name and date of : Yes Caregiver verified no other encounters exist for this prescription request: Yes Caregiver confirmed with patient/requestor that no other refills are due, in the near future, with this provider at this time: Yes The last office visit in the department: 01/23/25 Does the patient have a future office visit with this provider/department: Yes 04/08/25 Requested Prescriptions Pending Prescriptions Disp Refills dicyclomine (BENTYL) 10 mg capsule 360 capsule 5 Sig: Take 2 po BID Dinora Sebastian LPN February 25, 2025 4:23 PM [facility]06-24-2025 Miscellaneous Notes* Telephone Encounter - Dinora Sebastian LPN - 02/25/2025 4:23 PM EDT Prescription Refill Information The patient has been identified by name and date of : Yes Caregiver verified no other encounters exist for this prescription request: Yes Caregiver confirmed with patient/requestor that no other refills are due, in the near future, with this provider at this time: Yes The last office visit in the department: 01/23/25 Does the patient have a future office visit with this provider/department: Yes 04/08/25 Requested Prescriptions Pending Prescriptions Disp Refills dicyclomine (BENTYL) 10 mg capsule 360 capsule 5 Sig: Take 2 po BID Dinora Sebastian LPN February 25, 2025 4:23 PM documented in this encounterOhio[facility] Telephone encounter Note * Telephone Encounter - Justen Darling MD - 02/25/2025 2:50 PM EDT The following approved medication requests have been transmitted electronically. Requested Prescriptions Signed Prescriptions Disp Refills traMADol (ULTRAM) 50 mg tablet 60 tablet 0 Sig: Take 1 tablet by mouth two times a day as needed for up to 30 days. Authorizing Provider: JUSTEN DARLING MD PDMP website checked and validated. All prescriptions have been APPROPRIATELY filled. No suspiciousactivity was identified. 02/25/2025 by Justen Darling MD [facility]06-24-2025 Miscellaneous Notes* Telephone Encounter - Justen Darling MD - 02/25/2025 2:50 PM EDT The following approved medication requests have been transmitted electronically. Requested Prescriptions Signed Prescriptions Disp Refills traMADol (ULTRAM) 50 mg tablet 60 tablet 0 Sig: Take 1 tablet by mouth two times a day as needed for up to 30 days. Authorizing Provider: JUSTEN DARLING MD PDMP website checked and validated. All prescriptions have been APPROPRIATELY filled. No suspiciousactivity was identified. 02/25/2025 by Justen Darling MD * Telephone Encounter - María Savage MA - 02/25/2025 2:44 PM EDT Patient has been identified by name and date of : yes Patient phones for refill(s): Requested Prescriptions Pending Prescriptions Disp Refills traMADol (ULTRAM) 50 mg tablet 60 tablet 0 Sig: Take 1 tablet by mouth two times a day as needed for up to 30 days. Date of last office visit in primary care: 01/23/2025 Date of next office visit in primary care: 04/08/2025 Please advise. Thank you. María Savage MA. documented in this encounterOhio[facility] Telephone encounter Note * Telephone Encounter - María Savage MA - 02/25/2025 2:44 PM EDT Patient has been identified by name and date of : yes Patient phones for refill(s): Requested Prescriptions Pending Prescriptions Disp Refills traMADol (ULTRAM) 50 mg tablet 60 tablet 0 Sig: Take 1 tablet by mouth two times a day as needed for up to 30 days. Date of last office visit in primary care: 01/23/2025 Date of next office visit in primary care: 04/08/2025 Please advise. Thank you. María Savage MA. [facility]05-22-2025 NoteHNO ID: [id number] Author: JODY COLE PA-C Service: ? Author Type: Physician Baggage Handling Supervisor Type: Progress Notes Filed: 01/23/2025 09:33 Note Text: Chief Complaint Patient presents with: Anxiety HPI Susan Reyes is a 64 year old female who presents here today for Above Complaints.. Anxiety and Depression: - Worsening anxiety and stress since the of a close friend, Amandeep Quinn, on December 27. 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 - Describes anxiety as "horrible" and "disabling," affecting sleep and appetite. - Taking Celexa 60 mg and Wellbutrin; hesitant to increase Wellbutrin due to concerns about worsening anxiety. - Previously tried BuSpar, which caused severe leg cramps. - Has used hydroxyzine in the past; willing to use it again for situational anxiety. - Has used Ativan in the past without issues; open to using it PRN for current anxiety. Weight Loss: - Unintentional weight loss of 10-15 lbs over the past month due to stress-related anorexia and nausea. - Reports difficulty eating and frequent emesis. - Lost 10 lbs from April to October, also attributed to stress. - Denies trying to lose weight intentionally. Past medical history, appointments, medications, allergies reviewed. Previous Medical History PAST MEDICAL HISTORY Diagnosis Date Absolute anemia 04/28/2015 Had total Gastrectomy due to multiple polyps. Has malabsorption since. Achalasia 08/19/2024 Seeing Friend: Botox inject 08/2024 Age-related osteoporosis without current pathological fracture Anxiety and depression B12 deficiency 12/18/2014 Cervical dysplasia, moderate Chronic abdominal pain 12/20/2013 Secondary to post surgical adhesions. Takes gabapentin daily and tramadol PRN.. Controlled substance agreement signed 05/16/18, updated 04/13/2021 Chronic constipation 12/20/2013 Controlled type 2 diabetes mellitus without complication, without long-term current use of insulin ([facility]) 04/25/2017 Ophthalmology: [facility] COVID-19 virus infection 09/15/202109/2021 Disorder of sacrum 07/27/2015 Encounter for diabetic foot exam ([facility]) 10/13/2018 Eosinophilic esophagitis 05/11/2016 Family history of thyroid disease 12/29/2021 Two sisters with hypothyroidism and one with Graves Dz. Gastric polyps H/O herpes labialis 08/12/2018 Herpes simplex virus (HSV) infection 05/28/2019 History of colonic polyps 12/17/2014 History of COVID-19 09/15/202109/2021 History of Helicobacter pylori infection 02/14/2023 Infection due to clarithromycin resistant Helicobacter pylori 12/28/202012/2020 Intestinal malabsorption (HCC) 06/23/2015 Iron deficiency anemia 03/03/2011 Left-sided low back pain without sciatica 04/29/2015 Malabsorption of iron (HCC) 12/11/2020 Menometrorrhagia 06/30/2011 OAB (overactive bladder) 05/28/2019 Oral lichen planus 12/20/2013 Ovarian cyst, right Pain of both hip joints 10/25/2017 Piriformis syndrome 04/29/2015 Primary insomnia 10/25/2017 Right-sided low back pain without sciatica 08/17/2016 Sarcoidosis Vitamin A deficiency 12/19/2014 Vitamin D deficiency 12/18/2014 Wart of scalp 04/29/2015 Previous Surgical History PAST SURGICAL HISTORY Procedure Laterality Date *STRESS TEST PC 05/11/2017 WNL CHOLECYSTECTOMY COLONOSCOPY 03/30/2005 normal with hemorrhoids COLONOSCOPY 01/07/2010 normal COLONOSCOPY 02/22/2022 COLONOSCOPY FLX DX W/COLLJ SPEC WHEN PFRMD 05/12/2016 Colonoscopy mac 5 year repeat not [address] Tong CONIZATION OF CERVIX LEEP EXCISION EGD 03/24/2005 nonspecific esophagitis EGD 01/05/2010 normal EGD 02/22/2022 EGD 01/20/2021 Normal ESOPHAGOGASTRODUODENOSCOPY TRANSORAL DIAGNOSTIC 02/10/2016 EGD mac PAST SURGICAL HISTORY OF 2001 gastricectomy, with jose daniel en Y resection PAST SURGICAL HISTORY OF iron infusions, Several infusions S BALLOON,UTERINE ABLATION [id number] 08/25/2011 TRANSFUSION Several Trasfusions TUBAL LIGATION, Family History FAMILY HISTORY Problem Relation Age of Onset Diabetes Mother Hypertension Mother Cancer Father lymphatic Emphysema Father Hypothyroidism Sister Hypothyroidism Sister Graves Disease Sister Cancer Brother other (Mennigitis) Brother Colon Cancer Brother middle colon Cancer Brother stomach Heart disease Brother Patient Allergies ALLERGIES Allergen Reactions Iron Dextran Itching Ambien [Zolpidem] Other: See Comments Nightmares. Buspar [Buspirone H* Myalgia Current Medications Current Outpatient Medications on File Prior to Visit Medication Sig tiZANidine (ZANAFLEX) 4 mg tablet Take 1 tablet by mouth two times a day as needed (muscle spasms). valACYclovir (VALTREX) 1 gram tablet Take 2 tabl (more content not included)... [facility]03-25-2025 Telephone encounter Note* Telephone Encounter - Justen Darling MD - 11/26/2024 12:37 PM EDT The following approved medication requests have been transmitted electronically. Requested Prescriptions Signed Prescriptions Disp Refills traMADol (ULTRAM) 50 mg tablet 60 tablet 0 Sig: Take 1 tablet by mouth two times a day as needed for up to 30 days. Patient should start on November 29, 2024. Authorizing Provider: JUSTEN DARLING MD PDMP website checked and validated. All prescriptions have been APPROPRIATELY filled. No suspiciousactivity was identified. 11/26/2024 by Justen Darling MD [facility]03-25-2025 Miscellaneous Notes* Telephone Encounter - Justen Darling MD - 11/26/2024 12:37 PM EDT The following approved medication requests have been transmitted electronically. Requested Prescriptions Signed Prescriptions Disp Refills traMADol (ULTRAM) 50 mg tablet 60 tablet 0 Sig: Take 1 tablet by mouth two times a day as needed for up to 30 days. Patient should start on November 29, 2024. Authorizing Provider: JUSTEN DARLING MD PDMP website checked and validated. All prescriptions have been APPROPRIATELY filled. No suspiciousactivity was identified. 11/26/2024 by Justen Darling MD * Telephone Encounter - Lizett Bush LPN - 11/26/2024 9:08 AM EDT Prescription Refill Information The patient has been identified by name and date of : Yes Caregiver verified no other encounters exist for this prescription request: Yes Caregiver confirmed with patient/requestor that no other refills are due, in the near future, with this provider at this time: Yes The last office visit in the department: 10/08/24 Does the patient have a future office visit with this provider/department: Yes Requested Prescriptions Pending Prescriptions Disp Refills traMADol (ULTRAM) 50 mg tablet 60 tablet 0 Sig: Take 1 tablet by mouth two times a day as needed for up to 30 days. Lizett Bush LPN November 26, 2024 9:09 AM documented in this encounterOhio[facility] Telephone encounter Note * Telephone Encounter - Lizett Bush LPN - 11/26/2024 9:08 AM EDT Prescription Refill Information The patient has been identified by name and date of : Yes Caregiver verified no other encounters exist for this prescription request: Yes Caregiver confirmed with patient/requestor that no other refills are due, in the near future, with this provider at this time: Yes The last office visit in the department: 10/08/24 Does the patient have a future office visit with this provider/department: Yes Requested Prescriptions Pending Prescriptions Disp Refills traMADol (ULTRAM) 50 mg tablet 60 tablet 0 Sig: Take 1 tablet by mouth two times a day as needed for up to 30 days. Lizett Bush LPN November 26, 2024 9:09 AM [facility]03-03-2025 Telephone encounter Note* Telephone Encounter - Tatum Hernandez MA - 11/04/2024 8:54 AM EST Prescription Refill Information The patient has been identified by name and date of : Yes Caregiver verified no other encounters exist for this prescription request: Yes Caregiver confirmed with patient/requestor that no other refills are due, in the near future, with this provider at this time: Yes The last office visit in the department: 10/2024 Does the patient have a future office visit with this provider/department: Yes Requested Prescriptions Pending Prescriptions Disp Refills ondansetron orally disintegrating (ZOFRAN ODT) 4 mg disintegrating tablet 30 tablet 0 Sig: Take 1 tablet by mouth every 8 hours as needed for nausea/vomiting. Tatum Hernandez MA November 04, 2024 8:55 AM [facility]03-03-2025 Miscellaneous Notes* Telephone Encounter - Tatum Hernandez MA - 11/04/2024 8:54 AM EST Prescription Refill Information The patient has been identified by name and date of : Yes Caregiver verified no other encounters exist for this prescription request: Yes Caregiver confirmed with patient/requestor that no other refills are due, in the near future, with this provider at this time: Yes The last office visit in the department: 10/2024 Does the patient have a future office visit with this provider/department: Yes Requested Prescriptions Pending Prescriptions Disp Refills ondansetron orally disintegrating (ZOFRAN ODT) 4 mg disintegrating tablet 30 tablet 0 Sig: Take 1 tablet by mouth every 8 hours as needed for nausea/vomiting. Tatum Hernandez MA November 04, 2024 8:55 AM documented in this encounterOhiohealth [facility] Telephone encounter Note * Telephone Encounter - Justen Darling MD - 10/30/2024 4:26 PM EST The following approved medication requests have been transmitted electronically. Requested Prescriptions Signed Prescriptions Disp Refills traMADol (ULTRAM) 50 mg tablet 60 tablet 0 Sig: Take 1 tablet by mouth two times a day as needed for up to 30 days. Authorizing Provider: JUSTEN DARLING MD PDMP website checked and validated. All prescriptions have been APPROPRIATELY filled. No suspiciousactivity was identified. 10/30/2024 by Justen Darling MD [facility]02-26-2025 Miscellaneous Notes* Telephone Encounter - Justen Darling MD - 10/30/2024 4:26 PM EST The following approved medication requests have been transmitted electronically. Requested Prescriptions Signed Prescriptions Disp Refills traMADol (ULTRAM) 50 mg tablet 60 tablet 0 Sig: Take 1 tablet by mouth two times a day as needed for up to 30 days. Authorizing Provider: JUSTEN DARLING MD PDMP website checked and validated. All prescriptions have been APPROPRIATELY filled. No suspiciousactivity was identified. 10/30/2024 by Justen Darling MD * Telephone Encounter - Lizett Bush LPN - 10/30/2024 7:17 AM EST Prescription Refill Information The patient has been identified by name and date of : Yes Caregiver verified no other encounters exist for this prescription request: Yes Caregiver confirmed with patient/requestor that no other refills are due, in the near future, with this provider at this time: Yes The last office visit in the department: 10/08/24 Does the patient have a future office visit with this provider/department: Yes Requested Prescriptions Pending Prescriptions Disp Refills traMADol (ULTRAM) 50 mg tablet 60 tablet 0 Sig: Take 1 tablet by mouth two times a day as needed for up to 30 days. Lizett Bush LPN October 30, 2024 7:17 AM documented in this encounterOhio[facility] Telephone encounter Note * Telephone Encounter - Lizett Bush LPN - 10/30/2024 7:17 AM EST Prescription Refill Information The patient has been identified by name and date of : Yes Caregiver verified no other encounters exist for this prescription request: Yes Caregiver confirmed with patient/requestor that no other refills are due, in the near future, with this provider at this time: Yes The last office visit in the department: 10/08/24 Does the patient have a future office visit with this provider/department: Yes Requested Prescriptions Pending Prescriptions Disp Refills traMADol (ULTRAM) 50 mg tablet 60 tablet 0 Sig: Take 1 tablet by mouth two times a day as needed for up to 30 days. Lizett Bush LPN October 30, 2024 7:17 AM [facility]02-10-2025 Telephone encounter Note* Telephone Encounter - Tavia Quick RN - 10/14/2024 3:34 PM EST Patient notified of results and provider's instructions. Patient verbalizes understanding. Tavia Quick RN [facility]02-10-2025 Miscellaneous Notes* Telephone Encounter - Tavia Quick RN - 10/14/2024 3:34 PM EST Patient notified of results and provider's instructions. Patient verbalizes understanding. Tavia Quick RN * Telephone Encounter - Tatum Hernandez MA - 10/14/2024 2:27 PM EST Attempted to contact patient; no answer; no voice mail. Sent my chart message to call office. Tatum Hernandez MA * Telephone Encounter - Jody Cole PA-C - 10/14/2024 1:40 PM EST Have her start vit A 5000 international unit(s) OTC once daily. Recheck levels in 2-4 weeks. Jody Cole PA-C * Telephone Encounter - Lizett Bush LPN - 10/14/2024 12:42 PM EST Reviewed lab results and Jody's message. Pt advises that she does not take a vitamin A supplement. Does take a vit D and B12 supplement. Pt aware she will be contacted if any further instructions.Lizett Bush LPN * Telephone Encounter - Jdoy Cole PA-C - 10/14/2024 9:03 AM EST Vitamin A is slightly low. Is she taking a vitamin A supplement. Jody Cole PA-C documented in this encounterOhio[facility]25 Telephone encounter Note * Telephone Encounter - Tatum Hernandez MA - 10/14/2024 2:27 PM EST Attempted to contact patient; no answer; no voice mail. Sent my chart message to call office. Tatum Hernandez MA [facility]02-10-2025 Telephone encounter Note* Telephone Encounter - Jody Cole PA-C - 10/14/2024 1:40 PM EST Have her start vit A 5000 international unit(s) OTC once daily. Recheck levels in 2-4 weeks. Jody Cole PA-C [facility]02-10-2025 Telephone encounter Note* Telephone Encounter - Lizett Bush LPN - 10/14/2024 12:42 PM EST Reviewed lab results and Jody's message. Pt advises that she does not take a vitamin A supplement. Does take a vit D and B12 supplement. Pt aware she will be contacted if any further instructions.Lizett Bush LPN [facility]02-10-2025 Telephone encounter Note* Telephone Encounter - Jody Cole PA-C - 10/14/2024 9:03 AM EST Vitamin A is slightly low. Is she taking a vitamin A supplement. Jody Cole PA-C [facility]02-05-2025 Telephone encounter Note* Telephone Encounter - Rebekah Garcia LPN - 10/09/2024 2:55 PM EST Patient notified of results, verbalizes understanding of instructions. Rebekah Garcia LPN [facility]02-05-2025 Miscellaneous Notes* Telephone Encounter - Rebekah Garcia LPN - 10/09/2024 2:55 PM EST Patient notified of results, verbalizes understanding of instructions. Rebekah Garcia LPN * Telephone Encounter - Jody Cole PA-C - 10/09/2024 2:12 PM EST Let patient know: A1c is 5.9% which is stable Creatinine was mildly elevated which can be early sign of kidney disease or that she was dehydratedyesterday. Make sure to stay hydrated and decrease use of NSAIDs. We will monitor. Cholesterol is normal. Blood counts and iron are normal. Urine was dark with ketones, RBC and leuks. Can be sign of dehydration. Make sure no s/s of UTI. Ifno symptoms of UTI, repeat urine in 1-2 weeks. I'm waiting on a couple other labs and will call if abnormal only. Jody Cole PA-C documented in this encounterOhio[facility] Telephone encounter Note * Telephone Encounter - Jody Cole PA-C - 10/09/2024 2:12 PM EST Let patient know: A1c is 5.9% which is stable Creatinine was mildly elevated which can be early sign of kidney disease or that she was dehydratedyesterday. Make sure to stay hydrated and decrease use of NSAIDs. We will monitor. Cholesterol is normal. Blood counts and iron are normal. Urine was dark with ketones, RBC and leuks. Can be sign of dehydration. Make sure no s/s of UTI. Ifno symptoms of UTI, repeat urine in 1-2 weeks. I'm waiting on a couple other labs and will call if abnormal only. Jody Cole PA-C [facility]02-04-2025 NoteHNO ID: [id number] Author: JODY COLE PA-C Service: ? Author Type: Physician Baggage Handling Supervisor Type: Progress Notes Filed: 10/08/2024 11:25 Note Text: Chief Complaint Patient presents with: 6 Month Exam HPI Susan Reyes is a 64 year old female who presents here today for Chronic Medical Conditions.. Patient with hx of DM2, dysphagia, b12, insomnia, osteoporosis, anemia, depression/anxiety, and those as below. Patient reports she is doing well. No current concerns today. Past medical history, appointments, medications, allergies reviewed. Previous Medical History PAST MEDICAL HISTORY Diagnosis Date Absolute anemia 04/28/2015 Had total Gastrectomy due to multiple polyps. Has malabsorption since. Achalasia 08/19/[address] Friend: Botox inject 08/2024 Age-related osteoporosis without current pathological fracture Anxiety and depression B12 deficiency 12/18/2014 Cervical dysplasia, moderate Chronic abdominal pain 12/20/2013 Secondary to post surgical adhesions. Takes gabapentin daily and tramadol PRN.. Controlled substance agreement signed 05/16/18, updated 04/13/2021 Chronic constipation 12/20/2013 Controlled type 2 diabetes mellitus without complication, without long-term current use of insulin ([facility]) 04/25/2017 Op[facility] [place] COVID-19 virus infection 09/15/202109/2021 Disorder of sacrum 07/27/2015 Encounter for diabetic foot exam (HCC) 10/13/2018 Eosinophilic esophagitis 05/11/2016 Family history of thyroid disease 12/29/2021 Two sisters with hypothyroidism and one with Graves Dz. Gastric polyps H/O herpes labialis 08/12/2018 Herpes simplex virus (HSV) infection 05/28/2019 History of colonic polyps 12/17/2014 History of COVID-19 09/15/202109/2021 History of Helicobacter pylori infection 02/14/2023 Infection due to clarithromycin resistant Helicobacter pylori 12/28/202012/2020 Intestinal malabsorption 06/23/2015 Iron deficiency anemia 03/03/2011 Left-sided low back pain without sciatica 04/29/2015 Malabsorption of iron 12/11/2020 Menometrorrhagia 06/30/2011 OAB (overactive bladder) 05/28/2019 Oral lichen planus 12/20/2013 Ovarian cyst, right Pain of both hip joints 10/25/2017 Piriformis syndrome 04/29/2015 Primary insomnia 10/25/2017 Right-sided low back pain without sciatica 08/17/2016 Sarcoidosis Vitamin A deficiency 12/19/2014 Vitamin D deficiency 12/18/2014 Wart of scalp 04/29/2015 Previous Surgical History PAST SURGICAL HISTORY Procedure Laterality Date *STRESS TEST PC 05/11/2017 WNL CHOLECYSTECTOMY COLONOSCOPY 03/30/2005 normal with hemorrhoids COLONOSCOPY 01/07/2010 normal COLONOSCOPY 02/22/2022 COLONOSCOPY FLX DX W/COLLJ SPEC WHEN PFRMD 05/12/2016 Colonoscopy mac 5 year repeat not [address] Tong CONIZATION OF CERVIX LEEP EXCISION EGD 03/24/2005 nonspecific esophagitis EGD 01/05/2010 normal EGD 02/22/2022 EGD 01/20/2021 Normal ESOPHAGOGASTRODUODENOSCOPY TRANSORAL DIAGNOSTIC 02/10/2016 EGD mac PAST SURGICAL HISTORY OF 2002 gastricectomy, with jose daniel en Y resection PAST SURGICAL HISTORY OF iron infusions, Several infusions S BALLOON,UTERINE ABLATION [id number] 08/25/2011 TRANSFUSION Several Trasfusions TUBAL LIGATION, Family History FAMILY HISTORY Problem Relation Age of Onset Diabetes Mother Hypertension Mother Cancer Father lymphatic Emphysema Father Hypothyroidism Sister Hypothyroidism Sister Graves Disease Sister Cancer Brother other (Mennigitis) Brother Colon Cancer Brother middle colon Cancer Brother stomach Heart disease Brother Patient Allergies ALLERGIES Allergen Reactions Iron Dextran Itching Ambien [Zolpidem] Other: See Comments Nightmares. Buspar [Buspirone H* Myalgia Current Medications Current Outpatient Medications on File Prior to Visit Medication Sig traMADol (ULTRAM) 50 mg tablet Take 1 tablet by mouth two times a day as needed for up to 30 days. tiZANidine (ZANAFLEX) 4 mg tablet Take 1 tablet by mouth two times a day as needed (muscle spasms). valACYclovir (VALTREX) 1 gram tablet Take 2 tablets by mouth two times a day. For total of 2 doses. gabapentin (NEURONTIN) 100 mg capsule Take two capsules in AM and one capsule in after noon and evening buPROPion XL (WELLBUTRIN XL) 150 mg 24 hr tablet Take 1 tablet by mouth once daily. ondansetron orally disintegrating (ZOFRAN ODT) 4 mg disintegrating tablet Take 1 tablet by mouth every 8 hours as needed for nausea/vomiting. citalopram (CELEXA) 40 mg tablet Take 1.5 tablets by mouth once daily. pantoprazole DR (PROTONIX) 40 mg tablet Take 1 tablet by mouth once daily. cyanocobalamin 1,000 mcg/mL INJECT 1 ML INTRAMUSCULARLY ONCE EVERY WEEK Syringe with Needle, Disp, (BD ECLIPSE LUER-ALIRIO SYRINGE) 1 mL 27 x 1/2" USE TO INJECT ONCE A WEEK use as directed cholecalciferol, Vitamin D3, (VITAMIN D3) 1,250 mcg (50,000 unit) cap c (more content not included)...[facility]02-04-2025 History of Present illness Narrative* Jody Cole PA-C - 10/08/2024 10:03 AM EST Chief Complaint Patient presents with: 6 Month Exam HPI Susan Reyes is a 64 year old female who presents here today for Chronic Medical Conditions.. Patient with hx of DM2, dysphagia, b12, insomnia, osteoporosis, anemia, depression/anxiety, and those as below. Patient reports she is doing well. No current concerns today. Past medical history, appointments, medications, allergies reviewed. Previous Medical History PAST MEDICAL HISTORY Diagnosis Date Absolute anemia 04/28/2015 Had total Gastrectomy due to multiple polyps. Has malabsorption since. Achalasia 08/19/[address] Friend: Botox inject 08/2024 Age-related osteoporosis without current pathological fracture Anxiety and depression B12 deficiency 12/18/2014 Cervical dysplasia, moderate Chronic abdominal pain 12/20/2013 Secondary to post surgical adhesions. Takes gabapentin daily and tramadol PRN.. Controlled substance agreement signed 05/16/18, updated 04/13/2021 Chronic constipation 12/20/2013 Controlled type 2 diabetes mellitus without complication, without long-term current use of insulin (HCC) 04/25/2017 Ophthalmology: [facility] [place] COVID-19 virus infection 09/15/202109/2021 Disorder of sacrum 07/27/2015 Encounter for diabetic foot exam (HCC) 10/13/2018 Eosinophilic esophagitis 05/11/2016 Family history of thyroid disease 12/29/2021 Two sisters with hypothyroidism and one with Graves Dz. Gastric polyps H/O herpes labialis 08/12/2018 Herpes simplex virus (HSV) infection 05/28/2019 History of colonic polyps 12/17/2014 History of COVID-19 09/15/202109/2021 History of Helicobacter pylori infection 02/14/2023 Infection due to clarithromycin resistant Helicobacter pylori 12/28/202012/2020 Intestinal malabsorption 06/23/2015 Iron deficiency anemia 03/03/2011 Left-sided low back pain without sciatica 04/29/2015 Malabsorption of iron 12/11/2020 Menometrorrhagia 06/30/2011 OAB (overactive bladder) 05/28/2019 Oral lichen planus 12/20/2013 Ovarian cyst, right Pain of both hip joints 10/25/2017 Piriformis syndrome 04/29/2015 Primary insomnia 10/25/2017 Right-sided low back pain without sciatica 08/17/2016 Sarcoidosis Vitamin A deficiency 12/19/2014 Vitamin D deficiency 12/18/2014 Wart of scalp 04/29/2015 Previous Surgical History PAST SURGICAL HISTORY Procedure Laterality Date *STRESS TEST PC 05/11/2017 WNL CHOLECYSTECTOMY COLONOSCOPY 03/30/2005 normal with hemorrhoids COLONOSCOPY 01/07/2010 normal COLONOSCOPY 02/22/2022 COLONOSCOPY FLX DX W/COLLJ SPEC WHEN PFRMD 05/12/2016 Colonoscopy mac 5 year repeat not [address] Tong CONIZATION OF CERVIX LEEP EXCISION EGD 03/24/2005 nonspecific esophagitis EGD 01/05/2010 normal EGD 02/22/2022 EGD 01/20/2021 Normal ESOPHAGOGASTRODUODENOSCOPY TRANSORAL DIAGNOSTIC 02/10/2016 EGD mac PAST SURGICAL HISTORY OF 2002 gastricectomy, with jose daniel en Y resection PAST SURGICAL HISTORY OF iron infusions, Several infusions S BALLOON,UTERINE ABLATION [id number] 08/25/2011 TRANSFUSION Several Trasfusions TUBAL LIGATION, Family History FAMILY HISTORY Problem Relation Age of Onset Diabetes Mother Hypertension Mother Cancer Father lymphatic Emphysema Father Hypothyroidism Sister Hypothyroidism Sister Graves Disease Sister Cancer Brother other (Mennigitis) Brother Colon Cancer Brother middle colon Cancer Brother stomach Heart disease Brother Patient Allergies ALLERGIES Allergen Reactions Iron Dextran Itching Ambien [Zolpidem] Other: See Comments Nightmares. Buspar [Buspirone H* Myalgia Current Medications Current Outpatient Medications on File Prior to Visit Medication Sig traMADol (ULTRAM) 50 mg tablet Take 1 tablet by mouth two times a day as needed for up to 30 days. tiZANidine (ZANAFLEX) 4 mg tablet Take 1 tablet by mouth two times a day as needed (muscle spasms). valACYclovir (VALTREX) 1 gram tablet Take 2 tablets by mouth two times a day. For total of 2 doses. gabapentin (NEURONTIN) 100 mg capsule Take two capsules in AM and one capsule in after noon and evening buPROPion XL (WELLBUTRIN XL) 150 mg 24 hr tablet Take 1 tablet by mouth once daily. ondansetron orally disintegrating (ZOFRAN ODT) 4 mg disintegrating tablet Take 1 tablet by mouth every 8 hours as needed for nausea/vomiting. citalopram (CELEXA) 40 mg tablet Take 1.5 tablets by mouth once daily. pantoprazole DR (PROTONIX) 40 mg tablet Take 1 tablet by mouth once daily. cyanocobalamin 1,000 mcg/mL INJECT 1 ML INTRAMUSCULARLY ONCE EVERY WEEK Syringe with Needle, Disp, (BD ECLIPSE LUER-ALIRIO SYRINGE) 1 mL 27 x 1/2" USE TO INJECT ONCE A WEEK use as directed cholecalciferol, Vitamin D3, (VITAMIN D3) 1,250 mcg (50,000 unit) cap capsule Take 1 capsule by mouth every 3 weeks. dicyclomine (BENTYL) 10 mg capsule Take 2 po BID Blood-Glucose Meter monitoring kit Glucose Meter of Choice - Kit - Dx: Type 2 DM - Controlled E11.9 blood sugar diagnostic (BLOOD GLUCOSE TEST) test strip Test blood sugar(s) 1 times daily. Dx: Type 2 DM - Controlled E11.9 Insulin: No polyethylene glycol 3350 (MIRALAX, GLYCOLAX) 17 gram/dose powder Take 17 g by mouth once daily. Take one (1) capful in 8oz of liquid each day. ANIMAL SHAPE VITAMINS CHEWABLE TAB takes 2 on occasion No current facility-administered medications on file prior to visit. Social History Social History Tobacco Use Smoking status: Never Smokeless tobacco: Never Vaping Use Vaping status: Never Used Substance Use Topics Alcohol use: No Drug use: No Review of Symptoms REVIEW OF SYSTEMS GENERAL: No weight loss, malaise or fevers NECK: Negative for lumps, goiter, pain and significant neck swelling RESPIRATORY: Negative for cough, hemoptysis, wheezing, COPD, dyspnea or shortness of breath CARDIOVASCULAR: Negative for chest pain, leg swelling, hypertension, CHF or palpitations NEURO: No history of headaches, syncope, paralysis, seizures or tremors EXAM: BP 108/60 (BP Site: Left Arm, BP Position: Sitting, BP Cuff Size: Large Adult) Pulse (!) 59 Temp 36.5 C (97.7 F) Resp 16 Wt 62.6 kg (138 lb) LMP 07/31/2011 SpO2 97% BMI 25.56 kg/m General Appearance: Well appearing, alert, in no acute distress, well-hydrated, well nourished.. Neck: Supple, no adenopathy; thyroid symmetric, normal size, no bruits. Lungs: Lungs clear to auscultation. No wheezing, rhonchi, rales.. Heart: RRR without murmur, gallop, or rubs. No ectopy. Extremities: No deformities, edema, skin discoloration, clubbing or cyanosis. Good capillary refill. . Peripheral Pulses: Normal. Feet:Shoes and socks removed, No deformities, ulcers, calluses, normal distal pulses, sensitive to 10 gm monofilament, and vibratory perception normal Health Maintenance List Mammogram Screening due on 07/09/2020 Diabetic Foot Exam due on 12/29/2022 Influenza Vaccine(1) due on 05/05/2024 Cervical Cancer Screening due on 07/09/2024 Dilated Retinal Exam due on 07/31/2024 HbA1C due on 10/04/2024 Urine Albumin:Creatinine Ratio due on 09/15/2024 DTaP,Tdap,Td Vaccine(2 - Td or Tdap) due on 10/08/2025 Shingrix Vaccine(1 of 2) due on 10/08/2025 Covid-19 Vaccine(3 - 2023- season) due on 10/08/2025 LDL Cholesterol due on 04/03/2025 Annual PCP Team Chronic Disease Visit due on 04/22/2025 Pneumococcal Vaccine: 50+(3 of 3 - PCV20 or PCV21) due on 12/25/2025 Colorectal Cancer Screening due on 02/22/2027 RSV Vaccine(1 - 1-dose 75+ series) due on 2036 Hepatitis C Screening Completed HIV Screening Discontinued Data reviewed N/a ASSESSMENT/PLAN: 1. Controlled type 2 diabetes mellitus without complication, without long-term current use of insulin (HCC) - ICD9: 250.00, ICD10: E11.9 (primary diagnosis) - Control undetermined, due for labs - Continue current medications - HEMOGLOBIN A1C - LIPID PANEL, NONFASTING - COMPREHENSIVE METABOLIC PANEL - COMPLETE BLOOD COUNT AND DIFFERENTIAL - URINALYSIS, WITH MICROSCOPIC - ALBUMIN/CREATININE RATIO, URINE 2. Achalasia - ICD9: 530.0, ICD10: K22.0 Improving Continue with gastro 3. Eosinophilic esophagitis - ICD9: 530.13, ICD10: K20.0 Cont with gastro 4. Other specified intestinal malabsorption - ICD9: 579.8, ICD10: K90.89 Await labs 5. Vitamin A deficiency - ICD9: 264.9, ICD10: E50.9 - VITAMIN A/RETINOL 6. Vitamin D deficiency - ICD9: 268.9, ICD10: E55.9 - VITAMIN D 25 HYDROXY 7. Medication management - ICD9: V58.69, ICD10: Z79.899 - TOXICOLOGY SCREEN, ROUTINE URINE - ZINC BLD - QUANTITATIVE TOXICOLOGY PANEL, URINE 8. B12 deficiency - ICD9: 266.2, ICD10: E53.8 - VITAMIN B12 9. Malabsorption of iron - ICD9: 579.8, ICD10: K90.9 - IRON AND TIBC 10. Iron deficiency anemia, unspecified iron deficiency anemia type - ICD9: 280.9, ICD10: D50.9 - IRON AND TIBC 11. Age-related osteoporosis without current pathological fracture - ICD9: 733.01, ICD10: M81.0 - Reviewed the need for Calcium and Vitamin D supplements and weight bearing exercise as tolerated 12. Encounter for immunization - ICD9: V03.89, ICD10: Z23 - INFLUENZA VACCINE, AGE 6MO-64YR, TRIVALENT (AFLURIA, FLULAVAL, FLUVIRIN, FLUZONE) Jody Cole PA-C documented in this encounterOhio[facility] Telephone encounter Note * Telephone Encounter - Tatum Hernandez MA - 09/30/2024 9:46 AM EST Prescription Refill Information The patient has been identified by name and date of : Yes Caregiver verified no other encounters exist for this prescription request: Yes Caregiver confirmed with patient/requestor that no other refills are due, in the near future, with this provider at this time: Yes The last office visit in the department: 07/2024 Does the patient have a future office visit with this provider/department: Yes Requested Prescriptions Pending Prescriptions Disp Refills traMADol (ULTRAM) 50 mg tablet 60 tablet 0 Sig: Take 1 tablet by mouth two times a day as needed for up to 30 days. tiZANidine (ZANAFLEX) 4 mg tablet 60 tablet 5 Sig: Take 1 tablet by mouth two times a day as needed (muscle spasms). Tatum Hernandez MA September 30, 2024 9:46 AM [facility]01-27-2025 Miscellaneous Notes* Telephone Encounter - Tatum Hernandez MA - 09/30/2024 9:46 AM EST Prescription Refill Information The patient has been identified by name and date of : Yes Caregiver verified no other encounters exist for this prescription request: Yes Caregiver confirmed with patient/requestor that no other refills are due, in the near future, with this provider at this time: Yes The last office visit in the department: 07/2024 Does the patient have a future office visit with this provider/department: Yes Requested Prescriptions Pending Prescriptions Disp Refills traMADol (ULTRAM) 50 mg tablet 60 tablet 0 Sig: Take 1 tablet by mouth two times a day as needed for up to 30 days. tiZANidine (ZANAFLEX) 4 mg tablet 60 tablet 5 Sig: Take 1 tablet by mouth two times a day as needed (muscle spasms). Tatum Hernandez MA September 30, 2024 9:46 AM documented in this encounterOhiohealth [facility]ady [facility]01-21-2025 NotePatient Outreach (FAMPWS) SUSAN REYES ([id number]) 1960 F Date Time Provider Department 09/24/24 JUSTEN DARLING FAMPWS During your visit today, we recorded the following information about you: Allergies As of Date: 09/24/2024 Noted Allergy Reaction IRON DEXTRAN 03/03/2011 9 - Itching AMBIEN (ZOLPIDEM) 05/19/2020 14 - Other: See Comments Comments: Nightmares. BUSPAR (BUSPIRONE HCL) 11/14/2018 17 - Myalgia Date Reviewed: 04/22/2024 Reviewed by: Lizett Bush LPN - Fully Assessed Visit Diagnosis:Encounter for screening mammogram for breast cancer [Z12.31] Order(s):[facility] SCRE[facility] [[id number]] Order #: [id number] FUTURE Prescriptions as of 10/25/2024 - traMADol (ULTRAM) 50 mg tablet Take 1 tablet by mouth two times a day as needed for up to 30 days. - tiZANidine (ZANAFLEX) 4 mg tablet Take 1 tablet by mouth two times a day as needed (muscle spasms). - valACYclovir (VALTREX) 1 gram tablet Take 2 tablets by mouth two times a day. For total of 2 doses. - gabapentin (NEURONTIN) 100 mg capsule Take two capsules in AM and one capsule in after noon and evening - buPROPion XL (WELLBUTRIN XL) 150 mg 24 hr tablet Take 1 tablet by mouth once daily. - ondansetron orally disintegrating (ZOFRAN ODT) 4 mg disintegrating tablet Take 1 tablet by mouth every 8 hours as needed for nausea/vomiting. - citalopram (CELEXA) 40 mg tablet Take 1.5 tablets by mouth once daily. - pantoprazole DR (PROTONIX) 40 mg tablet Take 1 tablet by mouth once daily. - cyanocobalamin 1,000 mcg/mL INJECT 1 ML INTRAMUSCULARLY ONCE EVERY WEEK - Syringe with Needle, Disp, (BD ECLIPSE LUER-ALIRIO SYRINGE) 1 mL 27 x 1/2" USE TO INJECT ONCE A WEEK use as directed - cholecalciferol, Vitamin D3, (VITAMIN D3) 1,250 mcg (50,000 unit) cap capsule Take 1 capsule by mouth every 3 weeks. - dicyclomine (BENTYL) 10 mg capsule Take 2 po BID - Blood-Glucose Meter monitoring kit Glucose Meter of Choice - Kit - Dx: Type 2 DM - Controlled E11.9 - blood sugar diagnostic (BLOOD GLUCOSE TEST) test strip Test blood sugar(s) 1 times daily. Dx: Type 2 DM - Controlled E11.9 Insulin: No - polyethylene glycol 3350 (MIRALAX, GLYCOLAX) 17 gram/dose powder Take 17 g by mouth once daily. Take one (1) capful in 8oz of liquid each day. - ANIMAL SHAPE VITAMINS CHEWABLE TAB takes 2 on occasion Problem List As Of Date 09/24/2024 Noted Resolved Iron deficiency anemia [D50.9] 03/03/2011 Menometrorrhagia [N92.1] 06/30/2011 Anxiety and depression [F41.9, F32.A] 12/20/2013 Chronic abdominal pain [R10.9, G89.29] 12/20/2013 Chronic constipation [K59.09] 12/20/2013 Oral lichen planus [L43.8] 12/20/2013 Sarcoidosis [D86.9] History of colonic polyps [Z86.0100] 12/17/2014 Diabetic eye exam (HCC) [Z01.00, E11.9] 12/17/2014 Routine gynecological examination [Z01.419] 12/17/2014 B12 deficiency [E53.8] 12/18/2014 Vitamin D deficiency [E55.9] 12/18/2014 Vitamin A deficiency [E50.9] 12/19/2014 Absolute anemia [D64.9] 04/28/2015 Piriformis syndrome [G57.00] 04/29/2015 Left-sided low back pain with left-sided sciati*04/29/2015 Wart of scalp [B07.9] 04/29/2015 Intestinal malabsorption [K90.9] 06/23/2015 Disorder of sacrum [M53.3] 07/27/2015 LLQ abdominal pain [R10.32] 02/10/2016 02/10/2016 Regurgitation [WAJ1282] 02/10/2016 02/10/2016 Eosinophilic esophagitis [K20.0] 05/11/2016 Right-sided low back pain without sciatica [M54*08/17/2016 Well adult exam [Z00.00] 04/25/2017 Controlled type 2 diabetes mellitus without com*04/25/2017 Pain of both hip joints [M25.551, M25.552] 10/25/2017 Primary insomnia [F51.01] 10/25/2017 Esophageal dysphagia [R13.19] 04/05/2018 OAB (overactive bladder) [N32.81] 05/28/2019 Herpes simplex virus (HSV) infection [B00.9] 05/28/2019 Age-related osteoporosis without current pathol* Malabsorption of iron [K90.9] 12/11/2020 Encounter for screening mammogram for breast ca*12/25/2020 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 Author Type: LICENSED NURSE Type: Progress Notes Filed: 08/19/2024 08:52 Note Text: Scan on 08/16/2024 4:20 PM by Skip Al PA-C: EGD Scan on 08/16/2024 2:01 PM [facility] History of Present illness Narrative* Lizett Bush LPN - 08/19/2024 8:52 AM EST Scan on 08/16/2024 4:20 PM by Skip Al PA-C: EGD Scan on 08/16/2024 2:01 PM by Skip Al PA-C documented in this encounterOhio[facility]12[facility] Medical Records Department [address] [place] [address] History Physical Exam 08/16/24 1352 MR#: [id number] Acct: [id number] Name: SUSAN REYES Rep #: [id number] : 1960 64 From: Israel Francis DO PCP: Dr. Justen Darling MD Status:[facility] [place] Location: [place] [id number] HPI - General General Date of Admission: 08/16/24 Date of Service: 08/16/24 Chief Complaint: dysphagia HPI Narrative 64 yo woman Pt here due to having a hard time swallowing food. States she has had esophageal spasms for years. Reports a pain in her throat all the time and has excess mucus when eating. Pt states she has L side abdominal pain and extreme fatigue. Has has irregular pattern BMs with mucus. Experiences constipation that is relieved with Dulcolax and drinking more more fluids. Pt takes Zofran prn and dicyclomine daily. She denies difficulty chewing, full upper/lower dentures. She does report difficulty pushing food back with tongue toward oropharynx. States her diet consists of pudding and jello for the last 6 weeks due to food getting stuck. Denies difficulty with these consistencies and liquids. She describes the "stuck food" pain as mid-substernal and crushing/grabbing with radiation occasionally to left shoulder and upper arm. She states that this pain starts as soon as she ingests something and does not go away until she can either swallow it or regurgitate back up and out. At this point in the exam, I entered an EKG and STAT troponin with 2hr reflex for her to get. [facility] Medical History Wears glasses Wears dentures Post-menopausal Depression Fatty liver Easy bruising Difficulty swallowing History of ulceration Gastric reflux Non-smoker History of edema Spasm Vitamin D deficiency Vitamin A deficiency Ovarian cyst Iron deficiency anemia Intestinal malabsorption History of Helicobacter pylori infection History of herpes labialis Type 2 diabetes mellitus Cervical dysplasia Anxiety Chronic abdominal pain Eosinophilic esophagitis Home Medications ???Medication ???Instructions ???Recorded ???Last Taken ???Type cyanocobalamin (vitamin B-12) 100 mcg IM Q7D 04/07/17 04/05/17 History 1,000 mcg/mL injection solution dicyclomine 10 mg capsule 10 mg PO TIDAC 04/07/17 Unknown History ergocalciferol (vitamin D2) 1,250 50,000 unit PO Q14D 04/07/17 Unknown History mcg (50,000 unit) capsule (Vitamin D2) tramadol 50 mg tablet 50 mg PO BID 04/07/17 Unknown History gabapentin 100 mg capsule 100 mg PO TID 04/24/24 Unknown History ondansetron HCl 4 mg tablet 4 mg PO Q6H PRN nausea and vomiting 04/24/24 Unknown History tizanidine 4 mg capsule 4 mg PO BID PRN muscle spasticity 04/24/24 Unknown History valacyclovir 1 gram tablet 1,000 mg PO DAILY PRN COLD SORE 04/24/24 Unknown History alprazolam 0.25 mg tablet 0.25 mg PO TID PRN swallowing 07/19/24 Unknown Rx difficulties 7 days #21 tabs bupropion HCl 150 mg 24 hr tablet, 150 mg PO 1200 08/15/24 Unknown History extended release citalopram 40 mg tablet 40 mg PO 1200 08/15/24 Unknown History pantoprazole 40 mg tablet,delayed 40 mg PO DAILY 08/15/24 Unknown History release Allergy/AdvReac Type Severity Reaction Status Date / Time buspirone (From BuSpar) Allergy Intermediate Other Verified 08/16/24 13:55 zolpidem (From Ambien) Allergy Intermediate Other Verified 08/16/24 13:55 meperidine (From Demerol) AdvReac HALLUCINATI Verified 08/16/24 13:55 ONS Family History Mother Diabetes Hypertension Father Cancer Emphysema lung Sister Thyroid disorder Brother Colon cancer Surgical History Hx of colonoscopy History of esophagogastroduodenoscopy (EGD) H/O tubal ligation S/P total gastrectomy and Jose Daniel-en-Y esophagojejunal anastomosis Hx of cholecystectomy Social History Smoking Status: Never smoker alcohol intake: never substance use type: does not use ROS Constitutional Constitutional: Denies fatigue, fever(s), poor appetite, weight gain or weight loss Gastrointestinal Gastrointestinal: Denies belching, bloating, change in bowel habits, change in stool character, chewing difficulty, coffee ground emesis, constipation, cramping, diarrhea, dyspepsia, dysphagia, early satiety, excessive flatus, fecal incontinence, heartburn, hematemesis, hematochezia, hemorrhoids, loose stools, melena, nausea, odynophagia, rectal bleeding, tenesmus, vomiting or weight changes Physical Exam Const alert, oriented x3, no apparent distress and healthy appearing General Appearance: cooperative GI normal to inspection, nondistended, normoactive bowel (more content not included)...[facility]12-05-2024 Telephone encounter Note* Telephone Encounter - Justen Darling MD - 08/08/2024 2:38 PM EST The following approved medication requests have been transmitted electronically. Requested Prescriptions Signed Prescriptions Disp Refills valACYclovir (VALTREX) 1 gram tablet 4 tablet 5 Sig: Take 2 tablets by mouth two times a day. For total of 2 doses. Authorizing Provider: JUSTEN DARLING MD [facility]12-05-2024 Miscellaneous Notes* Telephone Encounter - Justen Darling MD - 08/08/2024 2:38 PM EST The following approved medication requests have been transmitted electronically. Requested Prescriptions Signed Prescriptions Disp Refills valACYclovir (VALTREX) 1 gram tablet 4 tablet 5 Sig: Take 2 tablets by mouth two times a day. For total of 2 doses. Authorizing Provider: JUSTEN DARLING MD * Telephone Encounter - Masha Sethi LPN - 08/08/2024 1:58 PM EST Prescription Refill Information The patient has been identified by name and date of : Yes Caregiver verified no other encounters exist for this prescription request: Yes Caregiver confirmed with patient/requestor that no other refills are due, in the near future, with this provider at this time: Yes The last office visit in the department: 04/22/24 Does the patient have a future office visit with this provider/department: Yes Requested Prescriptions Pending Prescriptions Disp Refills valACYclovir (VALTREX) 1 gram tablet 4 tablet 5 Sig: Take 2 tablets by mouth two times a day. For total of 2 doses. Masha Sethi LPN August 08, 2024 1:59 PM documented in this encounterOhio[facility]12-05-2024 Telephone encounter Note * Telephone Encounter - Masha Sethi LPN - 08/08/2024 1:58 PM EST Prescription Refill Information The patient has been identified by name and date of : Yes Caregiver verified no other encounters exist for this prescription request: Yes Caregiver confirmed with patient/requestor that no other refills are due, in the near future, with this provider at this time: Yes The last office visit in the department: 04/22/24 Does the patient have a future office visit with this provider/department: Yes Requested Prescriptions Pending Prescriptions Disp Refills valACYclovir (VALTREX) 1 gram tablet 4 tablet 5 Sig: Take 2 tablets by mouth two times a day. For total of 2 doses. Masha Sethi LPN August 08, 2024 1:59 PM [facility]11-26-2024 Telephone encounter Note* Telephone Encounter - Justen Darling MD - 07/30/2024 11:19 AM EST The following approved medication requests have been transmitted electronically. Requested Prescriptions Signed Prescriptions Disp Refills traMADol (ULTRAM) 50 mg tablet 60 tablet 0 Sig: Take 1 tablet by mouth two times a day as needed for up to 30 days. Patient should start on August 03, 2024. Authorizing Provider: JUSTEN DARLING MD PDMP website checked and validated. All prescriptions have been APPROPRIATELY filled. No suspiciousactivity was identified. 07/30/2024 by Justen Darling MD [facility]11-26-2024 Miscellaneous Notes* Telephone Encounter - Justen Darling MD - 07/30/2024 11:19 AM EST The following approved medication requests have been transmitted electronically. Requested Prescriptions Signed Prescriptions Disp Refills traMADol (ULTRAM) 50 mg tablet 60 tablet 0 Sig: Take 1 tablet by mouth two times a day as needed for up to 30 days. Patient should start on August 03, 2024. Authorizing Provider: JUSTEN DARLING MD PDMP website checked and validated. All prescriptions have been APPROPRIATELY filled. No suspiciousactivity was identified. 07/30/2024 by Justen Darling MD * Telephone Encounter - Lennie Sampson LPN - 07/30/2024 10:52 AM EST Prescription Refill Information The patient has been identified by name and date of : Yes Caregiver verified no other encounters exist for this prescription request: Yes Caregiver confirmed with patient/requestor that no other refills are due, in the near future, with this provider at this time: Yes The last office visit in the department: 04/22/2024 Does the patient have a future office visit with this provider/department: Yes Requested Prescriptions Pending Prescriptions Disp Refills traMADol (ULTRAM) 50 mg tablet 60 tablet 0 Sig: Take 1 tablet by mouth two times a day as needed for up to 30 days. Lennie Sampson LPN July 30, 2024 10:52 AM documented in this encounterOhio[facility]11-26-2024 Telephone encounter Note * Telephone Encounter - Lennie Sampson LPN - 07/30/2024 10:52 AM EST Prescription Refill Information The patient has been identified by name and date of : Yes Caregiver verified no other encounters exist for this prescription request: Yes Caregiver confirmed with patient/requestor that no other refills are due, in the near future, with this provider at this time: Yes The last office visit in the department: 04/22/2024 Does the patient have a future office visit with this provider/department: Yes Requested Prescriptions Pending Prescriptions Disp Refills traMADol (ULTRAM) 50 mg tablet 60 tablet 0 Sig: Take 1 tablet by mouth two times a day as needed for up to 30 days. Lennie Sampson LPN July 30, 2024 10:52 AM [facility]11-26-2024 Telephone encounter Note* Telephone Encounter - Lennie Sampson LPN - 07/30/2024 10:51 AM EST Prescription Refill Information The patient has been identified by name and date of : Yes Caregiver verified no other encounters exist for this prescription request: Yes Caregiver confirmed with patient/requestor that no other refills are due, in the near future, with this provider at this time: Yes The last office visit in the department: 04/22/2024 Does the patient have a future office visit with this provider/department: Yes Requested Prescriptions Pending Prescriptions Disp Refills gabapentin (NEURONTIN) 100 mg capsule 360 capsule 1 Sig: Take two capsules in AM and one capsule in after noon and evening Lennie Sampson LPN July 30, 2024 10:51 AM [facility]11-26-2024 Miscellaneous Notes* Telephone Encounter - Lennie Sampson LPN - 07/30/2024 10:51 AM EST Prescription Refill Information The patient has been identified by name and date of : Yes Caregiver verified no other encounters exist for this prescription request: Yes Caregiver confirmed with patient/requestor that no other refills are due, in the near future, with this provider at this time: Yes The last office visit in the department: 04/22/2024 Does the patient have a future office visit with this provider/department: Yes Requested Prescriptions Pending Prescriptions Disp Refills gabapentin (NEURONTIN) 100 mg capsule 360 capsule 1 Sig: Take two capsules in AM and one capsule in after noon and evening Lennie Sampson LPN July 30, 2024 10:51 AM documented in this encounterOhio[facility]11-22-2024 Telephone encounter Note * Telephone Encounter - Lennie Sampson LPN - 07/26/2024 10:43 AM EST Prescription Refill Information The patient has been identified by name and date of : Yes Caregiver verified no other encounters exist for this prescription request: Yes Caregiver confirmed with patient/requestor that no other refills are due, in the near future, with this provider at this time: Yes The last office visit in the department: 04/22/2024 Does the patient have a future office visit with this provider/department: Yes Requested Prescriptions Pending Prescriptions Disp Refills buPROPion XL (WELLBUTRIN XL) 150 mg 24 hr tablet 30 tablet 5 Sig: Take 1 tablet by mouth once daily. Lennie Sampson LPN July 26, 2024 10:43 AM [facility]11-22-2024 Miscellaneous Notes* Telephone Encounter - Lennie Sampson LPN - 07/26/2024 10:43 AM EST Prescription Refill Information The patient has been identified by name and date of : Yes Caregiver verified no other encounters exist for this prescription request: Yes Caregiver confirmed with patient/requestor that no other refills are due, in the near future, with this provider at this time: Yes The last office visit in the department: 04/22/2024 Does the patient have a future office visit with this provider/department: Yes Requested Prescriptions Pending Prescriptions Disp Refills buPROPion XL (WELLBUTRIN XL) 150 mg 24 hr tablet 30 tablet 5 Sig: Take 1 tablet by mouth once daily. Lennie Sampson LPN July 26, 2024 10:43 AM documented in this encounterOhio[facility]10-31-2024 Telephone encounter Note * Telephone Encounter - Justen Darling MD - 07/04/2024 3:18 PM EDT The following approved medication requests have been transmitted electronically. Requested Prescriptions Signed Prescriptions Disp Refills traMADol (ULTRAM) 50 mg tablet 60 tablet 0 Sig: Take 1 tablet by mouth two times a day as needed for up to 30 days. Authorizing Provider: JUSTEN DARLING MD PDMP website checked and validated. All prescriptions have been APPROPRIATELY filled. No suspiciousactivity was identified. 07/04/2024 by Justen Darling MD [facility]10-31-[facility]24 Miscellaneous Notes* Telephone Encounter - Justen Darling MD - 07/04/2024 3:18 PM EDT The following approved medication requests have been transmitted electronically. Requested Prescriptions Signed Prescriptions Disp Refills traMADol (ULTRAM) 50 mg tablet 60 tablet 0 Sig: Take 1 tablet by mouth two times a day as needed for up to 30 days. Authorizing Provider: JUSTEN DARLING MD PDMP website checked and validated. All prescriptions have been APPROPRIATELY filled. No suspiciousactivity was identified. 07/04/2024 by Justen Darling MD * Telephone Encounter - Rebekah Garica LPN - 07/04/2024 3:13 PM EDT Prescription Refill Information The patient has been identified by name and date of : Yes Caregiver verified no other encounters exist for this prescription request: Yes Caregiver confirmed with patient/requestor that no other refills are due, in the near future, with this provider at this time: Yes The last office visit in the department: 04/22/24 Does the patient have a future office visit with this provider/department: Yes 10/08/24 Requested Prescriptions Pending Prescriptions Disp Refills traMADol (ULTRAM) 50 mg tablet 60 tablet 0 Sig: Take 1 tablet by mouth two times a day as needed for up to 30 days. Rebekah Garcia LPN July 04, 2024 3:13 PM documented in this encounterOhio[facility]10-31-2024 Telephone encounter Note * Telephone Encounter - Rebekah Garcia LPN - 07/04/2024 3:13 PM EDT Prescription Refill Information The patient has been identified by name and date of : Yes Caregiver verified no other encounters exist for this prescription request: Yes Caregiver confirmed with patient/requestor that no other refills are due, in the near future, with this provider at this time: Yes The last office visit in the department: 04/22/24 Does the patient have a future office visit with this provider/department: Yes 10/08/24 Requested Prescriptions Pending Prescriptions Disp Refills traMADol (ULTRAM) 50 mg tablet 60 tablet 0 Sig: Take 1 tablet by mouth two times a day as needed for up to 30 days. Rebekah Garcia LPN July 04, 2024 3:13 PM [facility]10-01-2024 Telephone encounter Note* Telephone Encounter - Jody Cole PA-C - 06/04/2024 7:28 AM EDT The following approved medication requests have been transmitted electronically. Requested Prescriptions Signed Prescriptions Disp Refills traMADol (ULTRAM) 50 mg tablet 60 tablet 0 Sig: Take 1 tablet by mouth two times a day as needed for up to 30 days. Authorizing Provider: JODY COLE PA-C [facility]10-01-2024 Miscellaneous Notes* Telephone Encounter - Jody Cole PA-C - 06/04/2024 7:28 AM EDT The following approved medication requests have been transmitted electronically. Requested Prescriptions Signed Prescriptions Disp Refills traMADol (ULTRAM) 50 mg tablet 60 tablet 0 Sig: Take 1 tablet by mouth two times a day as needed for up to 30 days. Authorizing Provider: JODY COLE PA-C * Telephone Encounter - Jennifer Ch LPN - 06/03/2024 2:50 PM EDT Prescription Refill Information The patient has been identified by name and date of : Yes Caregiver verified no other encounters exist for this prescription request: Yes Caregiver confirmed with patient/requestor that no other refills are due, in the near future, with this provider at this time: Yes The last office visit in the department: 04/22/24 Does the patient have a future office visit with this provider/department: Yes Requested Prescriptions Pending Prescriptions Disp Refills traMADol (ULTRAM) 50 mg tablet 60 tablet 0 Sig: Take 1 tablet by mouth two times a day as needed for up to 30 days. Jennifer Ch LPN June 03, 2024 2:50 PM documented in this encounterOhio[facility]09-30-2024 Telephone encounter Note * Telephone Encounter - Jennifer Ch LPN - 06/03/2024 2:50 PM EDT Prescription Refill Information The patient has been identified by name and date of : Yes Caregiver verified no other encounters exist for this prescription request: Yes Caregiver confirmed with patient/requestor that no other refills are due, in the near future, with this provider at this time: Yes The last office visit in the department: 04/22/24 Does the patient have a future office visit with this provider/department: Yes Requested Prescriptions Pending Prescriptions Disp Refills traMADol (ULTRAM) 50 mg tablet 60 tablet 0 Sig: Take 1 tablet by mouth two times a day as needed for up to 30 days. Jennifer Ch LPN June 03, 2024 2:50 PM [facility]09-26-[facility] History of Present illness Narrative* Falguni Pinto MA - 05/30/2024 12:30 PM EDT Scan on 05/28/2024 5:12 PM by Provider, Skip, SHIRAC: Troponin documented in this encounterOhiohealth [facility]09-03-2024 Telephone encounter Note * Telephone Encounter - Lizett Bush LPN - 05/07/2024 1:47 PM EDT Pt notified of pcp's message and instructions. Pt verbalizes understanding. Lizett Bush LPN [facility]09-03-2024 Miscellaneous Notes* Telephone Encounter - Lizett Bush LPN - 05/07/2024 1:47 PM EDT Pt notified of pcp's message and instructions. Pt verbalizes understanding. Lizett Bush LPN * Telephone Encounter - Justen Darling MD - 05/05/2024 1:43 PM EDT Let patient know the zofran was sent in. The tramadol was also sent in but will not be able to pickup any sooner then 05/08/2024. Please advise her that adjusting the dosing of her pain medication on her own is a violation of thesubstance agreement and could led to her no longer getting any pain medication. The following approved medication requests have been transmitted electronically. Requested Prescriptions Signed Prescriptions Disp Refills ondansetron orally disintegrating (ZOFRAN ODT) 4 mg disintegrating tablet 30 tablet 0 Sig: Take 1 tablet by mouth every 8 hours as needed for nausea/vomiting. Authorizing Provider: JUSTEN DARLING traMADol (ULTRAM) 50 mg tablet 60 tablet 0 Sig: Take 1 tablet by mouth two times a day as needed for up to 30 days. Patient should start on May 08, 2024. Authorizing Provider: JUSTEN DARLING MD PDMP website checked and validated. All prescriptions have been APPROPRIATELY filled. No suspiciousactivity was identified. 05/05/2024 by Justen Darling MD * Telephone Encounter - David Reyes LPN - 05/03/2024 3:58 PM EDT See pt message. Pt requesting refill of zofran d/t "nausea and dry heaves". She has an appt with Dr. Francis in Jun. Pt also requesting early refill of Tramadol d/t she has had to use more often than prescribed d/t abd pain. Pt states she will be a couple days short. David Reyes LPN documented in this encounterOhiohealth [facility]09-01-2024 Telephone encounter Note * Telephone Encounter - Justen Darling MD - 05/05/2024 1:43 PM EDT Let patient know the zofran was sent in. The tramadol was also sent in but will not be able to pickup any sooner then 05/08/2024. Please advise her that adjusting the dosing of her pain medication on her own is a violation of thesubstance agreement and could led to her no longer getting any pain medication. The following approved medication requests have been transmitted electronically. Requested Prescriptions Signed Prescriptions Disp Refills ondansetron orally disintegrating (ZOFRAN ODT) 4 mg disintegrating tablet 30 tablet 0 Sig: Take 1 tablet by mouth every 8 hours as needed for nausea/vomiting. Authorizing Provider: JUSTEN DARLING traMADol (ULTRAM) 50 mg tablet 60 tablet 0 Sig: Take 1 tablet by mouth two times a day as needed for up to 30 days. Patient should start on May 08, 2024. Authorizing Provider: JUSTEN DARLING MD PDMP website checked and validated. All prescriptions have been APPROPRIATELY filled. No suspiciousactivity was identified. 05/05/2024 by Justen Darling MD [facility] [facility] Telephone encounter Note* Telephone Encounter - David Reyes LPN - 05/03/2024 3:58 PM EDT See pt message. Pt requesting refill of zofran d/t "nausea and dry heaves". She has an appt with Dr. Francis in Jun. Pt also requesting early refill of Tramadol d/t she has had to use more often than prescribed d/t abd pain. Pt states she will be a couple days short. David Reyes LPN [facility]08-29-2024 Telephone encounter Note* Telephone Encounter - Lizett Bush LPN - 05/02/2024 11:52 AM EDT Copy of US faxed as requested. Lizett Bush LPN [facility]08-29-2024 Miscellaneous Notes* Telephone Encounter - Lizett Bush LPN - 05/02/2024 11:52 AM EDT Copy of US faxed as requested. Lizett Bush LPN * Telephone Encounter - Jody Cole PA-C - 05/02/2024 10:27 AM EDT Noted. Please send copy of US to their office. Jody Cole PA-C * Telephone Encounter - Lizett Bush LPN - 04/30/2024 3:18 PM EDT Pt notified of results. Pt advises that she has an appointment in Jun with a [employer] DES[employer] ENGINEER as they are scheduling out a ways. Lizett Bush LPN * Telephone Encounter - Jody Cole PA-C - 04/30/2024 2:14 PM EDT Images from the original note were not included. US shows fatty liver. Did she get appt with gastro yet? Jody Cole PA-C FIB-4 Calculation: 1.4 at 04/03/2024 3:35 PM Calculated from: SGOT/AST: 22 U/L at 04/03/2024 3:35 PM SGPT/ALT: 15 U/L at 04/03/2024 3:35 PM Platelets: 252 k/uL at 04/03/2024 3:35 PM Age: 63 years documented in [facility] encounter[facility] Telephone encounter Note * Telephone Encounter - Jody Cole PA-C - 05/02/2024 10:27 AM EDT Noted. Please send copy of US to their office. Joyd Cole PA-C [facility]08-27-2024 Telephone encounter Note* Telephone Encounter - Lizett Bush LPN - 04/30/2024 3:18 PM EDT Pt notified of results. Pt advises that she has an appointment in Jun with a WASTEWATER DESIGN ENGINEER as they are scheduling out a ways. Lizett Bush LPN [facility]08-27-2024 Telephone encounter Note* Telephone Encounter - Jody Cole PA-C - 04/30/2024 2:14 PM EDT Images from the original note were not included. US shows fatty liver. Did she get appt with gastro yet? Jody Cole PA-C FIB-4 Calculation: 1.4 at 04/03/2024 3:35 PM Calculated from: SGOT/AST: 22 U/L at 04/03/2024 3:35 PM SGPT/ALT: 15 U/L at 04/03/2024 3:35 PM Platelets: 252 k/uL at 04/03/2024 3:35 PM Age: 63 years [facility]08-26-2024 History of Present illness Narrative* Susan Pa RDMS - 04/29/2024 8:30 AM EDT Radiology Service Progress Note PATIENT NAME: Susan Reyes DATE OF SERVICE: April 29, 2024 TIME: 8:40 AM PATIENT IDENTITY VERIFICATION COMPLETED USING TWO (2) IDENTIFIERS: Name and Date of confirmedby patient verbally. FALL SCREENING: Has the patient had 2 falls in the last year or 1 fall with injury or currently using an Ambulatory Assistive Device (Walker, Cane, Wheelchair, Crutches, etc.)? No PATIENT GENDER DATA: Female. status: : No status: NO. PATIENT RELEVANT IMPLANT DATA REVIEWED: Not Applicable PATIENT PRESENTS WITH AN IMPLANTABLE OR ATTACHED FINISHED GOODS INSPECTOR: No RADIOLOGY DEPARTMENT: Ultrasound PERIPHERAL IV DATA: Not applicable SIGNED BY: Susan Pa RDMS RVT April 29, 2024 8:40 AM documented in this encounterOhio[facility]-20-[facility]24 Telephone encounter Note * Telephone Encounter - Lizett Bush LPN - 04/23/2024 9:16 AM EDT Pt notified of same. Lizett Bush LPN [facility]08-20-2024 Miscellaneous Notes* Telephone Encounter - Lizett Bush LPN - 04/23/2024 9:16 AM EDT Pt notified of same. Lizett Bush LPN * Telephone Encounter - Jody Cole PA-C - 04/23/2024 7:41 AM EDT Labs are okay. Cont as we discussed documented in this encounterOhio[facility]08-20-2024 Telephone encounter Note * Telephone Encounter - Jody Cole PA-C - 04/23/2024 7:41 AM EDT Labs are okay. Cont as we discussed [facility]08-19-2024 History of Present illness Narrative* Jody Cole PA-C - 04/22/2024 11:57 AM EDT Chief Complaint Patient presents with: Recheck: Abdominal pain HPI Susan Reyes is a 64 year old female who presents here today for recheck. Patient was seen 2 weeks ago. During exam patient had significant tenderness to palp of upper abdominal region. Patient was concerned she was having recurrence of sarcoidosis and had suspected symptoms were related to that as she had these previously. However with round of steroid, she has not had any improvement in her symtoms. And now having more reflux and heart burn. Left leg continues to be tender and mildly edematous by end of the day. Past medical history, appointments, medications, allergies reviewed. Previous Medical History PAST MEDICAL HISTORY 04/28/2015: Absolute anemia Comment: Had total Gastrectomy due to multiple polyps. Has malabsorption since. No date: Age-related osteoporosis without current pathological fracture No date: Anxiety and depression 12/18/2014: B12 deficiency No date: Cervical dysplasia, moderate 12/20/2013: Chronic abdominal pain Comment: Secondary to post surgical adhesions. Takes gabapentin daily and tramadol PRN.. Controlled substance agreement signed 05/16/18, updated 04/13/2021 12/20/2013: Chronic constipation 04/25/2017: Controlled type 2 diabetes mellitus without complication, without long-term current use of insulin (HCC) Comment: Ophthalmology: [facility]. 09/15/2021: COVID-19 virus infection Comment: 09/202107/27/2015: Disorder of sacrum 10/13/2018: Encounter for diabetic foot exam (HCC) 05/11/2016: Eosinophilic esophagitis 12/29/2021: Family history of thyroid disease Comment: Two sisters with hypothyroidism and one with Graves Dz. No date: Gastric polyps 08/12/2018: H/O herpes labialis 05/28/2019: Herpes simplex virus (HSV) infection 12/17/2014: History of colonic polyps 09/15/2021: History of COVID-19 Comment: 09/202102/14/2023: History of Helicobacter pylori infection 12/28/2020: Infection due to clarithromycin resistant Helicobacter pylori Comment: 12/202006/23/2015: Intestinal malabsorption 03/03/2011: Iron deficiency anemia 04/29/2015: Left-sided low back pain without sciatica 12/11/2020: Malabsorption of iron 06/30/2011: Menometrorrhagia 05/28/2019: OAB (overactive bladder) 12/20/2013: Oral lichen planus No date: Ovarian cyst, right 10/25/2017: Pain of both hip joints 04/29/2015: Piriformis syndrome 10/25/2017: Primary insomnia 08/17/2016: Right-sided low back pain without sciatica No date: Sarcoidosis 12/19/2014: Vitamin A deficiency 12/18/2014: Vitamin D deficiency 04/29/2015: Wart of scalp Previous Surgical History PAST SURGICAL HISTORY 05/11/2017: *STRESS TEST PC Comment: WNL No date: CHOLECYSTECTOMY 03/30/2005: COLONOSCOPY Comment: normal with hemorrhoids 01/07/2010: COLONOSCOPY Comment: normal 02/22/2022: COLONOSCOPY 05/12/2016: COLONOSCOPY FLX DX W/COLLJ SPEC WHEN PFRMD Comment: Colonoscopy mac 5 year repeat not [address] Tong No date: CONIZATION OF CERVIX LEEP EXCISION 03/24/2005: EGD Comment: nonspecific esophagitis 01/05/2010: EGD Comment: normal 02/22/2022: EGD 01/20/2021: EGD Comment: Normal 02/10/2016: ESOPHAGOGASTRODUODENOSCOPY TRANSORAL DIAGNOSTIC Comment: EGD mac 2001: PAST SURGICAL HISTORY OF Comment: gastricectomy, with jose daniel en Y resection No date: PAST SURGICAL HISTORY OF Comment: iron infusions, Several infusions 08/25/2011: S BALLOON,UTERINE ABLATION [id number] No date: TRANSFUSION Comment: Several Trasfusions No date: TUBAL LIGATION, Family History FAMILY HISTORY Problem Relation Age of Onset Diabetes Mother Hypertension Mother Cancer Father lymphatic Emphysema Father Hypothyroidism Sister Hypothyroidism Sister Graves Disease Sister Cancer Brother other (Mennigitis) Brother Colon Cancer Brother middle colon Cancer Brother stomach Heart disease Brother Patient Allergies ALLERGIES Allergen Reactions Iron Dextran Itching Ambien [Zolpidem] Other: See Comments Nightmares. Buspar [Buspirone H* Myalgia Current Medications Current Outpatient Medications on File Prior to Visit Medication Sig traMADol (ULTRAM) 50 mg tablet Take 1 tablet by mouth two times a day as needed for up to 30 days. Patient should start on April 08, 2024. gabapentin (NEURONTIN) 100 mg capsule Take two capsules in AM and one capsule in after noon and evening buPROPion XL (WELLBUTRIN XL) 150 mg 24 hr tablet Take 1 tablet by mouth once daily. tiZANidine (ZANAFLEX) 4 mg tablet Take 1 tablet by mouth two times a day as needed (muscle spasms). cyanocobalamin 1,000 mcg/mL INJECT 1 ML INTRAMUSCULARLY ONCE EVERY WEEK Syringe with Needle, Disp, (BD ECLIPSE LUER-ALIRIO SYRINGE) 1 mL 27 x 1/2" USE TO INJECT ONCE A WEEK use as directed cholecalciferol, Vitamin D3, (VITAMIN D3) 1,250 mcg (50,000 unit) cap capsule Take 1 capsule by mouth every 3 weeks. ondansetron orally disintegrating (ZOFRAN ODT) 4 mg disintegrating tablet Take 1 tablet by mouth every 8 hours as needed for nausea/vomiting. dicyclomine (BENTYL) 10 mg capsule Take 2 po BID valACYclovir (VALTREX) 1 gram Take 2 tablets by mouth two times a day. For total of 2 doses. Blood-Glucose Meter monitoring kit Glucose Meter of Choice - Kit - Dx: Type 2 DM - Controlled E11.9 blood sugar diagnostic (BLOOD GLUCOSE TEST) test strip Test blood sugar(s) 1 times daily. Dx: Type 2 DM - Controlled E11.9 Insulin: No polyethylene glycol 3350 (MIRALAX, GLYCOLAX) 17 gram/dose powder Take 17 g by mouth once daily. Take one (1) capful in 8oz of liquid each day. ANIMAL SHAPE VITAMINS CHEWABLE TAB takes 2 on occasion No current facility-administered medications on file prior to visit. Social History Social History Tobacco Use Smoking status: Never Smokeless tobacco: Never Vaping Use Vaping status: Never Used Substance Use Topics Alcohol use: No Drug use: No Review of Symptoms REVIEW OF SYSTEMS See hpi EXAM: BP 118/80 (BP Site: Left Arm, BP Position: Sitting, BP Cuff Size: Regular Adult) Pulse (!) 57 Temp 36.6 C (97.9 F) Resp 16 Wt 66.7 kg (147 lb 0.8 oz) LMP 07/31/2011 SpO2 94% BMI 27.23 kg/m General Appearance: Well appearing, alert, in no acute distress, well-hydrated, well nourished.. Abdomen: pain in Upper quadrants. No rebound. Mild guarding. BS wnl. Extremities: neg homans. Tender to palp of left lam/calf. Health Maintenance List Shingrix Vaccine(1 of 2) Never done Mammogram Screening due on 07/09/2020 RSV Vaccine(1 - 1-dose 60+ series) Never done Diabetic Foot Exam due on 12/29/2022 DTaP,Tdap,Td Vaccine(2 - Td or Tdap) due on 01/17/2024 Cervical Cancer Screening due on 07/09/2024 Covid-19 Vaccine(3 - 2022- season) due on 09/15/2024 Influenza Vaccine(1) due on 05/05/2024 Dilated Retinal Exam due on 07/31/2024 Urine Albumin:Creatinine Ratio due on 09/15/2024 HbA1C due on 10/04/2024 LDL Cholesterol due on 04/03/2025 Annual PCP Team Chronic Disease Visit due on 04/03/2025 Pneumococcal Vaccine(3 of 3 - PPSV23 or PCV20) due on 2026 Colorectal Cancer Screening due on 02/22/2027 Hepatitis C Screening Completed HIV Screening Discontinued Data reviewed ASSESSMENT/PLAN: 1. Eosinophilic esophagitis - ICD9: 530.13, ICD10: K20.0 (primary diagnosis) See below - CONSULT TO GASTROENTEROLOGY - US ABD RIGHT UPPER QUADRANT - AMYLASE - LIPASE 2. Esophageal dysphagia - ICD9: 787.29, ICD10: R13.19 See below - CONSULT TO GASTROENTEROLOGY - US ABD RIGHT UPPER QUADRANT - AMYLASE - LIPASE 3. Chronic abdominal pain - ICD9: 789.00, 338.29, ICD10: R10.9, G89.29 See below - CONSULT TO GASTROENTEROLOGY - US ABD RIGHT UPPER QUADRANT - AMYLASE - LIPASE 4. Epigastric pain - ICD9: 789.06, ICD10: R10.13 - check labs and US. Set up with gastro- patient would like to see dr. Francis Increase protonix to 40mg BID until seen by gastro. - AMYLASE - LIPASE - HEPATIC FUNCTION PNL 5. Left leg swelling - ICD9: 729.81, ICD10: M79.89 Check US. - US LEG VEIN DVT UNL VAS LAB Jody Cole PA-C * Jody Cole PA-C - 04/22/2024 11:46 AM EDT documented in this encounterOhio[facility]24 Telephone encounter Note * Telephone Encounter - Lizett Bush LPN - 04/04/2024 9:29 AM EDT Patient notified of results and provider's instructions. Patient verbalizes understanding. Lizett Bush LPN [facility]08-01-2024 Miscellaneous Notes* Telephone Encounter - Lizett Bush LPN - 04/04/2024 9:29 AM EDT Patient notified of results and provider's instructions. Patient verbalizes understanding. Lizett Bush LPN * Telephone Encounter - Jody Cole PA-C - 04/04/2024 9:26 AM EDT Let patient know that labs look okay. A1c is 6% which is stable but still in prediabetes range. Cont to watch diet.. Rest of labs are wnl * Telephone Encounter - Lizett Bush LPN - 04/04/2024 8:51 AM EDT Jody message was routed to pool but no note was attached. Lizett Bush LPN documented in this encounterOhio[facility]08-[facility]-2024 Telephone encounter Note * Telephone Encounter - Jody Cole PA-C - 04/04/2024 9:26 AM EDT Let patient know that labs look okay. A1c is 6% which is stable but still in prediabetes range. Cont to watch diet.. Rest of labs are wnl [facility]08-01-2024 Telephone encounter Note* Telephone Encounter - Lizett Bush LPN - 04/04/2024 8:51 AM EDT Jody message was routed to pool but no note was attached. Lizett Bush LPN [facility]07-31-2024 History of Present illness Narrative* Jody Cole PA-C - 04/03/2024 3:01 PM EDT Chief Complaint Patient presents with: Physical HPI Susan Reyes is a 63 year old female who presents here today for physical. Patient with hx of DM2, Dysphagia, b12, insomnia, osteoporosis, anemia, anxiety/depression, and those as below. Patient has current flare up of sarcoidosis. States leg is swollen, itchy, and she overall feels foggy. States she [place] out around [place] that had chemicals sprayed and she does recall chemicals causing issues for her in the past. Has responded well to prednisone taper in past. Otherwise doing okay. Past medical history, appointments, medications, allergies reviewed. Previous Medical History PAST MEDICAL HISTORY 04/28/2015: Absolute anemia Comment: Had total Gastrectomy due to multiple polyps. Has malabsorption since. No date: Age-related osteoporosis without current pathological fracture No date: Anxiety and depression 12/18/2014: B12 deficiency No date: Cervical dysplasia, moderate 12/20/2013: Chronic abdominal pain Comment: Secondary to post surgical adhesions. Takes gabapentin daily and tramadol PRN.. Controlled substance agreement signed 05/16/18, updated 04/13/2021 12/20/2013: Chronic constipation 04/25/2017: Controlled type 2 diabetes mellitus without complication, without long-term current use of insulin ([facility]) Comment: [facility] 09/15/2021: COVID-19 virus infection Comment: 09/202107/27/2015: Disorder of sacrum 10/13/2018: Encounter for diabetic foot exam (HCC) 05/11/2016: Eosinophilic esophagitis 12/29/2021: Family history of thyroid disease Comment: Two sisters with hypothyroidism and one with Graves Dz. No date: Gastric polyps 08/12/2018: H/O herpes labialis 05/28/2019: Herpes simplex virus (HSV) infection 12/17/2014: History of colonic polyps 09/15/2021: History of COVID-19 Comment: 09/202102/14/2023: History of Helicobacter pylori infection 12/28/2020: Infection due to clarithromycin resistant Helicobacter pylori Comment: 12/202006/23/2015: Intestinal malabsorption 03/03/2011: Iron deficiency anemia 04/29/2015: Left-sided low back pain without sciatica 12/11/2020: Malabsorption of iron 06/30/2011: Menometrorrhagia 05/28/2019: OAB (overactive bladder) 12/20/2013: Oral lichen planus No date: Ovarian cyst, right 10/25/2017: Pain of both hip joints 04/29/2015: Piriformis syndrome 10/25/2017: Primary insomnia 08/17/2016: Right-sided low back pain without sciatica No date: Sarcoidosis 12/19/2014: Vitamin A deficiency 12/18/2014: Vitamin D deficiency 04/29/2015: Wart of scalp Previous Surgical History PAST SURGICAL HISTORY 05/11/2017: *STRESS TEST PC Comment: WNL No date: CHOLECYSTECTOMY 03/30/2005: COLONOSCOPY Comment: normal with hemorrhoids 01/07/2010: COLONOSCOPY Comment: normal 02/22/2022: COLONOSCOPY 05/12/2016: COLONOSCOPY FLX DX W/COLLJ SPEC WHEN PFRMD Comment: Colonoscopy mac 5 year repeat not [address] Tong No date: CONIZATION OF CERVIX LEEP EXCISION 03/24/2005: EGD Comment: nonspecific esophagitis 01/05/2010: EGD Comment: normal 02/22/2022: EGD 01/20/2021: EGD Comment: Normal 02/10/2016: ESOPHAGOGASTRODUODENOSCOPY TRANSORAL DIAGNOSTIC Comment: EGD mac 2001: PAST SURGICAL HISTORY OF Comment: gastricectomy, with jose daniel en Y resection No date: PAST SURGICAL HISTORY OF Comment: iron infusions, Several infusions 08/25/2011: S BALLOON,UTERINE ABLATION [id number] No date: TRANSFUSION Comment: Several Trasfusions No date: TUBAL LIGATION, Family History FAMILY HISTORY Problem Relation Age of Onset Diabetes Mother Hypertension Mother Cancer Father lymphatic Emphysema Father Hypothyroidism Sister Hypothyroidism Sister Graves Disease Sister Cancer Brother other (Mennigitis) Brother Colon Cancer Brother middle colon Cancer Brother stomach Heart disease Brother Patient Allergies ALLERGIES Allergen Reactions Iron Dextran Itching Ambien [Zolpidem] Other: See Comments Nightmares. Buspar [Buspirone H* Myalgia Current Medications Current Outpatient Medications on File Prior to Visit Medication Sig traMADol (ULTRAM) 50 mg tablet Take 1 tablet by mouth two times a day as needed for up to 30 days. gabapentin (NEURONTIN) 100 mg capsule Take two capsules in AM and one capsule in after noon and evening buPROPion XL (WELLBUTRIN XL) 150 mg 24 hr tablet Take 1 tablet by mouth once daily. tiZANidine (ZANAFLEX) 4 mg tablet Take 1 tablet by mouth two times a day as needed (muscle spasms). cyanocobalamin 1,000 mcg/mL INJECT 1 ML INTRAMUSCULARLY ONCE EVERY WEEK Syringe with Needle, Disp, (BD ECLIPSE LUER-ALIRIO SYRINGE) 1 mL 27 x 1/2" USE TO INJECT ONCE A WEEK use as directed cholecalciferol, Vitamin D3, (VITAMIN D3) 1,250 mcg (50,000 unit) cap capsule Take 1 capsule by mouth every [address] (PROTONIX) 20 mg tablet Take 1 tablet by mouth once daily. ondansetron orally disintegrating (ZOFRAN ODT) 4 mg disintegrating tablet Take 1 tablet by mouth every 8 hours as needed for nausea/vomiting. dicyclomine (BENTYL) 10 mg capsule Take 2 po BID valACYclovir (VALTREX) 1 gram Take 2 tablets by mouth two times a day. For total of 2 doses. citalopram (CELEXA) 40 mg tablet Take 1.5 tablets by mouth once daily. Blood-Glucose Meter monitoring kit Glucose Meter of Choice - Kit - Dx: Type 2 DM - Controlled E11.9 blood sugar diagnostic (BLOOD GLUCOSE TEST) test strip Test blood sugar(s) 1 times daily. Dx: Type 2 DM - Controlled E11.9 Insulin: No polyethylene glycol 3350 (MIRALAX, GLYCOLAX) 17 gram/dose powder Take 17 g by mouth once daily. Take one (1) capful in 8oz of liquid each day. ANIMAL SHAPE VITAMINS CHEWABLE TAB takes 2 on occasion No current facility-administered medications on file prior to visit. Social History Social History Tobacco Use Smoking status: Never Smokeless tobacco: Never Vaping Use Vaping Use: Never used Substance Use Topics Alcohol use: No Drug use: No Review of Symptoms REVIEW OF SYSTEMS GENERAL: No weight loss, malaise or fevers HEENT: No changes in hearing or vision, no nose bleeds or other nasal problems NECK: Negative for lumps, goiter, pain and significant neck swelling RESPIRATORY: Negative for cough, hemoptysis, wheezing, COPD, dyspnea or shortness of breath CARDIOVASCULAR: Negative for chest pain, leg swelling, CHF or palpitations GI: Negative for abdominal discomfort, blood in stools or black stools, change in bowel habit, heart burn, nausea, vomiting : No history of dysuria, frequency or incontinence MUSCULOSKELETAL: Negative for joint pain or swelling, back pain or muscle pain SKIN: See HPI PSYCH: Negative for sleep disturbance, mood disorder and recent psychosocial stressors HEMATOLOGY/LYMPHOLOGY: Negative for prolonged bleeding, bruising easily or swollen nodes ENDOCRINE: Negative for cold or heat intolerance, polyuria, polydipsia and goiter NEURO: No history of headaches, syncope, paralysis, seizures or tremors EXAM: BP 106/76 (BP Site: Left Arm, BP Position: Sitting, BP Cuff Size: Regular Adult) Pulse 66 Temp 36.5 C (97.7 F) Resp 16 Ht 156.5 cm (5' 1.61") Wt 65.8 kg (145 lb) LMP 07/31/2011 SpO2 98% BMI 26.85 kg/m General Appearance: Well appearing, alert, in no acute distress, well-hydrated, well nourished.. Skin: Skin color, texture, turgor normal, no suspicious rashes or lesions. Head: Normocephalic, no masses, lesions, tenderness or abnormalities. Eyes: Anicteric sclera. Pupils are equally round and reactive to light. Extraocular movements are intact. . Ears: External ears normal, canals clear, TMs pearly jimenez. Nose/Sinuses: Nares normal, septum midline, mucosa normal, no drainage or sinus tenderness. Oropharynx: Lips, mucosa, and tongue normal, teeth and gums normal, oropharynx normal. Neck: Supple, no adenopathy; thyroid symmetric, normal size, no bruits. Lungs: Lungs clear to auscultation. No wheezing, rhonchi, rales.. Heart: RRR without murmur, gallop, or rubs. No ectopy. Abdomen: tender to exam. No palpable mass. BS wnl Extremities: left leg with swelling and palpable nodules on medial aspect. Very tender. Peripheral Pulses: Normal. Neurologic: Gait normal. Reflexes normal and symmetric. Sensation grossly intact.. Health Maintenance List Shingrix Vaccine(1 of 2) Never done Mammogram Screening due on 07/09/2020 RSV Vaccine(1 - 1-dose 60+ series) Never done Diabetic Foot Exam due on 12/29/2022 DTaP,Tdap,Td Vaccine(2 - Td or Tdap) due on 01/17/2024 HbA1C due on 03/15/2024 Cervical Cancer Screening due on 07/09/2024 Covid-19 Vaccine(3 - season) due on 09/15/2024 Influenza Vaccine(1) due on 05/05/2024 Dilated Retinal Exam due on 07/31/2024 Urine Albumin:Creatinine Ratio due on 09/15/2024 LDL Cholesterol due on 09/15/2024 Annual PCP Team Chronic Disease Visit due on 09/15/2024 Pneumococcal Vaccine(3 of 3 - PPSV23 or PCV20) due on 2026 Colorectal Cancer Screening due on 02/22/2027 Hepatitis C Screening Completed HIV Screening Discontinued Data reviewed ASSESSMENT/PLAN: 1. Well adult exam - ICD9: V70.0, ICD10: Z00.00 (primary diagnosis) - Counseled on healthy diet and regular exercise - Discussed need and benefit for weight loss. BMI 26.85 kg/(m^2) 2. Controlled type 2 diabetes mellitus without complication, without long-term current use of insulin (HCC) - ICD9: 250.00, ICD10: E11.9 - Control undetermined, due for labs - Continue current medications - HEMOGLOBIN A1C - LIPID PANEL, NONFASTING - COMPREHENSIVE METABOLIC PANEL - COMPLETE BLOOD COUNT AND DIFFERENTIAL 3. Age-related osteoporosis without current pathological fracture - ICD9: 733.01, ICD10: M81.0 - continue tx as prescribed - Reviewed the need for Calcium and Vitamin D supplements and weight bearing exercise as tolerated 4. Sarcoidosis - ICD9: 135, ICD10: D86.9 Check labs Start Prednisone. Recheck in 2 weeks - SEDIMENTATION RATE, WESTERGREN - C-REACTIVE PROTEIN 5. OAB (overactive bladder) - ICD9: 596.51, ICD10: N32.81 stable 6. Eosinophilic esophagitis - ICD9: 530.13, ICD10: K20.0 stable 7. Primary insomnia - ICD9: 307.42, ICD10: F51.01 stable 8. Chronic abdominal pain - ICD9: 789.00, 338.29, ICD10: R10.9, G89.29 Stable. - TRAMADOL 50 MG TABLET Jody Cole PA-C documented in this encounterOhio[facility]07-07-[facility]24 Telephone encounter Note * Telephone Encounter - Justen Darling MD - 03/10/2024 9:27 PM EDT The following approved medication requests have been transmitted electronically. Requested Prescriptions Signed Prescriptions Disp Refills traMADol (ULTRAM) 50 mg tablet 60 tablet 0 Sig: Take 1 tablet by mouth two times a day as needed for up to 30 days. Authorizing Provider: JUSTEN DARLING MD PDMP website checked and validated. All prescriptions have been APPROPRIATELY filled. No suspiciousactivity was identified. 03/10/2024 by Justen Darling MD [facility]07-07-2024 Miscellaneous Notes* Telephone Encounter - Justen Darling MD - 03/10/2024 9:27 PM EDT The following approved medication requests have been transmitted electronically. Requested Prescriptions Signed Prescriptions Disp Refills traMADol (ULTRAM) 50 mg tablet 60 tablet 0 Sig: Take 1 tablet by mouth two times a day as needed for up to 30 days. Authorizing Provider: JUSTEN DARLING MD PDMP website checked and validated. All prescriptions have been APPROPRIATELY filled. No suspiciousactivity was identified. 03/10/2024 by Justen Darling MD * Telephone Encounter - David Reyes LPN - 03/08/2024 4:10 PM EDT Prescription Refill Information The patient has been identified by name and date of : Yes Caregiver verified no other encounters exist for this prescription request: Yes Caregiver confirmed with patient/requestor that no other refills are due, in the near future, with this provider at this time: Yes The last office visit in the department: 09/15/23 Does the patient have a future office visit with this provider/department: Yes, 04/01/24 Requested Prescriptions Pending Prescriptions Disp Refills traMADol (ULTRAM) 50 mg tablet 60 tablet 0 Sig: Take 1 tablet by mouth two times a day as needed for up to 30 days. David Reyes LPN March 08, 2024 4:10 PM documented in this encounterOhio[facility] Telephone encounter Note * Telephone Encounter - David Reyes LPN - 03/08/2024 4:10 PM EDT Prescription Refill Information The patient has been identified by name and date of : Yes Caregiver verified no other encounters exist for this prescription request: Yes Caregiver confirmed with patient/requestor that no other refills are due, in the near future, with this provider at this time: Yes The last office visit in the department: 09/15/23 Does the patient have a future office visit with this provider/department: Yes, 04/01/24 Requested Prescriptions Pending Prescriptions Disp Refills traMADol (ULTRAM) 50 mg tablet 60 tablet 0 Sig: Take 1 tablet by mouth two times a day as needed for up to 30 days. David Reyes LPN March 08, 2024 4:10 PM [facility] Telephone encounter Note* Telephone Encounter - Jody Cole PA-C - 02/09/2024 1:00 PM EDT The following approved medication requests have been transmitted electronically. Requested Prescriptions Signed Prescriptions Disp Refills traMADol (ULTRAM) 50 mg tablet 60 tablet 0 Sig: Take 1 tablet by mouth two times a day as needed for up to 30 days. Authorizing Provider: JODY COLE PA-C [facility]06-[facility]24 Miscellaneous Notes* Telephone Encounter - Jody Cole PA-C - 02/09/2024 1:00 PM EDT The following approved medication requests have been transmitted electronically. Requested Prescriptions Signed Prescriptions Disp Refills traMADol (ULTRAM) 50 mg tablet 60 tablet 0 Sig: Take 1 tablet by mouth two times a day as needed for up to 30 days. Authorizing Provider: JODY COLE PA-C * Telephone Encounter - Mani Contreras MA - 02/09/2024 12:12 PM EDT Requested Prescriptions Pending Prescriptions Disp Refills traMADol (ULTRAM) 50 mg tablet 60 tablet 0 Sig: Take 1 tablet by mouth two times a day as needed for up to 30 days. Date of last office visit in primary care: 09/15/2023 Date of next office visit in primary care: 04/01/2024 Please advise. Thank you. Mani Contreras MA. documented in this encounterOhio[facility]06-[facility] Telephone encounter Note * Telephone Encounter - Mani Contreras MA - 02/09/2024 12:12 PM EDT Requested Prescriptions Pending Prescriptions Disp Refills traMADol (ULTRAM) 50 mg tablet 60 tablet 0 Sig: Take 1 tablet by mouth two times a day as needed for up to 30 days. Date of last office visit in primary care: 09/15/2023 Date of next office visit in primary care: 04/01/2024 Please advise. Thank you. Mani Contreras MA. [facility] Telephone encounter Note* Telephone Encounter - Justen Darling MD - 01/30/2024 4:10 PM EDT The following approved medication requests have been transmitted electronically. Requested Prescriptions Signed Prescriptions Disp Refills buPROPion XL (WELLBUTRIN XL) 150 mg 24 hr tablet 30 tablet 5 Sig: Take 1 tablet by mouth once daily. Authorizing Provider: JUSTEN DARLING MD [facility] Miscellaneous Notes* Telephone Encounter - Justen Darling MD - 01/30/2024 4:10 PM EDT The following approved medication requests have been transmitted electronically. Requested Prescriptions Signed Prescriptions Disp Refills buPROPion XL (WELLBUTRIN XL) 150 mg 24 hr tablet 30 tablet 5 Sig: Take 1 tablet by mouth once daily. Authorizing Provider: JUSTEN DARLING MD * Telephone Encounter - María Savage MA - 01/30/2024 4:09 PM EDT Patient has been identified by name and date of : yes Patient phones for refill(s): Requested Prescriptions Pending Prescriptions Disp Refills buPROPion XL (WELLBUTRIN XL) 150 mg 24 hr tablet 30 tablet 5 Sig: Take 1 tablet by mouth once daily. Date of last office visit in primary care: 09/15/2023 Date of next office visit in primary care: 04/01/2024 Please advise. Thank you. María Savage MA. documented in this encounterOhio[facility]05-28-[facility]24 Telephone encounter Note * Telephone Encounter - María Savage MA - 01/30/2024 4:09 PM EDT Patient has been identified by name and date of : yes Patient phones for refill(s): Requested Prescriptions Pending Prescriptions Disp Refills buPROPion XL (WELLBUTRIN XL) 150 mg 24 hr tablet 30 tablet 5 Sig: Take 1 tablet by mouth once daily. Date of last office visit in primary care: 09/15/2023 Date of next office visit in primary care: 04/01/2024 Please advise. Thank you. María Savage MA. [facility] Telephone encounter Note* Telephone Encounter - Tatum Hernandez MA - 01/30/2024 11:09 AM EDT Prescription Refill Information The patient has been identified by name and date of : Yes Caregiver verified no other encounters exist for this prescription request: Yes Caregiver confirmed with patient/requestor that no other refills are due, in the near future, with this provider at this time: Yes The last office visit in the department: 09/2023 Does the patient have a future office visit with this provider/department: Yes 03/2024 Last refill: 08/2023 Requested Prescriptions Pending Prescriptions Disp Refills gabapentin (NEURONTIN) 100 mg capsule 360 capsule 1 Sig: Take two capsules in AM and one capsule in after noon and evening Tatum Hernandez MA January 30, 2024 11:09 AM [facility] Miscellaneous Notes* Telephone Encounter - Tatum Hernandez MA - 01/30/2024 11:09 AM EDT Prescription Refill Information The patient has been identified by name and date of : Yes Caregiver verified no other encounters exist for this prescription request: Yes Caregiver confirmed with patient/requestor that no other refills are due, in the near future, with this provider at this time: Yes The last office visit in the department: 09/2023 Does the patient have a future office visit with this provider/department: Yes 03/2024 Last refill: 08/2023 Requested Prescriptions Pending Prescriptions Disp Refills gabapentin (NEURONTIN) 100 mg capsule 360 capsule 1 Sig: Take two capsules in AM and one capsule in after noon and evening Tatum Hernandez MA January 30, 2024 11:09 AM documented in this encounterOhio[facility]05-[facility]-2024 Telephone encounter Note * Telephone Encounter - Jody Cole PA-C - 01/11/2024 1:21 PM EDT The following approved medication requests have been transmitted electronically. Requested Prescriptions Signed Prescriptions Disp Refills traMADol (ULTRAM) 50 mg tablet 60 tablet 0 Sig: Take 1 tablet by mouth two times a day as needed for up to 30 days. Authorizing Provider: JODY COLE PA-C [facility] Miscellaneous Notes* Telephone Encounter - Jody Cole PA-C - 01/11/2024 1:21 PM EDT The following approved medication requests have been transmitted electronically. Requested Prescriptions Signed Prescriptions Disp Refills traMADol (ULTRAM) 50 mg tablet 60 tablet 0 Sig: Take 1 tablet by mouth two times a day as needed for up to 30 days. Authorizing Provider: JODY COLE PA-C * Telephone Encounter - Ana Valentin OCCA - 01/11/2024 9:04 AM EDT Patient has been identified by name and date of : Yes Patient phones for refill(s): Requested Prescriptions Pending Prescriptions Disp Refills traMADol (ULTRAM) 50 mg tablet 60 tablet 0 Sig: Take 1 tablet by mouth two times a day as needed for up to 30 days. Date of last office visit in primary care: 09/15/2023 Date of next office visit in primary care: 03/26/2024 Please advise. Thank you. JAYLON Aburto. documented in this encounterOhio[facility]05-09-2024 Telephone encounter Note * Telephone Encounter - Ana Valentin OCCA - 01/11/2024 9:04 AM EDT Patient has been identified by name and date of : Yes Patient phones for refill(s): Requested Prescriptions Pending Prescriptions Disp Refills traMADol (ULTRAM) 50 mg tablet 60 tablet 0 Sig: Take 1 tablet by mouth two times a day as needed for up to 30 days. Date of last office visit in primary care: 09/15/2023 Date of next office visit in primary care: 03/26/2024 Please advise. Thank you. JAYLON Aburto. [facility] Telephone encounter Note* Telephone Encounter - Chel Coley MA - 01/08/2024 8:37 AM EDT Patient has been identified by name and date of : Yes Patient phones for refill(s): Requested Prescriptions Pending Prescriptions Disp Refills tiZANidine (ZANAFLEX) 4 mg tablet 60 tablet 5 Sig: Take 1 tablet by mouth two times a day as needed (muscle spasms). Date of last office visit in primary care: 09/15/2023 Date of next office visit in primary care: 03/26/2024 Please advise. Thank you. Chel Coley MA. [facility] Miscellaneous Notes* Telephone Encounter - Chel Coley MA - 01/08/2024 8:37 AM EDT Patient has been identified by name and date of : Yes Patient phones for refill(s): Requested Prescriptions Pending Prescriptions Disp Refills tiZANidine (ZANAFLEX) 4 mg tablet 60 tablet 5 Sig: Take 1 tablet by mouth two times a day as needed (muscle spasms). Date of last office visit in primary care: 09/15/2023 Date of next office visit in primary care: 03/26/2024 Please advise. Thank you. Chel Coley MA. documented in this encounterOhio[facility]04-10-2024 Miscellaneous Notes* Telephone Encounter - Justen Darling MD - 12/13/2023 4:42 PM EDT The following approved medication requests have been transmitted electronically. Requested Prescriptions Signed Prescriptions Disp Refills traMADol (ULTRAM) 50 mg tablet 60 tablet 0 Sig: Take 1 tablet by mouth two times a day as needed for up to 30 days. Authorizing Provider: JUSTEN DARLING MD PDMP website checked and validated. All prescriptions have been APPROPRIATELY filled. No suspiciousactivity was identified. 12/13/2023 by Justen Darling MD * Telephone Encounter - David Reyes LPN - 12/13/2023 4:39 PM EDT Patient has been identified by name and date of : Yes Patient phones for refill(s): Requested Prescriptions Pending Prescriptions Disp Refills traMADol (ULTRAM) 50 mg tablet 60 tablet 0 Sig: Take 1 tablet by mouth two times a day as needed for up to 30 days. Date of last office visit in primary care: 09/15/2023 Date of next office visit in primary care: 03/26/2024 Please advise. Thank you. David Reyes LPN. documented in this encounterOhio[facility]03-11-2024 Miscellaneous Notes* Telephone Encounter - Lennie Sampson LPN - 11/13/2023 1:49 PM EDT Patient has been identified by name and date of : Yes, Patient phones for refill(s): Requested Prescriptions Pending Prescriptions Disp Refills cholecalciferol, Vitamin D3, (VITAMIN D3) 1,250 mcg (50,000 unit) cap capsule 4 capsule 3 Sig: Take 1 capsule by mouth every 3 weeks. Date of last office visit in primary care: 09/15/2023 Date of next office visit in primary care: 03/26/2024 Please advise. Thank you. Lennie Sampson LPN. documented in this encounterOhio[facility]03-11-2024 Miscellaneous Notes* Telephone Encounter - Tatum Hernandez MA - 11/13/2023 8:52 AM EDT Patient has been identified by name and date of : Yes, Provider Dr Darling Date 11/13/2023 Time8:53 am Requested Prescriptions Pending Prescriptions Disp Refills cyanocobalamin 1,000 mcg/mL 4 mL 4 Sig: INJECT 1 ML INTRAMUSCULARLY ONCE EVERY WEEK Syringe with Needle, Disp, (BD ECLIPSE LUER-ALIRIO SYRINGE) 1 mL 27 x 1/2" 12 Each 3 Sig: USE TO INJECT ONCE A WEEK use as directed RX INSTRUCTIONS: Patient aware RX will be sent to pharmacy. No need to notify patient. Tatum Hernandez MA Keysha 09/2023 Nov 03/2024 Last refill; 11/2022 documented in this encounterOhio[facility]03-07-2024 Miscellaneous Notes* Telephone Encounter - Justen Darling MD - 11/09/2023 4:56 PM EST The following approved medication requests have been transmitted electronically. Requested Prescriptions Signed Prescriptions Disp Refills pantoprazole DR (PROTONIX) 20 mg tablet 90 tablet 1 Sig: Take 1 tablet by mouth once daily. Authorizing Provider: JUSTEN DARLING traMADol (ULTRAM) 50 mg tablet 60 tablet 0 Sig: Take 1 tablet by mouth two times a day as needed for up to 30 days. Do not start before November 12, 2023. Authorizing Provider: JUSTEN DARLING MD * Telephone Encounter - Lennie Sampson LPN - 11/09/2023 4:40 PM EST Patient has been identified by name and date of : Yes, Patient phones for refill(s): Requested Prescriptions Pending Prescriptions Disp Refills pantoprazole DR (PROTONIX) 20 mg tablet 30 tablet 1 Sig: Take 1 tablet by mouth once daily. traMADol (ULTRAM) 50 mg tablet 60 tablet 0 Sig: Take 1 tablet by mouth two times a day as needed for up to 30 days. Date of last office visit in primary care: 09/15/2023 Date of next office visit in primary care: 03/26/2024 Please advise. Thank you. Lennie Sampson LPN. documented in this encounterOhio[facility]02-[facility]-2024 Miscellaneous Notes* Telephone Encounter - David Reyes LPN - 10/13/2023 9:21 AM EST Patient has been identified by name and date of : Yes Patient phones for refill(s): Requested Prescriptions Pending Prescriptions Disp Refills traMADol (ULTRAM) 50 mg tablet 60 tablet 0 Sig: Take 1 tablet by mouth two times a day as needed for up to 30 days. Date of last office visit in primary care: 09/15/2023 Date of next office visit in primary care: 03/26/2024 Please advise. Thank you. David Reyes LPN. documented in this encounterOhio[facility]12-11-2023 Miscellaneous Notes* Telephone Encounter - Justen Darling MD - 08/14/2023 4:23 PM EST The following approved medication requests have been transmitted electronically. Requested Prescriptions Signed Prescriptions Disp Refills traMADol (ULTRAM) 50 mg tablet 60 tablet 0 Sig: Take 1 tablet by mouth two times a day as needed for up to 30 days. Do not start before August 16, 2023. Authorizing Provider: JUSTEN DARLING MD PDMP website checked and validated. All prescriptions have been APPROPRIATELY filled. No suspiciousactivity was identified. 08/14/2023 by Justen Darling MD * Telephone Encounter - Tatum Hernandez MA - 08/14/2023 1:09 PM EST Patient has been identified by name and date of : Yes Requested Prescriptions Pending Prescriptions Disp Refills traMADol (ULTRAM) 50 mg tablet 60 tablet 0 Sig: Take 1 tablet by mouth two times a day as needed for up to 30 days. RX INSTRUCTIONS: Patient aware RX will be sent to pharmacy. No need to notify patient. Tatum Hernandez MA Keysha 02/2023 Nov 09/2023 Last refill: 07/2023 documented in this encounterOhio[facility]12-04-2023 Miscellaneous Notes* Telephone Encounter - Justen Darling MD - 08/07/2023 11:06 AM EST The following approved medication requests have been transmitted electronically. Requested Prescriptions Signed Prescriptions Disp Refills gabapentin (NEURONTIN) 100 mg capsule 360 capsule 1 Sig: Take two capsules in AM and one capsule in after noon and evening Authorizing Provider: JUSTEN DARLING MD * Telephone Encounter - Tatum Hernandez MA - 08/07/2023 10:40 AM EST Patient has been identified by name and date of : Yes Requested Prescriptions Pending Prescriptions Disp Refills gabapentin (NEURONTIN) 100 mg capsule 360 capsule 1 Sig: Take two capsules in AM and one capsule in after noon and evening RX INSTRUCTIONS: Patient aware RX will be sent to pharmacy. No need to notify patient. Tatum Hernandez MA Keysha 02/2023 Nov 09/2023 Last refill; 02/2023 documented in this encounterOhio[facility]11-10-2023 Miscellaneous Notes* Telephone Encounter - Justen Darling MD - 07/14/2023 8:47 AM EST The following approved medication requests have been transmitted electronically. Requested Prescriptions Signed Prescriptions Disp Refills valACYclovir (VALTREX) 1 gram 4 tablet 5 Sig: Take 2 tablets by mouth two times a day. For total of 2 doses. Authorizing Provider: JUSTEN DARLING MD * Telephone Encounter - Miranda Boone Ma - 07/14/2023 8:38 AM EST Last office visit: 02/14/23 F/u scheduled: 09/07/23 Miranda Boone Ma documented in this encounterOhiohealth [facility]10-11-2023 Miscellaneous Notes* Telephone Encounter - Justen Darling MD - 06/14/2023 7:47 PM EDT The following approved medication requests have been transmitted electronically. Requested Prescriptions Signed Prescriptions Disp Refills traMADol (ULTRAM) 50 mg tablet 60 tablet 0 Sig: Take 1 tablet by mouth two times a day as needed for up to 30 days. Do not start before June 17, 2023. Authorizing Provider: JUSTEN DARLING MD * Telephone Encounter - Judie Singh - 06/14/2023 11:59 AM EDT Patient has been identified by name and date of : Yes Requested Prescriptions Pending Prescriptions Disp Refills traMADol (ULTRAM) 50 mg tablet 60 tablet 0 Sig: Take 1 tablet by mouth two times a day as needed for up to 30 days. KEYSHA:08-09-22 NOV:09-07-23 RX INSTRUCTIONS: Patient aware RX will be sent to pharmacy. No need to notify patient. Judie Singh documented in this encounterOhio[facility]09-18-2023 Miscellaneous Notes* Telephone Encounter - David Reyes LPN - 05/22/2023 5:57 PM EDT Patient phones requesting refills as follows: Requested Prescriptions Pending Prescriptions Disp Refills buPROPion XL (WELLBUTRIN XL) 150 mg 24 hr tablet 30 tablet 5 Sig: Take 1 tablet by mouth once daily. KEYSHA 02/14/23 JOAQUIN NOV 09/07/23 RR Please review and advise. David Reyes LPN documented in this encounterOhiohealth [facility]09-11-2023 Miscellaneous Notes* Telephone Encounter - Justen Darling MD - 05/15/2023 5:30 PM EDT The following approved medication requests have been transmitted electronically. Requested Prescriptions Signed Prescriptions Disp Refills traMADol (ULTRAM) 50 mg tablet 60 tablet 0 Sig: Take 1 tablet by mouth twice daily as needed for up to 30 days. Do not start before May 17, 2023. Authorizing Provider: JUSTEN DARLING MD PDMP website checked and validated. All prescriptions have been APPROPRIATELY filled. No suspiciousactivity was identified. 05/15/2023 by Justen Darling MD * Telephone Encounter - Tatum Hernandez MA - 05/15/2023 10:15 AM EDT Patient has been identified by name and date of : Yes Requested Prescriptions Pending Prescriptions Disp Refills traMADol (ULTRAM) 50 mg tablet 60 tablet 0 Sig: Take 1 tablet by mouth twice daily as needed for up to 30 days. RX INSTRUCTIONS: Patient aware RX will be sent to pharmacy. No need to notify patient. Tatum Hernandez MA Keysha 02/2023Jul 0509/2023 Last refill: 04/17/2023 documented in this encounterOhio[facility]08-11-2023 Miscellaneous Notes* Telephone Encounter - Justen Darling MD - 04/14/2023 1:22 PM EDT The following approved medication requests have been transmitted electronically. Requested Prescriptions Signed Prescriptions Disp Refills traMADol (ULTRAM) 50 mg tablet 60 tablet 0 Sig: Take 1 tablet by mouth twice daily as needed for up to 30 days. Do not start before April. Authorizing Provider: JUSTEN DARLING MD PDMP website checked and validated. All prescriptions have been APPROPRIATELY filled. No suspiciousactivity was identified. 04/14/2023 by Justen Darling MD * Telephone Encounter - María Savage Ma - 04/14/2023 9:46 AM EDT Patient last visit with PCP 02/14/23 Follow up appointment scheduled 09/07/23 María Savage Ma documented in this encounterOhiohealth [facility]07-12-2023 Miscellaneous Notes* Telephone Encounter - Justen Darling MD - 03/15/2023 6:03 PM EDT The following approved medication requests have been transmitted electronically. Requested Prescriptions Signed Prescriptions Disp Refills traMADol (ULTRAM) 50 mg tablet 60 tablet 0 Sig: Take 1 tablet by mouth twice daily as needed for up to 30 days. Do not start before March 18, 2023. Authorizing Provider: JUSTEN DARLING MD PDMP website checked and validated. All prescriptions have been APPROPRIATELY filled. No suspiciousactivity was identified. 03/15/2023 by Justen Darling MD * Telephone Encounter - María Savage Ma - 03/15/2023 5:46 PM EDT Patient last visit with PCP 02/14/23 Follow up appointment scheduled 08/22/23 María Savage Ma documented in this encounterOhio[facility]06-19-2023 Miscellaneous Notes* Telephone Encounter - Lizett Bush LPN - 02/20/2023 1:27 PM EDT Pt notified of Dr Darling's message, verbalizes understanding. States she thought that might be the case. Is not having any sx that are out of the normal for her. Will contact office if anything changes. Lizett Bush LPN * Telephone Encounter - Justen Darling MD - 02/20/2023 12:32 PM EDT Let patient know the urine was collected by the MA the day she was here because she thought I may want a tox screen. I did not so the urine was not tested for anything. If having urinary symptoms then I can place an order to get a urinalysis? * Telephone Encounter - Tatum Hernandez MA - 02/17/2023 11:20 AM EDT Spoke with patient and gave results and instructions. She voiced understanding. She wanted to know how her urine testing was. I did see an order. She said she gave a sample in theoffice?? She did mentioned that she does have frequency; no burning or other sx. Tatum Hernandez MA * Telephone Encounter - Justen Darling MD - 02/16/2023 4:22 PM EDT Let patient know A1c was ok at 6.1%. Electrolytes, liver and kidney functions, Vit A were all ok. Lipid panel was ok except her good chol (HDL) is low at 45 and like to see above 50. Increase exercise can help raise this. documented in this encounterOhiohealth [facility]06-13-2023 Instructions* Patient Instructions* Justen Darling MD - 02/14/2023 10:32 AM EDT Please get labs and urine test done on or after 08/04/2023 prior to your next visit. documented in this encounterOhiohealth [facility]06-13-2023 History of Present illness Narrative* Justen Darling MD - 02/14/2023 9:20 AM EDT Chief Complaint Patient presents with: F/U 6 months HPI Susan Reyes is a 62 year old female who presents here today for 6 month follow up. Office visit - 6 month follow up Patient with hx of DM2, OAB, anemia, anxiety/depression, chronic back pain, HSV, and those as below. Patient overall doing okay. Still having some anxiety but manageable. Has been getting a burning in the skin area in the upper abdomen. No stomach pain. Gets it 3-4 daysa week. Mainly during the day and not being awoken from it. Worse if more active. Suspicion has been this is adhesions from past surgery. Office visit physical 08/09/2022 Patient with hx of DM2, OAB, anemia, anxiety/depression, chronic back pain, HSV, and those as below. Patient overall doing okay. Still having some anxiety. Has had less panic episodes up until last week. She is still working on counseling and is scheduled next week for a holistic style of treatment. Past medical history, appointments, medications, allergies reviewed. Previous Medical History PAST MEDICAL HISTORY Diagnosis Date Absolute anemia 04/28/2015 Had total Gastrectomy due to multiple polyps. Has malabsorption since. Age-related osteoporosis without current pathological fracture Anxiety and depression B12 deficiency 12/18/2014 Cervical dysplasia, moderate Chronic abdominal pain 12/20/2013 Secondary to post surgical adhesions. Takes gabapentin daily and tramadol PRN.. Controlled substance agreement signed 05/16/18, updated 04/13/2021 Chronic constipation 12/20/2013 Controlled type 2 diabetes mellitus without complication, without long-term current use of insulin ([facility]) 04/25/2017 Ophthalmology: [facility] [place]. COVID-19 virus infection 09/15/202109/2021 Disorder of sacrum 07/27/2015 Encounter for diabetic foot exam (HCC) 10/13/2018 Eosinophilic esophagitis 05/11/2016 Family history of thyroid disease 12/29/2021 Two sisters with hypothyroidism and one with Graves Dz. Gastric polyps H/O herpes labialis 08/12/2018 Herpes simplex virus (HSV) infection 05/28/2019 History of colonic polyps 12/17/2014 History of COVID-19 09/15/202109/2021 Infection due to clarithromycin resistant Helicobacter pylori 12/28/202012/2020 Intestinal malabsorption 06/23/2015 Iron deficiency anemia 03/03/2011 Left-sided low back pain without sciatica 04/29/2015 Malabsorption of iron 12/11/2020 Menometrorrhagia 06/30/2011 OAB (overactive bladder) 05/28/2019 Oral lichen planus 12/20/2013 Ovarian cyst, right Pain of both hip joints 10/25/2017 Piriformis syndrome 04/29/2015 Primary insomnia 10/25/2017 Right-sided low back pain without sciatica 08/17/2016 Sarcoidosis Vitamin A deficiency 12/19/2014 Vitamin D deficiency 12/18/2014 Wart of scalp 04/29/2015 Previous Surgical History PAST SURGICAL HISTORY Procedure Laterality Date *STRESS TEST PC 05/11/2017 WNL CHOLECYSTECTOMY COLONOSCOPY 03/30/2005 normal with hemorrhoids COLONOSCOPY 01/07/2010 normal COLONOSCOPY 02/22/2022 COLONOSCOPY FLX DX W/COLLJ SPEC WHEN PFRMD 05/12/2016 Colonoscopy mac 5 year repeat not [address] Tong CONIZATION OF CERVIX LEEP EXCISION EGD 03/24/2005 nonspecific esophagitis EGD 01/05/2010 normal EGD 02/22/2022 EGD 01/20/2021 Normal ESOPHAGOGASTRODUODENOSCOPY TRANSORAL DIAGNOSTIC 02/10/2016 EGD mac PAST SURGICAL HISTORY OF 2002 gastricectomy, with jose daniel en Y resection PAST SURGICAL HISTORY OF iron infusions, Several infusions S BALLOON,UTERINE ABLATION [id number] 08/25/2011 TRANSFUSION Several Trasfusions TUBAL LIGATION, Family History FAMILY HISTORY Problem Relation Age of Onset Diabetes Mother Hypertension Mother Cancer Father lymphatic Emphysema Father Hypothyroidism Sister Hypothyroidism Sister Graves Disease Sister Cancer Brother other (Mennigitis) Brother Colon Cancer Brother middle colon Cancer Brother stomach Heart disease Brother Patient Allergies ALLERGIES Allergen Reactions Iron Dextran Itching Ambien [Zolpidem] Other: See Comments Nightmares. Buspar [Buspirone H* Myalgia Current Medications Current Outpatient Medications on File Prior to Visit Medication Sig tiZANidine (ZANAFLEX) 4 mg tablet Take 1 tablet by mouth twice daily as needed (muscle spasms). traMADol (ULTRAM) 50 mg tablet Take 1 tablet by mouth twice daily as needed for up to 30 days. Do not start before January 14, 2023. cyanocobalamin 1,000 mcg/mL INJECT 1 ML INTRAMUSCULARLY ONCE EVERY WEEK Syringe with Needle, Disp, (BD ECLIPSE LUER-ALIRIO SYRINGE) 1 mL 27 x 1/2" USE TO INJECT ONCE A WEEK use as directed buPROPion XL (WELLBUTRIN XL) 150 mg 24 hr tablet Take 1 tablet by mouth once daily. cholecalciferol, Vitamin D3, (VITAMIN D3) 1,250 mcg (50,000 unit) cap capsule Take 1 capsule by mouth every 3 weeks. gabapentin (NEURONTIN) 100 mg capsule Take one capsule three times a day. citalopram (CELEXA) 40 mg tablet Take 1.5 tablets by mouth once daily. valACYclovir (VALTREX) 1 gram Take 2 tablets by mouth twice daily. For total of 2 doses. ondansetron orally disintegrating (ZOFRAN ODT) 4 mg disintegrating tablet Take 1 tablet by mouth every 8 hours as needed for nausea/vomiting. (Patient not taking: Reported on 07/05/2022) Blood-Glucose Meter monitoring kit Glucose Meter of Choice - Kit - Dx: Type 2 DM - Controlled E11.9 oxybutynin ER (DITROPAN XL) 10 mg 24 hr tablet Take 1 tablet by mouth once daily. blood sugar diagnostic (BLOOD GLUCOSE TEST) test strip Test blood sugar(s) 1 times daily. Dx: Type 2 DM - Controlled E11.9 Insulin: No polyethylene glycol 3350 (MIRALAX, GLYCOLAX) 17 gram/dose powder Take 17 g by mouth once daily. Take one (1) capful in 8oz of liquid each day. ANIMAL SHAPE VITAMINS CHEWABLE TAB takes 2 on occasion No current facility-administered medications on file prior to visit. Social History Social History Tobacco Use Smoking status: Never Smokeless tobacco: Never Vaping Use Vaping Use: Never used Substance Use Topics Alcohol use: No Drug use: No Review of Symptoms REVIEW OF SYSTEMS GENERAL: No weight loss, malaise or fevers NECK: Negative for lumps, goiter, pain and significant neck swelling RESPIRATORY: Negative for cough, hemoptysis, wheezing, COPD, dyspnea or shortness of breath CARDIOVASCULAR: Negative for chest pain, leg swelling, hypertension, CHF or palpitations GI: No nausea, vomiting, or diarrhea and No heartburn or reflux symptoms MUSCULOSKELETAL: see HPI ENDOCRINE: Negative for symptoms of low BS's. Psych: see HPI NEURO: No history of headaches, syncope, paralysis, seizures or tremors EXAM: BP 122/78 Pulse 68 Resp 12 Wt 63 kg (139 lb) LMP 07/31/2011 BMI 25.42 kg/m Last 4 Encounter Wt Readings: Date: Wt: 02/14/2023 63 kg (139 lb) 08/09/2022 60.3 kg (133 lb) 07/05/2022 61.2 kg (135 lb) 02/22/2022 64.4 kg (142 lb) General Appearance: Well appearing, alert, in no acute distress, well-hydrated, well nourished.. Eyes: Anicteric sclera. Pupils are equally round and reactive to light. Extraocular movements are intact. . Neck: Supple, no adenopathy; thyroid symmetric, normal size, no bruits. Lungs: Lungs clear to auscultation. No wheezing, rhonchi, rales.. Heart: RRR without murmur, gallop, or rubs. No ectopy. Abdomen: Normal abdominal exam, Abdomen soft, non-tender. Bowel sounds normal. No masses, organomegaly. Extremities: No deformities, edema, skin discoloration, Good capillary refill. . Peripheral Pulses: Normal. Neurologic: Gait normal. Reflexes normal and symmetric. Sensation to light touch and crainal nerves2-12 intact.. Health Maintenance List SHINGRIX VACCINE(1 of 2) Never done DILATED RETINAL EXAM due on 06/14/2017 MAMMOGRAM due on 07/09/2020 DIABETIC FOOT EXAM due on 12/29/2022 HBA1C due on 01/02/2023 COVID-19 VACCINE(3 - Booster for Pfizer series) due on 08/09/2023 URINE ALBUMIN:CREATININE RATIO due on 07/05/2023 LDL CHOLESTEROL due on 07/05/2023 ANNUAL PCP TEAM CHRONIC DISEASE VISIT due on 08/09/2023 DTAP,TDAP,TD(2 - Td or Tdap) due on 01/17/2024 PAP TESTING due on 07/09/2024 HPV TESTING due on 07/09/2024 PNEUMOCOCCAL(3 - PPSV23 if available, else PCV20) due on 2026 COLORECTAL CANCER SCREENING due on 02/22/2027 INFLUENZA Completed HEPATITIS C SCREENING Completed HIV SCREENING Discontinued Data reviewed Component Latest Ref Rng & Units 07/05/2022 Protein, Total 6.3 - 8.0 g/dL 6.4 Albumin 3.9 - 4.9 g/dL 4.2 Calcium 8.5 - 10.2 mg/dL 9.7 Bilirubin, Total 0.2 - 1.3 mg/dL 0.7 Alkaline Phosphatase 34 - 123 U/L 147 (H) AST 13 - 35 U/L 24 ALT 7 - 38 U/L 17 Glucose 74 - 99 mg/dL 76 BUN 7 - 21 mg/dL 9 Creatinine 0.58 - 0.96 mg/dL 0.83 Sodium 136 - 144 mmol/L 141 Potassium 3.7 - 5.1 mmol/L 4.1 Chloride 97 - 105 mmol/L 104 CO2 22 - 30 mmol/L 27 Anion Gap 9 - 18 mmol/L 10 eGFR >=60 mL/min/1.73m 80 Total Cholesterol, Nonfasting <200 mg/dL 170 Triglycerides, Nonfasting <150 mg/dL 74 HDL Cholesterol, Nonfasting >39 mg/dL 44 LDL Cholesterol, Nonfasting <100 mg/dL 111 (H) Non HDL Cholesterol, Nonfasting <130 mg/dL 126 VLDL Cholesterol, Nonfasting <30 mg/dL 15 Total Chol/HDL Ratio, Nonfasting <5.10 mg/dL 3.86 LDL/HDL Ratio, Nonfasting <2.54 mg/dL 2.52 Iron 41 - 186 ug/dL 88 TIBC 232 - 386 ug/dL 350 Transferrin Saturation 15.0 - 57.0 % 25.1 Hemoglobin A1C 4.3 - 5.6 % 6.0 (H) Estimated Average Glucose mg/dL 126 Vitamin D 25 Hydroxy 31.0 - 80.0 ng/mL 62.4 Zinc 60 - 120 ug/dL 70 TSH 0.270 - 4.200 mIU/L 2.110 A/P ASSESSMENT/PLAN: 1. Controlled type 2 diabetes mellitus without complication, without long-term current use of insulin (HCC) - ICD9: 250.00, ICD10: E11.9 (primary diagnosis) -await labs to see if adjustments needed. - Continue current medications - Counseled on healthy diet and regular exercise Check - COMP METABOLIC PANEL - HGB A1C - LIPID PANEL, NONFASTING 2. Diabetic eye exam (HCC) - ICD9: V72.0, 250.00, ICD10: Z01.00, E11.9 - will get recent report. 3. Anemia, unspecified type - ICD9: 285.9, ICD10: D64.9 - has been stable and will monitor. 4. Iron deficiency anemia, unspecified iron deficiency anemia type - ICD9: 280.9, ICD10: D50.9 - as per #4 5. Eosinophilic esophagitis - ICD9: 530.13, ICD10: K20.0 - seeing gastro 6. Sarcoidosis - ICD9: 135, ICD10: D86.9 - no active issues. Will monitor 7. Anxiety and depression - ICD9: 300.00, 311, ICD10: F41.9, F32.A - stable with current Tx. 8. B12 deficiency - ICD9: 266.2, ICD10: E53.8 - cont replacement 9. Vitamin D deficiency - ICD9: 268.9, ICD10: E55.9 - cont replacement 10. Vitamin A deficiency - ICD9: 264.9, ICD10: E50.9 - cont replacement Check - VITAMIN A/RETINOL 11. Primary insomnia - ICD9: 307.42, ICD10: F51.01 - stable with Tx. 12. OAB (overactive bladder) - ICD9: 596.51, ICD10: N32.81 - stable no changes. 13. Chronic abdominal pain - ICD9: 789.00, 338.29, ICD10: R10.9, G89.29 - will increase the morning Neurontin to 200 mg and keep the afternoon and evening at 100 mg Cont prn - TRAMADOL 50 MG TABLET Substance agreement updated. Requested Prescriptions Signed Prescriptions Disp Refills traMADol (ULTRAM) 50 mg tablet 60 tablet 0 Sig: Take 1 tablet by mouth twice daily as needed for up to 30 days. citalopram (CELEXA) 40 mg tablet 135 tablet 1 Sig: Take 1.5 tablets by mouth once daily. gabapentin (NEURONTIN) 100 mg capsule 360 capsule 1 Sig: Take two capsules in AM and one capsule in after noon and evening F/u 6 months WAE check CMP, Lipid, UA,urine micro albumin, A1c, CBC, Iron, B12, Vit D, Vit A, zinc,Tox screen and pain panel. Justen Darling MD documented in this encounterOhio[facility]06-06-2023 Miscellaneous Notes* Telephone Encounter - Justen Darling MD - 02/07/2023 1:49 PM EDT The following approved medication requests have been transmitted electronically. Requested Prescriptions Signed Prescriptions Disp Refills tiZANidine (ZANAFLEX) 4 mg tablet 60 tablet 5 Sig: Take 1 tablet by mouth twice daily as needed (muscle spasms). Authorizing Provider: JUSTEN DARLING MD * Telephone Encounter - Lennie Sampson LPN - 02/07/2023 1:21 PM EDT Patient has been identified by name and date of : Yes Patient phones for refill(s): Requested Prescriptions Pending Prescriptions Disp Refills tiZANidine (ZANAFLEX) 4 mg tablet 60 tablet 5 Sig: Take 1 tablet by mouth twice daily as needed (muscle spasms). Date of last office visit in primary care: 08/09/2022 Next appointment scheduled 02/14/2023 Please advise. Thank you. Lennie Sampson LPN documented in this encounterOhiohealth [facility]05-11-2023 Miscellaneous Notes* Telephone Encounter - Tatum Hernandez MA - 01/12/2023 9:30 AM EDT Pharmacy notified. Tatum Hernandez MA * Telephone Encounter - Jody Cole PA-C - 01/12/2023 8:51 AM EDT Please let pharmacy know okay to fill 2 days early due to patient's vacation. Jody Cole PA-C documented in this encounterOhiohealth Grady [facility]05-11-2023 Miscellaneous Notes* Telephone Encounter - Tatum Hernandez MA - 01/12/2023 8:31 AM EDT Patient has been identified by name and date of : Yes Requested Prescriptions Pending Prescriptions Disp Refills traMADol (ULTRAM) 50 mg tablet 60 tablet 0 Sig: Take 1 tablet by mouth twice daily as needed for up to 30 days. RX INSTRUCTIONS: Patient aware RX will be sent to pharmacy. No need to notify patient. Tatum Hernandez MA Keysha: 08/2022 Nov: 02/2023 Last refill; 12/17/2022 60 Please is requesting early before her trip. See AdoTubet message. Tatum Hernandez MA documented in this encounterOhiohealth Grady [facility]04-13-2023 Miscellaneous Notes* Telephone Encounter - Justen Darling MD - 12/15/2022 3:40 PM EDT The following approved medication requests have been transmitted electronically. Requested Prescriptions Signed Prescriptions Disp Refills traMADol (ULTRAM) 50 mg tablet 60 tablet 0 Sig: Take 1 tablet by mouth twice daily as needed for up to 30 days. Do not start before December 17, 2022. Authorizing Provider: JUSTEN DARLING MD PDMP website checked and validated. All prescriptions have been APPROPRIATELY filled. No suspiciousactivity was identified. 12/15/2022 by Justen Darling MD * Telephone Encounter - Tatum Hernandez MA - 12/15/2022 10:14 AM EDT Patient has been identified by name and date of : Yes Requested Prescriptions Pending Prescriptions Disp Refills traMADol (ULTRAM) 50 mg tablet 60 tablet 0 Sig: Take 1 tablet by mouth twice daily as needed for up to 30 days. RX INSTRUCTIONS: Patient aware RX will be sent to pharmacy. No need to notify patient. Tatum Hernandez MA Keysha: 08/2022 Nov: 02/2023 Last refill: 11/17/2022 documented in this encounterOhiohealth [facility]03-13-2023 Miscellaneous Notes* Telephone Encounter - Justen Darling MD - 11/14/2022 1:11 PM EDT The following approved medication requests have been transmitted electronically. Requested Prescriptions Signed Prescriptions Disp Refills cyanocobalamin 1,000 mcg/mL 4 mL 4 Sig: INJECT 1 ML INTRAMUSCULARLY ONCE EVERY WEEK Authorizing Provider: JUSTEN DARLING Syringe with Needle, Disp, (BD ECLIPSE LUER-ALIRIO SYRINGE) 1 mL 27 x 1/2" 12 Each 3 Sig: USE TO INJECT ONCE A WEEK use as directed Authorizing Provider: JUSTEN DARLING traMADol (ULTRAM) 50 mg tablet 60 tablet 0 Sig: Take 1 tablet by mouth twice daily as needed for up to 30 days. Do not start before November 17, 2022. Authorizing Provider: JUSTEN DARLING MD PDMP website checked and validated. All prescriptions have been APPROPRIATELY filled. No suspiciousactivity was identified. 11/14/2022 by Justen Darling MD * Telephone Encounter - Tatum Hernandez MA - 11/14/2022 12:35 PM EDT Patient has been identified by name and date of : Yes Requested Prescriptions Pending Prescriptions Disp Refills cyanocobalamin 1,000 mcg/mL 4 mL 4 Sig: INJECT 1 ML INTRAMUSCULARLY ONCE EVERY WEEK Syringe with Needle, Disp, (BD ECLIPSE LUER-ALIRIO SYRINGE) 1 mL 27 x 1/2" 12 Each 3 Sig: USE TO INJECT ONCE A WEEK use as directed RX INSTRUCTIONS: Patient aware RX will be sent to pharmacy. No need to notify patient. Tatum Hernandez MA Keysha: 08/2022 Nov: 02/2023 Last refill; 04/2021 documented in this encounterOhiohealth [facility]02-14-2023 Miscellaneous Notes* Telephone Encounter - Camila Stewart LPN - 10/18/2022 3:33 PM EST Patient has been identified by name and date of : Yes, Provider Dr. Darling Date 10/18/22 Time 3:46 pm Patient phones for refill(s): Requested Prescriptions Pending Prescriptions Disp Refills cholecalciferol, Vitamin D3, (VITAMIN D3) 1,250 mcg (50,000 unit) cap capsule 4 capsule 3 Sig: Take 1 capsule by mouth every 3 weeks. gabapentin (NEURONTIN) 100 mg capsule 90 capsule 3 Sig: Take one capsule three times a day. Date of last office visit in primary care: 08/09/23 next apt 02/14/23 Last 2 Encounter Wt Readings: Date: Wt: 08/09/2022 60.3 kg (133 lb) 07/05/2022 61.2 kg (135 lb) Previous labs/tests for medication: Not applicable Please advise. Thank you. Camila Stewart LPN documented in this encounterOhiohealth [facility]ady [facility]02-14-2023 Miscellaneous Notes* Telephone Encounter - Camila Stewart LPN - 10/18/2022 3:32 PM EST Patient has been identified by name and date of : Yes, Provider Dr. Darling Date 10/18/22 Time 3:33 pm Patient phones for refill(s): Requested Prescriptions Pending Prescriptions Disp Refills buPROPion XL (WELLBUTRIN XL) 150 mg 24 hr tablet 30 tablet 5 Sig: Take 1 tablet by mouth once daily. Date of last office visit in primary care: 08/09/22 next apt 02/14/23 Last 2 Encounter Wt Readings: Date: Wt: 08/09/2022 60.3 kg (133 lb) 07/05/2022 61.2 kg (135 lb) Previous labs/tests for medication: Not applicable Thank you. Camila Stewart LPN documented in this encounterOhiohealth [facility]02-14-2023 Miscellaneous Notes* Telephone Encounter - Carola Bonner LPN - 10/18/2022 7:24 AM EST Pt requesting a refill. KEYSHA: 08/09/22 NOV: 02/14/23 Last Refill: 10/20/22 #60 0 refills Carola Bonner LPN documented in this encounterOhiohealth [facility]ady [facility]02-02-2023 History of Present illness Narrative* Ros Luna, RT(R) - 10/06/2022 8:00 AM EST RADIOLOGY SERVICE PROGRESS NOTE SERVICE DATE: 10/06/2022 SERVICE TIME: 08:00 AM PATIENT IDENTITY VERIFICATION COMPLETED USING TWO (2) STANDARD IDENTIFIERS: Name and Date of confirmed by patient verbally FALL SCREENING: Has the patient had 2 falls in the last year or 1 fall with injury or currently using an Ambulatory Assistive Device (Walker, Cane, Wheelchair, Crutches, etc.)? No PATIENT GENDER DATA: .female : No ALLERGIES: Reviewed and unchanged MEDICATIONS REVIEWED: No PATIENT RELEVANT IMPLANT DATA REVIEWED: Not Applicable CREATININE: Creatinine Date Value Ref Range Status 07/05/2022 0.83 0.58 - 0.96 mg/dL Final 06/29/2021 0.76 0.58 - 0.96 mg/dL Final 12/02/2020 0.86 0.58 - 0.96 mg/dL Final Estimated Glomerular Filtration Rate Date Value Ref Range Status 07/05/2022 80 >=60 mL/min/1.73m Final Comment: Estimated Glomerular Filtration Rate (eGFR) is calculated using the 2020 CKD-EPI creatinine equation. This equation utilizes serum creatinine, sex, and age as parameters. The creatinine assay has traceable calibration to isotope dilution- mass spectrometry. Refer to KDIGO guidelines for clinical interpretation. In patients with unstable renal function, e.g. those with acute kidney injury, the eGFRmay not accurately reflect actual GFR. eGFR- Date Value Ref Range Status 06/29/2021 >60 Final P.O.C.T. RESULTS: N/A October 06, [address] PERFORMED: No IV SITE: Ambulatory: A peripheral IV was started in the Right antecubital site with a Angio cath: 24 gauge. POST EXAM PIV STATUS: Discontinued PROCEDURE TYPE: NM INJECT: Whole Body Bone Scan. 21.3 mCi Tc99m MDP. No other medications given.. ADMINISTRATION TIME: 08:10 PATIENT DISCHARGED TO: Ambulatory patient, left NM department area. A Diagnostic radioactive procedure has taken place, with no further precautions necessary other than routine body substance precautions. More information regarding radiation safety can be found usingthis link: [email or web address] SIGNATURE: RT Steven(R) PATIENT NAME: Susan Reyes DATE: October 06, 2022 TIME: 10:36 AM PAGER/CONTACT #: documented in this encounterOhiohealth Grady [facility]02-02-2023 Miscellaneous Notes* Result Encounter Note - Jody Cole PA-C - 10/06/2022 8:00 AM EST Bone scan looks okay. Evidence of arthritis. documented in this encounterOhiohealth [facility]ady [facility]01-23-2023 Miscellaneous Notes* Telephone Encounter - Carola Bonner LPN - 09/26/2022 3:05 PM EST Pt notified of results & message from provider, pt states understanding. Pt was transferred to corporate scheduler to schedule bone scan. Carola Bonner LPN * Telephone Encounter - Jody Cole PA-C - 09/26/2022 1:09 PM EST Let patient know that her alk phos levels shows elevated bone fraction. Could be a number of causes, but recommend bone scan to make sure nothing more than arthritis related. Jody Cole PA-C documented in this encounterOhiohealth Grady [facility]01-17-2023 Miscellaneous Notes* Telephone Encounter - Jody Cole PA-C - 09/20/2022 8:54 AM EST The following approved medication requests have been transmitted electronically. Requested Prescriptions Signed Prescriptions Disp Refills traMADol (ULTRAM) 50 mg tablet 60 tablet 0 Sig: Take 1 tablet by mouth twice daily as needed for up to 30 days. Authorizing Provider: JODY COLE PA-C * Telephone Encounter - Carola Bonner LPN - 09/20/2022 7:56 AM EST Pt requests refill. KEYSHA: 08/09/22 NOV: 02/14/23 Last Refill: 08/22/22 #60 0 refills Carola Bonner LPN documented in this encounterOhiohealth [facility]12-19-2022 Miscellaneous Notes* Telephone Encounter - Justen Darling MD - 08/22/2022 12:39 PM EST The following approved medication requests have been transmitted electronically. Requested Prescriptions Signed Prescriptions Disp Refills traMADol (ULTRAM) 50 mg tablet 60 tablet 0 Sig: Take 1 tablet by mouth twice daily as needed for up to 30 days. Authorizing Provider: JUSTEN DARLING MD PDMP website checked and validated. All prescriptions have been APPROPRIATELY filled. No suspiciousactivity was identified. 08/22/2022 by Justen Darling MD * Telephone Encounter - Tatum Hernandez MA - 08/22/2022 8:29 AM EST Patient has been identified by name and date of : Yes Requested Prescriptions Pending Prescriptions Disp Refills traMADol (ULTRAM) 50 mg tablet 60 tablet 0 Sig: Take 1 tablet by mouth twice daily as needed for up to 30 days. RX INSTRUCTIONS: Patient aware RX will be sent to pharmacy. No need to notify patient. Tatum Hernandez MA Keysha: 08/2022 Nov: 02/2023 Last refill: 07/2022 documented in this encounterOhiohealth [facility]12-08-2022 Miscellaneous Notes* Telephone Encounter - Pushpa Couch LPN - 08/11/2022 1:56 PM EST Patient returned call and went over results, notes below from Jody RIVERO with understanding. * Telephone Encounter - Lizett Bush LPN - 08/11/2022 1:47 PM EST Left additional message for pt to contact office. Also sent pt a msg to contact office. Lizett Bush LPN * Telephone Encounter - Lizett Bush LPN - 08/09/2022 1:50 PM EST Left message for pt to contact office. Lizett Bush LPN * Telephone Encounter - Jody Cole PA-C - 08/09/2022 1:41 PM EST Let patient know that I missed the mildly elevated alk phos levels on her labs. Would just need repeat in 1 month. Please fast for this one. Jody Cole PA-C documented in this encounterOhiohealth Grady [facility]12-06-2022 Instructions* Patient Instructions* Jody Cole PA-C - 08/09/2022 10:24 AM EST Please get your mammogram and eye exams completed. Follow up in 6 months with labs prior. Return sooner as needed. documented in this encounterOhiohealth Grady [facility]12-06-2022 History of Present illness Narrative* Jody Cole PA-C - 08/09/2022 10:00 AM EST Chief Complaint Patient presents with: Yearly Exam HPI Susan Reyes is a 62 year old female who presents here today for physical. Patient with hx of DM2, OAB, anemia, anxiety/depression, chronic back pain, HSV, and those as below. Patient overall doing okay. Still having some anxiety. Has had less panic episodes up until last week. She is still working on counseling and is scheduled next week for a holistic style of treatment. No other concerns. Past medical history, appointments, medications, allergies reviewed. Previous Medical History PAST MEDICAL HISTORY Diagnosis Date Absolute anemia 04/28/2015 Had total Gastrectomy due to multiple polyps. Has malabsorption since. Age-related osteoporosis without current pathological fracture Anxiety and depression B12 deficiency 12/18/2014 Cervical dysplasia, moderate Chronic abdominal pain 12/20/2013 Chronic constipation 12/20/2013 Controlled type 2 diabetes mellitus without complication, without long-term current use of insulin (HCC) 04/25/2017 Ophthalmology: [facility] [place] COVID-19 virus infection 09/15/202109/2021 Disorder of sacrum 07/27/2015 Encounter for diabetic foot exam (HCC) 10/13/2018 Eosinophilic esophagitis 05/11/2016 Family history of thyroid disease 12/29/2021 Two sisters with hypothyroidism and one with Graves Dz. Gastric polyps H/O herpes labialis 08/12/2018 Herpes simplex virus (HSV) infection 05/28/2019 History of colonic polyps 12/17/2014 History of COVID-19 09/15/202109/2021 Infection due to clarithromycin resistant Helicobacter pylori 12/28/202012/2020 Intestinal malabsorption 06/23/2015 Iron deficiency anemia 03/03/2011 Left-sided low back pain without sciatica 04/29/2015 Malabsorption of iron 12/11/2020 Menometrorrhagia 06/30/2011 OAB (overactive bladder) 05/28/2019 Oral lichen planus 12/20/2013 Ovarian cyst, right Pain of both hip joints 10/25/2017 Piriformis syndrome 04/29/2015 Primary insomnia 10/25/2017 Right-sided low back pain without sciatica 08/17/2016 Sarcoidosis Vitamin A deficiency 12/19/2014 Vitamin D deficiency 12/18/2014 Wart of scalp 04/29/2015 Previous Surgical History PAST SURGICAL HISTORY Procedure Laterality Date *STRESS TEST PC 05/11/2017 WNL CHOLECYSTECTOMY COLONOSCOPY 03/30/2005 normal with hemorrhoids COLONOSCOPY 01/07/2010 normal COLONOSCOPY 02/22/2022 COLONOSCOPY FLX DX W/COLLJ SPEC WHEN PFRMD 05/12/2016 Colonoscopy mac 5 year repeat not [address] Tong CONIZATION OF CERVIX LEEP EXCISION EGD 03/24/2005 nonspecific esophagitis EGD 01/05/2010 normal EGD 02/22/2022 EGD 01/20/2021 Normal ESOPHAGOGASTRODUODENOSCOPY TRANSORAL DIAGNOSTIC 02/10/2016 EGD mac PAST SURGICAL HISTORY OF 2001 gastricectomy, with jose daniel en Y resection PAST SURGICAL HISTORY OF iron infusions, Several infusions S BALLOON,UTERINE ABLATION [id number] 08/25/2011 TRANSFUSION Several Trasfusions TUBAL LIGATION, Family History FAMILY HISTORY Problem Relation Age of Onset Diabetes Mother Hypertension Mother Cancer Father lymphatic Emphysema Father Hypothyroidism Sister Hypothyroidism Sister Graves Disease Sister Cancer Brother other (Mennigitis) Brother Colon Cancer Brother middle colon Cancer Brother stomach Heart disease Brother Patient Allergies ALLERGIES Allergen Reactions Iron Dextran Itching Ambien [Zolpidem] Other: See Comments Nightmares. Buspar [Buspirone H* Myalgia Current Medications Current Outpatient Medications on File Prior to Visit Medication Sig traMADol (ULTRAM) 50 mg tablet Take 1 tablet by mouth twice daily as needed for up to 30 days. Do not start before July 23, 2022. valACYclovir (VALTREX) 1 gram Take 2 tablets by mouth twice daily. For total of 2 doses. tiZANidine (ZANAFLEX) 4 mg tablet Take 1 tablet by mouth twice daily as needed (muscle spasms). buPROPion XL (WELLBUTRIN XL) 150 mg 24 hr tablet Take 1 tablet by mouth once daily. gabapentin (NEURONTIN) 100 mg capsule Take one capsule three times a day. citalopram (CELEXA) 40 mg tablet Take 1.5 tablets by mouth once daily. cholecalciferol, Vitamin D3, (VITAMIN D3) 1,250 mcg (50,000 unit) cap capsule Take 1 capsule by mouth every 3 weeks. Blood-Glucose Meter monitoring kit Glucose Meter of Choice - Kit - Dx: Type 2 DM - Controlled E11.9 cyanocobalamin 1,000 mcg/mL INJECT 1 ML INTRAMUSCULARLY ONCE EVERY WEEK blood sugar diagnostic (BLOOD GLUCOSE TEST) test strip Test blood sugar(s) 1 times daily. Dx: Type 2 DM - Controlled E11.9 Insulin: No Syringe with Needle, Disp, (BD ECLIPSE LUER-ALIRIO SYRINGE) 1 mL 27 x 1/2" USE TO INJECT ONCE A WEEK use as directed polyethylene glycol 3350 (MIRALAX, GLYCOLAX) 17 gram/dose powder Take 17 g by mouth once daily. Take one (1) capful in 8oz of liquid each day. ANIMAL SHAPE VITAMINS CHEWABLE TAB takes 2 on occasion ondansetron orally disintegrating (ZOFRAN ODT) 4 mg disintegrating tablet Take 1 tablet by mouth every 8 hours as needed for nausea/vomiting. (Patient not taking: Reported on 07/05/2022) oxybutynin ER (DITROPAN XL) 10 mg 24 hr tablet Take 1 tablet by mouth once daily. No current facility-administered medications on file prior to visit. Social History Social History Tobacco Use Smoking status: Never Smokeless tobacco: Never Vaping Use Vaping Use: Never used Substance Use Topics Alcohol use: No Drug use: No Review of Symptoms REVIEW OF SYSTEMS GENERAL: No weight loss, malaise or fevers HEENT: No changes in hearing or vision, no nose bleeds or other nasal problems NECK: Negative for lumps, goiter, pain and significant neck swelling RESPIRATORY: Negative for cough, hemoptysis, wheezing, COPD, dyspnea or shortness of breath CARDIOVASCULAR: Negative for chest pain, leg swelling, hypertension, CHF or palpitations GI: Negative for abdominal discomfort, blood in stools or black stools, change in bowel habit, heart burn, nausea, vomiting : No history of dysuria, frequency or incontinence DIRECTOR DECISION SUPPORT: Negative for abnormal vaginal bleeding, abnormal vaginal discharge MUSCULOSKELETAL: Negative for joint pain or swelling, back pain or muscle pain SKIN: Negative for lesions, rash, and itching PSYCH: see HPI HEMATOLOGY/LYMPHOLOGY: Negative for prolonged bleeding, bruising easily or swollen nodes ENDOCRINE: Negative for cold or heat intolerance, polyuria, polydipsia and goiter NEURO: No history of headaches, syncope, paralysis, seizures or tremors EXAM: BP 102/62 (BP Site: Left Arm, BP Position: Sitting, BP Cuff Size: Large Adult) Pulse 80 Temp 36.3 C (97.4 F) Resp 16 Ht 157.5 cm (5' 2.01") Wt 60.3 kg (133 lb) LMP 07/31/2011 BMI 24.32 kg/m General Appearance: Well appearing, alert, in no acute distress, well-hydrated, well nourished.. Skin: Skin color, texture, turgor normal, no suspicious rashes or lesions. Head: Normocephalic, no masses, lesions, tenderness or abnormalities. Eyes: Anicteric sclera. Pupils are equally round and reactive to light. Extraocular movements are intact. . Ears: External ears normal, canals clear. Neck: Supple, no adenopathy; thyroid symmetric, normal size, no bruits. Lungs: Lungs clear to auscultation. No wheezing, rhonchi, rales.. Heart: RRR without murmur, gallop, or rubs. No ectopy. Abdomen: Normal abdominal exam, Abdomen soft, non-tender. Bowel sounds normal. No masses, organomegaly. Extremities: No deformities, edema, skin discoloration, clubbing or cyanosis. Good capillary refill. . Musculoskeletal: No joint swelling, deformity, or tenderness. Peripheral Pulses: Normal. Neurologic: Gait normal. Reflexes normal and symmetric. Sensation grossly intact.. Health Maintenance List SHINGRIX VACCINE(1 of 2) Never done DILATED RETINAL EXAM due on 06/14/2017 MAMMOGRAM due on 07/09/2020 COVID-19 VACCINE(3 - Booster for Pfizer series) due on 06/29/2021 DIABETIC FOOT EXAM due on 12/29/2022 HBA1C due on 01/02/2023 URINE ALBUMIN:CREATININE RATIO due on 07/05/2023 LDL CHOLESTEROL due on 07/05/2023 ANNUAL PCP TEAM CHRONIC DISEASE VISIT due on 07/05/2023 DTAP,TDAP,TD(2 - Td or Tdap) due on 01/17/2024 PAP TESTING due on 07/09/2024 HPV TESTING due on 07/09/2024 PNEUMOCOCCAL(3 - PPSV23 if available, else PCV20) due on 2026 COLORECTAL CANCER SCREENING due on 02/22/2027 INFLUENZA Completed HEPATITIS C SCREENING Completed HIV SCREENING Discontinued Data reviewed Component Latest Ref Rng & Units 07/05/2022 WBC 3.70 - 11.00 k/uL 5.65 RBC 3.90 - 5.20 m/uL 4.38 Hemoglobin 11.5 - 15.5 g/dL 13.1 Hematocrit 36.0 - 46.0 % 41.6 MCV 80.0 - 100.0 fL 95.0 MCH 26.0 - 34.0 pg 29.9 MCHC 30.5 - 36.0 g/dL 31.5 RDW-CV 11.5 - 15.0 % 13.0 Platelet Count 150 - 400 k/uL 248 MPV 9.0 - 12.7 fL 11.7 Neut% % 54.4 Abs Neut (ANC) 1.45 - 7.50 k/uL 3.07 Lymph% % 32.7 Abs Lymph 1.00 - 4.00 k/uL 1.85 [place]% % 9.0 Abs [place] <0.87 k/uL 0.51 Eosin% % 2.5 Abs Eosin <0.46 k/uL 0.14 Baso% % 1.2 Abs Baso <0.11 k/uL 0.07 Immature Gran % % 0.2 IMMATURE GRANS (ABS) <0.10 k/uL <0.03 NRBC /100 WBC 0.0 Absolute nRBC <0.01 k/uL <0.01 DTYPE Auto Protein, Total 6.3 - 8.0 g/dL 6.4 Albumin 3.9 - 4.9 g/dL 4.2 Calcium 8.5 - 10.2 mg/dL 9.7 Bilirubin, Total 0.2 - 1.3 mg/dL 0.7 Alkaline Phosphatase 34 - 123 U/L 147 (H) AST 13 - 35 U/L 24 ALT 7 - 38 U/L 17 Glucose 74 - 99 mg/dL 76 BUN 7 - 21 mg/dL 9 Creatinine 0.58 - 0.96 mg/dL 0.83 Sodium 136 - 144 mmol/L 141 Potassium 3.7 - 5.1 mmol/L 4.1 Chloride 97 - 105 mmol/L 104 CO2 22 - 30 mmol/L 27 Anion Gap 9 - 18 mmol/L 10 eGFR >=60 mL/min/1.73m 80 Color Yellow Light Yellow Clarity Clear Clear Glucose, Urine Negative Negative Bilirubin, Urine Negative Negative Ketones, Urine Negative Negative Specific [place], Ur 1.005 - 1.030 1.009 Hemoglobin/Blood,Ur Negative Negative pH, Urine 5.0 - 8.0 6.5 Protein, Urine Negative Negative Urobilinogen Negative Negative Nitrites Negative Negative Leukest Negative Negative WBC, Urine 0-5 /HPF 0-5 /HPF RBC, Urine 0-3 /HPF 0-3 /HPF Epithelial Cells /HPF Few Total Cholesterol, Nonfasting <200 mg/dL 170 Triglycerides, Nonfasting <150 mg/dL 74 HDL Cholesterol, Nonfasting >39 mg/dL 44 LDL Cholesterol, Nonfasting <100 mg/dL 111 (H) Non HDL Cholesterol, Nonfasting <130 mg/dL 126 VLDL Cholesterol, Nonfasting <30 mg/dL 15 Total Chol/HDL Ratio, Nonfasting <5.10 mg/dL 3.86 LDL/HDL Ratio, Nonfasting <2.54 mg/dL 2.52 Creatinine, Ur Random (UCRR) 20.0 - 300.0 mg/dL 54.3 Albumin, Urine Random mg/L <12.0 Albumin/Creat Ratio <30 mg/g <22 Iron 41 - 186 ug/dL 88 TIBC 232 - 386 ug/dL 350 Transferrin Saturation 15.0 - 57.0 % 25.1 Hemoglobin A1C 4.3 - 5.6 % 6.0 (H) Estimated Average Glucose mg/dL 126 Vitamin A 0.30 - 1.20 mg/L 0.27 (L) Vitamin B12 232 - 1,245 pg/mL 474 Vitamin D 25 Hydroxy 31.0 - 80.0 ng/mL 62.4 Zinc 60 - 120 ug/dL 70 TSH 0.270 - 4.200 mIU/L 2.110 ASSESSMENT/PLAN: 1. Well adult exam - ICD9: V70.0, ICD10: Z00.00 (primary diagnosis) - Counseled on healthy diet and regular exercise - Calcium intake with supplements or by diet of 1000 mg/day for under 50, 1200- 1500 mg/day for 50+ 2. Anxiety and depression - ICD9: 300.00, 311, ICD10: F41.9, F32.A Stable. Okay for another refill of prn ativan. Further refills will need to be discussed - CITALOPRAM 40 MG TABLET 3. Panic disorder - ICD9: 300.01, ICD10: F41.0 As above - LORAZEPAM 1 MG TABLET 4. Situational anxiety - ICD9: 300.09, ICD10: F41.8 As above - LORAZEPAM 1 MG TABLET 5. Grief reaction - ICD9: 309.0, ICD10: F43.21 As above - LORAZEPAM 1 MG TABLET 6. Controlled type 2 diabetes mellitus without complication, without long-term current use of insulin (HCC) - ICD9: 250.00, ICD10: E11.9 Controlled. - Continue current medications - BP goal of <130/80 - LDL goal of <100 - HGB A1C - BASIC METABOLIC PNL 7. Elevated LDL cholesterol level - ICD9: 272.0, ICD10: E78.00 Mildly elevated. Watch diet - LIPID PANEL, NONFASTING 8. Vitamin A deficiency - ICD9: 264.9, ICD10: E50.9 Will monitor - VITAMIN A/RETINOL 9. Vitamin D deficiency - ICD9: 268.9, ICD10: E55.9 10. Other specified intestinal malabsorption - ICD9: 579.8, ICD10: K90.89 11. Chronic constipation - ICD9: 564.00, ICD10: K59.09 stable 12. Eosinophilic esophagitis - ICD9: 530.13, ICD10: K20.0 stable 13. Primary insomnia - ICD9: 307.42, ICD10: F51.01 Stable. Jody Cole PA-C documented in this encounterOhio[facility]11-17-2022 Miscellaneous Notes* Telephone Encounter - Jody Cole PA-C - 07/21/2022 2:37 PM EST The following approved medication requests have been transmitted electronically. Requested Prescriptions Signed Prescriptions Disp Refills traMADol (ULTRAM) 50 mg tablet 60 tablet 0 Sig: Take 1 tablet by mouth twice daily as needed for up to 30 days. Do not start before July 23, 2022. Authorizing Provider: JODY COLE PA-C * Telephone Encounter - Miranda Boone Ma - 07/21/2022 1:56 PM EST Last office visit: 07/05/22 F/u scheduled: 08/09/22 Last refilled on: Tramadol #60 with 0 refill on 06/25/22 Miranda Boone Ma documented in this encounterOhio[facility]11-01-2022 History of Present illness Narrative* Jody Cole PA-C - 07/05/2022 10:17 AM EDT Chief Complaint Patient presents with: Anxiety HPI Susan Reyes is a 62 year old female who presents here today for Above Complaints.. Patient's mother in law in April from GI hemorrhage in her home. Patient went to check on her and found her in her home. She has been really struggling with this and the guilt that she should of checked on her sooner. And also the thought of what she may have gone through in her last minutes. Now they are continuing to try to clean the home and prepare to sell. And the whole process is veryoverwhelming. She is having more anxiety and depressive symptoms. Really struggling with the guilt aspect. She is going to counseling at her faith. Past medical history, appointments, medications, allergies reviewed. Previous Medical History PAST MEDICAL HISTORY Diagnosis Date Absolute anemia 04/28/2015 Had total Gastrectomy due to multiple polyps. Has malabsorption since. Age-related osteoporosis without current pathological fracture Anxiety and depression B12 deficiency 12/18/2014 Cervical dysplasia, moderate Chronic abdominal pain 12/20/2013 Chronic constipation 12/20/2013 Controlled type 2 diabetes mellitus without complication, without long-term current use of insulin (HCC) 04/25/2017 [facility] [place] COVID-19 virus infection 09/15/202109/2021 Disorder of sacrum 07/27/2015 Encounter for diabetic foot exam (HCC) 10/13/2018 Eosinophilic esophagitis 05/11/2016 Family history of thyroid disease 12/29/2021 Two sisters with hypothyroidism and one with Graves Dz. Gastric polyps H/O herpes labialis 08/12/2018 Herpes simplex virus (HSV) infection 05/28/2019 History of colonic polyps 12/17/2014 History of COVID-19 09/15/202109/2021 Infection due to clarithromycin resistant Helicobacter pylori 12/28/202012/2020 Intestinal malabsorption 06/23/2015 Iron deficiency anemia 03/03/2011 Left-sided low back pain without sciatica 04/29/2015 Malabsorption of iron 12/11/2020 Menometrorrhagia 06/30/2011 OAB (overactive bladder) 05/28/2019 Oral lichen planus 12/20/2013 Ovarian cyst, right Pain of both hip joints 10/25/2017 Piriformis syndrome 04/29/2015 Primary insomnia 10/25/2017 Right-sided low back pain without sciatica 08/17/2016 Sarcoidosis Vitamin A deficiency 12/19/2014 Vitamin D deficiency 12/18/2014 Wart of scalp 04/29/2015 Previous Surgical History PAST SURGICAL HISTORY Procedure Laterality Date *STRESS TEST PC 05/11/2017 WNL CHOLECYSTECTOMY COLONOSCOPY 03/30/2005 normal with hemorrhoids COLONOSCOPY 01/07/2010 normal COLONOSCOPY 02/22/2022 COLONOSCOPY FLX DX W/COLLJ SPEC WHEN PFRMD 05/12/2016 Colonoscopy mac 5 year repeat not [address] Tong CONIZATION OF CERVIX LEEP EXCISION EGD 03/24/2005 nonspecific esophagitis EGD 01/05/2010 normal EGD 02/22/2022 EGD 01/20/2021 Normal ESOPHAGOGASTRODUODENOSCOPY TRANSORAL DIAGNOSTIC 02/10/2016 EGD mac PAST SURGICAL HISTORY OF 2001 gastricectomy, with jose daniel en Y resection PAST SURGICAL HISTORY OF iron infusions, Several infusions S BALLOON,UTERINE ABLATION [id number] 08/25/2011 TRANSFUSION Several Trasfusions TUBAL LIGATION, Family History FAMILY HISTORY Problem Relation Age of Onset Diabetes Mother Hypertension Mother Cancer Father lymphatic Emphysema Father Hypothyroidism Sister Hypothyroidism Sister Graves Disease Sister Cancer Brother other (Mennigitis) Brother Colon Cancer Brother middle colon Cancer Brother stomach Heart disease Brother Patient Allergies ALLERGIES Allergen Reactions Iron Dextran Itching Ambien [Zolpidem] Other: See Comments Nightmares. Buspar [Buspirone H* Myalgia Current Medications Current Outpatient Medications on File Prior to Visit Medication Sig buPROPion XL (WELLBUTRIN XL) 150 mg 24 hr tablet Take 1 tablet by mouth once daily. traMADol (ULTRAM) 50 mg tablet Take 1 tablet by mouth twice daily as needed for up to 30 days. Do not start before June 25, 2022. gabapentin (NEURONTIN) 100 mg capsule Take one capsule three times a day. citalopram (CELEXA) 40 mg tablet Take 1.5 tablets by mouth once daily. tiZANidine (ZANAFLEX) 4 mg tablet Take 1 tablet by mouth twice daily as needed (muscle spasms). cholecalciferol, Vitamin D3, (VITAMIN D3) 1,250 mcg (50,000 unit) cap capsule Take 1 capsule by mouth every 3 weeks. Blood-Glucose Meter monitoring kit Glucose Meter of Choice - Kit - Dx: Type 2 DM - Controlled E11.9 cyanocobalamin 1,000 mcg/mL INJECT 1 ML INTRAMUSCULARLY ONCE EVERY WEEK blood sugar diagnostic (BLOOD GLUCOSE TEST) test strip Test blood sugar(s) 1 times daily. Dx: Type 2 DM - Controlled E11.9 Insulin: No Syringe with Needle, Disp, (BD ECLIPSE LUER-ALIRIO SYRINGE) 1 mL 27 x 1/2" USE TO INJECT ONCE A WEEK use as directed valACYclovir (VALTREX) 1 gram Take 2 tablets by mouth twice daily. For total of 2 doses. polyethylene glycol 3350 (MIRALAX, GLYCOLAX) 17 gram/dose powder Take 17 g by mouth once daily. Take one (1) capful in 8oz of liquid each day. ANIMAL SHAPE VITAMINS CHEWABLE TAB takes 2 on occasion ondansetron orally disintegrating (ZOFRAN ODT) 4 mg disintegrating tablet Take 1 tablet by mouth every 8 hours as needed for nausea/vomiting. (Patient not taking: Reported on 07/05/2022) oxybutynin ER (DITROPAN XL) 10 mg 24 hr tablet Take 1 tablet by mouth once daily. No current facility-administered medications on file prior to visit. Social History Social History Tobacco Use Smoking status: Never Smokeless tobacco: Never Vaping Use Vaping Use: Never used Substance Use Topics Alcohol use: No Drug use: No Review of Symptoms REVIEW OF SYSTEMS As HPI EXAM: BP 120/78 (BP Site: Left Arm, BP Position: Sitting, BP Cuff Size: Regular Adult) Pulse 72 Temp 36.5 C (97.7 F) Resp 16 Wt 61.2 kg (135 lb) LMP 07/31/2011 BMI 24.69 kg/m General Appearance: Well appearing, alert, in no acute distress, well-hydrated, well nourished.. PSYCH: Appearance: well dressed well groomed, cooperative, and pleasant Behavior: good eye contact Speech: normal and fluent and coherent Mood: anxious Affect: appropriate Perceptions: none Thought process: perseverative Thought Content: normal Intelligence level: normal Insight: fair Judgment: fair . Health Maintenance List SHINGRIX VACCINE(1 of 2) Never done DILATED RETINAL EXAM due on 06/14/2017 MAMMOGRAM due on 07/09/2020 COVID-19 VACCINE(3 - Booster for Pfizer series) due on 06/29/2021 INFLUENZA(1) due on 05/05/2022 HBA1C due on 06/30/2022 URINE ALBUMIN:CREATININE RATIO due on 06/29/2022 LDL CHOLESTEROL due on 12/29/2022 DIABETIC FOOT EXAM due on 12/29/2022 ANNUAL PCP TEAM CHRONIC DISEASE VISIT due on 12/29/2022 DTAP,TDAP,TD(2 - Td or Tdap) due on 01/17/2024 PAP TESTING due on 07/09/2024 HPV TESTING due on 07/09/2024 PNEUMOCOCCAL(3 - PPSV23 if available, else PCV20) due on 2026 COLORECTAL CANCER SCREENING due on 02/22/2027 HEPATITIS C SCREENING Completed HIV SCREENING Discontinued Data reviewed ASSESSMENT/PLAN: 1. Panic disorder - ICD9: 300.01, ICD10: F41.0 (primary diagnosis) Prn ativan given. Follow up in 1 month - LORAZEPAM 1 MG TABLET 2. Situational anxiety - ICD9: 300.09, ICD10: F41.8 As above - LORAZEPAM 1 MG TABLET 3. Grief reaction - ICD9: 309.0, ICD10: F43.21 As above - LORAZEPAM 1 MG TABLET 4. Herpes simplex virus (HSV) infection - ICD9: 054.9, ICD10: B00.9 - VALACYCLOVIR 1 GRAM TABLET 5. Encounter for immunization - ICD9: V03.89, ICD10: Z23 - INFLUENZA VACCINE QUADRIVALENT 6 MO - 64 YRS IM Jody Cole PA-C documented in this encounterOhio[facility]10-21-2022 Miscellaneous Notes* Telephone Encounter - Justen Darling MD - 06/24/2022 6:38 PM EDT The following approved medication requests have been transmitted electronically. Requested Prescriptions Signed Prescriptions Disp Refills buPROPion XL (WELLBUTRIN XL) 150 mg 24 hr tablet 30 tablet 5 Sig: Take 1 tablet by mouth once daily. Authorizing Provider: JUSTEN DARLING MD * Telephone Encounter - Tatum Hernandez MA - 06/24/2022 5:18 PM EDT Patient has been identified by name and date of : Yes Requested Prescriptions Pending Prescriptions Disp Refills buPROPion XL (WELLBUTRIN XL) 150 mg 24 hr tablet 30 tablet 5 Sig: Take 1 tablet by mouth once daily. RX INSTRUCTIONS: Patient aware RX will be sent to pharmacy. No need to notify patient. Tatum Hernandez MA Keysha: 12/2021 Nov: 07/2022 Last refill: 12/2021 documented in this encounterOhio[facility]10-20-2022 Miscellaneous Notes* Telephone Encounter - Justen Darling MD - 06/23/2022 11:16 PM EDT The following approved medication requests have been transmitted electronically. Requested Prescriptions Signed Prescriptions Disp Refills traMADol (ULTRAM) 50 mg tablet 60 tablet 0 Sig: Take 1 tablet by mouth twice daily as needed for up to 30 days. Do not start before June 25, 2022. Authorizing Provider: JUSTEN DARLING MD PDMP website checked and validated. All prescriptions have been APPROPRIATELY filled. No suspiciousactivity was identified. 06/23/2022 by Justen Darling MD * Telephone Encounter - Lennie Sampson LPN - 06/23/2022 3:54 PM EDT Patient has been identified by name and date of : Yes Patient phones for refill(s): Requested Prescriptions Pending Prescriptions Disp Refills traMADol (ULTRAM) 50 mg tablet 60 tablet 0 Sig: Take 1 tablet by mouth twice daily as needed for up to 30 days. Date of last office visit in primary care: 12/29/21 Please advise. Thank you. Lennie Sampson LPN documented in this encounterOhio[facility]09-19-2022 Miscellaneous Notes* Telephone Encounter - Justen Darling MD - 05/23/2022 1:54 PM EDT The following approved medication requests have been transmitted electronically. Requested Prescriptions Signed Prescriptions Disp Refills traMADol (ULTRAM) 50 mg tablet 60 tablet 0 Sig: Take 1 tablet by mouth twice daily as needed for up to 30 days. Do not start before May 26, 2022. Authorizing Provider: JUSTEN DARLING MD PDMP website checked and validated. All prescriptions have been APPROPRIATELY filled. No suspiciousactivity was identified. 05/23/2022 by Justen Darling MD * Telephone Encounter - Tatum Hernandez MA - 05/23/2022 7:52 AM EDT Patient has been identified by name and date of : Yes Requested Prescriptions Pending Prescriptions Disp Refills traMADol (ULTRAM) 50 mg tablet 60 tablet 0 Sig: Take 1 tablet by mouth twice daily as needed for up to 30 days. RX INSTRUCTIONS: Patient aware RX will be sent to pharmacy. No need to notify patient. Tatum Hernandez MA Keysha: 12/2021 Nov: 07/2022 Last refill: 04/2022 documented in this encounterOhio[facility]08-22-2022 Miscellaneous Notes* Telephone Encounter - Justen Darling MD - 04/25/2022 10:19 PM EDT This is a duplicate request and already addressed today * Telephone Encounter - Jihan Workman MA - 04/25/2022 12:43 PM EDT RX INSTRUCTIONS: Patient aware RX will be sent to pharmacy. No need to notify patient. Last OV: 12/29/21 with PCP Last refill: 03/25/22 With 60 and 0 refills Last oarrs report completed: PLEASE REVIEW ON EPIC Follow up: 07/05/22-physical with RR Jihan Workman MA documented in this encounterOhiohealth [facility]08-22-2022 Miscellaneous Notes* Telephone Encounter - Justen Darling MD - 04/25/2022 5:39 PM EDT The following approved medication requests have been transmitted electronically. Requested Prescriptions Signed Prescriptions Disp Refills traMADol (ULTRAM) 50 mg tablet 60 tablet 0 Sig: Take 1 tablet by mouth twice daily as needed for up to 30 days. Authorizing Provider: JUSTEN DARLING MD PDMP website checked and validated. All prescriptions have been APPROPRIATELY filled. No suspiciousactivity was identified. 04/25/2022 by Justen Darling MD * Telephone Encounter - Tatum Hernandez MA - 04/25/2022 9:03 AM EDT Patient has been identified by name and date of : Yes Requested Prescriptions Pending Prescriptions Disp Refills traMADol (ULTRAM) 50 mg tablet 60 tablet 0 Sig: Take 1 tablet by mouth twice daily as needed for up to 30 days. RX INSTRUCTIONS: Patient aware RX will be sent to pharmacy. No need to notify patient. Tatum Hernandez MA Keysha: 12/2021 Nov: 07/2022 Last refill: 03/2022 documented in this encounterOhio[facility]07-22-2022 Miscellaneous Notes* Telephone Encounter - Rebekah Garcia LPN - 03/25/2022 12:51 PM EDT Patient phones requesting refills as follows: Pending Prescriptions Disp Refills TRAMADOL 50 MG TABLET 60 tablet 0 Sig: Take 1 tablet by mouth twice daily as needed for up to 30 days. MARYA Class: C-IV DARIUS: No KEYSHA-12/29/21 Labs-12/29/21 NOV-07/05/22 med filled 02/23/22 ends03/25/22 Please review and advise. Rebekah Garcia LPN documented in this encounterOhiohealth [facility]06-28-2022 Miscellaneous Notes* Telephone Encounter - Lizett Bush LPN - 03/01/2022 12:27 PM EDT Last refill 12/29/21 Qty: 90 with 1 refill KEYSHA 12/29/21 NOV 07/05/22 Lizett Bush LPN documented in this encounterOhio[facility]06-22-2022 Miscellaneous Notes* Telephone Encounter - Jody Cole PA-C - 02/23/2022 2:17 PM EDT The following approved medication requests have been transmitted electronically. Signed Prescriptions Disp Refills traMADol (ULTRAM) 50 mg tablet 60 tablet 0 Sig: Take 1 tablet by mouth twice daily as needed for up to 30 days. MARYA Class: C-IV DARIUS: No Authorizing Provider: JODY COLE PA-C * Telephone Encounter - Rebekah Garcia LPN - 02/23/2022 2:11 PM EDT Patient phones requesting refills as follows: Pending Prescriptions Disp Refills TRAMADOL 50 MG TABLET 60 tablet 0 Sig: Take 1 tablet by mouth twice daily as needed for up to 30 days. MARYA Class: C-IV DARIUS: No KEYSHA-12/29/21 Labs-12/29/21 NOV-07/05/22 med filled 01/28/22 ends 02/27/22 Please review and advise. Rebekah Garcia LPN documented in this encounterOhio[facility]-15-[facility]22 Miscellaneous Notes* Telephone Encounter - María Savage Ma - 02/16/2022 2:02 PM EDT Images from the original note were not included. María Savage Ma * Telephone Encounter - María Savage Ma - 02/15/2022 12:03 PM EDT Prior Authorization has been completed online at [email or web address] for Citalopram, will await response. [id number] Please keep encounter open until final decision has been received and documented from insurance company. María Savage MA documented in this encounterOhiohealth [facility]05-25-2022 Instructions* Patient Instructions* Airam Grubbs APRN.CNP - 01/26/2022 11:58 AM EDT Your procedure will be at [place] - They will call you to set up a date and time Contact your PCP for instructions regarding diabetic medication, which may require adjustment during bowel preparation and/or day of procedure. Follow the provided instructions for colonoscopy. You will be using Miralax as the laxative during the preparation. You may start the laxative as early as 1:00 in the afternoon. The endoscopy staff will call you the day before the procedure with specific on arrival time. (Monday for Monday procedures). documented in this encounterOhiohealth [facility]05-25-2022 History of Present illness Narrative* Airam Grubbs APRN.CNP - 01/26/2022 11:30 AM EDT VIRTUAL VISIT FOLLOW UP I had a virtual visit with Ms. Reyes who has a past medical history of H pylori (2020) DM-2, vitamin D deficiency, anemia, anxiety and depression, vitamin B12 deficiency, insomnia, chronic abdominal pain from adhesions. Anemia likely from gastrectomy with Jose Daniel-en-Y d/t gastric polyps. History of iron transfusions. Today for follow up of change in bowels. Family history of colon cancer in brother diagnosed at 40 years. He brother at 5 years old if stomach cancer. Last Colonoscopy 02/10/2016: Normal colonoscopy no specimens were collected Last EGD 01/20/2021: Impression: Tortuous esophagus. - Jose Daniel-en-Y gastrojejunostomy with gastrojejunal anastomosis characterized by healthy appearing mucosa. No specimens collected. FINAL DIAGNOSIS "Stomach," biopsy: Small intestinal mucosa with no significant pathologic abnormality. UPDATED HISTORY: Patient suffers from chronic abdominal pain due to adhesions from previous abdominal surgeries in the past. She takes tramadol 50 mg twice a day and gabapentin twice a day to help control her symptoms. She reports having abdominal pain with any kind of food intake - She reports cramping sensation under LUQ - she reports she is feeling bloated.She reports of gurgling bloating and feeling full fast -She reports if she eats something solid it sticking in her throat. She reports this has been ongoing for many years since 2002 Jose Daniel-en-Y gastrectomy. She also reports having a change in stools. She denies black stools. She reports having mucus stools.Deneis unintentional weight loss, fever or chills. DEnies BRBPR. She reports in the past took Bentyl to help with swallowing- she was on this for many years she thinks it was causing sores in her mouth. CT ABD/PEL 12/29/2020: IMPRESSION: No suspicious mass or adenopathy within the abdomen or pelvis. Considerably stool-filled colon PAST MEDICAL HISTORY Diagnosis Date Absolute anemia 04/28/2015 Had total Gastrectomy due to multiple polyps. Has malabsorption since. Age-related osteoporosis without current pathological fracture Anxiety and depression B12 deficiency 12/18/2014 Cervical dysplasia, moderate Chronic abdominal pain 12/20/2013 Chronic constipation 12/20/2013 Controlled type 2 diabetes mellitus without complication, without long-term current use of insulin (HCC) 04/25/2017 [facility] COVID-19 virus infection 09/15/202109/2021 Disorder of sacrum 07/27/2015 Encounter for diabetic foot exam (HCC) 10/13/2018 Eosinophilic esophagitis 05/11/2016 Family history of thyroid disease 12/29/2021 Two sisters with hypothyroidism and one with Graves Dz. Gastric polyps H/O herpes labialis 08/12/2018 Herpes simplex virus (HSV) infection 05/28/2019 History of colonic polyps 12/17/2014 History of COVID-19 09/15/202109/2021 Infection due to clarithromycin resistant Helicobacter pylori 12/28/202012/2020 Intestinal malabsorption 06/23/2015 Iron deficiency anemia 03/03/2011 Left-sided low back pain without sciatica 04/29/2015 Malabsorption of iron 12/11/2020 Menometrorrhagia 06/30/2011 OAB (overactive bladder) 05/28/2019 Oral lichen planus 12/20/2013 Ovarian cyst, right Pain of both hip joints 10/25/2017 Piriformis syndrome 04/29/2015 Primary insomnia 10/25/2017 Right-sided low back pain without sciatica 08/17/2016 Sarcoidosis Vitamin A deficiency 12/19/2014 Vitamin D deficiency 12/18/2014 Wart of scalp 04/29/2015 PAST SURGICAL HISTORY Procedure Laterality Date *STRESS TEST PC 05/11/2017 WNL CHOLECYSTECTOMY COLONOSCOPY 03/30/05 normal with hemorrhoids COLONOSCOPY 01/07/10 normal COLONOSCOPY FLX DX W/COLLJ SPEC WHEN PFRMD 05/12/2016 Colonoscopy mac 5 year repeat not [address] Tong CONIZATION OF CERVIX LEEP EXCISION EGD 03/24/05 nonspecific esophagitis EGD 01/05/10 normal ESOPHAGOGASTRODUODENOSCOPY TRANSORAL DIAGNOSTIC 02/10/2016 EGD mac PAST SURGICAL HISTORY OF 2002 gastricectomy, with jose daniel en Y resection PAST SURGICAL HISTORY OF iron infusions, Several infusions S BALLOON,UTERINE ABLATION [id number] 08/25/2011 TRANSFUSION Several Trasfusions TUBAL LIGATION, FAMILY HISTORY Problem Relation Age of Onset Diabetes Mother Hypertension Mother Cancer Father lymphatic Emphysema Father Hypothyroidism Sister Hypothyroidism Sister Graves Disease Sister Cancer Brother other (Mennigitis) Brother Colon Cancer Brother middle colon Cancer Brother stomach Heart disease Brother Social History Tobacco Use Smoking status: Never Smoker Smokeless tobacco: Never Used Vaping Use Vaping Use: Never used Substance Use Topics Alcohol use: No Drug use: No Current Outpatient Medications Medication Sig Dispense Refill [START ON 01/28/2022] traMADol (ULTRAM) 50 mg tablet Take 1 tablet by mouth twice daily as needed for up to 30 days. Do not start before January 28, 2022. 60 tablet 0 gabapentin (NEURONTIN) 100 mg capsule Take one capsule three times a day. 90 capsule 1 citalopram (CELEXA) 40 mg tablet Take 1.5 tablets by mouth once daily. 135 tablet 1 buPROPion XL (WELLBUTRIN XL) 150 mg 24 hr tablet Take 1 tablet by mouth once daily. 30 tablet 5 tiZANidine (ZANAFLEX) 4 mg tablet Take 1 tablet by mouth twice daily as needed (muscle spasms). 60 tablet 5 ondansetron orally disintegrating (ZOFRAN ODT) 4 mg disintegrating tablet Take 1 tablet by mouth every 8 hours as needed for nausea/vomiting. 30 tablet 0 cholecalciferol, Vitamin D3, (VITAMIN D3) 1,250 mcg (50,000 unit) cap capsule Take 1 capsule by mouth every 3 weeks. 4 capsule 3 Blood-Glucose Meter monitoring kit Glucose Meter of Choice - Kit - Dx: Type 2 DM - Controlled E11.91 Each 0 oxybutynin ER (DITROPAN XL) 10 mg 24 hr tablet Take 1 tablet by mouth once daily. 30 tablet 5 cyanocobalamin 1,000 mcg/mL INJECT 1 ML INTRAMUSCULARLY ONCE EVERY WEEK 4 mL 4 blood sugar diagnostic (BLOOD GLUCOSE TEST) test strip Test blood sugar(s) 1 times daily. Dx: Type 2 DM - Controlled E11.9 Insulin: No 50 Strip 11 Syringe with Needle, Disp, (BD ECLIPSE LUER-ALIRIO SYRINGE) 1 mL 27 x 1/2" USE TO INJECT ONCE A WEEK use as directed 12 Each 3 valACYclovir (VALTREX) 1 gram Take 2 tablets by mouth twice daily. For total of 2 doses. 4 tablet 5 polyethylene glycol 3350 (MIRALAX, GLYCOLAX) 17 gram/dose powder Take 17 g by mouth once daily. Take one (1) capful in 8oz of liquid each day. 1 Bottle 11 ANIMAL SHAPE VITAMINS CHEWABLE TAB takes 2 on occasion 0 No current facility-administered medications for this visit. ALLERGIES Allergen Reactions Iron Dextran Itching Ambien [Zolpidem] Other: See Comments Nightmares. Buspar [Buspirone H* Myalgia PHYSICAL FINDINGS OF NOTE: General Normal, healthy, cooperative, in no acute distress Able to interact verbally by video conference Psych ORIENTATION: normal to time place, person and situation Mood/Affect: AFFECT AND MOOD: Normal Head/Neuro Normal size and shape Facial appearance normal Pulmonary respiratory effort normal Abdominal Not performed Skin abnormal lesions not visualized Motor patient seen sitting with Normal appearing strength and coordination REVIEWED ITEMS IMPRESSION (Z80.0) Family history of colon cancer (primary encounter diagnosis) (K90.89) Other specified intestinal malabsorption (K59.09) Chronic constipation (R14.0) Bloating (R13.10) Dysphagia, unspecified type (R68.81) Early satiety RECOMMENDATION: Assessment/Plan (Z80.0) Family history of colon cancer (primary encounter diagnosis) (K90.89) Other specified intestinal malabsorption (K59.09) Chronic constipation (R14.0) Bloating (R13.10) Dysphagia, unspecified type (R68.81) Early satiety 1. Other specified intestinal malabsorption -partial gastrectomy 2001 for multiple gastric polyps with Jose Daniel-en-Y anastomosis - CONSULT TO GASTROENTEROLOGY - EGD DIAGNOSTIC; Future 2. Chronic constipation -- Start OTC probiotic with at least 15 billion live cultures, 10+ strains - Drink around 64 oz water daily - If no relief with fiber powder, start Miralax daily/PRN to induce bowel movement Miralax generally will help produce bowel movement in 1-3 days Fill to top of white section in cap which is marked to indicate the correct dose (17 g) Stir and dissolve in any 8 ounces of non-carbonated beverage (cold, hot or room temperature) then drink If diarrhea occurs, reduce usage to every other day - CONSULT TO GASTROENTEROLOGY - COLONOSCOPY SCREENING; Future 3. Family history of colon cancer - COLONOSCOPY SCREENING; Future 4. Bloating -Patient has a history of H. pylori in the past will recommend H. pylori stool sample for screening. - EGD DIAGNOSTIC; Future - H PYLORI AG BY EIA,STOOL 5. Dysphagia, unspecified type - EGD DIAGNOSTIC; Future - H PYLORI AG BY EIA,STOOL 6. Early satiety - H PYLORI AG BY EIA,STOOL -Patient has torturous esophagus found on last EGD. Likely symptoms are related to this. Can consider esophagram. -Patient is very concerned and would like EGD due to brother diagnosed this stomach cancer and at age 5, also brother diagnosed with colon cancer and at age 42. Recommend EGD to rule out any strictures or ulcers. Follow up in office 3 months/PRN. Recommended to please call office/go to ER if fever, chills, chest pain, SOB, diarrhea, nausea, emesis, worsening abdominal pain, dehydration occurs I spent a total of 30 minutes on the date of the service which included preparing to see the patient, [id number] patient care, completing clinical documentation, obtaining and/or reviewing separately obtained history, performing a medically appropriate examination, counseling and educating the pat ient/family/caregiver, ordering medications, tests, or procedures, communicating with other HCPs (not separately reported), independently interpreting results (not separately reported), communicatingresults to the patient/family/caregiver, and care coordination (not separately reported). Airam Grubbs APRN.CNP January 26, 2022 1:17 PM documented in this encounterOhio[facility]05-23-2022 Miscellaneous Notes* Telephone Encounter - Justen Darling MD - 01/24/2022 5:21 PM EDT The following approved medication requests have been transmitted electronically. Signed Prescriptions Disp Refills traMADol (ULTRAM) 50 mg tablet 60 tablet 0 Sig: Take 1 tablet by mouth twice daily as needed for up to 30 days. Do not start before January 28, 2022. MARYA Class: C-IV DARIUS: No Authorizing Provider: JUSTEN DARLING MD PDMP website checked and validated. All prescriptions have been APPROPRIATELY filled. No suspiciousactivity was identified. 01/24/2022 by Justen Darling MD * Telephone Encounter - Tatum Hernandez MA - 01/24/2022 8:16 AM EDT Patient has been identified by name and date of : Yes Pending Prescriptions Disp Refills TRAMADOL 50 MG TABLET 60 tablet 0 Sig: Take 1 tablet by mouth twice daily as needed for up to 30 days. MARYA Class: C-IV DARIUS: No RX INSTRUCTIONS: Patient aware RX will be sent to pharmacy. No need to notify patient. Tatum Hernandez MA KEYSHA: 12/2021 NOV: 07/2022 LAST REFILL: 12/30/2021 60 TABLETS documented in this encounterOhio[facility]05-23-2022 Miscellaneous Notes* Telephone Encounter - Jody Cole PA-C - 01/24/2022 7:31 AM EDT Consult placed. Jody Cole PA-C * Telephone Encounter - Lizett Bush LPN - 01/24/2022 6:24 AM EDT Please see pt's message. Lizett Bush LPN documented in this encounterOhiohealth [facility]04-28-2022 Miscellaneous Notes* Telephone Encounter - Lizett Bush LPN - 12/30/2021 2:01 PM EDT Patient notified of results and provider's instructions. Patient verbalizes understanding. Lizett Bush LPN * Telephone Encounter - Justen Darling MD - 12/30/2021 1:28 PM EDT Let patient know her A1c and thyroid labs were ok. Her lipid panel showed good Trigs and HDL. Her LDL was slightly above 100 at 105. Try to work on less fat/chol in diet and increased walking. documented in this encounterOhiohealth [facility]04-27-2022 Instructions* Patient Instructions* Justen Darling MD - 12/29/2021 11:29 AM EDT Please get labs and urine test done on or after 06/17/2022 prior to your next visit. documented in this [facility]04-27[facility] History of Present illness Narrative* Justen Darling MD - 12/29/2021 10:50 AM EDT Images from the original note were not included. Chief Complaint Patient presents with: 6 Month Exam Back Pain HPI Susan Reyes is a 61 year old female who presents here today for Chronic Medical Conditions.. Patient with Hx of DM type 2, Vit D def, Vit A def, anemia from gastrectomy with Rou -n-Y, , anxiety, depression, B12 def, insomnia, chronic abdominal pain from adhesions as well as those reviewed and addressed below and in ROS. Patient has a Hx of chronic abdominal pain due to adhesions. She takes tramadol 50 mg twice a day this with the gabapentin at twice a day ( instead of TID) help control her symptoms and allows her eloy more active and do her ADL's with less issues. Patient has had some pain between her shoulder blades for the past week. Like a burning. Has had this off and on for several years. Typically sees a chiropractor and gets relief. Has not seen them yet. No weakness or numbness in her upper extremities. Otherwise doing ok. Past medical history, appointments, medications, allergies reviewed. Previous Medical History PAST MEDICAL HISTORY Diagnosis Date Absolute anemia 04/28/2015 Had total Gastrectomy due to multiple polyps. Has malabsorption since. Age-related osteoporosis without current pathological fracture Anxiety and depression B12 deficiency 12/18/2014 Cervical dysplasia, moderate Chronic abdominal pain 12/20/2013 Chronic constipation 12/20/2013 Controlled type 2 diabetes mellitus without complication, without long-term current use of insulin ([facility]) 04/25/2017 Ophthalmology: [facility] [place] COVID-19 virus infection 09/15/202109/2021 Disorder of sacrum 07/27/2015 Encounter for diabetic foot exam (HCC) 10/13/2018 Eosinophilic esophagitis 05/11/2016 Gastric polyps H/O herpes labialis 08/12/2018 Herpes simplex virus (HSV) infection 05/28/2019 History of colonic polyps 12/17/2014 Infection due to clarithromycin resistant Helicobacter pylori 12/28/202012/2020 Intestinal malabsorption 06/23/2015 Iron deficiency anemia 03/03/2011 Left-sided low back pain without sciatica 04/29/2015 Malabsorption of iron 12/11/2020 Menometrorrhagia 06/30/2011 OAB (overactive bladder) 05/28/2019 Oral lichen planus 12/20/2013 Ovarian cyst, right Pain of both hip joints 10/25/2017 Piriformis syndrome 04/29/2015 Primary insomnia 10/25/2017 Right-sided low back pain without sciatica 08/17/2016 Sarcoidosis Vitamin A deficiency 12/19/2014 Vitamin D deficiency 12/18/2014 Wart of scalp 04/29/2015 Previous Surgical History PAST SURGICAL HISTORY Procedure Laterality Date *STRESS TEST PC 05/11/2017 WNL CHOLECYSTECTOMY COLONOSCOPY 03/30/05 normal with hemorrhoids COLONOSCOPY 01/07/10 normal COLONOSCOPY FLX DX W/COLLJ SPEC WHEN PFRMD 05/12/2016 Colonoscopy mac 5 year repeat not [address] Tong CONIZATION OF CERVIX LEEP EXCISION EGD 03/24/05 nonspecific esophagitis EGD 01/05/10 normal ESOPHAGOGASTRODUODENOSCOPY TRANSORAL DIAGNOSTIC 02/10/2016 EGD mac PAST SURGICAL HISTORY OF 2002 gastricectomy, with jose daniel en Y resection PAST SURGICAL HISTORY OF iron infusions, Several infusions S BALLOON,UTERINE ABLATION [id number] 08/25/2011 TRANSFUSION Several Trasfusions TUBAL LIGATION, Family History FAMILY HISTORY Problem Relation Age of Onset Diabetes Mother Hypertension Mother Cancer Father lymphatic Emphysema Father Cancer Brother other (Mennigitis) Brother Colon Cancer Brother middle colon Cancer Brother stomach Heart disease Brother Patient Allergies ALLERGIES Allergen Reactions Iron Dextran Itching Ambien [Zolpidem] Other: See Comments Nightmares. Buspar [Buspirone H* Myalgia Current Medications Current Outpatient Medications on File Prior to Visit Medication Sig tiZANidine (ZANAFLEX) 4 mg tablet Take 1 tablet by mouth twice daily as needed (muscle spasms). traMADol (ULTRAM) 50 mg tablet Take 1 tablet by mouth twice daily as needed for up to 30 days. Do not start before November 29, 2021. gabapentin (NEURONTIN) 100 mg capsule Take one capsule three times a day. ondansetron orally disintegrating (ZOFRAN ODT) 4 mg disintegrating tablet Take 1 tablet by mouth every 8 hours as needed for nausea/vomiting. cholecalciferol, Vitamin D3, (VITAMIN D3) 1,250 mcg (50,000 unit) cap capsule Take 1 capsule by mouth every 3 weeks. Blood-Glucose Meter monitoring kit Glucose Meter of Choice - Kit - Dx: Type 2 DM - Controlled E11.9 oxybutynin ER (DITROPAN XL) 10 mg 24 hr tablet Take 1 tablet by mouth once daily. citalopram (CELEXA) 40 mg tablet Take 1.5 tablets by mouth once daily. buPROPion XL (WELLBUTRIN XL) 150 mg 24 hr tablet Take 1 tablet by mouth once daily. cyanocobalamin 1,000 mcg/mL INJECT 1 ML INTRAMUSCULARLY ONCE EVERY WEEK blood sugar diagnostic (BLOOD GLUCOSE TEST) test strip Test blood sugar(s) 1 times daily. Dx: Type 2 DM - Controlled E11.9 Insulin: No Syringe with Needle, Disp, (BD ECLIPSE LUER-ALIRIO SYRINGE) 1 mL 27 x 1/2" USE TO INJECT ONCE A WEEK use as directed valACYclovir (VALTREX) 1 gram Take 2 tablets by mouth twice daily. For total of 2 doses. polyethylene glycol 3350 (MIRALAX, GLYCOLAX) 17 gram/dose powder Take 17 g by mouth once daily. Take one (1) capful in 8oz of liquid each day. ANIMAL SHAPE VITAMINS CHEWABLE TAB takes 2 on occasion No current facility-administered medications on file prior to visit. Social History Social History Tobacco Use Smoking status: Never Smoker Smokeless tobacco: Never Used Vaping Use Vaping Use: Never used Substance Use Topics Alcohol use: No Drug use: No Review of Symptoms REVIEW OF SYSTEMS GENERAL: No weight loss, malaise or fevers NECK: Negative for lumps, goiter, pain and significant neck swelling RESPIRATORY: Negative for cough, hemoptysis, wheezing, COPD, dyspnea or shortness of breath CARDIOVASCULAR: Negative for chest pain, leg swelling, hypertension, CHF or palpitations GI: No nausea, vomiting, or diarrhea and No heartburn or reflux symptoms : No history of dysuria, blood. Still with frequency and if takes the ditropan it helps but then gets a dry mouth. Will have occasional dysuria. PSYCH: Negative for sleep disturbance, mood disorder and recent psychosocial stressors, doing well with the Celexa and Wellbutrin. HEMATOLOGY/LYMPHOLOGY: Negative for prolonged bleeding, bruising easily or swollen nodes ENDOCRINE: Negative for frequent low BS's. Most of the time due to delay iun eating. NEURO: No history of headaches, syncope, paralysis, seizures or tremors Musc: See HPI EXAM: BP 118/60 (BP Site: Left Arm, BP Position: Sitting, BP Cuff Size: Regular Adult) Pulse 72 Resp 16 Wt 64 kg (141 lb) LMP 07/31/2011 BMI 25.78 kg/m Last 5 Encounter Wt Readings: Date: Wt: 12/29/2021 64 kg (141 lb) 06/29/2021 63 kg (139 lb) 04/13/2021 62.6 kg (138 lb) 01/20/2021 63 kg (139 lb) 01/08/2021 63 kg (139 lb) General Appearance: Well appearing, alert, in no acute distress, well-hydrated, well nourished.. Eyes: Anicteric sclera. Pupils are equally round and reactive to light. Extraocular movements are intact. . Neck: Supple, no adenopathy; thyroid symmetric, normal size, no bruits. Lungs: Lungs clear to auscultation. No wheezing, rhonchi, rales.. Heart: RRR without murmur, gallop, or rubs. No ectopy. Abdomen: Normal abdominal exam, Abdomen soft, non-tender. Bowel sounds normal. No masses, organomegaly. Extremities: No deformities, edema, skin discoloration, clubbing or cyanosis. Musculoskeletal: Spine range of motion normal. Muscular strength intact, No joint swelling, deformity, or tenderness. Peripheral Pulses: Normal. Neurologic: Gait normal. Sensation to light touch and crainal nerves 2-12 intact.. Diabetic Foot Exam: Feet: Shoes and socks removed, normal distal pulses, sensitive to 10 gm microfilament, vibratory exam within normal limits and calluses noted right Skin: warm and dry Vascular Pulses: Normal SEMMES-NYDIA MONOFILAMENT TESTING Left Foot Right Foot Dorsal Surface Intact Dorsal Surface Intact Plantar Surface Intact Plantar Surface Intact Health Maintenance List SHINGRIX VACCINE(1 of 2) Never done DILATED RETINAL EXAM due on 06/14/2017 MAMMOGRAM due on 07/09/2020 COLORECTAL CANCER SCREENING due on 02/09/2021 COVID-19 VACCINE(3 - Booster for Pfizer series) due on 10/04/2021 HBA1C due on 12/28/2021 DIABETIC FOOT EXAM due on 12/25/2021 URINE ALBUMIN:CREATININE RATIO due on 06/29/2022 LDL CHOLESTEROL due on 06/29/2022 ANNUAL PCP TEAM CHRONIC DISEASE VISIT due on 09/13/2022 DTAP,TDAP,TD(2 - Td or Tdap) due on 01/17/2024 PAP TESTING due on 07/09/2024 HPV TESTING due on 07/09/2024 TWO PNEUMOVAX 5 YEARS APART PRIOR TO AGE 65 Completed ADULT PREVNAR-13 Completed INFLUENZA Completed HEPATITIS C SCREENING Completed MENINGOCOCCAL CONJUGATE Aged Out HIV SCREENING Discontinued Data reviewed Component Latest Ref Rng & Units 06/29/2021 WBC 3.70 - 11.00 k/uL 6.99 RBC 3.90 - 5.20 m/uL 4.44 Hemoglobin 11.5 - 15.5 g/dL 13.6 Hematocrit 36.0 - 46.0 % 43.1 MCV 80.0 - 100.0 fL 97.1 MCH 26.0 - 34.0 pG 30.6 MCHC 30.5 - 36.0 g/dL 31.6 RDW-CV 11.5 - 15.0 % 13.8 Platelet Count 150 - 400 k/uL 242 MPV 9.0 - 12.7 fL 12.4 Neut% % 72.7 Abs Neut (ANC) 1.45 - 7.50 k/uL 5.09 Lymph% % 18.9 Abs Lymph 1.00 - 4.00 k/uL 1.32 [place]% % 6.2 Abs [place] <0.87 k/uL 0.43 Eosin% % 1.3 Abs Eosin <0.46 k/uL 0.09 Baso% % 0.9 Abs Baso <0.11 k/uL 0.06 Nucleated Reds 0 /100 WBC 0.0 Absolute nRBC <0.01 k/uL <0.01 Diff Type Auto Diff Protein, Total 6.3 - 8.0 g/dL 6.9 Albumin 3.9 - 4.9 g/dL 4.3 Calcium 8.5 - 10.2 mg/dL 10.0 Bilirubin, Total 0.2 - 1.3 mg/dL 0.7 Alkaline Phosphatase 34 - 123 U/L 120 AST 13 - 35 U/L 21 Glucose 74 - 99 mg/dL 98 BUN 7 - 21 mg/dL 12 Creatinine 0.58 - 0.96 mg/dL 0.76 Sodium 136 - 144 mmol/L 140 Potassium 3.7 - 5.1 mmol/L 4.3 Chloride 97 - 105 mmol/L 105 CO2 22 - 30 mmol/L 24 Anion Gap 9 - 18 mmol/L 11 ALT 7 - 38 U/L 17 eGFR- >60 eGFR-All Other Races . >60 Color Yellow Light Yellow (A) Clarity Clear Clear Glucose, Urine Negative mg/dL Negative Bilirubin, Urine Negative Negative Ketones, Urine Negative Negative Specific [place], Ur 1.005 - 1.030 1.011 Hemoglobin/Blood,Ur Negative 1+ (A) pH, Urine 5.0 - 8.0 6.0 Protein, Urine Negative Negative Urobilinogen Negative E.U./dL Negative Nitrites Negative Negative Leukest Negative Negative Comment SEE COMMENT Urine Veto Comment SEE COMMENT WBC, Urine 0 - 5 /HPF 0-5 RBC, Urine 0 - 3 /HPF 0-3 Epithelial Cells /HPF SEE COMMENT Total Cholesterol, Nonfasting <200 mg/dL 166 Triglycerides, Nonfasting <150 mg/dL 89 HDL Cholesterol, Nonfasting >39 mg/dL 41 LDL Cholesterol, Nonfasting <100 mg/dL 107 (H) Non HDL Cholesterol, Nonfasting <130 mg/dL 125 VLDL Cholesterol, Nonfasting <30 mg/dL 18 Total Chol/HDL Ratio, Nonfasting <5.10 mg/dL 4.05 LDL/HDL Ratio, Nonfasting <2.54 mg/dL 2.61 (H) Creatinine, Ur Random (UCRR) 20 - 300 mg/dL 53.0 Albumin, Urine Random mg/L <12.0 Albumin/Creat Ratio <30 mg/g Not calculated Iron 41 - 186 ug/dL 126 TIBC 232 - 386 ug/dL 343 Transferrin Saturation 15 - 57 % 37 Hemoglobin A1C 4.3 - 5.6 % 6.1 (H) Estimated Average Glucose mg/dL 128 Vitamin A 0.30 - 1.20 mg/L 0.39 Vitamin B12 232 - 1,245 pg/mL 699 Vitamin D 25 Hydroxy 31.0 - 80.0 ng/mL 79.7 Zinc 55 - 150 ug/dL 71 A/P ASSESSMENT/PLAN: 1. Controlled type 2 diabetes mellitus without complication, without long-term current use of insulin ([facility]) - ICD9: 250.00, ICD10: E11.9 (primary diagnosis) Controlled. - Continue current medications - Encouraged regular aerobic exercise and weight loss - BP goal of <130/80 - LDL goal of <100 Check - HGB A1C - LIPID PANEL, NONFASTING 2. Diabetic eye exam (HCC) - ICD9: V72.0, 250.00, ICD10: Z01.00, E11.9 - Up to date 3. Anemia, unspecified type - ICD9: 285.9, ICD10: D64.9 - Management per hematology 4. Iron deficiency anemia, unspecified iron deficiency anemia type - ICD9: 280.9, ICD10: D50.9 - As per #3 5. Other specified intestinal malabsorption - ICD9: 579.8, ICD10: K90.89 - Cont to monitor for def. 6. Sarcoidosis - ICD9: 135, ICD10: D86.9 - Clinically stable 7. B12 deficiency - ICD9: 266.2, ICD10: E53.8 - Cont replacement 8. Vitamin D deficiency - ICD9: 268.9, ICD10: E55.9 - Cont replacement 9. Vitamin A deficiency - ICD9: 264.9, ICD10: E50.9 - cotn replacement 10. Anxiety and depression - ICD9: 300.00, 311, ICD10: F41.9, F32.A controlled - CITALOPRAM 40 MG TABLET 11. Primary insomnia - ICD9: 307.42, ICD10: F51.01 - controlled 12. Chronic abdominal pain - ICD9: 789.00, 338.29, ICD10: R10.9, G89.29 Cont Tx with - TRAMADOL 50 MG TABLET PDMP website checked and validated. All prescriptions have been APPROPRIATELY filled. No suspiciousactivity was identified. 12/29/2021 by Justen Darling MD 13. Family history of thyroid disease - ICD9: V18.19, ICD10: Z83.49 Check - TSH BLD 15. OAB (overactive bladder) - ICD9: 596.51, ICD10: N32.81 - Discussed seeing Urology and patient declined at this time. Discussed PHYSICAL THERAPY for the upper back and patient will go to her chiropractor fist. Signed Prescriptions Disp Refills traMADol (ULTRAM) 50 mg tablet 60 tablet 0 Sig: Take 1 tablet by mouth twice daily as needed for up to 30 days. Do not start before December 30, 2021. MARYA Class: C-IV DARIUS: No gabapentin (NEURONTIN) 100 mg capsule 90 capsule 1 Sig: Take one capsule three times a day. DARIUS: No citalopram (CELEXA) 40 mg tablet 135 tablet 1 Sig: Take 1.5 tablets by mouth once daily. DARIUS: No buPROPion XL (WELLBUTRIN XL) 150 mg 24 hr tablet 30 tablet 5 Sig: Take 1 tablet by mouth once daily. DARIUS: No F/u 6 months WAE check CMP, FLP, A1c, UA, urine micro albumin, Vit D, Zinc, Vit A, B12, folate, CBC, Iron, Justen Darling MD [facility] Miscellaneous Notes* Telephone Encounter - Justen Darling MD - 12/15/2021 7:46 PM EDT The following approved medication requests have been transmitted electronically. Signed Prescriptions Disp Refills tiZANidine (ZANAFLEX) 4 mg tablet 60 tablet 5 Sig: Take 1 tablet by mouth twice daily as needed (muscle spasms). DARIUS: No Authorizing Provider: JUSTEN DARLING MD * Telephone Encounter - Miranda Boone Ma - 12/15/2021 12:11 PM EDT Last office visit: 09/13/21 F/u scheduled: 12/29/21 Miranda Boone Ma [facility] Miscellaneous Notes* Telephone Encounter - Jody Cole PA-C - 11/26/2021 1:17 PM EDT The following approved medication requests have been transmitted electronically. Signed Prescriptions Disp Refills traMADol (ULTRAM) 50 mg tablet 60 tablet 0 Sig: Take 1 tablet by mouth twice daily as needed for up to 30 days. Do not start before November 29, 2021. 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 12/28/2020 02/14/2023 Overview: 12/2020 LLQ abdominal pain 02/10/2016 02/10/2016 Regurgitation 02/10/2016 02/10/2016 documented as of this encounter (statuses as of 02/15/2023) [address]26-2021 History of Past illness Narrative* Problem Noted Date Resolved Date 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 12/28/2020 02/14/2023 Overview: 12/2020 LLQ abdominal pain 02/10/2016 02/10/2016 Regurgitation 02/10/2016 02/10/2016 documented as of this encounter (statuses as of 02/20/2023) [address]26-2021 History of Past illness Narrative* Problem Noted Date Diagnosed Date Resolved Date 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 12/28/2020 02/14/2023 Overview: 12/2020 LLQ abdominal pain 02/10/2016 6 Regurgitation 02/10/2016 02/10/2016 documented as of this encounter (statuses as of 03/16/2023) [address]2021 History of Past illness Narrative* Problem Noted Date Diagnosed Date Resolved Date 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 12/28/2020 02/14/2023 Overview: 12/2020 LLQ abdominal pain 02/10/2016 6 Regurgitation 02/10/2016 02/10/2016 documented as of this encounter (statuses as of 04/15/2023) [address]2021 History of Past illness Narrative* Problem Noted Date Diagnosed Date Resolved Date 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 12/28/2020 02/14/2023 Overview: 12/2020 LLQ abdominal pain 02/10/2016 6 Regurgitation 02/10/2016 02/10/2016 documented as of this encounter (statuses as of 05/16/2023) [address]2021 History of Past illness Narrative* Problem Noted Date Diagnosed Date Resolved Date 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 12/28/2020 02/14/2023 Overview: 12/2020 LLQ abdominal pain 02/10/2016 6 Regurgitation 02/10/2016 02/10/2016 documented as of this encounter (statuses as of 05/23/2023) [address]2021 History of Past illness Narrative* Problem Noted Date Diagnosed Date Resolved Date 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 12/28/2020 02/14/2023 Overview: 12/2020 LLQ abdominal pain 02/10/2016 6 Regurgitation 02/10/2016 02/10/2016 documented as of this encounter (statuses as of 06/15/2023) [address]2021 History of Past illness Narrative* Problem Noted Date Diagnosed Date Resolved Date 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 12/28/2020 02/14/2023 Overview: 12/2020 LLQ abdominal pain 02/10/2016 6 Regurgitation 02/10/2016 02/10/2016 documented as of this encounter (statuses as of 07/08/2023) [address]2021 History of Past illness Narrative* Problem Noted Date Diagnosed Date Resolved Date 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 12/28/2020 02/14/2023 Overview: 12/2020 LLQ abdominal pain 02/10/2016 6 Regurgitation 02/10/2016 02/10/2016 documented as of this encounter (statuses as of 07/08/2023) [address]2021 History of Past illness Narrative* Problem Noted Date Diagnosed Date Resolved Date 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 12/28/2020 02/14/2023 Overview: 12/2020 LLQ abdominal pain 02/10/2016 6 Regurgitation 02/10/2016 02/10/2016 documented as of this encounter (statuses as of 07/14/2023) [address]2021 History of Past illness Narrative* Problem Noted Date Diagnosed Date Resolved Date 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 12/28/2020 02/14/2023 Overview: 12/2020 LLQ abdominal pain 02/10/2016 6 Regurgitation 02/10/2016 02/10/2016 documented as of this encounter (statuses as of 08/07/2023) [address]2021 History of Past illness Narrative* Problem Noted Date Diagnosed Date Resolved Date 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 12/28/2020 02/14/2023 Overview: 12/2020 LLQ abdominal pain 02/10/2016 6 Regurgitation 02/10/2016 02/10/2016 documented as of this encounter (statuses as of 08/15/2023) [address]2021 History of Past illness Narrative* Problem Noted Date Diagnosed Date Resolved Date 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 12/28/2020 02/14/2023 Overview: 12/2020 LLQ abdominal pain 02/10/2016 6 Regurgitation 02/10/2016 02/10/2016 documented as of this encounter (statuses as of 10/13/2023) [address]2021 History of Past illness Narrative* Problem Noted Date Diagnosed Date Resolved Date 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 12/28/2020 02/14/2023 Overview: 12/2020 LLQ abdominal pain 02/10/2016 6 Regurgitation 02/10/2016 02/10/2016 documented as of this encounter (statuses as of 10/30/2023) [address]26-[address]21 History of Past illness Narrative* Problem Noted Date Diagnosed Date Resolved Date 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 12/28/2020 02/14/2023 Overview: 12/2020 LLQ abdominal pain 02/10/2016 6 Regurgitation 02/10/2016 02/10/2016 documented as of this encounter (statuses as of 11/09/2023) [facility] of Past illness Narrative* Problem Noted Date Diagnosed Date Resolved Date 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 12/28/2020 02/14/2023 Overview: 12/2020 LLQ abdominal pain 02/10/2016 6 Regurgitation 02/10/2016 02/10/2016 documented as of this encounter (statuses as of 11/13/2023) [facility] of Past illness Narrative* Problem Noted Date Diagnosed Date Resolved Date 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 12/28/2020 02/14/2023 Overview: 12/2020 LLQ abdominal pain 02/10/2016 6 Regurgitation 02/10/2016 02/10/2016 documented as of this encounter (statuses as of 11/13/2023) [facility] of Past illness Narrative* Problem Noted Date Diagnosed Date Resolved Date 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 12/28/2020 02/14/2023 Overview: 12/2020 LLQ abdominal pain 02/10/2016 6 Regurgitation 02/10/2016 02/10/2016 documented as of this encounter (statuses as of 12/14/2023) [facility] Narrative* Problem Noted Date Resolved Date LLQ abdominal pain 02/10/2016 02/10/2016 Regurgitation 02/10/2016 02/10/2016 documented as of this encounter (statuses as of 11/26/2021) [facility] Narrative* Problem Noted Date Resolved Date LLQ abdominal pain 02/10/2016 02/10/2016 Regurgitation 02/10/2016 02/10/2016 documented as of this encounter (statuses as of 12/06/2021) [facility]* Problem Noted Date Resolved Date LLQ abdominal pain 02/10/2016 02/10/2016 Regurgitation 02/10/2016 02/10/2016 documented as of this encounter (statuses as of 12/15/2021) [facility]* Problem Noted Date Resolved Date LLQ abdominal pain 02/10/2016 02/10/2016 Regurgitation 02/10/2016 02/10/2016 documented as of this encounter (statuses as of 12/29/2021) [facility]* Problem Noted Date Resolved Date LLQ abdominal pain 02/10/2016 02/10/2016 Regurgitation 02/10/2016 02/10/2016 documented as of this encounter (statuses as of 12/30/2021) [facility]* Problem Noted Date Resolved Date LLQ abdominal pain 02/10/2016 02/10/2016 Regurgitation 02/10/2016 02/10/2016 documented as of this encounter (statuses as of 01/24/2022) [facility]* Problem Noted Date Resolved Date LLQ abdominal pain 02/10/2016 02/10/2016 Regurgitation 02/10/2016 02/10/2016 documented as of this encounter (statuses as of 01/24/2022) [facility]* Problem Noted Date Resolved Date LLQ abdominal pain 02/10/2016 02/10/2016 Regurgitation 02/10/2016 02/10/2016 documented as of this encounter (statuses as of 02/08/2022) [facility]* Problem Noted Date Resolved Date LLQ abdominal pain 02/10/2016 02/10/2016 Regurgitation 02/10/2016 02/10/2016 documented as of this encounter (statuses as of 02/16/2022) [facility]* Problem Noted Date Resolved Date LLQ abdominal pain 02/10/2016 02/10/2016 Regurgitation 02/10/2016 02/10/2016 documented as of this encounter (statuses as of 02/18/2022) [facility]* Problem Noted Date Resolved Date LLQ abdominal pain 02/10/2016 02/10/2016 Regurgitation 02/10/2016 02/10/2016 documented as of this encounter (statuses as of 02/23/2022) [facility]* Problem Noted Date Resolved Date LLQ abdominal pain 02/10/2016 02/10/2016 Regurgitation 02/10/2016 02/10/2016 documented as of this encounter (statuses as of 03/02/2022) [facility]* Problem Noted Date Resolved Date LLQ abdominal pain 02/10/2016 02/10/2016 Regurgitation 02/10/2016 02/10/2016 documented as of this encounter (statuses as of 03/25/2022) [facility]* Problem Noted Date Resolved Date LLQ abdominal pain 02/10/2016 02/10/2016 Regurgitation 02/10/2016 02/10/2016 documented as of this encounter (statuses as of 04/25/2022) [facility]* Problem Noted Date Resolved Date LLQ abdominal pain 02/10/2016 02/10/2016 Regurgitation 02/10/2016 02/10/2016 documented as of this encounter (statuses as of 04/26/2022) [facility]* Problem Noted Date Resolved Date LLQ abdominal pain 02/10/2016 02/10/2016 Regurgitation 02/10/2016 02/10/2016 documented as of this encounter (statuses as of 05/23/2022) [facility]* Problem Noted Date Resolved Date LLQ abdominal pain 02/10/2016 02/10/2016 Regurgitation 02/10/2016 02/10/2016 documented as of this encounter (statuses as of 06/24/2022) [facility]* Problem Noted Date Resolved Date LLQ abdominal pain 02/10/2016 02/10/2016 Regurgitation 02/10/2016 02/10/2016 documented as of this encounter (statuses as of 06/24/2022) [facility]* Problem Noted Date Resolved Date LLQ abdominal pain 02/10/2016 02/10/2016 Regurgitation 02/10/2016 02/10/2016 documented as of this encounter (statuses as of 07/05/2022) [facility]* Problem Noted Date Resolved Date LLQ abdominal pain 02/10/2016 02/10/2016 Regurgitation 02/10/2016 02/10/2016 documented as of this encounter (statuses as of 07/21/2022) [facility]* Problem Noted Date Resolved Date LLQ abdominal pain 02/10/2016 02/10/2016 Regurgitation 02/10/2016 02/10/2016 documented as of this encounter (statuses as of 08/09/2022) [facility]* Problem Noted Date Resolved Date LLQ abdominal pain 02/10/2016 02/10/2016 Regurgitation 02/10/2016 02/10/2016 documented as of this encounter (statuses as of 08/11/2022) [facility]* Problem Noted Date Resolved Date LLQ abdominal pain 02/10/2016 02/10/2016 Regurgitation 02/10/2016 02/10/2016 documented as of this encounter (statuses as of 08/22/2022) [facility]* Problem Noted Date Resolved Date LLQ abdominal pain 02/10/2016 02/10/2016 Regurgitation 02/10/2016 02/10/2016 documented as of this encounter (statuses as of 09/20/2022) [facility]* Problem Noted Date Resolved Date LLQ abdominal pain 02/10/2016 02/10/2016 Regurgitation 02/10/2016 02/10/2016 documented as of this encounter (statuses as of 09/27/2022) [facility]* Problem Noted Date Resolved Date LLQ abdominal pain 02/10/2016 02/10/2016 Regurgitation 02/10/2016 02/10/2016 documented as of this encounter (statuses as of 10/18/2022) [facility]* Problem Noted Date Resolved Date LLQ abdominal pain 02/10/2016 02/10/2016 Regurgitation 02/10/2016 02/10/2016 documented as of this encounter (statuses as of 10/19/2022) [facility]* Problem Noted Date Resolved Date LLQ abdominal pain 02/10/2016 02/10/2016 Regurgitation 02/10/2016 02/10/2016 documented as of this encounter (statuses as of 11/14/2022) [facility]* Problem Noted Date Resolved Date LLQ abdominal pain 02/10/2016 02/10/2016 Regurgitation 02/10/2016 02/10/2016 documented as of this encounter (statuses as of 11/14/2022) [facility]* Problem Noted Date Resolved Date LLQ abdominal pain 02/10/2016 02/10/2016 Regurgitation 02/10/2016 02/10/2016 documented as of this encounter (statuses as of 12/16/2022) [facility]* Problem Noted Date Resolved Date LLQ abdominal pain 02/10/2016 02/10/2016 Regurgitation 02/10/2016 02/10/2016 documented as of this encounter (statuses as of 01/12/2023) [facility]* Problem Noted Date Resolved Date LLQ abdominal pain 02/10/2016 02/10/2016 Regurgitation 02/10/2016 02/10/2016 documented as of this encounter (statuses as of 01/12/2023) [facility]* Problem Noted Date Resolved Date LLQ abdominal pain 02/10/2016 02/10/2016 Regurgitation 02/10/2016 02/10/2016 documented as of this encounter (statuses as of 02/07/2023) [facility] Chronic abdominal pain Abdominal pain, unspecified site [facility] Diagnosis Encounter for screening mammogram for breast cancer [facility]* Diagnosis Controlled type 2 diabetes mellitus without complication, without long-term current use of insulin (HCC)- Primary Diabetic eye exam (HCC) Type II or unspecified type diabetes mellitus without mention of complication, not stated as uncontrolled Anemia, unspecified type Iron deficiency anemia, unspecified iron deficiency anemia type Other specified intestinal malabsorption Sarcoidosis B12 deficiency Other B-complex deficiencies Vitamin D deficiency Unspecified vitamin D deficiency Vitamin A deficiency Unspecified vitamin A deficiency Anxiety and depression Dysthymic disorder Primary insomnia Persistent disorder of initiating or maintaining sleep Chronic abdominal pain Abdominal pain, unspecified site Family history of thyroid disease Family history of other endocrine and metabolic diseases Medication management Encounter for long-term (current) use of other medications OAB (overactive bladder) Hypertonicity of bladder [facility]* Diagnosis Other specified intestinal malabsorption- Primary Chronic constipation Unspecified constipation [facility]* Diagnosis Chronic abdominal pain Abdominal pain, unspecified site documented [facility]* Diagnosis Family history of colon cancer- Primary Family history of malignant neoplasm of gastrointestinal tract Other specified intestinal malabsorption Chronic constipation Unspecified constipation Bloating Flatulence, eructation, and gas pain Dysphagia, unspecified type Early satiety documented [facility]* Diagnosis Chronic abdominal pain Abdominal pain, unspecified site documented [facility]* Diagnosis Chronic abdominal pain Abdominal pain, unspecified site [facility] Diagnosis Chronic abdominal pain Abdominal pain, unspecified site documented [facility]* Diagnosis Medication management- Primary Encounter for long-term (current) use of other medications Chronic abdominal pain Abdominal pain, unspecified site [facility] Diagnosis Panic disorder- Primary Panic disorder without agoraphobia Situational anxiety Other anxiety states Grief reaction Adjustment disorder with depressed mood Herpes simplex virus (HSV) infection Encounter for immunization Need for other specified prophylactic vaccination against single bacterial disease [facility] Diagnosis Chronic abdominal pain Abdominal pain, unspecified site [facility]* Diagnosis Well adult exam- Primary Routine general medical examination at a health care facility Anxiety and depression Dysthymic disorder Panic disorder Panic disorder without agoraphobia Situational anxiety Other anxiety states Grief reaction Adjustment disorder with depressed mood Controlled type 2 diabetes mellitus without complication, without long-term current use of insulin (HCC) Elevated LDL cholesterol level Pure hypercholesterolemia Vitamin A deficiency Unspecified vitamin A deficiency Vitamin D deficiency Unspecified vitamin D deficiency Other specified intestinal malabsorption Chronic constipation Unspecified constipation Eosinophilic esophagitis Primary insomnia Persistent disorder of initiating or maintaining sleep [facility] Diagnosis Elevated alkaline phosphatase level- Primary Other nonspecific abnormal serum enzyme levels [facility] Diagnosis Elevated alkaline phosphatase level- Primary Other nonspecific abnormal serum enzyme levels [facility] Diagnosis Chronic abdominal pain Abdominal pain, unspecified site [facility] [facility] Diagnosis Encounter for screening mammogram for breast cancer [facility] Diagnosis Chronic abdominal pain Abdominal pain, unspecified site [facility] Diagnosis Chronic abdominal pain Abdominal pain, unspecified site Chronic left-sided low back pain with left-sided sciatica documented [facility] Diagnosis Controlled type 2 diabetes mellitus without complication, without long-term current use of insulin (HCC)- Primary Diabetic eye exam (HCC) Type II or unspecified type diabetes mellitus without mention of complication, not stated as uncontrolled Anemia, unspecified type Iron deficiency anemia, unspecified iron deficiency anemia type Eosinophilic esophagitis Sarcoidosis Anxiety and depression Dysthymic disorder B12 deficiency Other B-complex deficiencies Vitamin D deficiency Unspecified vitamin D deficiency Vitamin A deficiency Unspecified vitamin A deficiency Primary insomnia Persistent disorder of initiating or maintaining sleep OAB (overactive bladder) Hypertonicity of bladder Chronic abdominal pain Abdominal pain, unspecified site Other specified intestinal malabsorption Medication management Encounter for long-term (current) use of other medications [facility] Diagnosis Chronic abdominal pain Abdominal pain, unspecified site [facility] Diagnosis Chronic abdominal pain Abdominal pain, unspecified site [facility] Diagnosis Elevated alkaline phosphatase level Other nonspecific abnormal serum enzyme levels documented [facility]* Diagnosis Herpes simplex virus (HSV) infection documented [facility] Diagnosis Chronic abdominal pain Abdominal pain, unspecified site documented [facility] Diagnosis Encounter for screening mammogram for breast cancer documented [facility] Diagnosis Chronic abdominal pain Abdominal pain, unspecified site documented [facility] Diagnosis Chronic abdominal pain Abdominal pain, unspecified site [facility] Diagnosis Well adult exam- Primary Routine general medical examination at a health care facility Controlled type 2 diabetes mellitus without complication, without long-term current use of insulin ([facility]) Age-related osteoporosis without current pathological fracture Senile osteoporosis Sarcoidosis OAB (overactive bladder) Hypertonicity of bladder Eosinophilic esophagitis Primary insomnia Persistent disorder of initiating or maintaining sleep Chronic abdominal pain Abdominal pain, unspecified site [facility] Diagnosis Eosinophilic esophagitis- Primary Esophageal dysphagia Dysphagia, pharyngoesophageal phase Chronic abdominal pain Abdominal pain, unspecified site Epigastric pain Abdominal pain, epigastric Left leg swelling Swelling of limb documented [facility] Diagnosis Eosinophilic esophagitis Esophageal dysphagia Dysphagia, pharyngoesophageal phase Chronic abdominal pain Abdominal pain, unspecified site documented [facility] Diagnosis Chronic abdominal pain Abdominal pain, unspecified site documented [facility]* Diagnosis Herpes simplex virus (HSV) infection documented [facility]* Diagnosis Controlled type 2 diabetes mellitus without complication, without long-term current use of insulin ([facility])- Primary Achalasia Achalasia and cardiospasm Eosinophilic esophagitis Other specified intestinal malabsorption Vitamin A deficiency Unspecified vitamin A deficiency Vitamin D deficiency Unspecified vitamin D deficiency Medication management Encounter for long-term (current) use of other medications B12 deficiency Other B-complex deficiencies Malabsorption of iron Other specified intestinal malabsorption Iron deficiency anemia, unspecified iron deficiency anemia type Age-related osteoporosis without current pathological fracture Senile osteoporosis Encounter for immunization Need for other specified prophylactic vaccination against single bacterial disease Well adult exam Routine general medical examination at a health care facility documented [facility]* Diagnosis Microscopic hematuria- Primary documented [facility]* Diagnosis Vitamin A deficiency- Primary Unspecified vitamin A deficiency documented [facility]* Diagnosis Encounter for screening mammogram for breast cancer documented in this encounter [facility] note* Diagnosis Chronic abdominal pain Abdominal pain, unspecified site documented in this encounter [facility] note* Diagnosis Chronic abdominal pain Abdominal pain, unspecified site documented in this encounter [facility] note* Diagnosis Onset Date Resolution Status Admit Date Abdominal pain acute April 1:25pm History of Jose Daniel-en-Y gastric bypass acute April 11, 2025 1:25pm Nausea acute April 11 1:25pm [employer] Work Phone: [facility]* Diagnosis Anxiety and depression- Primary Dysthymic disorder Chronic abdominal pain Abdominal pain, unspecified site Controlled type 2 diabetes mellitus without complication, without long-term current use of insulin (HCC) Vitamin A deficiency Unspecified vitamin A deficiency documented in this encounter [facility] for referral (narrative)* Diagnostic Procedure Only (Routine) - Pending Review Specialty Diagnoses / Procedures Referred By [place] bales Referred To Contact [facility] Diagnoses Encounter for screening mammogram for breast cancer Procedures DELBERT SCREENING SCREENING MAMMOGRAPHY BI 2-VIEW BREAST INC CAD Justen Darling MD [address] [place] [address] [facility] [address] [place] [address] Referral ID Status Reason Start Date Expiration Date Visits Requested Visits Authorized [id number] Pending Review Auto-Generat ed Referral 12/01/2021 12/31/2022 1 1 [facility] for referral (narrative)* Outpatient Procedure (Routine) - Pending Review Specialty Diagnoses / Procedures Referred By [place] bales Referred To Contact [facility] Diagnoses Other specified intestinal malabsorption Bloating Dysphagia, unspecified type Procedures EGD DIAGNOSTIC ESOPHAGOGASTRODUODENOSC OPY TRANSORAL DIAGNOSTIC Airam Grubbs APRN.[employer] P[employer]AGER [address] [place] [address] [facility] [address] [place] [address] Referral ID Status Reason Start Date Expiration Date Visits Requested Visits Authorized [id number] Pending Review Auto-Generat ed Referral 01/26/2022 01/26/2023 1 1 * Outpatient Procedure (Routine) - Authorized Specialty Diagnoses / Procedures Referred By [place] bales Referred To Contact [facility] Diagnoses Chronic constipation Family history of colon cancer Procedures COLONOSCOPY SCREENING COLONOSCOPY FLX DX W/COLLJ SPEC WHEN Airam Wan APRN.CNP [address] [place] [address] [facility] [address] [place] [address] Referral ID Status Reason Start Date Expiration Date Visits Requested Visits Authorized [id number] Authorized Auto-Generat ed Referral 01/26/2022 01/26/2023 1 1 [facility] for referral (narrative)* Diagnostic Procedure Only (Routine) - Open Specialty Diagnoses / Procedures Referred By [place] bales Referred To Contact [facility] Diagnoses Elevated alkaline phosphatase level Procedures NM BONE WHOLE BODY BONE &/JOINT IMAGING WHOLE BODY Jody Cole PA-C [address] [place] [address] [facility] [address] [place] [address] Referral ID Status Reason Start Date Expiration Date V isits Requested Visits Authorized [id number] Open Auto-Generate d Referral 09/26/2022 10/26/2023 1 1 [facility] for referral (narrative)* Diagnostic Procedure Only (Routine) - Pending Review Specialty Diagnoses / Procedures Referred By [place] bales Referred To Contact [facility] Diagnoses Encounter for screening mammogram for breast cancer Procedures DELBERT SCREENING SCREENING MAMMOGRAPHY BI 2-VIEW BREAST INC CAD Justen Darling MD [address] [place] [address] [facility] [address] [place] [address] Referral ID Status Reason Start Date Expiration Date Visits Requested Visits Authorized [id number] Pending Review Auto-Generat ed Referral 11/09/2022 12/09/2023 1 1 [facility] for referral (narrative)* Diagnostic Procedure Only (Routine) - Closed Specialty Diagnoses / Procedures Referred By [place] t Referred To Contact [facility] Diagnoses Elevated alkaline phosphatase level Procedures NM BONE WHOLE BODY BONE &/JOINT IMAGING WHOLE BODY Jody Cole PA-C [address] [place] [address] [facility] [address] [place] [address] Referral ID Status Reason Start Date Expiration Date V isits Requested Visits Authorized [id number] Closed Auto-Generate d Referral 09/27/2022 09/03/2023 2 2 [facility] for referral (narrative)* Diagnostic Procedure Only (Routine) - Pending Review Specialty Diagnoses / Procedures Referred By [place] bales Referred To Contact [facility] Diagnoses Encounter for screening mammogram for breast cancer Procedures DELBERT SCREENING SCREENING MAMMOGRAPHY BI 2-VIEW BREAST INC CAD Justen Darling MD [address] [place] [address] [facility] [address] [place] [address] Referral ID Status Reason Start Date Expiration Date Visits Requested Visits Authorized [id number] Pending Review Auto-Generat ed Referral 10/25/2023 11/23/2024 1 1 [facility] for referral (narrative)* Outpatient Procedure (Urgent) - Authorized Specialty Diagnoses / Procedures Referred By [place] t Referred To Contact [facility] Diagnoses Left leg swelling Procedures US LEG VEIN DVT UNL VAS LAB DUP-SCAN XTR VEINS UNILATERAL/LIMITED STUDY Jody Cole PA-C [address] [place] [address] [facility] [address] [place] [address] Referral ID Status Reason Start Date Expiration Date Visits Requested Visits Authorized [id number] Authorized Auto-Generat ed Referral 04/22/2024 04/22/2025 1 1 * Diagnostic Procedure Only (Routine) - Authorized Specialty Diagnoses / Procedures Referred By Contac t Referred To Contact [facility] Diagnoses Eosinophilic esophagitis Esophageal dysphagia Chronic abdominal pain Procedures US ABD RIGHT UPPER QUADRANT US ABDOMINAL REAL TIME W/IMAGE LIMITED Jody Cole PA-C [address] [place] [address] [place] [address] Referral ID Status Reason Start Date Expiration Date Visits Requested Visits Authorized [id number] Authorized Auto-Generat ed Referral 04/22/2024 05/22/2025 1 1 * Consult, Test, Treat (Routine) - Authorized Specialty Diagnoses / Procedures Referred By Contac t Referred To Contact Gastroenterology Diagnoses Eosinophilic esophagitis Esophageal dysphagia Chronic abdominal pain Procedures CONSULT TO GASTROENTEROLOGY OFFICE/OUTPATIENT [facility] 60 MINUTES Jody Cole PA-C [address] [place] [address] Referral ID Status Reason Start Date Expiration Date Visits Requested Visits Authorized [id number] Authorized PCP Requested Referral 04/22/2024 04/22/2025 1 1 [facility] for referral (narrative)* Diagnostic Procedure Only (Routine) - Closed Specialty Diagnoses / Procedures Referred By Contac t Referred To Contact [facility] Diagnoses Eosinophilic esophagitis Esophageal dysphagia Chronic abdominal pain Procedures US ABD RIGHT UPPER QUADRANT US ABDOMINAL REAL TIME W/IMAGE LIMITED Jody Cloe PA-C [address] [place] [address] [place] [address] Referral ID Status Reason Start Date Expiration Date V isits Requested Visits Authorized [id number] Closed Auto-Generate d Referral 04/22/2024 05/22/2025 1 1 [facility]No reason for referral information [facility] Work Phone: Reason for visit Narrative* Diagnostic Procedure Only (Routine) - Closed Specialty Diagnoses / Procedures Referred By Contac t Referred To Contact [facility] Diagnoses Elevated alkaline phosphatase level Procedures NM BONE WHOLE BODY BONE &/JOINT IMAGING WHOLE BODY Jody Cole PA-C [address] [place] [address] [facility] [address] [place] [address] Referral ID Status Reason Start Date Expiration Date V isits Requested Visits Authorized [id number] Closed Auto-Generate d Referral 09/27/2022 09/03/2023 2 2 [facility] Summary Purpose Family History No Family History Records Found Relationship Condition Age at Onset Recorded Date/T mariola mother Diabetes mellitus Unknown Hypertension Unknown father Malignant neoplasm Unknown Pulmonary emphysema Unknown sister Disorder of thyroid Unknown brother Malignant neoplasm of colon Unknown Advance Directives No Advanced Directives Records FoundDocuments on File Type Date Recorded 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 Advance Directive(s) 04/26/2018 8:55 AM Advance Directive(s) 02/10/2016 12:38 PM Documents on File Type Date Recorded 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 Advance Directive(s) 04/26/2018 8:55 AM Advance Directive(s) 02/10/2016 12:38 PM Reason for Referral Specialty Diagnoses / Procedures Referred By Contac t Referred To Contact Gastroenterology Diagnoses Other specified intestinal malabsorption Chronic constipation Procedures CONSULT TO GASTROENTEROLOGY OFFICE/OUTPATIENT [facility] MDM 60-74 MINUTES Jody Cole PA-C [address] [place] [address] Referral ID Status Reason Start Date Expiration Date Visits Requested Visits Authorized [id number] Authorized PCP Requested Referral 01/24/2022 01/24/2023 1 1 Specialty Diagnoses / Procedures Referred By Contac t Referred To Contact Gynecology Diagnoses Well adult exam Procedures CONSULT TO GYNECOLOGY OFFICE/OUTPATIENT NEW HIGH MDM 60 MINUTES Jody Cole PA-C [address] [place] [address] Referral ID Status Reason Start Date Expiration Date Visits Requested Visits Authorized [id number] Authorized PCP Requested Referral Auto-Generate d Referral 10/08/2024 10/08/2025 1 1 Chief Complaint and Reason for Visit Chief Complaint Admit Date Abdominal Pain/Weight Loss April 11 1:25pm Reason for Visit Admit Date Abdominal pain April 11, 2025 1:2 5pm History of Jose Daniel-en-Y gastric bypass Apru 2024 1:25pm Nausea April 11, 2025 1:2 5pm Chief Complaint Admit Date Abdominal Pain/Weight Loss April 11 1:25pm R10.9 Unspecified abdominal pain April 30, 2025 4:39pm Reason for Visit Admit Date Abdominal pain April 11, 2025 1:2 5pm Nausea April 11, 2025 1:2 5pm History of Jose Daniel-en-Y gastric bypass Apru 2024 1:25pm Additional Source Comments INFORMATION SOURCE (unrecogn ized section and content) DATE CREATED AUTHOR 01/24/2020 [facility] DATE CREATED AUTHOR AUTHOR'S ORGANIZ ATION 11/18/2024 [facility] DATE CREATED AUTHOR AUTHOR'S ORGANIZ ATION 07/11/2025 [facility] DATE CREATED AUTHOR AUTHOR'S ORGANIZ ATION 07/15/2025 [facility] Source Comments (unrecognize d section and content) In the event this informatio n is protected by the Federal Confidentiality of Alcohol and Drug Abuse Patient Records regulations: The Federal rules restrict any use of the information to criminally investigate or prosecute any alcohol or drug abuse patient.[facility] the event this information is protected by the Federal Confidentiality of Alcohol and Drug Abuse Patient Records regulations: The Federal rules restrict any use of the information to criminally investigate or prosecute any alcohol or drug abuse patient.[facility] the event this information is protected by the Federal Confidentiality of Alcohol and Drug Abuse Patient Records regulations: The Federal rules restrict any use of the information to criminally investigate or prosecute any alcohol or drug abuse patient.[facility] HospitalIn the event this information is protected by the Federal Confidentiality of Alcohol and Drug Abuse Patient Records regulations: The Federal rules restrict any use of the information to criminally investigate or prosecute any alcohol or drug abuse patient.[facility] the event this information is protected by the Federal Confidentiality of Alcohol and Drug Abuse Patient Records regulations: The Federal rules restrict any use of the information to criminally investigate or prosecute any alcohol or drug abuse patient.[facility] the event this information is protected by the Federal Confidentiality of Alcohol and Drug Abuse Patient Records regulations: The Federal rules restrict any use of the information to criminally investigate or prosecute any alcohol or drug abuse patient.[facility] the event this information is protected by the Federal Confidentiality of Alcohol and Drug Abuse Patient Records regulations: The Federal rules restrict any use of the information to criminally investigate or prosecute any alcohol or drug abuse patient.[facility] HospitalIn the event this information is protected by the Federal Confidentiality of Alcohol and Drug Abuse Patient Records regulations: The Federal rules restrict any use of the information to criminally investigate or prosecute any alcohol or drug abuse patient.[facility] HospitalIn the event this information is protected by the Federal Confidentiality of Alcohol and Drug Abuse Patient Records regulations: The Federal rules restrict any use of the information to criminally investigate or prosecute any alcohol or drug abuse patient.[facility] HospitalIn the event this information is protected by the Federal Confidentiality of Alcohol and Drug Abuse Patient Records regulations: The Federal rules restrict any use of the information to criminally investigate or prosecute any alcohol or drug abuse patient.[facility]In the event this information is protected by the Federal Confidentiality of Alcohol and Drug Abuse Patient Records regulations: The Federal rules restrict any use of the information to criminally investigate or prosecute any alcohol or drug abuse patient.[facility] HospitalIn the event this information is protected by the Federal Confidentiality of Alcohol and Drug Abuse Patient Records regulations: The Federal rules restrict any use of the information to criminally investigate or prosecute any alcohol or drug abuse patient.[facility] HospitalIn the event this information is protected by the Federal Confidentiality of Alcohol and Drug Abuse Patient Records regulations: The Federal rules restrict any use of the information to criminally investigate or prosecute any alcohol or drug abuse patient.[facility] HospitalIn the event this information is protected by the Federal Confidentiality of Alcohol and Drug Abuse Patient Records regulations: The Federal rules restrict any use of the information to criminally investigate or prosecute any alcohol or drug abuse patient.[facility] HospitalIn the event this information is protected by the Federal Confidentiality of Alcohol and Drug Abuse Patient Records regulations: The Federal rules restrict any use of the information to criminally investigate or prosecute any alcohol or drug abuse patient.[facility] HospitalIn the event this information is protected by the Federal Confidentiality of Alcohol and Drug Abuse Patient Records regulations: The Federal rules restrict any use of the information to criminally investigate or prosecute any alcohol or drug abuse patient.[facility] HospitalIn the event this information is protected by the Federal Confidentiality of Alcohol and Drug Abuse Patient Records regulations: The Federal rules restrict any use of the information to criminally investigate or prosecute any alcohol or drug abuse patient.[facility] HospitalIn the event this information is protected by the Federal Confidentiality of Alcohol and Drug Abuse Patient Records regulations: The Federal rules restrict any use of the information to criminally investigate or prosecute any alcohol or drug abuse patient.[facility] HospitalIn the event this information is protected by the Federal Confidentiality of Alcohol and Drug Abuse Patient Records regulations: The Federal rules restrict any use of the information to criminally investigate or prosecute any alcohol or drug abuse patient.[facility] HospitalIn the event this information is protected by the Federal Confidentiality of Alcohol and Drug Abuse Patient Records regulations: The Federal rules restrict any use of the information to criminally investigate or prosecute any alcohol or drug abuse patient.[facility] HospitalIn the event this information is protected by the Federal Confidentiality of Alcohol and Drug Abuse Patient Records regulations: The Federal rules restrict any use of the information to criminally investigate or prosecute any alcohol or drug abuse patient.[facility] HospitalIn the event this information is protected by the Federal Confidentiality of Alcohol and Drug Abuse Patient Records regulations: The Federal rules restrict any use of the information to criminally investigate or prosecute any alcohol or drug abuse patient.[facility] HospitalIn the event this information is protected by the Federal Confidentiality of Alcohol and Drug Abuse Patient Records regulations: The Federal rules restrict any use of the information to criminally investigate or prosecute any alcohol or drug abuse patient.[facility] HospitalIn the event this information is protected by the Federal Confidentiality of Alcohol and Drug Abuse Patient Records regulations: The Federal rules restrict any use of the information to criminally investigate or prosecute any alcohol or drug abuse patient.[facility] HospitalIn the event this information is protected by the Federal Confidentiality of Alcohol and Drug Abuse Patient Records regulations: The Federal rules restrict any use of the information to criminally investigate or prosecute any alcohol or drug abuse patient.[facility] HospitalIn the event this information is protected by the Federal Confidentiality of Alcohol and Drug Abuse Patient Records regulations: The Federal rules restrict any use of the information to criminally investigate or prosecute any alcohol or drug abuse patient.[facility] HospitalIn the event this information is protected by the Federal Confidentiality of Alcohol and Drug Abuse Patient Records regulations: The Federal rules restrict any use of the information to criminally investigate or prosecute any alcohol or drug abuse patient.[facility] HospitalIn the event this information is protected by the Federal Confidentiality of Alcohol and Drug Abuse Patient Records regulations: The Federal rules restrict any use of the information to criminally investigate or prosecute any alcohol or drug abuse patient.[facility] HospitalIn the event this information is protected by the Federal Confidentiality of Alcohol and Drug Abuse Patient Records regulations: The Federal rules restrict any use of the information to criminally investigate or prosecute any alcohol or drug abuse patient.[facility] HospitalIn the event this information is protected by the Federal Confidentiality of Alcohol and Drug Abuse Patient Records regulations: The Federal rules restrict any use of the information to criminally investigate or prosecute any alcohol or drug abuse patient.[facility] HospitalIn the event this information is protected by the Federal Confidentiality of Alcohol and Drug Abuse Patient Records regulations: The Federal rules restrict any use of the information to criminally investigate or prosecute any alcohol or drug abuse patient.[facility] HospitalIn the event this information is protected by the Federal Confidentiality of Alcohol and Drug Abuse Patient Records regulations: The Federal rules restrict any use of the information to criminally investigate or prosecute any alcohol or drug abuse patient.[facility] HospitalIn the event this information is protected by the Federal Confidentiality of Alcohol and Drug Abuse Patient Records regulations: The Federal rules restrict any use of the information to criminally investigate or prosecute any alcohol or drug abuse patient.[facility] HospitalIn the event this information is protected by the Federal Confidentiality of Alcohol and Drug Abuse Patient Records regulations: The Federal rules restrict any use of the information to criminally investigate or prosecute any alcohol or drug abuse patient.[facility] HospitalIn the event this information is protected by the Federal Confidentiality of Alcohol and Drug Abuse Patient Records regulations: The Federal rules restrict any use of the information to criminally investigate or prosecute any alcohol or drug abuse patient.[facility] HospitalIn the event this information is protected by the Federal Confidentiality of Alcohol and Drug Abuse Patient Records regulations: The Federal rules restrict any use of the information to criminally investigate or prosecute any alcohol or drug abuse patient.[facility] HospitalIn the event this information is protected by the Federal Confidentiality of Alcohol and Drug Abuse Patient Records regulations: The Federal rules restrict any use of the information to criminally investigate or prosecute any alcohol or drug abuse patient.[facility] HospitalIn the event this information is protected by the Federal Confidentiality of Alcohol and Drug Abuse Patient Records regulations: The Federal rules restrict any use of the information to criminally investigate or prosecute any alcohol or drug abuse patient.[facility] HospitalIn the event this information is protected by the Federal Confidentiality of Alcohol and Drug Abuse Patient Records regulations: The Federal rules restrict any use of the information to criminally investigate or prosecute any alcohol or drug abuse patient.[facility] HospitalIn the event this information is protected by the Federal Confidentiality of Alcohol and Drug Abuse Patient Records regulations: The Federal rules restrict any use of the information to criminally investigate or prosecute any alcohol or drug abuse patient.[facility] HospitalIn the event this information is protected by the Federal Confidentiality of Alcohol and Drug Abuse Patient Records regulations: The Federal rules restrict any use of the information to criminally investigate or prosecute any alcohol or drug abuse patient.[facility] HospitalIn the event this information is protected by the Federal Confidentiality of Alcohol and Drug Abuse Patient Records regulations: The Federal rules restrict any use of the information to criminally investigate or prosecute any alcohol or drug abuse patient.[facility] HospitalIn the event this information is protected by the Federal Confidentiality of Alcohol and Drug Abuse Patient Records regulations: The Federal rules restrict any use of the information to criminally investigate or prosecute any alcohol or drug abuse patient.[facility] HospitalIn the event this information is protected by the Federal Confidentiality of Alcohol and Drug Abuse Patient Records regulations: The Federal rules restrict any use of the information to criminally investigate or prosecute any alcohol or drug abuse patient.[facility] HospitalIn the event this information is protected by the Federal Confidentiality of Alcohol and Drug Abuse Patient Records regulations: The Federal rules restrict any use of the information to criminally investigate or prosecute any alcohol or drug abuse patient.[facility] HospitalIn the event this information is protected by the Federal Confidentiality of Alcohol and Drug Abuse Patient Records regulations: The Federal rules restrict any use of the information to criminally investigate or prosecute any alcohol or drug abuse patient.[facility] HospitalIn the event this information is protected by the Federal Confidentiality of Alcohol and Drug Abuse Patient Records regulations: The Federal rules restrict any use of the information to criminally investigate or prosecute any alcohol or drug abuse patient.[facility] HospitalIn the event this information is protected by the Federal Confidentiality of Alcohol and Drug Abuse Patient Records regulations: The Federal rules restrict any use of the information to criminally investigate or prosecute any alcohol or drug abuse patient.[facility] HospitalIn the event this information is protected by the Federal Confidentiality of Alcohol and Drug Abuse Patient Records regulations: The Federal rules restrict any use of the information to criminally investigate or prosecute any alcohol or drug abuse patient.[facility] HospitalIn the event this information is protected by the Federal Confidentiality of Alcohol and Drug Abuse Patient Records regulations: The Federal rules restrict any use of the information to criminally investigate or prosecute any alcohol or drug abuse patient.[facility] HospitalIn the event this information is protected by the Federal Confidentiality of Alcohol and Drug Abuse Patient Records regulations: The Federal rules restrict any use of the information to criminally investigate or prosecute any alcohol or drug abuse patient.[facility] HospitalIn the event this information is protected by the Federal Confidentiality of Alcohol and Drug Abuse Patient Records regulations: The Federal rules restrict any use of the information to criminally investigate or prosecute any alcohol or drug abuse patient.[facility] HospitalIn the event this information is protected by the Federal Confidentiality of Alcohol and Drug Abuse Patient Records regulations: The Federal rules restrict any use of the information to criminally investigate or prosecute any alcohol or drug abuse patient.[facility] HospitalIn the event this information is protected by the Federal Confidentiality of Alcohol and Drug Abuse Patient Records regulations: The Federal rules restrict any use of the information to criminally investigate or prosecute any alcohol or drug abuse patient.[facility] HospitalIn the event this information is protected by the Federal Confidentiality of Alcohol and Drug Abuse Patient Records regulations: The Federal rules restrict any use of the information to criminally investigate or prosecute any alcohol or drug abuse patient.[facility] HospitalIn the event this information is protected by the Federal Confidentiality of Alcohol and Drug Abuse Patient Records regulations: The Federal rules restrict any use of the information to criminally investigate or prosecute any alcohol or drug abuse patient.[facility] HospitalIn the event this information is protected by the Federal Confidentiality of Alcohol and Drug Abuse Patient Records regulations: The Federal rules restrict any use of the information to criminally investigate or prosecute any alcohol or drug abuse patient.[facility] HospitalIn the event this information is protected by the Federal Confidentiality of Alcohol and Drug Abuse Patient Records regulations: The Federal rules restrict any use of the information to criminally investigate or prosecute any alcohol or drug abuse patient.[facility] HospitalIn the event this information is protected by the Federal Confidentiality of Alcohol and Drug Abuse Patient Records regulations: The Federal rules restrict any use of the information to criminally investigate or prosecute any alcohol or drug abuse patient.[facility] HospitalIn the event this information is protected by the Federal Confidentiality of Alcohol and Drug Abuse Patient Records regulations: The Federal rules restrict any use of the information to criminally investigate or prosecute any alcohol or drug abuse patient.[facility] HospitalIn the event this information is protected by the Federal Confidentiality of Alcohol and Drug Abuse Patient Records regulations: The Federal rules restrict any use of the information to criminally investigate or prosecute any alcohol or drug abuse patient.[facility] HospitalIn the event this information is protected by the Federal Confidentiality of Alcohol and Drug Abuse Patient Records regulations: The Federal rules restrict any use of the information to criminally investigate or prosecute any alcohol or drug abuse patient.[facility] HospitalIn the event this information is protected by the Federal Confidentiality of Alcohol and Drug Abuse Patient Records regulations: The Federal rules restrict any use of the information to criminally investigate or prosecute any alcohol or drug abuse patient.[facility] HospitalIn the event this information is protected by the Federal Confidentiality of Alcohol and Drug Abuse Patient Records regulations: The Federal rules restrict any use of the information to criminally investigate or prosecute any alcohol or drug abuse patient.[facility] HospitalIn the event this information is protected by the Federal Confidentiality of Alcohol and Drug Abuse Patient Records regulations: The Federal rules restrict any use of the information to criminally investigate or prosecute any alcohol or drug abuse patient.[facility] HospitalIn the event this information is protected by the Federal Confidentiality of Alcohol and Drug Abuse Patient Records regulations: The Federal rules restrict any use of the information to criminally investigate or prosecute any alcohol or drug abuse patient.[facility] HospitalIn the event this information is protected by the Federal Confidentiality of Alcohol and Drug Abuse Patient Records regulations: The Federal rules restrict any use of the information to criminally investigate or prosecute any alcohol or drug abuse patient.[facility] HospitalIn the event this information is protected by the Federal Confidentiality of Alcohol and Drug Abuse Patient Records regulations: The Federal rules restrict any use of the information to criminally investigate or prosecute any alcohol or drug abuse patient.[facility] HospitalIn the event this information is protected by the Federal Confidentiality of Alcohol and Drug Abuse Patient Records regulations: The Federal rules restrict any use of the information to criminally investigate or prosecute any alcohol or drug abuse patient.[facility] HospitalIn the event this information is protected by the Federal Confidentiality of Alcohol and Drug Abuse Patient Records regulations: The Federal rules restrict any use of the information to criminally investigate or prosecute any alcohol or drug abuse patient.[facility] HospitalIn the event this information is protected by the Federal Confidentiality of Alcohol and Drug Abuse Patient Records regulations: The Federal rules restrict any use of the information to criminally investigate or prosecute any alcohol or drug abuse patient.[facility] HospitalIn the event this information is protected by the Federal Confidentiality of Alcohol and Drug Abuse Patient Records regulations: The Federal rules restrict any use of the information to criminally investigate or prosecute any alcohol or drug abuse patient.[facility] HospitalIn the event this information is protected by the Federal Confidentiality of Alcohol and Drug Abuse Patient Records regulations: The Federal rules restrict any use of the information to criminally investigate or prosecute any alcohol or drug abuse patient.[facility] HospitalIn the event this information is protected by the Federal Confidentiality of Alcohol and Drug Abuse Patient Records regulations: The Federal rules restrict any use of the information to criminally investigate or prosecute any alcohol or drug abuse patient.[facility] HospitalIn the event this information is protected by the Federal Confidentiality of Alcohol and Drug Abuse Patient Records regulations: The Federal rules restrict any use of the information to criminally investigate or prosecute any alcohol or drug abuse patient.[facility] HospitalIn the event this information is protected by the Federal Confidentiality of Alcohol and Drug Abuse Patient Records regulations: The Federal rules restrict any use of the information to criminally investigate or prosecute any alcohol or drug abuse patient.[facility] HospitalIn the event this information is protected by the Federal Confidentiality of Alcohol and Drug Abuse Patient Records regulations: The Federal rules restrict any use of the information to criminally investigate or prosecute any alcohol or drug abuse patient.[facility] HospitalIn the event this information is protected by the Federal Confidentiality of Alcohol and Drug Abuse Patient Records regulations: The Federal rules restrict any use of the information to criminally investigate or prosecute any alcohol or drug abuse patient.[facility] HospitalIn the event this information is protected by the Federal Confidentiality of Alcohol and Drug Abuse Patient Records regulations: The Federal rules restrict any use of the information to criminally investigate or prosecute any alcohol or drug abuse patient.[facility] HospitalIn the event this information is protected by the Federal Confidentiality of Alcohol and Drug Abuse Patient Records regulations: The Federal rules restrict any use of the information to criminally investigate or prosecute any alcohol or drug abuse patient.[facility] HospitalIn the event this information is protected by the Federal Confidentiality of Alcohol and Drug Abuse Patient Records regulations: The Federal rules restrict any use of the information to criminally investigate or prosecute any alcohol or drug abuse patient.[facility] HospitalIn the event this information is protected by the Federal Confidentiality of Alcohol and Drug Abuse Patient Records regulations: The Federal rules restrict any use of the information to criminally investigate or prosecute any alcohol or drug abuse patient.[facility] HospitalIn the event this information is protected by the Federal Confidentiality of Alcohol and Drug Abuse Patient Records regulations: The Federal rules restrict any use of the information to criminally investigate or prosecute any alcohol or drug abuse patient.[facility] HospitalIn the event this information is protected by the Federal Confidentiality of Alcohol and Drug Abuse Patient Records regulations: The Federal rules restrict any use of the information to criminally investigate or prosecute any alcohol or drug abuse patient.[facility] HospitalIn the event this information is protected by the Federal Confidentiality of Alcohol and Drug Abuse Patient Records regulations: The Federal rules restrict any use of the information to criminally investigate or prosecute any alcohol or drug abuse patient.[facility] HospitalIn the event this information is protected by the Federal Confidentiality of Alcohol and Drug Abuse Patient Records regulations: The Federal rules restrict any use of the information to criminally investigate or prosecute any alcohol or drug abuse patient.[facility] HospitalIn the event this information is protected by the Federal Confidentiality of Alcohol and Drug Abuse Patient Records regulations: The Federal rules restrict any use of the information to criminally investigate or prosecute any alcohol or drug abuse patient.[facility] HospitalIn the event this information is protected by the Federal Confidentiality of Alcohol and Drug Abuse Patient Records regulations: The Federal rules restrict any use of the information to criminally investigate or prosecute any alcohol or drug abuse patient.[facility] HospitalIn the event this information is protected by the Federal Confidentiality of Alcohol and Drug Abuse Patient Records regulations: The Federal rules restrict any use of the information to criminally investigate or prosecute any alcohol or drug abuse patient.[facility] HospitalIn the event this information is protected by the Federal Confidentiality of Alcohol and Drug Abuse Patient Records regulations: The Federal rules restrict any use of the information to criminally investigate or prosecute any alcohol or drug abuse patient.[facility] HospitalIn the event this information is protected by the Federal Confidentiality of Alcohol and Drug Abuse Patient Records regulations: The Federal rules restrict any use of the information to criminally investigate or prosecute any alcohol or drug abuse patient.[facility] Reason for Visit (unrecogniz ed section and content) Reason Onset Date Comments Refill Request 11/26/2021 Reason Onset Date Comments Refill Request 12/15/2021 Reason Comments 6 Month Exam Back Pain Reason Comments Results Reason Onset Date Comments Refill Request 01/24/2022 Reason Comments Abdominal Pain left sided abdominal pain. 6:10 pain scale. Does take tramadol and tylenol. Constipation used a suppository e gabrieler in the week due to mucous stools and what she got in return was bloody diarrhea Diarrhea Specialty Diagnoses / Procedures Referred By [place] bales Referred To Contact Gastroenterology Diagnoses Other specified intestinal malabsorption Chronic constipation Procedures CONSULT TO GASTROENTEROLOGY OFFICE/OUTPATIENT [facility] 60-74 MINUTES Jody Cole PA-C [address] [place] [address] Referral ID Status Reason Start Date Expiration Date V isits Requested Visits Authorized [id number] Closed PCP Requested Referral 01/24/2022 01/24/2023 1 1 Reason Comments Insurance Authorization Citalopram Reason Onset Date Comments Refill Request 02/23/2022 Reason Onset Date Comments Refill Request 03/01/2022 Reason Onset Date Comments Refill Request 03/25/2022 Reason Onset Date Comments Refill Request 04/24/2022 Reason Onset Date Comments Refill Request 04/25/2022 Reason Onset Date Comments Refill Request 05/22/2022 Reason Onset Date Comments Refill Request 06/23/2022 Reason Onset Date Comments Refill Request 06/24/2022 Reason Comments Anxiety Reason Onset Date Comments Refill Request 07/21/2022 Reason Comments Yearly Exam Reason Onset Date Comments Refill Request 08/21/2022 Reason Onset Date Comments Refill Request 09/20/2022 Reason Comments Results Reason Onset Date Comments Refill Request 10/17/2022 Reason Onset Date Comments Refill Request 10/18/2022 Reason Onset Date Comments Refill Request 11/14/2022 Reason Onset Date Comments Refill Request 12/15/2022 Reason Onset Date Comments Refill Request 01/12/2023 Reason Onset Date Comments Refill Request 02/07/2023 Reason Comments F/U 6 months Reason Onset Date Comments Refill Request 03/14/2023 Reason Onset Date Comments Refill Request 04/14/2023 Reason Onset Date Comments Refill Request 05/15/2023 Reason Onset Date Comments Refill Request 05/22/2023 Reason Onset Date Comments Refill Request 06/14/2023 Reason Comments Radiology NM Specialty Diagnoses / Procedures Referred By [place] t Referred To Contact MOLECULAR & FUNCTIONAL IMAGING Diagnoses Elevated alkaline phosphatase level Procedures NM BONE WHOLE BODY BONE &/JOINT IMAGING WHOLE BODY Jody Cole PA-C [address] [place] [address] Molecular & Functional Imaging [address] [place] [address] Referral ID Status Reason Start Date Expiration Date V isits Requested Visits Authorized [id number] Closed Auto-Generate d Referral 09/27/2022 09/03/2023 2 2 Reason Onset Date Comments Refill Request 07/14/2023 Reason Onset Date Comments Refill Request 08/07/2023 Reason Onset Date Comments Refill Request 08/14/2023 Reason Onset Date Comments Refill Request 10/13/2023 Reason Onset Date Comments Refill Request 11/09/2023 Reason Onset Date Comments Refill Request 11/11/2023 Reason Onset Date Comments Refill Request 12/13/2023 Reason Onset Date Comments Refill Request 01/06/2024 Reason Onset Date Comments Refill Request 01/10/2024 Reason Onset Date Comments Refill Request 01/30/2024 Reason Onset Date Comments Refill Request 02/09/2024 Reason Onset Date Comments Refill Request 03/07/2024 Reason Comments Physical Reason Comments Recheck Abdominal pain Reason Comments Radiology US Specialty Diagnoses / Procedures Referred By [place] bales Referred To Contact US IMAGING Diagnoses Eosinophilic esophagitis Esophageal dysphagia Chronic abdominal pain Procedures US ABD RIGHT UPPER QUADRANT US ABDOMINAL REAL TIME W/IMAGE LIMITED Jody Cole PA-C [address] [place] [address] [place] [address] Referral ID Status Reason Start Date Expiration Date V isits Requested Visits Authorized [id number] Closed Auto-Generate d Referral 04/22/2024 05/22/2025 1 1 Reason Onset Date Comments Refill Request 05/03/2024 Reason Onset Date Comments Refill Request 06/03/2024 Reason Onset Date Comments Refill Request 07/04/2024 Reason Onset Date Comments Refill Request 07/26/2024 Reason Onset Date Comments Refill Request 07/30/2024 Reason Onset Date Comments Refill Request 08/08/2024 Reason Comments Outside EGD H&P Reason Onset Date Comments Refill Request 09/29/2024 Reason Comments 6 Month Exam Reason Onset Date Comments Results 10/14/2024 Reason Onset Date Comments Refill Request 10/29/2024 Reason Onset Date Comments Refill Request 11/04/2024 Reason Onset Date Comments Refill Request 11/25/2024 Reason Onset Date Comments Refill Request 02/25/2025 Reason Onset Date Comments Refill Request 03/26/2025 Reason Comments Outside [id number] Ordered Reason Comments Follow Up Recheck anxiety Care Teams (unrecognized sec tion and content) Tie Up Worker Relationship Specialty Start Date End Date Justen Darling MD [address] [place], [place] [id number] PCP - General Family Practice 04/29/15 Tie Up Worker Relationship Specialty Start Date End Date Justen Darling MD [address] [place], [place] [phone] PCP - General Family Practice 04/29/15 Tie Up Worker Relationship Specialty Start Date End Date Justen Darling MD [address] [place], [place] [id number] PCP - General Family Practice 04/29/15 Tie Up Worker Relationship Specialty Start Date End Date Justen Darling MD [address] [place] [address] PCP - General Family Practice 04/29/15 Tie Up Worker Relationship Specialty Start Date End Date Justen Darling MD [facility] [place] [address] PCP - General Family Practice 04/29/15 Tie Up Worker Relationship Specialty Start Date End Date Justen Darling MD [address] [place] [address], [place] [address] PCP - General Family Practice 04/29/15 Tie Up Worker Relationship Specialty Start Date End Date Justen Darling MD [address] [place] [address], [place] [address] PCP - General Family Practice 04/29/15 Tie Up Worker Relationship Specialty Start Date End Date Justen Darling MD [address] [place] [address], [place] [address] PCP - General Family Practice 04/29/15 Tie Up Worker Relationship Specialty Start Date End Date Justen Darling MD [address] [place] [address], [place] [address] PCP - General Family Practice 04/29/15 Tie Up Worker Relationship Specialty Start Date End Date Justen Darling MD [address] [place] [address], [place] [address] PCP - General Family Practice 04/29/15 Tie Up Worker Relationship Specialty Start Date End Date Justen Darling MD [address] [place] [address], [place] [address] PCP - General Family Practice 04/29/15 Tie Up Worker Relationship Specialty Start Date End Date Justen Darling MD [address] [place] [address], [place] [address] PCP - General Family Medicine 04/29/15 Tie Up Worker Relationship Specialty Start Date End Date Justen Darling MD [address] [place] [address] PCP - General Family Medicine 04/29/15 Tie Up Worker Relationship Specialty Start Date End Date Justen Darling MD [address] [place] [address] PCP - General Family Medicine 04/29/15 Tie Up Worker Relationship Specialty Start Date End Date Justen Darling MD [address] [place] [address], [place] [address] PCP - General Family Medicine 04/29/15 Tie Up Worker Relationship Specialty Start Date End Date Justen Darling MD [address] [place] [address], [place] [address] PCP - General Family Medicine 04/29/15 Tie Up Worker Relationship Specialty Start Date End Date Justen Darling MD [facility] [place] [address] PCP - General Family Medicine 04/29/15 Tie Up Worker Relationship Specialty Start Date End Date Justen Darling MD [address] [place] [address], [place] [address] PCP - General Family Medicine 04/29/15 Tie Up Worker Relationship Specialty Start Date End Date Justen Darling MD [address] [place] [address], [place] [address] PCP - General Family Medicine 04/29/15 Tie Up Worker Relationship Specialty Start Date End Date Justen Darling MD [address] [place] [address], [place] [address] PCP - General Family Medicine 04/29/15 Tie Up Worker Relationship Specialty Start Date End Date Justen Darling MD [address] [place] [address], [place] [address] PCP - General Family Medicine 04/29/15 Tie Up Worker Relationship Specialty Start Date End Date Justen Darling MD [address] [place] [address] PCP - General Family Medicine 04/29/15 Tie Up Worker Relationship Specialty Start Date End Date Justen Darling MD [address] [place] [address] PCP - General Family Medicine 04/29/15 Tie Up Worker Relationship Specialty Start Date End Date Justen Darling MD [address] [place] [address] PCP - General Family Medicine 04/29/15 Tie Up Worker Relationship Specialty Start Date End Date Justen Darling MD [address] [place] [address] PCP - General Family Medicine 04/29/15 Tie Up Worker Relationship Specialty Start Date End Date Justen Darling MD [address] [place] [address] PCP - General Family Medicine 04/29/15 Tie Up Worker Relationship Specialty Start Date End Date Justen Darling MD [address] [place] [address] PCP - General Family Medicine 04/29/15 Tie Up Worker Relationship Specialty Start Date End Date Justen Darling MD [address] [place] [address] PCP - General Family Medicine 04/29/15 Tie Up Worker Relationship Specialty Start Date End Date Justen Darling MD [address] [place] [address] PCP - General Family Medicine 04/29/15 Tie Up Worker Relationship Specialty Start Date End Date Justen Darling MD [address] [place] [address] PCP - General Family Medicine 04/29/15 Tie Up Worker Relationship Specialty Start Date End Date Justen Darling MD [address] [place] [address] PCP - General Family Medicine 04/29/15 Tie Up Worker Relationship Specialty Start Date End Date Justen Darling MD [address] [place] [address] PCP - General Family Medicine 04/29/15 Tie Up Worker Relationship Specialty Start Date End Date Justen Darling MD [address] [place] [address] PCP - General Family Medicine 04/29/15 Tie Up Worker Relationship Specialty Start Date End Date Justen Darling MD [address] [place] [address] PCP - General Family Medicine 04/29/15 Tie Up Worker Relationship Specialty Start Date End Date Justen Darling MD [address] [place] [address] PCP - General Family Medicine 04/29/15 Tie Up Worker Relationship Specialty Start Date End Date Justen Darling MD [address] [place] [address] PCP - General Family Medicine 04/29/15 Tie Up Worker Relationship Specialty Start Date End Date Justen Darling MD [address] [place] [address] PCP - General Family Medicine 04/29/15 Tie Up Worker Relationship Specialty Start Date End Date Justen Darling MD [address] [place] [address] PCP - General Family Medicine 04/29/15 Tie Up Worker Relationship Specialty Start Date End Date Justen Darling MD [address] [place] [address] PCP - General Family Medicine 04/29/15 Tie Up Worker Relationship Specialty Start Date End Date Justen Darling MD [address] [place] [address] PCP - General Family Medicine 04/29/15 Tie Up Worker Relationship Specialty Start Date End Date Justen Darling MD [address] [place] [address] PCP - General Family Medicine 04/29/15 Tie Up Worker Relationship Specialty Start Date End Date Justen Darling MD [address] [place] [address] PCP - General Family Medicine 04/29/15 Krystyna Mullen APRN.ORDER PACKER OR PACKAGER [address] [place] [address] [facility] 08/10/24 Jody Cole PA-C [address] [place] [address] [facility] 08/10/24 Tie Up Worker Relationship Specialty Start Date End Date Justen Darling MD [address] [place] [address] PCP - General Family Medicine 04/29/15 Krystyna Mullen APRN.ORDER PACKER OR PACKAGER [address] [place] [address] [facility] 08/10/24 Jody Cole PA-C [address] [place] [address] [facility] 08/10/24 Tie Up Worker Relationship Specialty Start Date End Date Justen Darling MD [address] [place] [address] PCP - General Family Medicine 04/29/15 Krystyna Mullen APRN.ORDER PACKER OR PACKAGER [address] [place] [address] [facility] 08/10/24 Jody Cole PA-C [address] [place] [address] [facility] 08/10/24 Tie Up Worker Relationship Specialty Start Date End Date Justen Darling MD [address] [place] [address] PCP - General Family Medicine 04/29/15 Krystyna Mullen COMPUTED TOMOGRAPHY SCANNER OPERATOR.ORDER PACKER OR PACKAGER [address] [place] [address] [facility] 08/10/24 Jody Cole PA-C [address] [place] [address] [facility] 08/10/24 Tie Up Worker Relationship Specialty Start Date End Date Justen Darling MD [address] [place] [address] PCP - General Family Medicine 04/29/15 Krystyna Mullen, IBIS.ORDER PACKER OR PACKAGER [address] [facility] [place] [address] [facility] 08/10/24 Jody Cole PA-C [address] [place] [address] [facility] 08/10/24 Tie Up Worker Relationship Specialty Start Date End Date Justen Darling MD [address] [place] [address] PCP - General Family Medicine 04/29/15 Krystyna Mullen, COMPUTED TOMOGRAPHY SCANNER OPERATOR.ORDER PACKER OR PACKAGER [address] [facility] [place] [address] [facility] 08/10/24 Jody Cole PA-C [address] [place] [address] [facility] 08/10/24 Tie Up Worker Relationship Specialty Start Date End Date Justen Darling MD [address] [place] [address] PCP - General Family Medicine 04/29/15 Krystyna Mullen, COMPUTED TOMOGRAPHY SCANNER OPERATOR.ORDER PACKER OR PACKAGER [address] [facility] [place] [address] [facility] 08/10/24 Jody Cole PA-C [address] [place] [address] [facility] 08/10/24 Tie Up Worker Relationship Specialty Start Date End Date Justen Darling MD [address] [place] [address] PCP - General Family Medicine 04/29/15 Krystyna Mullen, IBIS.ORDER PACKER OR PACKAGER [address] [place] [address] [facility] 08/10/24 Jody Cole PA-C [address] [place] [address] [facility] 08/10/24 Tie Up Worker Relationship Specialty Start Date End Date Justen Darling MD [address] [place] [address] PCP - General Family Medicine 04/29/15 Krystyna Mullen, IBIS.ORDER PACKER OR PACKAGER [address] [place] [address] [facility] 02/03/25 Jody Cole PA-C [address] [place] [address] [facility] 02/03/25 Tie Up Worker Relationship Specialty Start Date End Date Justen Darling MD [address] [place] [address] PCP - General Family Medicine 04/29/15 Krystyna Mullen, COMPUTED TOMOGRAPHY SCANNER OPERATOR.ORDER PACKER OR PACKAGER [address] [place] [address] [facility] 02/03/25 Jody Cole PA-C [address] [place] [address] [facility] Tie Up Worker Relationship Specialty Start Date End Date Justen Darling MD [address] [place] [address] PCP - General Family Medicine 04/29/15 Krystyna Mullen, COMPUTED TOMOGRAPHY SCANNER OPERATOR.ORDER PACKER OR PACKAGER [address] [place] [address] [facility] 02/03/25 Jody Cole PA-C [address] [place] [address] [facility] 02/03/25 Tie Up Worker Relationship Specialty Start Date End Date Justen Darling MD [address] [place] [address] PCP - General Family Medicine 04/29/15 Krystyna Mullen, COMPUTED TOMOGRAPHY SCANNER OPERATOR.ORDER PACKER OR PACKAGER [address] [place] [address] [facility] 02/03/25 Jody Cole PA-C [address] [place] [address] [facility] 02/03/25 Team Status: Active Member Role/Relationship Status Dates Dr. Justen Darling MD Family Provider Active Dr. Justen Darling MD Primary Care Provider Active Team Status: Inactive Member Role/Relationship Status Dates Dr. Justen Darling MD Primary Care Provider Active Start: April 11, 2025 End: April 11, 2025 Dr. Justen Darling MD Referring Provider Active Start: April 11, 2025 End: April 11, 2025 VALERIO Ramirez Attending Provider Active S tart: April 11, 2025 End: April 11, 2025 Tie Up Worker Relationship Specialty Start Date End Date Justen Darling MD [facility] [place] [address] PCP - General Family Medicine 04/29/15 Krystyna Mullen APRN.ORDER PACKER OR PACKAGER [address] [place] [address] [facility] 02/03/25 Jody Cole PA-C [address] [place] [address] [facility] 02/03/[facility] Tie Up Worker Relationship Specialty Start Date End Date Justen Darling MD [address] [place] [address] PCP - General Family Medicine 04/29/15 Krystyna Mullen, IBIS.ORDER PACKER OR PACKAGER [address] [place] [address] [facility] 02/03/25 Jody Cole PA-C [address] [place] [address] [facility] 02/03/25 Team Status: Active Member Role/Relationship Status Dates Dr. Justen Darling MD Primary Care Provider Active Team Status: Inactive Member Role/Relationship Status Dates Dr. Justen Darlnig MD Primary Care Provider Active Start: April 28, 2025 End: April 28, 2025 VALERIO Ramirez Attending Provider Active S tart: April 28, 2025 End: April 28, 2025 VALERIO Ramirez Referring Provider Active S tart: April 28, 2025 End: April 28, 2025 Team Status: Active Member Role/Relationship Status Dates Dr. Justen Darling MD Primary Care Provider Active Start: April 30, 2025 VALERIO Ramirez Attending Provider Active S tart: April 30, 2025 VALERIO Ramirez Referring Provider Active S tart: April 30, 2025 Team Status: Inactive Member Role/Relationship Status Dates Dr. Justen Darling MD Primary Care Provider Active Start: April 30, 2025 End: April 30, 2025 VALERIO Ramirez Attending Provider Active S tart: April 30, 2025 End: April 30, 2025 VALERIO Ramirez Referring Provider Active S tart: April 30, 2025 End: April 30, 2025 Goals (unrecognized section and content) Goals may be documented in a n alternate sectionGoals may be documented in an alternate sectionGoals may be documented in an alternate section FOR RECORDS PERTAINING TO PATIENTS WHO ARE OR HAVE BEEN ENROLLED IN A CHEMICAL DEPENDENCY/SUBSTANCEABUSE PROGRAM, SOME INFORMATION MAY BE OMITTED. This clinical summary was aggregated from multiple sources. Caution should be exercised in using it in the provision of clinical care. This summary normalizes information from multiple sources, and as a consequence, information in this document may materially change the coding, format and clinical context of patient data. In addition, data may be omitted in some cases. CLINICAL DECISIONS SHOULD BE BASED ON THE PRIMARY CLINICAL RECORDS. [facility]. provides no warranty or guarantee of the accuracy or completeness of information in this document.
[2025-08-07] MEDS: Lactated Ringers 1,000 ML 15 ML IV (06:43)
--- NOTE | 2025-08-07 06:54 | PCM.PRE.AN2 ---
ASA Classification* ASA Classification ASA Classification: 2 Assessment & Plan Anesthesia* Anesthesia Assessment Anesthesia Assessment: Discussed sedation and/or anesthesia options, risks, benefits, and alternatives with patient/parents/legal guardian/POA. Questions invited. The patient/parents/legal guardian/POA seems to understand and agrees to proceed with anesthesia plan. Reviewed the physical assessment, medical history, allergy history and patient home medications list prior to surgery/procedure/anesthetic and documented any changes. Performed airway and anesthesia risk assessments. Anesthesia Type Anesthesia Type: MAC History Source History Obtained from:: Patient and Chart Anesthesia Focused Assessment* Temperature: 97.8 F Pulse Rate: 80 Blood Pressure: 153/80 Respiratory Rate: 18 Pulse Ox: 100 Oxygen Delivery Method: Room Air Airway Assessment Mouth opens: >3 cm Mallampati Score: I Teeth Condition: Dentures (Upper dentures are secure. Lower dentures are out.) Neck Range of motion (ROM): Limited ROM (Somewhat Decreased) Labs Anesthesia Preop lab: CBC WBC, (4.4-11.0) 5.0 K/mm3 04/28/25, 11: RBC, (4.2-5.4) 3.83 M/mm3 L 04/28/25, 11:34 Hgb, (12.0-15.0) 11.6 g/dL L 04/28/25, :34 Hct, (37-47) 35.9 % L 04/28/25, 11:34 Plt Count, (150-450) 307 K/mm3 04/28/25, 11:34 CHEMISTRY Potassium, (3.3-5.1) 4.2 mmol/L 04/28/25, :34 Sodium, (133-145) 137 mmol/L 04/28/25, 11:34 BUN, (4-19) 9 mg/dL 04/28/25, :34 Creatinine, (0.70-1.20) 0.80 mg/dL 04/28/25, : Glucose, (70-99) 91 mg/dL 04/28/25, :34 POC Glucose, (74-106) 90 mg/dL 08/16/24, 14:00 COAG Pre-Assessment Diagnosis/Proposed Procedure Planned Operative Procedure(s): COLONOSCOPY, EGD Anesthesia History Anesthesia History - sales activity manager: Anesthesia History - sales activity manager Hx Hospitalization No 08/04/25 13:24 Any Problems With Anesthesia No 08/04/25 13:24 Cholinesterase deficiency No 08/04/25 13:24 You/Your Family Experience No 08/04/25 13:24 fever (hyperthermia) with Relationship Recent Exposure to Contagious No 08/07/25 06:27 Disease Does patient have nerve No 08/04/25 13:24 stimulator Patient instructed to have device shut off --Does patient have Pacemaker No 08/07/25 06:27 or ICD? When Was Last Pacemaker Check QUESTION #4 FULL TEXT: You/Your Family Experience fever (hyperthermia) with Anesthesia Last Oral Intake Last Oral intake: Last Oral Intake NPO since 02:30 08/07/25 06:27 Meds taken in AM with sips of Yes 08/07/25 06:27 water? Meds patient instructed to zofran 08/07/25 06:27 take am of surgery Any additional information?: Yes NPO since: 02:30 (Patient finished prep at 2:30 AM.) Meds taken in AM with sips of water?: Yes PONV PONV - sales activity manager: PONV - sales activity manager Female Yes 08/04/25 13:24 HX of Motion Sickness No 08/04/25 13:24 HX of N/V After Surgery No 08/04/25 13:24 Non-Smoker Yes 08/04/25 13:24 Duration of Surgery greater No 08/04/25 13:24 than 60 minutes Number of Risk Factors 2 08/04/25 13:24 PONV Score Moderate Risk 08/04/25 13:24 Height & Weight Height & Weight: Anesthesia: Height & Weight Height 5 ft 2 in 08/07/25 06:27 Weight: 54.5 kg 08/07/25 06:27 Body Mass Index (BMI) 21.9 08/07/25 06:27 Respiratory Assessment Respiratory Assessment - sales activity manager: Respiratory Tract Infection Hx - sales activity manager Hx Respiratory Tract Infection No 08/04/25 13:24 STOP Sleep Apnea STOP Sleep Apnea - sales activity manager: STOP Sleep Apnea - sales activity manager Hx Hypertension No 08/04/25 13:24 Hx Sleep Apnea No 08/04/25 13:24 CPAP BIPAP Do you snore loudly (louder No 08/04/25 13:24 than talking or can be heard Do you often feel tired/ No 08/04/25 13:24 fatigued/ sleepy during daytime? Has anyone observed you stop No 08/04/25 13:24 breathing during sleep? STOP Results Negative 08/04/25 13:24 QUESTION #5 FULL TEXT : Do you snore loudly (louder than talking or can be heard through closed doors)? Tobacco Use History Tobacco Use History - sales activity manager: Tobacco Use History - sales activity manager Tobacco Use Smoking Status Never smoker 08/04/25 13:24 Hx Tobacco Use No 08/04/25 13:24 Years Smoking Packs Smoked per Day Smoking Cessation Date was within the last 15 years Hx Smoking Cessation Date Hx Smoking Cessation Counseling Hematologic Medial History Hematologic Hx - sales activity manager: Hematologic Medical Hx - technical support engineer Hx of Blood Transfusion No 08/04/25 13:24 Hx of Transfusion in last 3 No 08/04/25 13:24 Months Date of Last Transfusion (if within last 3 months) Ever experience any problems No 08/04/25 13:24 with transfusion(s)? Specify any problems Hx of Preganancy in last 3 No 08/04/25 13:24 Months Nurse Filling Out Transfusion [email or web address] 08/04/25 13:24 & Questions: Date: 08/04/25 08/04/25 13:24 Time: 13:26 08/04/25 13:24 Patient unable to answer at this time (ie. confused, unrespo /Reproduction History /Reproductive History - sales activity manager: /Reproductive Hx- sales activity manager Hx Now Gestational Age (in weeks): EDC: Hx Hx Para Hx Section SAB No 08/15/24 08:26 Does the father of the baby or his family experience fever w Father of the baby Malignant Hypertension history comment Active Medications Active Medications: Current Medications Generic Name Dose Route Start Last Admin Trade Name Freq PRN Reason Stop Dose Admin Lactated Ringer's 1,000 mls @ 15 mls/hr 08/07/25 06:30 08/07/25 06:43 IV 15 mls/hr .Q48H JV Administration Non-Formulary Medication 100 units 08/07/25 06:53 Botox ENDO 08/07/25 06:54 NOW STA PFSH Medical History History of stress test Wears glasses Wears dentures Post-menopausal Depression Fatty liver Easy bruising Difficulty swallowing History of ulceration Gastric reflux Non-smoker History of edema Spasm Vitamin D deficiency Vitamin A deficiency Ovarian cyst Iron deficiency anemia Intestinal malabsorption History of Helicobacter pylori infection History of herpes labialis Type 2 diabetes mellitus Cervical dysplasia Anxiety Chronic abdominal pain Eosinophilic esophagitis Home Medications Medication Instructions Recorded Last Taken Type cyanocobalamin (vitamin B-12) 100 mcg IM .Q2W 04/07/17 07/25/25 History 1,000 mcg/mL injection solution dicyclomine 10 mg capsule 10 mg PO TIDAC 04/07/17 08/06/25 History ergocalciferol (vitamin D2) 1,250 50,000 unit PO .[id number] 04/07/17 07/31/25 History mcg (50,000 unit) capsule (Vitamin D2) tramadol 50 mg tablet 50 mg PO BID 04/07/17 08/06/25 History gabapentin 100 mg capsule 100 mg PO TID 04/24/24 08/06/25 History ondansetron HCl 4 mg tablet 4 mg PO Q6H PRN nausea and vomiting 04/24/24 08/07/25 History tizanidine 4 mg capsule 4 mg PO BID PRN muscle spasticity 04/24/24 08/05/25 History valacyclovir 1 gram tablet 1,000 mg PO DAILY PRN COLD SORE 04/24/24 Unknown History bupropion HCl 150 mg 24 hr tablet, 150 mg PO 1200 08/15/24 08/06/25 History extended release pantoprazole 40 mg tablet,delayed 40 mg PO DAILY 08/15/24 08/06/25 History release hydroxyzine pamoate 25 mg capsule 25 mg PO QHS 04/11/25 08/06/25 History (Vistaril) citalopram 20 mg tablet 20 mg PO DAILY 08/07/25 08/06/25 History Allergy/AdvReac Type Severity Reaction Status Date / Time buspirone (From BuSpar) Allergy Intermediate Other Verified 08/07/25 06:24 zolpidem (From Ambien) Allergy Intermediate Other Verified 08/07/25 06:24 meperidine (From Demerol) AdvReac HALLUCINATI Verified 08/07/25 06:24 ONS Family History Mother Diabetes Hypertension Father Cancer Emphysema lung Sister Thyroid disorder Brother Colon cancer Surgical History Hx of colonoscopy History of esophagogastroduodenoscopy (EGD) H/O tubal ligation 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
--- NOTE | 2025-08-07 07:15 | COLBX_PTH ---
PATIENT: CHEN REYES LOC: EN U#:[id number] AGE/SX: 65/F ROOM: RE08/07/[address]: Dr. Israel Francis DO : 1960 BED: DIS: 08/07/2025 SPEC #: [id number] RECD: 08/07/25 09:34 STATUS: CARMINE REAntonette #: [id number] VILMA: 08/07/25 07:[address]: Israel Francis DEPT: SURGICAL PATHOLOGY RECD BY: Latia Guallpa ENTERED: 08/07/25 13:43 SP TYPE: COLON BX OTHR DR: Dr. Justen Jacobsen MD Tissues: A - Ileum, NOS B - COLON BIOPSY Procedures: Surgery Specimen Level IV HEADER OPERATION: Colonoscopy, EGD, botox injection, biopsy PRE-OP DIAGNOSIS: History of Candido-en-Y gastric bypass, abdominal pain TISSUE SUBMITTED: A. Terminal ileum, B. Random colonic MICROSCOPIC DIAGNOSIS A. Small intestine, terminal ileum, biopsies: - Benign ileal mucosa without active inflammation or architectural distortion B. Large intestine, random: * Benign colonic mucosa without evidence of active inflammatory bowel disease MICROSCOPIC DESCRIPTION Slides are reviewed. GROSS DESCRIPTION A. Received in fixative is one container labeled with the patient's name and designated "Terminal ileum biopsy." The specimen consists of three irregular fragments of fernandez tissue that measure 0.3 to 0.4cm. The specimen is totally submitted in one cassette. B. Received in fixative is one container labeled with the patient's name and designated "Random colonic biopsy." The specimen consists of multiple irregular fragments of fernandez tissue that in aggregate measure 0.8 x 0.6 x 0.1 cm. The specimen is totally submitted in one cassette. [place] 08/07/2025 CPT:[id number]
--- NOTE | 2025-08-07 07:27 | PCM.HP.STD ---
HPI - General General Date of Admission: 08/07/25 Date of Service: 08/07/25 HPI Narrative SUSAN REYES, is a 65 F who presents [ Chief Complaint: Dysphagia Details: SUSAN REYES, is a 65 F who presents to the office today for follow-up. 07.09.24 esophageal manometry-100% failure of swallows. Complete failure of peristalsis. Possible autoimmune rheumatological disorder, like scleroderma. Or symptomatic GERD. Recommend EGD. 08.16.24 EGD - Abnormal esophageal motility, established achalasia. Injected with botulinum toxin. - Candido-en-Y gastrojejunostomy with gastrojejunal anastomosis characterized by healthy appearing mucosa. - Normal examined jejunum. - No specimens collected. Last office visit with Brenda Asif MARKETING SERVICES COORDINATOR for nausea not dependent on oral intake. She has left upper quadrant abdominal pain. Patient notes 30 pound weight loss since her EGD due to cutting out certain foods. CT abdomen pelvis 04/30/2025Prior gastrectomy. Reflux into the esophagus. The lung bases are clear. Labs 05/06/25; hemoglobin 11.6, alkaline phosphatase 124, otherwise normal OV 07/09/2025 -nausea is getting better -Worsening dysphagia, food getting stuck with every meal, endorses regurgitation -concerned about weight loss (20 lbs over the past 6 months) denies lifestyle changes -constipation alternating with loose stools -BM every other day -taking stool softener for constipation -colonoscopy around 4-5 years ago -brother had colon cancer 39 PFSH Medical History History of stress test Wears glasses Wears dentures Post-menopausal Depression Fatty liver Easy bruising Difficulty swallowing History of ulceration Gastric reflux Non-smoker History of edema Spasm Vitamin D deficiency Vitamin A deficiency Ovarian cyst Iron deficiency anemia Intestinal malabsorption History of Helicobacter pylori infection History of herpes labialis Type 2 diabetes mellitus Cervical dysplasia Anxiety Chronic abdominal pain Eosinophilic esophagitis Home Medications Medication Instructions Recorded Last Taken Type cyanocobalamin (vitamin B-12) 100 mcg IM .Q2W 04/07/17 07/25/25 History 1,000 mcg/mL injection solution dicyclomine 10 mg capsule 10 mg PO TIDAC 04/07/17 08/06/25 History ergocalciferol (vitamin D2) 1,250 50,000 unit PO .[id number] 04/07/17 07/31/25 History mcg (50,000 unit) capsule (Vitamin D2) tramadol 50 mg tablet 50 mg PO BID 04/07/17 08/06/25 History gabapentin 100 mg capsule 100 mg PO TID 04/24/24 08/06/25 History ondansetron HCl 4 mg tablet 4 mg PO Q6H PRN nausea and vomiting 04/24/24 08/07/25 History tizanidine 4 mg capsule 4 mg PO BID PRN muscle spasticity 04/24/24 08/05/25 History valacyclovir 1 gram tablet 1,000 mg PO DAILY PRN COLD SORE 04/24/24 Unknown History bupropion HCl 150 mg 24 hr tablet, 150 mg PO 1200 08/15/24 08/06/25 History extended release pantoprazole 40 mg tablet,delayed 40 mg PO DAILY 08/15/24 08/06/25 History release hydroxyzine pamoate 25 mg capsule 25 mg PO QHS 04/11/25 08/06/25 History (Vistaril) citalopram 20 mg tablet 20 mg PO DAILY 08/07/25 08/06/25 History Allergy/AdvReac Type Severity Reaction Status Date / Time buspirone (From BuSpar) Allergy Intermediate Other Verified 08/07/25 06:24 zolpidem (From Ambien) Allergy Intermediate Other Verified 08/07/25 06:24 meperidine (From Demerol) AdvReac HALLUCINATI Verified 08/07/25 06:24 ONS Family History Mother Diabetes Hypertension Father Cancer Emphysema lung Sister Thyroid disorder Brother Colon cancer Surgical History Hx of colonoscopy History of esophagogastroduodenoscopy (EGD) H/O tubal ligation S/P total gastrectomy and Candido-en-Y esophagojejunal anastomosis Hx of cholecystectomy Social History Smoking Status: Never smoker alcohol intake: never substance use type: does not use ROS Constitutional Constitutional: Denies fatigue, fever(s), poor appetite, weight gain or weight loss Gastrointestinal Gastrointestinal: Denies belching, bloating, change in bowel habits, change in stool character, chewing difficulty, coffee ground emesis, constipation, cramping, diarrhea, dyspepsia, dysphagia, early satiety, excessive flatus, fecal incontinence, heartburn, hematemesis, hematochezia, hemorrhoids, loose stools, melena, nausea, odynophagia, rectal bleeding, tenesmus, vomiting or weight changes Vital Signs Vital Signs Vital Signs: 08/07/25 06:27 08/07/25 06:27 08/07/25 06:27 Temperature 97.8 F Temperature Source Temporal Pulse Rate 80 Respiratory Rate 18 Respiratory Pattern Normal Blood Pressure 153/80 H Blood Pressure Mean 104 Blood Pressure Source Monitor Blood Pressure Position Semi-Fowlers Blood Pressure Location Right Arm Baseline BP 153/80 Pulse Ox 100 Oxygen Delivery Method Room Air 08/07/25 07:01 Temperature 97.8 F Temperature Source Pulse Rate 80 Respiratory Rate 18 Respiratory Pattern Blood Pressure 153/80 H Blood Pressure Mean Blood Pressure Source Blood Pressure Position Blood Pressure Location Baseline BP Pulse Ox 100 Oxygen Delivery Method Room Air Weight Weight: 120 lb 2.431 oz Body Mass Index (BMI) 21.9 Physical Exam Const alert, oriented x3, no apparent distress and healthy appearing General Appearance: cooperative GI normal to inspection, nondistended, normoactive bowel sounds, soft to palpation, non-tender and non-distended Percussion: normal to percussion Rectal Exam: deferred Assessment & Plan Assessment/Plan (1) History of Candido-en-Y gastric bypass: (2) Abdominal pain: QUALIFIERS: Abdominal location: left upper quadrant Qualified Code(s): R10.12 - Left upper quadrant pain (3) Nausea: (4) Esophageal dysmotility: PLAN: Assessment and Plan Assessment and Plan (1) History of Candido-en-Y gastric bypass: Status: Chronic Plan: Susan 65-year-old female patient with a past medical history of diabetes, history of Candido-en-Y gastric bypass, esophageal dysmotility and herpes simplex virus here today for follow-up. Patient's nausea is improving. She is noticing worsening in her dysphagia. She is having episodes of difficulty swallowing with every meal. She endorses regurgitation. In the past Botox has relieved the symptoms. Patient's bowel habits are irregular and she alternates between constipation and loose stool. She recently had an impaction and was seen in the ED due to this. Patient also has about a 20 pound weight loss in the past 6 months which is unintentional. She has a family history of colon cancer in her brother who was diagnosed in his 30s. Last colonoscopy was 4 to 5 years ago she does have a history of polyps. Due to change in her bowel habits and unintentional weight loss she will undergo colonoscopy and EDG for assessment of her entire GI tract. She will also have Botox for her dysphagia. -EGD with Botox - Colonoscopy - Follow-up after procedures Note: Portions of this note may have been selectively carried forward from previous documentation to ensure continuity and accuracy of the clinical record. All imported information has been reviewed and updated as necessary to reflect the current patient status, findings, and clinical decision-making for this encounter. [employer] speech recognition betting clerk software was used to create portions of this document. Sound alike and misspelled words, as well as other betting clerk errors may be contained in the documentation. (2) Abdominal pain: Status: Acute Qualifiers: Abdominal location: left upper quadrant Qualified Code(s): R10.12 - Left upper quadrant pain (3) Nausea: Status: Acute (4) Esophageal dysmotility: Status: Patient will undergo an upper endoscopy with Botox.]
[2025-08-07] MEDS: 0.9% Normal Saline (Pres. free 10 ML Vial (08:06)
--- NOTE | 2025-08-07 08:23 | OP.EGD_ITS ---
Patient Name: Susan Reid Procedure Date: 08/07/2025 7:30 AM Date of : 1960 Age: 65 Procedure: Upper GI endoscopy Indications: Abdominal pain in the left upper quadrant, Abdominal pain in the left lower quadrant, Dysphagia, For botulinum toxin injection of achalasia Providers: Israel Francis DO Referring MD: Justen Jacobsen MD Medicines: Monitored Anesthesia Care Patient Profile: This is a 65 year old female. Refer to note in patient chart for documentation of history and physical. Patient has symptoms of dysphagia with both liquids and solids. Her most recent EGD for biopsy and EGD for dilation. Complications: No immediate complications. Procedure: Pre-Anesthesia Assessment: - Prior to the procedure, a History and Physical was performed, and patient medications and allergies were reviewed. The patient is competent. The risks and benefits of the procedure and the sedation options and risks were discussed with the patient. All questions were answered and informed consent was obtained. Patient identification and proposed procedure were verified by the physician in the pre-procedure area. Mental Status Examination: alert and oriented. Airway Examination: normal oropharyngeal airway and neck mobility. Respiratory Examination: clear to auscultation. CV Examination: normal. Prophylactic Antibiotics: The patient does not require prophylactic antibiotics. Prior Anticoagulants: The patient has taken no anticoagulant or antiplatelet agents. ASA Grade Assessment: II - A patient with mild systemic disease. After reviewing the risks and benefits, the patient was deemed in satisfactory condition to undergo the procedure. The anesthesia plan was to use monitored anesthesia care (MAC). Immediately prior to administration of medications, the patient was re-assessed for adequacy to receive sedatives. The heart rate, respiratory rate, oxygen saturations, blood pressure, adequacy of pulmonary ventilation, and response to care were monitored throughout the procedure. The physical status of the patient was re-assessed after the procedure. After obtaining informed consent, the endoscope was passed under direct vision. Throughout the procedure, the patient's blood pressure, pulse, and oxygen saturations were monitored continuously. The Colonoscope was introduced through the mouth, and advanced to the anastomosis site of gastric bypass. The upper GI endoscopy was accomplished without difficulty. The patient tolerated the procedure well. Scope In: 7:49:46 AM Scope Out: 8:01:39 AM Total Procedure Duration Time 0 hours 11 minutes 53 seconds Findings: Abnormal motility was noted in the esophagus. The cricopharyngeus was abnormal. There are extra peristaltic waves in the esophageal body. The distal esophagus/lower esophageal sphincter is spastic, but gives up passage to the endoscope. Primary peristaltic waves are noted. Area was successfully injected with 100 units botulinum toxin. Evidence of a Candido-en-Y gastrojejunostomy was found. The gastrojejunal anastomosis was characterized by healthy appearing mucosa. This was traversed. The [id number] limb was characterized by healthy appearing mucosa. The jejunojejunal anastomosis was characterized by healthy appearing mucosa. The [id number] limb was not examined as it could not be found. The excluded stomach was not examined as it could not be found. Impression: - Abnormal esophageal motility. Injected with botulinum toxin. - Candido-en-Y gastrojejunostomy with gastrojejunal anastomosis characterized by healthy appearing mucosa. - No specimens collected. Recommendation: - Discharge patient to home. - Resume previous diet. - Continue present medications. Procedure Code(s): --- Professional --- 12227, Esophagogastroduodenoscopy, flexible, transoral; with directed submucosal injection(s), any substance CPT copyright 2021 [employer]. All rights reserved. The codes documented in this report are preliminary and upon store operations manager review may be revised to meet current compliance requirements. Israel Francis DO 08/07/2025 8:23:08 AM This report has been signed electronically. Number of Addenda: 0 Note Initiated On: 08/07/2025 7:30 AM
--- NOTE | 2025-08-07 08:24 | OP.PROVAT_ITS ---
08/07/2025 Justen Jacobsen MD Re : Upper GI endoscopy procedure for Susan Reid Dear Dr. Jacobsen This procedure was performed on August. My impressions and recommendations are as follows: Impressions : - Abnormal esophageal motility. Injected with botulinum toxin. - Candido-en-Y gastrojejunostomy with gastrojejunal anastomosis characterized by healthy appearing mucosa. - No specimens collected. Recommendations : - Discharge patient to home. - Resume previous diet. - Continue present medications. My findings are described in the full procedure note, which is enclosed. If I can be of further assistance, please feel free to contact me at . Sincerely, Israel Francis, 08/07/2025 8:23:08 AM This report has been signed electronically.
--- NOTE | 2025-08-07 08:26 | OP.COLON_ITS ---
Patient Name: Susan Reid Procedure Date: 08/07/2025 8:01 AM Date of : 1960 Age: 65 Procedure: Colonoscopy Indications: Abdominal pain in the left lower quadrant, Abdominal pain in the left upper quadrant, Weight loss Providers: Israel Francis DO Referring MD: Justen Jacobsen MD Medicines: Monitored Anesthesia Care Patient Profile: This is a 65 year old female. Refer to note in patient chart for documentation of history and physical. Patient has symptoms of dysphagia with both liquids and solids. Her most recent EGD for biopsy and EGD for dilation. Last Colonoscopy: several years ago. Complications: No immediate complications. Procedure: Pre-Anesthesia Assessment: - Prior to the procedure, a History and Physical was performed, and patient medications and allergies were reviewed. The patient is competent. The risks and benefits of the procedure and the sedation options and risks were discussed with the patient. All questions were answered and informed consent was obtained. Patient identification and proposed procedure were verified by the physician in the pre-procedure area. Mental Status Examination: alert and oriented. Airway Examination: normal oropharyngeal airway and neck mobility. Respiratory Examination: clear to auscultation. CV Examination: normal. Prophylactic Antibiotics: The patient does not require prophylactic antibiotics. Prior Anticoagulants: The patient has taken no anticoagulant or antiplatelet agents. ASA Grade Assessment: II - A patient with mild systemic disease. After reviewing the risks and benefits, the patient was deemed in satisfactory condition to undergo the procedure. The anesthesia plan was to use monitored anesthesia care (MAC). Immediately prior to administration of medications, the patient was re-assessed for adequacy to receive sedatives. The heart rate, respiratory rate, oxygen saturations, blood pressure, adequacy of pulmonary ventilation, and response to care were monitored throughout the procedure. The physical status of the patient was re-assessed after the procedure. After I obtained informed consent, the scope was passed under direct vision. Throughout the procedure, the patient's blood pressure, pulse, and oxygen saturations were monitored continuously. The Colonoscope was introduced through the anus and advanced to the terminal ileum. The colonoscopy was performed without difficulty. The patient tolerated the procedure well. Scope In: 8:03:45 AM Scope Withdrawal Time 0 hours 7 minutes 50 seconds Scope Out: 8:15:53 AM Total Procedure Duration Time 0 hours 12 minutes 8 seconds Findings: The perianal and digital rectal examinations were normal. An area of mildly congested mucosa was found at the hepatic flexure, in the ascending colon and in the cecum. Biopsies were taken with a cold forceps for histology. Verification of patient identification for the specimen was done. Estimated blood loss was minimal. The terminal ileum appeared normal. Biopsies were taken with a cold forceps for histology. Verification of patient identification for the specimen was done. Estimated blood loss was minimal. [Description] stool was found in the recto-sigmoid colon, in the sigmoid colon and in the descending colon [Visualization]. Impression: - Congested mucosa at the hepatic flexure, in the ascending colon and in the cecum. Biopsied. - The examined portion of the ileum was normal. Biopsied. Recommendation: - Discharge patient to home. - Resume previous diet. - Continue present medications. - Await pathology results. - Repeat colonoscopy in 5 years for surveillance. Procedure Code(s): --- Professional --- 05755, Colonoscopy, flexible; with biopsy, single or multiple CPT copyright 2021 [employer]. All rights reserved. The codes documented in this report are preliminary and upon customer care voice consultant review may be revised to meet current compliance requirements. Israel Francis DO 08/07/2025 8:25:31 AM This report has been signed electronically. Number of Addenda: 0 Note Initiated On: 08/07/2025 8:01 AM
--- NOTE | 2025-08-07 08:26 | OP.PROVAT_ITS ---
08/07/2025 Justen Jacobsen MD Re : Colonoscopy procedure for Susan Reid Dear Dr. Jacobsen This procedure was performed on August. My impressions and recommendations are as follows: Impressions : - Congested mucosa at the hepatic flexure, in the ascending colon and in the cecum. Biopsied. - The examined portion of the ileum was normal. Biopsied. Recommendations : - Discharge patient to home. - Resume previous diet. - Continue present medications. - Await pathology results. - Repeat colonoscopy in 5 years for surveillance. My findings are described in the full procedure note, which is enclosed. If I can be of further assistance, please feel free to contact me at . Sincerely, Israel Francis, 08/07/2025 8:25:31 AM This report has been signed electronically.
--- NOTE | 2025-08-07 08:30 | PCM.POST.ANE ---
Anesthesia: Postop Eval I Current Vital Signs Temperature: 97.6 F Pulse Rate: 89 Blood Pressure: 118/65 Respiratory Rate: 16 Pulse Ox: 98 Oxygen Delivery Method: Room Air Assessment Airway patent: Yes Spontaneous unlabored respirations: Yes Mental status: Awake nausea: No Vomiting: No Anesthesia Complication: No Fluid Hydration Crystalloid volume administer (ml): 900 Total IV fluid infused: 900 Progress Note Anesthesia document: Postop Eval 1 completed: Yes
--- NOTE | 2025-08-07 08:50 | PCM.POSTANE2 ---
Anesthesia Postop Eval I Sum Postop Eval Completion status Anesthesia document: Postop Eval 1 completed: Yes Anesthesia Postop Eval I Summary Anesthesia Postop Eval I Summary: Anesthesia Postop Eval I: Assessment Summary Airway patent Yes 08/07/25 08:31 [email or web address] Spontaneous unlabored Yes 08/07/25 08:31 [email or web address] respirations Mental status Awake 08/07/25 08:31 [email or web address] nausea No 08/07/25 08:31 [email or web address] Vomiting No 08/07/25 08:31 [email or web address] Anesthesia Postop Eval I: Fluid Summary Crystalloid volume administer 900 08/07/25 08:31 [email or web address] (ml) Colloids volume administered ( ml) Blood Product volume administered (ml) Total IV fluid infused 900 08/07/25 08:31 [email or web address] Anesthesia Postop Eval I: Summary Notes Anesthesia Complication No 08/07/25 08:31 [email or web address] Anesthesia Complication Comment: Post-operative progress note Anesthesia: Postop Eval II Evaluation Mental status: Awake and Calm Pain Level: 0 nausea: No Vomiting: No Complications Anesthesia Complication: No
== END 2025-08-07 09:38 | disposition home or self-care (01) ==
LOC: EN 06:01 → AC 06:07
PROVIDERS: PCP Family Medicine; Referring Provider Family Medicine; Visit Provider Internal Medicine Gastroenterology
PROC: 0DJD8ZZ Inspection of Lower Intestinal Tract, Via Natural or Artificial Opening Endoscopic (ICD-10-PCS; CPT 45378; principal; 2025-08-07 07:10)
DX: K22.0 Achalasia of cardia (principal); E11.9 Type 2 diabetes mellitus without complications; K21.9 Gastro-esophageal reflux disease without esophagitis; Z79.899 Other long term (current) drug therapy; Z98.84 Bariatric surgery status; Z98.0 Intestinal bypass and anastomosis status; R10.12 Left upper quadrant pain; R10.32 Left lower quadrant pain
CPT/HCPCS: 45380; 43236; 88305; A4216; J0585; J2405